=== PATIENT | female | born 1940 | race Caucasian/White ===

== ENCOUNTER 2017-02-02 19:12 | Emergency (ER) | payer MEDICARE, OTHER, SELFPAY ==
[2017-02-02 19:13] VITALS: BP 151/60; PULSE 66; RESP 16; TEMP 36.4; O2SAT 97; BMI 26.9
--- NOTE | 2017-02-02 19:46 | RAD_ITS ---
STUDY: X-RAY - PELVIS AND RIGHT HIP REASON FOR EXAM: Female, 76 years old. Hip pain TECHNIQUE: Radiological exam, hip, unilateral, with pelvis when performed; 2 or 3 views. COMPARISON: None. FINDINGS: There is a non-specific bowel gas pattern. Normal visualized soft tissue structures. Normal bilateral iliac wings, sacroiliac joints and visualized sacrum. Normal bilateral superior and inferior pubic rami. Normal pubic symphysis. Normal bilateral ischial tuberosities. Normal visualized femoral head. Normal acetabulum. Normal hip joint. RAD/Hip 2-3 Views with Pelvis IMPRESSION: Normal x-ray examination of the pelvis and hip. Electronically Signed: Marlon Henson DO at 21:08 EST , Service support ,
--- NOTE | 2017-02-02 19:46 | RAD_ITS ---
STUDY: X-RAY CHEST REASON FOR EXAM: Female, 76 years old. Chest pain TECHNIQUE: Frontal and lateral views of the chest. COMPARISON: 12/12/2016. FINDINGS: The lungs are expanded. Chronic interstitial changes right upper lung. Posterior opacity seen on the lateral view. There is no demonstrated pleural abnormality. Normal size heart. Normal mediastinum and kahlil. Normal visualized pulmonary arteries. Normal visualized aortic arch and descending thoracic aorta. Normal visualized thoracic spine. Normal visualized ribs, clavicles, and shoulders. There is no demonstrated abnormality of the visualized soft tissue structures of the upper abdomen. RAD/Chest PA and Lateral IMPRESSION: Small right effusion. Chronic interstitial changes. No acute infiltrates. Electronically Signed: Marlon Henson DO at 21:04 EST , Service support ,
--- NOTE | 2017-02-02 19:46 | EKG12_ITS ---
Test Reason : SOB Blood Pressure : / mmHG Vent. Rate : 062 BPM Atrial Rate : 062 BPM P-R Int : 188 ms QRS Dur : 098 ms QT Int : 438 ms P-R-T Axes : 081 029 043 degrees QTc Int : 444 ms Normal sinus rhythm Low voltage QRS Borderline ECG Confirmed by LEAH NY, SARAH ([id number]), staff editor DOMINGO WING ([id number]) on 02/11/2017 3:14:38 PM Referred By: ÁNGEL Confirmed By:SARAH LYNN MD
--- NOTE | 2017-02-02 19:46 | ED.VISSUMM ---
- ER Visit Summary Date of Service: 02/02/17 Chief Complaint: Wheezing intermittently and leg swelling and recent fall History of Present Illness: The patient is a 76 F who in December had a stroke. She was admitted to [facility] and then recently was in [facility]. She is now at home and being cared for by her granddaughter. She is a history of anemia and insulin-dependent diabetes. Also A. fib. Patient denies chest pain or fever. She denies hemoptysis. Physical Examination: Well-appearing older female. Vital signs are stable afebrile. Pulse ox 97% on room air no signs of hypoxia. HEENT exam unremarkable. Neck nontender. Lungs clear to auscultation bilaterally. Heart regular rate and rhythm. Abdomen is soft and nontender. Extremities she moves all 4. She has trace edema both lower extremities. She is a bruise on her right hip but has normal range of motion of the right hip. There is no external rotation or shortening. Back exam nontender. Neurologically she is awake and alert with no focal deficits. Test Results: Chest x-ray shows a small right pleural effusion. Otherwise no acute abnormality read by myself the radiologist. Pelvis right hip x-ray shows no acute abnormality no fracture. EKG sinus rhythm rate is 62 with no acute abnormalities. CBC shows a white count of 7. CHRISTIANO globin at 10.7 which is her baseline anemia. Electrolytes unremarkable normal gap and a creatinine 1.3. Troponin normal. Emergency Department Course and Treatment: Clinically the patient looks well. She does have trace edema lower extremities. Treatment Plan: Repeat exam the patient is doing well at 2155 with patient and her daughter are comfortable with her being discharged home. Disposition: Discharge Impression: Fall with right hip contusion Wheezing resolved Small right pleural effusion on x-ray Chronic anemia This note was generated with [employer] dictation software. It may contain incorrect words, spelling, and punctuation that were not noted in review of the chart prior to signing ED Disposition - Plan for ED Patient: Chief Complaint: General Illness Referrals: Elizabeth Coto MD [Primary Care Provider] -
[2017-02-02 20:19] LABS: Absolute Lymphocyte Count 1.33 X10^3/ul (0.83-4.51); Absolute Neutrophil Count 4.9 X10^3/uL (2.0-7.7); Basophil# 0.03 X10^3/uL; Basophil% 0.4 % (0-1); Eosinophil# 0.24 X10^3/uL; Eosinophils% 3.3 % (0-5); Hematocrit 33.3 % (37-47); Hemoglobin 10.7 g/dl (12.0-15.0); Lymphocyte # 1.33 X10^3/ul (4.0); Lymphocyte % 18.4 % (19-41); Mean Corp Hgb Conc 32.1 g/gl (32-36); Mean Corpuscular Hgb 31.2 pg (27.0-32.0); Mean Corpuscular Volume 97.1 fL (81-99); Mean Platelet Vol. 9.4 fl (6.2-12.0); Monocyte% 9.7 % (0-10); Neutrophil # 4.92 X10^3/uL (2.7-7.7); Neutrophil % 68.1 % (47-70); Platelet Count 245 K/mm3 (150-450); RBC Distribution Width SD 49.7 fl (35.1-43.9); Red Blood Count 3.43 M/mm3 (4.2-5.4); White Blood Count 7.2 K/mm3 (4.4-11.0)
[2017-02-02 20:20] LABS: POSITIVE COUNT NO; POSITIVE DIFFERENTIAL NO; POSITIVE MORPHOLOGY NO
[2017-02-02 20:37] VITALS: BP 160/57; PULSE 63; RESP 20; O2SAT 98
[2017-02-02 20:57] LABS: Anion Gap 6 (5-15); BUN 16 mg/dL (7-18); BUN/Creat Ratio 11.7 RATIO (10-20); Chloride 105 mmol/L (98-107); Creatinine, Serum 1.37 mg/dL (0.55-1.02); EST Glomerular Filtration Rate 40 mL/min (>60); Est Glom Filt Rate - Afr Amer 48 mL/min (>60); Estimated Creatinine Clearance 30.17 ml/min; Glucose 96 mg/dL (70-110); Potassium 4.8 mmol/L (3.5-5.1); Sodium Level 136 mmol/L (136-145)
--- NOTE | 2017-02-02 21:59 | ED.DEP ---
ED Disposition - Plan for ED Patient: Disposition: Home or Assisted Living Chief Complaint: General Illness Instructions: ED Contusion Hip Referrals: Elizabeth Coto MD [Primary Care Provider] - 1 Week if not improving Additional Instructions: Follow-up with primary care physician if not improving in 1 week. Small right pleural effusion (fluid collection) of no significance.
[2017-02-02 22:05] VITALS: BP 145/51; PULSE 62; RESP 16; O2SAT 97
== END 2017-02-02 22:18 | disposition home or self-care (01) ==
PROVIDERS: Emergency Provider Emergency Medicine; Family Provider Internal Medicine; PCP Internal Medicine
DX: S70.01XA Contusion of right hip, initial encounter (principal); R06.2 Wheezing; J90 Pleural effusion, not elsewhere classified; D53.9 Nutritional anemia, unspecified; R60.0 Localized edema; W19.XXXA Unspecified fall, initial encounter; Y93.9 Activity, unspecified; Y92.9 Unspecified place or not applicable; Z86.73 Personal history of transient ischemic attack (TIA), and cerebral infarction without residual deficits; K21.9 Gastro-esophageal reflux disease without esophagitis; E11.9 Type 2 diabetes mellitus without complications; I10 Essential (primary) hypertension; E78.00 Pure hypercholesterolemia, unspecified; I48.91 Unspecified atrial fibrillation; Z87.448 Personal history of other diseases of urinary system; Z79.01 Long term (current) use of anticoagulants; Z79.899 Other long term (current) drug therapy; Z79.4 Long term (current) use of insulin; Z96.41 Presence of insulin pump (external) (internal)
CPT/HCPCS: 71020; 73502; 80048; 84484; 85025; 93005; 99284; A4216

== ENCOUNTER 2017-03-18 10:48 | Inpatient (IN) | payer MEDICARE, OTHER, SELFPAY ==
[2017-03-18] VITALS (17 sets, daily range): BP systolic 91–177; BP diastolic 48–90; PULSE 60–76; RESP 13–19; TEMP 36.4–37.1; O2SAT 94–100; BMI 24.6; BMI 25.3
--- NOTE | 2017-03-18 11:05 | CT_ITS ---
STUDY: CT BRAIN WITHOUT CONTRAST REASON FOR EXAM: Female, 77 years old. Hypotension. RADIATION DOSAGE (If Supplied By Facility): CTDIvol = ( 44.99 ) mGy, DLP = ( 745.49 ) mGycm TECHNIQUE: Transaxial CT imaging of the brain was performed without administration of intravenous contrast material. Individualized dose optimization techniques were used for this CT. COMPARISON: Comparison is made with prior study dated December 13, 2016. FINDINGS: Normal soft tissue structures. Normal calvarium. There is mild cerebral atrophy with widening of the extra-axial spaces and ventricular dilatation. There are areas of decreased attenuation within the white matter tracts of the supratentorial brain, consistent with microvascular disease changes. Stable focal encephalomalacia in the left frontal temporal lobe as well as in the superior aspect of the left posterior parietal lobe. Normal basal ganglia and thalami. Normal brainstem. There is mild cerebellar atrophy. There is no intracranial hemorrhage. There are no findings of an acute ischemic infarction. Normal visualized paranasal sinuses. CT/Brain/Head without Contrast IMPRESSION: Chronic involutional changes of the brain. Electronically Signed: Janes Boyle MD at 13:21 EST Tel [phone], Service support ,
--- NOTE | 2017-03-18 11:05 | EKG12_ITS ---
Test Reason : HYPOTENSION Blood Pressure : / mmHG Vent. Rate : 067 BPM Atrial Rate : 067 BPM P-R Int : 196 ms QRS Dur : 092 ms QT Int : 432 ms P-R-T Axes : 070 -18 045 degrees QTc Int : 456 ms Normal sinus rhythm Low voltage QRS Borderline ECG Confirmed by LADI NY, LIBAN ([id number]), material expeditor DOMINGO WING ([id number]) on 03/20/2017 2:17:56 PM Referred By: TYREE Confirmed By:LIBAN BLEDSOE MD
--- NOTE | 2017-03-18 11:05 | RAD_ITS ---
STUDY: X-RAY CHEST REASON FOR EXAM: Female, 77 years old. Hypotension. TECHNIQUE: Single AP portable view of the chest. COMPARISON: Comparison is made with prior study dated February 02, 2017. FINDINGS: EKG electrodes are seen. Hyperinflation. Stable increased markings at the lung bases suggestive of scarring. There is no demonstrated pleural abnormality. Normal size heart. Normal mediastinum and kahlil. Normal visualized pulmonary arteries. Normal visualized aortic arch and descending thoracic aorta. Normal visualized thoracic spine. Normal visualized ribs, clavicles, and shoulders. There is no demonstrated abnormality of the visualized soft tissue structures of the upper abdomen. RAD/Chest 1 View (Portable) IMPRESSION: Hyperinflation. Electronically Signed: Janes Boyle MD at 11:26 EST Tel [phone], Service support ,
--- NOTE | 2017-03-18 11:12 | ED.DCSUM_ITS ---
- ER Visit Summary Date of Service: 03/18/17 Chief Complaint: Low blood pressure History of Present Illness: The patient is a 77 F low blood pressure intermittently over the last several weeks. She was in her PCPs office today and had a systolic pressure of 70. She was referred to the ED. She has been feeling dizzy and nauseated. Denies vomiting. She did have some diarrhea recently, but attributes that to taking too much MiraLAX. Denies bleeding. She thought her blood pressure might be low because she was on metoprolol and amiodarone. She stopped her metoprolol about 2 weeks ago, but continues to have low blood pressures. She is also taking her amiodarone every other day per the recommendations of her c application developer. Patient denies any focal weakness or numbness. Denies injuries. Denies bleeding. Denies chest pain or shortness of breath. Denies abdominal pain or back pain. Physical Examination: Blood pressure 132/68. Heart rate 74. Vital signs otherwise normal. Afebrile. Alert and oriented. HEENT exam unremarkable. Heart regular. Lungs clear. Abdomen soft. Extremities unremarkable except for a superficial ulcer to her right dorsal foot with some surrounding erythema , approximately 4 cm in diameter. No focal or lateralizing neurologic abnormalities grossly. Test Results: EKG, chest x-ray, CT head pending. Blood work and urinalysis pending. Cultures pending. Emergency Department Course and Treatment: Patient was treated with fluids while awaiting results. We will check orthostatics. Statics were positive and the patient was treated with fluids. Her CBC was unremarkable. CMP unremarkable. INR 1.4 and PTT normal. Urinalysis showed signs of infection. Cultures are pending. Troponin and lactate were normal. Chest x-ray showed hyperinflation, no acute findings. CT head showed chronic changes. Treated with Rocephin for the UTI. She was reassessed after a liter bolus. She was still orthostatic positive. She received additional fluids. She has been dealing with this issue now for weeks and it continues despite medication changes. She is not in shock. I spoke at length with her granddaughter who takes care of her. She is not functioning at home and cannot go home if she continues to be lightheaded with standing. I spoke with the hospitalist to evaluate. Treatment Plan: As above, continue fluids Disposition: Admission Impression: 1. UTI 2. Orthostatic hypotension This note was generated with [employer] dictation software. It may contain incorrect words, spelling, and punctuation that were not noted in review of the chart prior to signing ED Disposition - Plan for ED Patient: Chief Complaint: Nausea/Vomiting/Diarrhea Referrals: Elizabeth Coto MD [Primary Care Provider] -
[2017-03-18] MEDS: 0.9% Normal Saline 1,000 ML 999 ML IV ×2 (11:44→15:45)
[2017-03-18 12:18] LABS: Lactic Acid 1.1 mmol/L (0.4-2.0)
[2017-03-18 13:25] LABS: Mucous, Urine 0 SEEN /hpf (<or=2+)
[2017-03-18 13:31] LABS: Color, Urine Yellow (Yellow); Glucose, Dipstick Normal (Normal); Ketone-Dipstick Negative (Negative); Leukocyte Esterase-Dipstick 500 /ul (Negative); Nitrite-Dipstick Negative (Negative); Occult Blood-Urine 10 /ul (Negative); Protein-Dipstick Negative (Negative); Specific Gravity, Urine 1.015 (1.002-1.030); Urine Bilirubin Dipstick Negative (Negative); Urine Clarity Sl. Cloudy (Clear); Urine Urobilinogen Normal (Normal)
[2017-03-18 13:32] LABS: AST(SGOT) 17 U/L (15-37); Absolute Lymphocyte Count 1.32 X10^3/ul (0.83-4.51); Absolute Neutrophil Count 3.4 X10^3/uL (2.0-7.7); Alanine Aminotransfer ALT/SGPT 22 U/L (13-56); Albumin, Serum 3.1 g/dL (3.2-5.0); Alkaline Phosphatase 92 U/L (45-117); Anion Gap 9 (5-15); BUN 16 mg/dL (7-18); BUN/Creat Ratio 18.1 RATIO (10-20); Basophil# 0.04 X10^3/uL; Basophil% 0.7 % (0-1); Chloride 109 mmol/L (98-107); Creatinine, Serum 0.88 mg/dL (0.55-1.02); EST Glomerular Filtration Rate 66 mL/min (>60); Eosinophil# 0.25 X10^3/uL; Eosinophils% 4.6 % (0-5); Est Glom Filt Rate - Afr Amer 80 mL/min (>60); Estimated Creatinine Clearance 46.23 ml/min; Glucose 82 mg/dL (74-106); Hematocrit 35.8 % (37-47); Hemoglobin 11.9 g/dl (12.0-15.0); International Normalized Ratio 1.4; Lymphocyte # 1.32 X10^3/ul (4.0); Lymphocyte % 24.1 % (19-41); Mean Corp Hgb Conc 33.2 g/gl (32-36); Mean Corpuscular Hgb 30.7 pg (27.0-32.0); Mean Corpuscular Volume 92.3 fL (81-99); Mean Platelet Vol. 10.3 fl (6.2-12.0); Monocyte# 0.48 X10^3/uL; Monocyte% 8.8 % (0-10); Neutrophil # 3.38 X10^3/uL (2.7-7.7); Neutrophil % 61.6 % (47-70); Platelet Count 237 K/mm3 (150-450); Potassium 3.8 mmol/L (3.5-5.1); Protein, Total 6.1 g/dL (6.4-8.2); Prothrombin Time (Protime)PT. 16.8 SECONDS (11.7-14.9); RBC Distribution Width SD 46.2 fl (35.1-43.9); Red Blood Count 3.88 M/mm3 (4.2-5.4); Sodium Level 143 mmol/L (136-145); White Blood Count 5.5 K/mm3 (4.4-11.0)
[2017-03-18 13:33] LABS: POSITIVE COUNT NO; POSITIVE DIFFERENTIAL NO; POSITIVE MORPHOLOGY NO; Partial Thromboplast Time 28.7 Seconds (24.1-36.2)
[2017-03-18 13:40] LABS: Bacteria 1+ /hpf (None Seen); Red Blood Cells-Urine 0-5 SEEN /hpf (0-5); Squamous Epithelial Cells - UA 0-5 SEEN /hpf (5-10); White Blood Cells 25-50 SEEN /hpf (0-5); Yeast-Urine 2+ /hpf (None Seen)
[2017-03-18 15:56] LABS: Bedside Glucose 140 mg/dL (70-110)
--- NOTE | 2017-03-18 18:27 | ED.RN ---
PT GIVEN MEAL. GRANDDAUGHTER BOSTON CHECKED PT BLOOD GLUCOSE, 270. PT HAS INDWELLING INSULIN PUMP THAT WAS MANAGED BY GRANDDAUGHTER.
[2017-03-18] MEDS: Atorvastatin Calcium 40 MG Tablet PO (21:30)
[2017-03-18 21:46] LABS: Bedside Glucose 166 mg/dL (70-110)
--- NOTE | 2017-03-18 22:19 | PCM.HP.STD ---
Problem List (1) Low blood pressure Status: Acute Qualifiers: Hypotension type: orthostatic hypotension Qualified Code(s): I95.1 - Orthostatic hypotension History of Present Illness Date of Admission: 03/18/17 Chief Complaint: Blood pressure The patient is a 77 year old F seen in the emergency room at [facility] after being sent there for evaluation from her public service representative's office due to low blood pressure. Patient has had a history of orthostatic hypotension since mid February 2017, the exact cause is unknown, patient is currently off of all medications that would be used for blood pressure. On evaluation in the emergency room, patient was noted to have a blood pressure drop to 91/48 when standing. Blood pressure lying was 149/52. Labs were obtained on the patient, hemoglobin was noted to be 11.9, urinalysis showed +1 bacteria, 25-50 WBCs, 0-5 RBCs, and +2 yeast. Patient was given IV fluid administration but her blood pressure remained low when standing with a reading of 93/60 after 2 liters of IV fluid. Emergency room physician felt that the patient had a urinary tract infection and administered IV Rocephin. In talking with the patient's caregiver-her granddaughter-it was noted that the patient has been treated over the last several months for frequent urinary tract infections, patient has no complaints of any dysuria, urinary frequency, or hesitancy today in the emergency room. The patient's granddaughter also stated that the patient was placed on Flomax approximately 2 months ago. Patient will be placed in observation status, her Flomax will be stopped, patient will be placed on midodrine 5 mg twice daily, PT and OT will see the patient, and wound care will see the patient for small wound that she has on the dorsum of her right foot due to use of a foot brace. Patient had a stroke last fall, she ambulates with a walker but does not go very far. Past Medical History Past Medical History (Chronic Problems): Chronic Problems (Last Updated 02/19/17 @ 16:49 by Brenda Caldwell) Diabetes mellitus (Chronic) Patient arrives but has no insulin left in her insulin pump. Appointment kept brief. No data sent of blood sugar results. Will enc these sent. Appointment was for pt to be able to wear insulin pump in facility but medical education specialist had already approved. Glaucoma (Chronic) Allergies ezetimibe [From Zetia] Allergy (Verified 03/18/17 10:49) Other Home Medications: Ambulatory Orders Medication Instructions Recorded tamsulosin 0.4 mg capsule 0.4 mg PO BID cap 01/28/17 Pantoprazole Sodium [Protonix] 20 mg PO DAILY 02/02/17 insulin lispro 100 unit/mL See Label Instructions CONTINUOUS 02/04/17 subcutaneous solution SUBCUTANEOUS INFUSION QDAY #3 ml Amiodarone HCl [Cordarone] 200 mg PO QODAY 03/18/17 Apixaban [Eliquis] 5 mg PO BID 03/18/17 Atorvastatin Calcium [Lipitor] 40 mg PO QHS 03/18/17 Calcium Carb/Vitamin D [Os-Jam 1 tablet PO DAILY@0800 03/18/17 500MG + D] Carboxymethylcellulos/Glycerin 1 drop EACH EYE 4X/DAY PRN 03/18/17 [Refresh Optive Eye Drops] Difluprednate [Durezol] 1 drop LEFT EYE DAILY 03/18/17 Dorzolamide HCl/Timolol Maleat 1 drop RIGHT EYE BID 03/18/17 [Cosopt Eye Drops] Ergocalciferol [Vitamin D] 50,000 unit PO Fr@1000 03/18/17 Multivitamins,Therapeutic 1 tablet PO DAILY@0800 03/18/17 [Multivitamin] Refresh Tears 0.25 inch EACH EYE QHS 03/18/17 Surgical History: cataract, tonsillectomy, - - Tubal ligation bilaterally Psychiatric History: No pertinent psych hx BEHAVIOR INTERVENTIONIST History: No pertinent BEHAVIOR INTERVENTIONIST history Lives: With Family Smoking Status: Never smoker Tobacco Use: Non-smoker Alcohol: None Drugs: None - *Family History Sibling History Items: Stroke Maternal History Items: No pertinent history Paternal History Items: No pertinent history Review of Systems Constitutional: Denies: Anorexia, Chills, Fever, Night Sweats, Malaise, Weakness, Weight Change, Fatigue Eyes: Denies: Blurred vision, Cataracts, Conjunctivae Inflammation, Double vision, Drainage, Pain, Redness, Vision Change HEENT: Denies: Difficulty Hearing, Difficulty Swallowing, Dysphasia, Ear Pain, Eye Pain, Hearing Changes, Nasal bleeding, Nasal Congestion, Post Nasal Drip Cardiovascular: Denies: Chest Pain, Claudication, Chest Pressure, Chest Tightness, Edema, Heaviness, Orthopnea, Palpitations, Paroxysmal Noc. Dyspnea, Syncope Respiratory: Denies: Cough, Hemoptysis, Pleuritic Pain, Shortness of Breath, Shortness of breath at rest, Shortness of breath upon exertion, Sputum production, Wheezing Gastrointestinal: Denies: Abdominal Pain, Constipation, Diarrhea, Hematemesis, Hematochezia, Nausea, Melena, Vomiting Genitourinary: Denies: Dysuria, Frequency, Hematuria, Hesitancy, Incontinence, Nocturia, Urgency Musculoskeletal: Denies: Foot Pain, Hand Pain, Joint Pain, Joint stiffness, Joint swelling, Joint Tenderness, Leg Pain Skin: Reports: Wounds - Wound on the dorsum of the patient's right foot. Denies: Dryness, Pruritis, Rash Neurological: Reports: Balance problems. Denies: Blurred vision, Double vision, Change in Speech, Slurred speech, Difficulty swallowing, Focal weakness, Numbness, Tingling, Tremor, Seizures Psychiatric: Denies: Anxiety, Depression, Homicidal Ideations, Suicidal Ideations Endocrine: Denies: Change in Body Habitus, Heat/ Cold Intolerance, Polydipsia, Polyuria Hematologic/ Lymphatic: Denies: Adenopathy, Anemia, Easy Bruising, Easy Bleeding, Petechiae, Purpura VTE Information - Inpt Only VTE Present on Admission: No VTE Mechan Device Prophylaxis: None VTE Pharm Prophylaxis ordered?: No Reason prophylaxis not ordered:: Medical Contraindication - Patient on Eliquis Patient Problems: Active and Suspected Problems (Last Updated 02/19/17 @ 16:49 by Brenda Caldwell) Low blood pressure (Acute) - Physical Exam General: Alert, Oriented x3, Cooperative, No apparent distress, Well developed, Well nourished HEENT: Atraumatic, PERRLA, EOMI, Normocephalic Oral: Moist Mucosa Neck: Supple, No JVD, Negative Carotid Bruits, No Nuchal Rigidity, Trachea Midline, Thyroid Normal Size and Texture Lungs: Clear to auscultation, Normal air movement, No rhonchi, No wheeze, No rales Cardiovascular: Regular rate, Regular Rhythm, Normal S1, Normal S2, No murmurs, No Ectopic Activity, PMI Normal, No rub noted, No Gallop Abdomen: Bowel Sounds Present, Soft, Non Tender, Non-Distended, No hernias noted Extremities: No edema, Capillary Refill Less than 3 Seconds Skin: No rashes, Ulcer/ Wound - There is a small 1/2 cm ulceration on the dorsum of the patient's right foot, margins are distinct and there is no discharge noted from the area and the area is non-reddened Musculoskeletal: No Tenderness to Palpation of Joints or Extremities Neurological: Cranial nerves II-XII grossly intact, Neuro grossly intact, Sensory exam intact to light touch and pain, Coordination normal Psych/Mental Status: Normal Affect, Appropriate, Alert and oriented to time, place, person, mood and affect Vital Signs Temp Pulse Resp BP Pulse Ox 98.6 F 62 18 149/52 H 98 03/18/17 19:12 03/18/17 19:12 03/18/17 19:12 03/18/17 19:12 03/18/17 19:12 Oxygen Delivery Method Room Air Weight: 64.864 kg Body Mass Index (BMI) 25.3 POC Glucose 03/18/17 21:32 POC Glucose 166 H Assessment/Plan Active and Suspected Problems (Last Updated 02/19/17 @ 16:49 by Brenda Caldwell) Low blood pressure (Acute) #1 orthostatic hypotension-exact etiology unclear, it could be neurologically mediated due to her diabetes-patient will be placed in observation status, her Flomax will be stopped, she will be placed on a low-dose of midodrine, patient may need to follow-up with neurology if her symptoms do not resolve #2 paroxysmal atrial fibrillation-in sinus rhythm, patient is chronically on Eliquis #3 cerebrovascular disease-patient had a stroke last fall according to her granddaughter, PT and OT will see patient #4 pressure wound on dorsum of the right foot-from wearing right foot brace-stage II, I will have wound nurse see the patient #5 type 2 diabetes-patient uses an insulin pump, blood sugars will be monitored #6 neurogenic bladder-patient was on Flomax due to urine retention, patient was seen urology in the past #6 yeast infection of the bladder-patient will be placed on Diflucan, I do not feel she has a bacterial bladder infection #7 likely bacterial colonization of the bladder due to urinary retention-patient has been treated many times over the last few months for urinary tract infections I believe that it is likely the patient has colonization by bacteria. Code Visit OBSV E&M: 92129 Initial observation care L3
--- NOTE | 2017-03-18 22:30 | HP.PCM_ITS ---
Problem List (1) Low blood pressure Status: Acute Qualifiers: Hypotension type: orthostatic hypotension Qualified Code(s): I95.1 - Orthostatic hypotension History of Present Illness Date of Admission: 03/18/17 Chief Complaint: Blood pressure The patient is a 77 year old F seen in the emergency room at 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 Patient has had a history of orthostatic hypotension since mid February 2017, the exact cause is unknown, patient is currently off of all medications that would be used for blood pressure. On evaluation in the emergency room, patient was noted to have a blood pressure drop to 91/48 when standing. Blood pressure lying was 149/52. Labs were obtained on the patient, hemoglobin was noted to be 11.9, urinalysis showed +1 bacteria, 25-50 WBCs, 0-5 RBCs, and +2 yeast. Patient was given IV fluid administration but her blood pressure remained low when standing with a reading of 93/60 after 2 liters of IV fluid. Emergency room physician felt that the patient had a urinary tract infection and administered IV Rocephin. In talking with the patient's caregiver-her granddaughter-it was noted that the patient has been treated over the last several months for frequent urinary tract infections, patient has no complaints of any dysuria, urinary frequency, or hesitancy today in the emergency room. The patient's granddaughter also stated that the patient was placed on Flomax approximately 2 months ago. Patient will be placed in observation status, her Flomax will be stopped, patient will be placed on midodrine 5 mg twice daily, PT and OT will see the patient, and wound care will see the patient for small wound that she has on the dorsum of her right foot due to use of a foot brace. Patient had a stroke last fall, she ambulates with a walker but does not go very far. Past Medical History Past Medical History (Chronic Problems): Chronic Problems (Last Updated 02/19/17 @ 16:49 by Brenda Caldwell) Diabetes mellitus (Chronic) Patient arrives but has no insulin left in her insulin pump. Appointment kept brief. No data sent of blood sugar results. Will enc these sent. Appointment was for pt to be able to wear insulin pump in facility but medical appointment clerk had already approved. Glaucoma (Chronic) Allergies ezetimibe [From Zetia] Allergy (Verified 03/18/17 10:49) Other Home Medications: Ambulatory Orders Medication Instructions Recorded tamsulosin 0.4 mg capsule 0.4 mg PO BID cap 01/28/17 Pantoprazole Sodium [Protonix] 20 mg PO DAILY 02/02/17 insulin lispro 100 unit/mL See Label Instructions CONTINUOUS 02/04/17 subcutaneous solution SUBCUTANEOUS INFUSION QDAY #3 ml Amiodarone HCl [Cordarone] 200 mg PO QODAY 03/18/17 Apixaban [Eliquis] 5 mg PO BID 03/18/17 Atorvastatin Calcium [Lipitor] 40 mg PO QHS 03/18/17 Calcium Carb/Vitamin D [Os-Jam 1 tablet PO DAILY@0800 03/18/17 500MG + D] Carboxymethylcellulos/Glycerin 1 drop EACH EYE 4X/DAY PRN 03/18/17 [Refresh Optive Eye Drops] Difluprednate [Durezol] 1 drop LEFT EYE DAILY 03/18/17 Dorzolamide HCl/Timolol Maleat 1 drop RIGHT EYE BID 03/18/17 [Cosopt Eye Drops] Ergocalciferol [Vitamin D] 50,000 unit PO Fr@1000 03/18/17 Multivitamins,Therapeutic 1 tablet PO DAILY@0800 03/18/17 [Multivitamin] Refresh Tears 0.25 inch EACH EYE QHS 03/18/17 Surgical History: cataract, tonsillectomy, - - Tubal ligation bilaterally Psychiatric History: No pertinent psych hx 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 FIELD 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 history Lives: With Family Smoking Status: Never smoker Tobacco Use: Non-smoker Alcohol: None Drugs: None - *Family History Sibling History Items: Stroke Maternal History Items: No pertinent history Paternal History Items: No pertinent history Review of Systems Constitutional: Denies: Anorexia, Chills, Fever, Night Sweats, Malaise, Weakness , Weight Change, Fatigue Eyes: Denies: Blurred vision, Cataracts, Conjunctivae Inflammation, Double vision, Drainage, Pain, Redness, Vision Change HEENT: Denies: Difficulty Hearing, Difficulty Swallowing, Dysphasia, Ear Pain, Eye Pain, Hearing Changes, Nasal bleeding, Nasal Congestion, Post Nasal Drip Cardiovascular: Denies: Chest Pain, Claudication, Chest Pressure, Chest Tightness, Edema, Heaviness, Orthopnea, Palpitations, Paroxysmal Noc. Dyspnea, Syncope Respiratory: Denies: Cough, Hemoptysis, Pleuritic Pain, Shortness of Breath, Shortness of breath at rest, Shortness of breath upon exertion, Sputum production, Wheezing Gastrointestinal: Denies: Abdominal Pain, Constipation, Diarrhea, Hematemesis, Hematochezia, Nausea, Melena, Vomiting Genitourinary: Denies: Dysuria, Frequency, Hematuria, Hesitancy, Incontinence, Nocturia, Urgency Musculoskeletal: Denies: Foot Pain, Hand Pain, Joint Pain, Joint stiffness, Joint swelling, Joint Tenderness, Leg Pain Skin: Reports: Wounds - Wound on the dorsum of the patient's right foot. Denies : Dryness, Pruritis, Rash Neurological: Reports: Balance problems. Denies: Blurred vision, Double vision , Change in Speech, Slurred speech, Difficulty swallowing, Focal weakness, Numbness, Tingling, Tremor, Seizures Psychiatric: Denies: Anxiety, Depression, Homicidal Ideations, Suicidal Ideations Endocrine: Denies: Change in Body Habitus, Heat/ Cold Intolerance, Polydipsia, Polyuria Hematologic/ Lymphatic: Denies: Adenopathy, Anemia, Easy Bruising, Easy Bleeding , Petechiae, Purpura VTE Information - Inpt Only VTE Present on Admission: No VTE Mechan Device Prophylaxis: None VTE Pharm Prophylaxis ordered?: No Reason prophylaxis not ordered:: Medical Contraindication - Patient on Eliquis Patient Problems: Active and Suspected Problems (Last Updated 02/19/17 @ 16:49 by Brenda Caldwell ) Low blood pressure (Acute) - Physical Exam General: Alert, Oriented x3, Cooperative, No apparent distress, Well developed, Well nourished HEENT: Atraumatic, PERRLA, EOMI, Normocephalic Oral: Moist Mucosa Neck: Supple, No JVD, Negative Carotid Bruits, No Nuchal Rigidity, Trachea Midline, Thyroid Normal Size and Texture Lungs: Clear to auscultation, Normal air movement, No rhonchi, No wheeze, No rales Cardiovascular: Regular rate, Regular Rhythm, Normal S1, Normal S2, No murmurs, No Ectopic Activity, PMI Normal, No rub noted, No Gallop Abdomen: Bowel Sounds Present, Soft, Non Tender, Non-Distended, No hernias noted Extremities: No edema, Capillary Refill Less than 3 Seconds Skin: No rashes, Ulcer/ Wound - There is a small 1/2 cm ulceration on the dorsum of the patient's right foot, margins are distinct and there is no discharge noted from the area and the area is non-reddened Musculoskeletal: No Tenderness to Palpation of Joints or Extremities Neurological: Cranial nerves II-XII grossly intact, Neuro grossly intact, Sensory exam intact to light touch and pain, Coordination normal Psych/Mental Status: Normal Affect, Appropriate, Alert and oriented to time, place, person, mood and affect Vital Signs Temp Pulse Resp BP Pulse Ox 98.6 F 62 18 149/52 H 98 03/18/17 19:12 03/18/17 19:12 03/18/17 19:12 03/18/17 19:12 03/18/17 19:12 Oxygen Delivery Method Room Air Weight: 64.864 kg Body Mass Index (BMI) 25.3 POC Glucose 03/18/17 21:32 POC Glucose 166 H Assessment/Plan Active and Suspected Problems (Last Updated 02/19/17 @ 16:49 by Brenda Caldwell ) Low blood pressure (Acute) #1 orthostatic hypotension-exact etiology unclear, it could be neurologically mediated due to her diabetes-patient will be placed in observation status, her Flomax will be stopped, she will be placed on a low-dose of midodrine, patient may need to follow-up with neurology if her symptoms do not resolve #2 paroxysmal atrial fibrillation-in sinus rhythm, patient is chronically on Eliquis #3 cerebrovascular disease-patient had a stroke last fall according to her granddaughter, PT and OT will see patient #4 pressure wound on dorsum of the right foot-from wearing right foot brace- stage II, I will have wound nurse see the patient #5 type 2 diabetes-patient uses an insulin pump, blood sugars will be monitored #6 neurogenic bladder-patient was on Flomax due to urine retention, patient was seen urology in the past #6 yeast infection of the bladder-patient will be placed on Diflucan, I do not feel she has a bacterial bladder infection #7 likely bacterial colonization of the bladder due to urinary retention- patient has been treated many times over the last few months for urinary tract infections I believe that it is likely the patient has colonization by bacteria. Code Visit OBSV E&M: 07170 Initial observation care L3
[2017-03-18] MEDS: Midodrine HCl 5 MG Tablet PO (22:37)
[2017-03-18] MEDS: APIXABAN 5 MG TABLET PO (22:37)
[2017-03-19] VITALS (13 sets, daily range): BP systolic 113–161; BP diastolic 49–93; PULSE 58–69; RESP 12–18; TEMP 36.1–36.9; O2SAT 96–100
[2017-03-19 03:11] LABS: Bedside Glucose 211 mg/dL (70-110)
[2017-03-19 06:26] LABS: Bedside Glucose 181 mg/dL (70-110)
[2017-03-19] MEDS: Fluconazole 100 MG Tablet 200 MG PO (08:58)
[2017-03-19] MEDS: Midodrine HCl 5 MG Tablet PO ×2 (08:58→22:24)
[2017-03-19] MEDS: Pantoprazole Sodium 20 MG Tablet PO (08:58)
[2017-03-19] MEDS: APIXABAN 5 MG TABLET PO ×2 (08:58→22:23)
[2017-03-19] MEDS: Amiodarone 200 MG Tablet PO (09:03)
[2017-03-19] MEDS: 0.9% Normal Saline 1,000 ML 999 ML IV (11:16)
[2017-03-19 11:30] LABS: Bedside Glucose 319 mg/dL (70-110)
--- NOTE | 2017-03-19 13:32 | NURSING ---
wound photo: right dorsal foot
--- NOTE | 2017-03-19 14:15 | PCM.PROGNOTE ---
<Warner Martinez - Last Filed: 03/19/17 14:18> Patient Problems: Active and Suspected Problems (Last Updated 02/19/17 @ 16:49 by Brenda Caldwell) Low blood pressure (Acute) Subjective: Pt no longer dizzy and BP has improved. She still has orthostatic hypotension after med changes and 3 liters IV fluids, however she is no longer becoming dizzy when these are tested. She denies dysuria or frequency. She has some chronic urinary retention, but feels this AM she is emptying her bladder well despite the discontinuation of flomax. She has no fevers or chills. - Physical Exam General: Alert, Oriented x3, Cooperative HEENT: Atraumatic, PERRLA, EOMI, Normocephalic Neck: Supple, No JVD, Negative Carotid Bruits Lungs: Clear to auscultation, Normal air movement Cardiovascular: Regular rate, No murmurs Abdomen: Bowel Sounds Present, Soft, Non Tender Extremities: No edema, Capillary Refill Less than 3 Seconds Skin: No rashes, No breakdown Musculoskeletal: No Tenderness to Palpation of Joints or Extremities Neurological: Cranial nerves II-XII grossly intact Psych/Mental Status: Normal Affect, Appropriate, Alert and oriented to time, place, person, mood and affect Vital Signs Temp Pulse Resp BP Pulse Ox 98.4 F 60 12 156/52 H 96 03/19/17 09:00 03/19/17 14:02 03/19/17 09:00 03/19/17 14:02 03/19/17 09:00 Oxygen Flow Rate 2 Oxygen Delivery Method Room Air Weight: 64.864 kg Body Mass Index (BMI) 25.3 Orthostatic Vital Signs Start: 03/19/17 10:00 Freq: q24h Status: Active Protocol: Activity Type Activity Date Activity User E-Sign Co-Sign Detail Recorded Client Recorded Date Recorded By Document 03/19/17 14:02 MLB [id number] 03/19/17 14:07 MLB 03/19/17 14:02 Orthostatic Vitals Standing -Blood Pressure (90/60-120/80 mm Hg) 115/49 L -Extremity Use Right Arm -Pulse Rate (60-100 beats/min) 60 Sitting -Blood Pressure (90/60-120/80 mm Hg) 134/56 H -Extremity Use Right Arm -Pulse Rate (60-100 beats/min) 60 Lying -Blood Pressure (90/60-120/80 mm Hg) 156/52 H -Extremity Use Right Arm -Pulse Rate (60-100 beats/min) 60 Intake and Output for Last 24 Hours 03/17/17 03/18/17 03/19/17 23:59 23:59 23:59 Intake Total 1700 / 1700 Output Total 800 / 800 Balance 900 / 900 Laboratory Tests Past 24 Hrs 03/19/17 06:15 Cortisol Pending POC Glucose 03/19/17 03/19/17 03/19/17 11:20 05:42 02:54 POC Glucose 319 H 181 H 211 H 03/18/17 21:32 POC Glucose 166 H Assessment/Plan Active and Suspected Problems (Last Updated 02/19/17 @ 16:49 by Brenda Caldwell) Low blood pressure (Acute) 1. Orthostatic hypotension - improved with discontinuation of Flomax, and addition of midodrine. Patient no longer symptomatic. She has received 3 L of IV fluids, but her orthostatic vitals remained positive. Cortisol level is pending, will also check TSH. Troponin neg. 2. Paroxysmal atrial fibrillation-in sinus rhythm, on Eliquis 3. History of stroke last fall-continue PT OT. On statin. 4. Pressure wound dorsum of right foot-wound care is consulted 5. Type 2 diabetes-uses her own insulin pump-continue to monitor 6. History of neurogenic bladder Flomax discontinued, feels she is emptying bladder well 7. Concern for UTI -she is asymptomatic, she most likely has asymptomatic bacteriuria. Will discontinue Diflucan as she has no symptoms of an acute UTI. DVT prophylaxis: On Eliquis DC planning: Continue to monitor blood pressure overnight and wait for improvement in orthostatic vitals. This patient was seen by Warner Martinez PA-C under the supervision of Doctor Springer. <Kerry Springer - Last Filed: 03/19/17 16:10> - Physical Exam Vital Signs Temp Pulse Resp BP Pulse Ox 98.2 F 60 16 134/56 H 98 03/19/17 14:22 03/19/17 15:00 03/19/17 14:22 03/19/17 14:22 03/19/17 14:22 Oxygen Flow Rate 2 Oxygen Delivery Method Room Air Weight: 64.864 kg Body Mass Index (BMI) 25.3 Orthostatic Vital Signs Start: 03/19/17 10:00 Freq: q24h Status: Active Protocol: Activity Type Activity Date Activity User E-Sign Co-Sign Detail Recorded Client Recorded Date Recorded By Document 03/19/17 14:02 MLB [id number] 03/19/17 14:07 MLB 03/19/17 14:02 Orthostatic Vitals Standing -Blood Pressure (90/60-120/80) 115/49 L -Extremity Use Right Arm -Pulse Rate (60-100) 60 Sitting -Blood Pressure (90/60-120/80) 134/56 H -Extremity Use Right Arm -Pulse Rate (60-100) 60 Lying -Blood Pressure (90/60-120/80) 156/52 H -Extremity Use Right Arm -Pulse Rate (60-100) 60 Intake and Output for Last 24 Hours 03/17/17 03/18/17 03/19/17 23:59 23:59 23:59 Intake Total 1700 / 1700 Output Total 800 / 800 Balance 900 / 900 Laboratory Tests Past 24 Hrs 03/19/17 03/19/17 06:15 06:15 TSH 4.87 H Cortisol Pending POC Glucose 03/19/17 03/19/17 03/19/17 11:20 05:42 02:54 POC Glucose 319 H 181 H 211 H 03/18/17 21:32 POC Glucose 166 H Assessment/Plan This patient was seen in conjunction with EZEKIEL Burch. I have independently interviewed and examined the patient and reviewed pertinent historical, laboratory, and other data. Please refer to his note for details of this patient's presentation, findings, and recommendations. I have reviewed his note and concur with documentation as above. Patient feels much better. Noted orthostatic vitals are still positive. Started on midodrine, will continue on IVF, monitor for urine retention whilst off Flomax. Started also on BRICE hoses. Will recheck orthostatics in am Code Visit Inpatient E&M: 99503 Subs Hosp L2
--- NOTE | 2017-03-19 14:18 | PN_ITS ---
<Warner Martinez - Last Filed: 03/19/17 14:18> Patient Problems: Active and Suspected Problems (Last Updated 02/19/17 @ 16:49 by Brenda Caldwell ) Low blood pressure (Acute) Subjective: Pt no longer dizzy and BP has improved. She still has orthostatic hypotension after med changes and 3 liters IV fluids, however she is no longer becoming dizzy when these are tested. She denies dysuria or frequency. She has some chronic urinary retention, but feels this AM she is emptying her bladder well despite the discontinuation of flomax. She has no fevers or chills. - Physical Exam General: Alert, Oriented x3, Cooperative HEENT: Atraumatic, PERRLA, EOMI, Normocephalic Neck: Supple, No JVD, Negative Carotid Bruits Lungs: Clear to auscultation, Normal air movement Cardiovascular: Regular rate, No murmurs Abdomen: Bowel Sounds Present, Soft, Non Tender Extremities: No edema, Capillary Refill Less than 3 Seconds Skin: No rashes, No breakdown Musculoskeletal: No Tenderness to Palpation of Joints or Extremities Neurological: Cranial nerves II-XII grossly intact Psych/Mental Status: Normal Affect, Appropriate, Alert and oriented to time, place, person, mood and affect Vital Signs Temp Pulse Resp BP Pulse Ox 98.4 F 60 12 156/52 H 96 03/19/17 09:00 03/19/17 14:02 03/19/17 09:00 03/19/17 14:02 03/19/17 09:00 Oxygen Flow Rate 2 Oxygen Delivery Method Room Air Weight: 64.864 kg Body Mass Index (BMI) 25.3 Orthostatic Vital Signs Start: 03/19/17 10:00 Freq: q24h Status: Active Protocol: Activity Type Activity Date Activity User E-Sign Co-Sign Detail Recorded Client Recorded Date Recorded By Document 03/19/17 14:02 MLB [id number] 03/19/17 14:07 MLB 03/19/17 14:02 Orthostatic Vitals Standing -Blood Pressure (90/60-120/80 mm Hg) 115/49 L -Extremity Use Right Arm -Pulse Rate (60-100 beats/min) 60 Sitting -Blood Pressure (90/60-120/80 mm Hg) 134/56 H -Extremity Use Right Arm -Pulse Rate (60-100 beats/min) 60 Lying -Blood Pressure (90/60-120/80 mm Hg) 156/52 H -Extremity Use Right Arm -Pulse Rate (60-100 beats/min) 60 Intake and Output for Last 24 Hours 03/17/17 03/18/17 03/19/17 23:59 23:59 23:59 Intake Total 1700 / 1700 Output Total 800 / 800 Balance 900 / 900 Laboratory Tests Past 24 Hrs 03/19/17 06:15 Cortisol Pending POC Glucose 03/19/17 03/19/17 03/19/17 11:20 05:42 02:54 POC Glucose 319 H 181 H 211 H 03/18/17 21:32 POC Glucose 166 H Assessment/Plan Active and Suspected Problems (Last Updated 02/19/17 @ 16:49 by Brenda Caldwell ) Low blood pressure (Acute) 1. Orthostatic hypotension - improved with discontinuation of Flomax, and addition of midodrine. Patient no longer symptomatic. She has received 3 L of IV fluids, but her orthostatic vitals remained positive. Cortisol level is pending, will also check TSH. Troponin neg. 2. Paroxysmal atrial fibrillation-in sinus rhythm, on Eliquis 3. History of stroke last fall-continue PT OT. On statin. 4. Pressure wound dorsum of right foot-wound care is consulted 5. Type 2 diabetes-uses her own insulin pump-continue to monitor 6. History of neurogenic bladder Flomax discontinued, feels she is emptying bladder well 7. Concern for UTI -she is asymptomatic, she most likely has asymptomatic bacteriuria. Will discontinue Diflucan as she has no symptoms of an acute UTI. DVT prophylaxis: On Eliquis DC planning: Continue to monitor blood pressure overnight and wait for improvement in orthostatic vitals. This patient was seen by Warner Martinez PA-C under the supervision of Doctor Springer. <Kerry Springer - Last Filed: 03/19/17 16:10> - Physical Exam Vital Signs Temp Pulse Resp BP Pulse Ox 98.2 F 60 16 134/56 H 98 03/19/17 14:22 03/19/17 15:00 03/19/17 14:22 03/19/17 14:22 03/19/17 14:22 Oxygen Flow Rate 2 Oxygen Delivery Method Room Air Weight: 64.864 kg Body Mass Index (BMI) 25.3 Orthostatic Vital Signs Start: 03/19/17 10:00 Freq: q24h Status: Active Protocol: Activity Type Activity Date Activity User E-Sign Co-Sign Detail Recorded Client Recorded Date Recorded By Document 03/19/17 14:02 MLB [id number] 03/19/17 14:07 MLB 03/19/17 14:02 Orthostatic Vitals Standing -Blood Pressure (90/60-120/80) 115/49 L -Extremity Use Right Arm -Pulse Rate (60-100) 60 Sitting -Blood Pressure (90/60-120/80) 134/56 H -Extremity Use Right Arm -Pulse Rate (60-100) 60 Lying -Blood Pressure (90/60-120/80) 156/52 H -Extremity Use Right Arm -Pulse Rate (60-100) 60 Intake and Output for Last 24 Hours 03/17/17 03/18/17 03/19/17 23:59 23:59 23:59 Intake Total 1700 / 1700 Output Total 800 / 800 Balance 900 / 900 Laboratory Tests Past 24 Hrs 03/19/17 03/19/17 06:15 06:15 TSH 4.87 H Cortisol Pending POC Glucose 03/19/17 03/19/17 03/19/17 11:20 05:42 02:54 POC Glucose 319 H 181 H 211 H 03/18/17 21:32 POC Glucose 166 H Assessment/Plan This patient was seen in conjunction with EZEKIEL Burch. I have independently interviewed and examined the patient and reviewed pertinent historical, laboratory, and other data. Please refer to his note for details of this patient's presentation, findings, and recommendations. I have reviewed his note and concur with documentation as above. Patient feels much better. Noted orthostatic vitals are still positive. Started on midodrine, will continue on IVF, monitor for urine retention whilst off Flomax. Started also on BRICE hoses. Will recheck orthostatics in am Code Visit Inpatient E&M: 22784 Subs Hosp L2
[2017-03-19 14:49] LABS: Thyroid Stim Hormone (TSH) 4.87 uIU/mL (0.358-3.74)
--- NOTE | 2017-03-19 15:12 | CHAPLAIN ---
Type of Pastoral Visit _x__ Initial Visit ___ Follow-up Visit ___ On-call Visit ___ General Patient Visit ___ Spiritual Assessment ___ Family Conference ___ Bereavement ___ Rapid Response ___ Code Blue ___ Other (describe below) Pastoral Care Referral From _x__ Patient ___ Family ___ Nurse ___ Physician ___ Splicing Machine Operator Automatic ___ Filer Repairer ___ Other (describe below) Sacrament/Intervention _x__ Active listening ___ Anointing ___ Latter-Day ___ Bereavement ___ Communion _x__ [place] exploration ___ _x__ Life review _x__ Prayer ___ Reconciliation ___ Sacrament of Sick _x__ Supportive presence ___ Wedding ___ Other (describe below) Pastoral Comments patient has spouse at home with Alzheimer's; pt relies on granddaughter for care and support; pt speaks of her [place] and new understanding that she gained through support of 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
[2017-03-19 16:36] LABS: Bedside Glucose 234 mg/dL (70-110)
[2017-03-19] MEDS: Atorvastatin Calcium 40 MG Tablet PO (22:23)
[2017-03-19 22:36] LABS: Bedside Glucose 233 mg/dL (70-110)
[2017-03-20] VITALS (11 sets, daily range): BP systolic 92–157; BP diastolic 51–86; PULSE 53–76; RESP 14–20; TEMP 36.6–36.7; O2SAT 96–99
[2017-03-20 07:01] LABS: Bedside Glucose 147 mg/dL (70-110)
[2017-03-20] MEDS: Pantoprazole Sodium 20 MG Tablet PO (09:07)
[2017-03-20] MEDS: Midodrine HCl 5 MG Tablet PO ×2 (09:07→22:29)
[2017-03-20] MEDS: APIXABAN 5 MG TABLET PO ×2 (09:07→22:29)
[2017-03-20] MEDS: Collagenase 30gm Tube 1 APPLIC TOPICAL (09:08)
[2017-03-20] MEDS: 0.9% Normal Saline 1,000 ML 100 ML IV ×2 (09:59→20:10)
[2017-03-20] MEDS: 0.9% NaCl Peripheral Flush Adult/Peds IV (10:00)
[2017-03-20 10:27] LABS: Free T3 1.1 pg/mL (2.18-3.98); T4 Free Direct 1.36 ng/dL (0.76-1.46)
--- NOTE | 2017-03-20 10:32 | PCM.CONS.GEN ---
Reason for Consult Date of Consultation: 03/20/17 Reason for Consultation: low blood pressure History of Present Illness: The patient is a 77 year old F with recent cva, was in rehab, eventually went home just prior to , then suddenly mid-rary experienced low bp for unclear reasons. reports falls, not sure if loc. sx never when supine. per h&p:The patient is a 77 year old F seen in the emergency room at [facility] after being sent there for evaluation from her broadcast supervisor's office due to low blood pressure. Patient has had a history of orthostatic hypotension since mid February 2017, the exact cause is unknown, patient is currently off of all medications that would be used for blood pressure. On evaluation in the emergency room, patient was noted to have a blood pressure drop to 91/48 when standing. Blood pressure lying was 149/52. Labs were obtained on the patient, hemoglobin was noted to be 11.9, urinalysis showed +1 bacteria, 25-50 WBCs, 0-5 RBCs, and +2 yeast. Patient was given IV fluid administration but her blood pressure remained low when standing with a reading of 93/60 after 2 liters of IV fluid. Emergency room physician felt that the patient had a urinary tract infection and administered IV Rocephin. In talking with the patient's caregiver-her granddaughter-it was noted that the patient has been treated over the last several months for frequent urinary tract infections, patient has no complaints of any dysuria, urinary frequency, or hesitancy today in the emergency room. The patient's granddaughter also stated that the patient was placed on Flomax approximately 2 months ago. Patient will be placed in observation status, her Flomax will be stopped, patient will be placed on midodrine 5 mg twice daily, PT and OT will see the patient, and wound care will see the patient for small wound that she has on the dorsum of her right foot due to use of a foot brace. Patient had a stroke last fall, she ambulates with a walker but does not go very far. Past Medical History Past Medical History (Chronic Problems): Chronic Problems (Last Updated 02/19/17 @ 16:49 by Brenda Caldwell) Diabetes mellitus (Chronic) Patient arrives but has no insulin left in her insulin pump. Appointment kept brief. No data sent of blood sugar results. Will enc these sent. Appointment was for pt to be able to wear insulin pump in facility but biomedical engineering director had already approved. Glaucoma (Chronic) Allergies ezetimibe [From Zetia] Allergy (Verified 03/18/17 10:49) Other Home Medications: Ambulatory Orders Medication Instructions Recorded tamsulosin 0.4 mg capsule 0.4 mg PO BID cap 01/28/17 Pantoprazole Sodium [Protonix] 20 mg PO DAILY 02/02/17 insulin lispro (U-100) 100 unit/mL See Label Instructions CONTINUOUS 02/04/17 subcutaneous solution SUBCUTANEOUS INFUSION QDAY #3 ml Amiodarone HCl [Cordarone] 200 mg PO QODAY 03/18/17 Apixaban [Eliquis] 5 mg PO BID 03/18/17 Atorvastatin Calcium [Lipitor] 40 mg PO QHS 03/18/17 Calcium Carb/Vitamin D [Os-Jam 1 tablet PO DAILY@0800 03/18/17 500MG + D] Carboxymethylcellulos/Glycerin 1 drop EACH EYE 4X/DAY PRN 03/18/17 [Refresh Optive Eye Drops] Difluprednate [Durezol] 1 drop LEFT EYE DAILY 03/18/17 Dorzolamide HCl/Timolol Maleat 1 drop RIGHT EYE BID 03/18/17 [Cosopt Eye Drops] Ergocalciferol [Vitamin D] 50,000 unit PO Fr@1000 03/18/17 Multivitamins,Therapeutic 1 tablet PO DAILY@0800 03/18/17 [Multivitamin] Refresh Tears 0.25 inch EACH EYE QHS 03/18/17 Surgical History: cataract, tonsillectomy, - - Tubal ligation bilaterally Psychiatric History: No pertinent psych hx 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: No 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 ADHESIVE PRIMER history Lives: With Family Smoking Status: Never smoker Tobacco Use: Non-smoker Alcohol: None Drugs: None - *Family History Sibling History Items: Stroke Maternal History Items: No pertinent history Paternal History Items: No pertinent history Review of Systems Constitutional: Denies: Chills, Fever, Weight Change HEENT: Denies: Head Aches, Sinus Congestion, Sinus Drainage Cardiovascular: Denies: Chest Pain, Palpitations Respiratory: Denies: Cough, Shortness of breath at rest, Sputum production Gastrointestinal: Denies: Abdominal Pain, Nausea, Vomiting Genitourinary: Denies: Dysuria Musculoskeletal: Denies: Joint Pain, Joint Tenderness Skin: Denies: Rash, Wounds Neurological: Denies: Numbness, Tingling, Focal weakness Psychiatric: Denies: Anxiety, Depression, Homicidal Ideations, Suicidal Ideations Hematologic/ Lymphatic: Denies: Easy Bruising, Easy Bleeding Patient Problems: Active and Suspected Problems (Last Updated 02/19/17 @ 16:49 by Brenda Caldwell) Low blood pressure (Acute) - Physical Exam General: Alert, Oriented x3, Cooperative HEENT: Atraumatic, PERRLA, EOMI, Normocephalic Neck: Supple, No JVD, Negative Carotid Bruits Lungs: Clear to auscultation, Normal air movement Cardiovascular: Regular rate, No murmurs Abdomen: Bowel Sounds Present, Soft, Non Tender Extremities: No edema, Capillary Refill Less than 3 Seconds Skin: No rashes, No breakdown Musculoskeletal: No Tenderness to Palpation of Joints or Extremities Neurological: Cranial nerves II-XII grossly intact, - - mild right hemiparesis Psych/Mental Status: Normal Affect, Appropriate Vital Signs Temp Pulse Resp BP Pulse Ox 36.7 C 62 16 129/58 H 97 03/20/17 09:06 03/20/17 09:06 03/20/17 09:06 03/20/17 09:06 03/20/17 09:06 Oxygen Flow Rate 2 Oxygen Delivery Method Room Air Weight: 64.864 kg Body Mass Index (BMI) 25.3 Orthostatic Vital Signs Start: 03/19/17 10:00 Freq: q24h Status: Active Protocol: Activity Type Activity Date Activity User E-Sign Co-Sign Detail Recorded Client Recorded Date Recorded By Document 03/20/17 04:07 EY [id number] 03/20/17 04:10 EY 03/20/17 04:07 Orthostatic Vitals Standing -Blood Pressure (90/60-120/80) 128/63 H -Extremity Use Right Arm -Pulse Rate (60-100) 76 Sitting -Blood Pressure (90/60-120/80) 92/62 -Extremity Use Right Arm -Pulse Rate (60-100) 58 L Lying -Blood Pressure (90/60-120/80) 157/58 H -Extremity Use Right Arm -Pulse Rate (60-100) 57 L Intake and Output for Last 24 Hours 03/18/17 03/19/17 03/20/17 23:59 23:59 23:59 Intake Total 2180 / 2180 Output Total 1650 / 1650 350 / 350 Balance 530 / 530 -350 / -350 Laboratory Tests Past 24 Hrs 03/19/17 03/19/17 06:15 06:15 TSH 4.87 H Free T4 1.36 Free T3 pg/dL 1.1 L POC Glucose 03/20/17 03/19/17 03/19/17 06:55 22:21 16:24 POC Glucose 147 H 233 H 234 H 03/19/17 11:20 POC Glucose 319 H Current Home Med List Medication Instructions Recorded Confirmed Type tamsulosin 0.4 mg capsule 0.4 mg PO BID cap 01/28/17 03/18/17 History Pantoprazole Sodium [Protonix] 20 mg PO DAILY 02/02/17 03/18/17 History insulin lispro (U-100) 100 unit/mL See Label Instructions CONTINUOUS 02/04/17 03/18/17 Rx subcutaneous solution SUBCUTANEOUS INFUSION QDAY #3 ml Amiodarone HCl [Cordarone] 200 mg PO QODAY 03/18/17 03/18/17 History Apixaban [Eliquis] 5 mg PO BID 03/18/17 03/18/17 History Atorvastatin Calcium [Lipitor] 40 mg PO QHS 03/18/17 03/18/17 History Calcium Carb/Vitamin D [Os-Jam 1 tablet PO DAILY@0800 03/18/17 03/18/17 History 500MG + D] Carboxymethylcellulos/Glycerin 1 drop EACH EYE 4X/DAY PRN 03/18/17 03/18/17 History [Refresh Optive Eye Drops] Difluprednate [Durezol] 1 drop LEFT EYE DAILY 03/18/17 03/18/17 History Dorzolamide HCl/Timolol Maleat 1 drop RIGHT EYE BID 03/18/17 03/18/17 History [Cosopt Eye Drops] Ergocalciferol [Vitamin D] 50,000 unit PO Fr@1000 03/18/17 03/18/17 History Multivitamins,Therapeutic 1 tablet PO DAILY@0800 03/18/17 03/18/17 History [Multivitamin] Refresh Tears 0.25 inch EACH EYE QHS 03/18/17 03/18/17 History Current Medications Generic Name Dose Route Start Last Admin Trade Name Freq PRN Reason Stop Dose Admin Amiodarone HCl 200 mg 03/19/17 08:00 03/19/17 09:03 Cordarone PO 200 mg Q2D [place] Administration Apixaban 5 mg 03/18/17 22:00 03/20/17 09:07 Eliquis PO 5 mg BID [place] Administration Atorvastatin Calcium 40 mg 03/18/17 22:00 03/19/17 22:23 Lipitor PO 40 mg QHS [place] Administration Collagenase 1 applic 03/20/17 10:00 03/20/17 09:08 Santyl TOPICAL 1 applicatio DAILY [place] Administration Protocol Dorzolamide/Timolol 1 drop 03/18/17 22:00 03/20/17 09:07 Cosopt Opth Drops RIGHT EYE 1 drop BID [place] Administration Sodium Chloride 1,000 mls @ 100 mls/hr 03/20/17 09:30 03/20/17 09:59 IV 100 mls/hr .Q10H [place] Administration Insulin Aspart 0 units 03/18/17 22:00 03/20/17 07:05 Novolog Flexpen (Bkc) SC Not Given ACHS [place] Protocol Midodrine 5 mg 03/18/17 22:00 03/20/17 09:07 Proamatine PO 5 mg BID [place] Administration Pantoprazole Sodium 20 mg 03/19/17 10:00 03/20/17 09:07 Protonix PO 20 mg DAILY [place] Administration Sodium Chloride 5 - 30 ml 03/19/17 05:59 03/20/17 10:00 IV 10 ml UD PRN Administration SALINE FLUSH Assessment/Plan Active and Suspected Problems (Last Updated 02/19/17 @ 16:49 by Brenda Caldwell) Low blood pressure (Acute) impression: sudden orthohypotension, no neurologic explanation, unusual for neurologic causes to suddenly cause this. afib contributory, would d/c amiodarone if on eliquis midrodrine ok, however need to monitor for supine htn may need to add northera as op if needed pt/ot
--- NOTE | 2017-03-20 10:40 | CON.PCM_ITS ---
Reason for Consult Date of Consultation: 03/20/17 Reason for Consultation: low blood pressure History of Present Illness: The patient is a 77 year old F with recent cva, was in rehab, eventually went home just prior to , then suddenly mid-rary experienced low bp for unclear reasons. reports falls, not sure if loc. sx never when supine. per h&p:The patient is a 77 year old F seen in the emergency room at [facility] after being sent there for evaluation from her wet wheeler' s office due to low blood pressure. Patient has had a history of orthostatic hypotension since mid February 2017, the exact cause is unknown, patient is currently off of all medications that would be used for blood pressure. On evaluation in the emergency room, patient was noted to have a blood pressure drop to 91/48 when standing. Blood pressure lying was 149/52. Labs were obtained on the patient, hemoglobin was noted to be 11.9, urinalysis showed +1 bacteria, 25-50 WBCs, 0-5 RBCs, and +2 yeast. Patient was given IV fluid administration but her blood pressure remained low when standing with a reading of 93/60 after 2 liters of IV fluid. Emergency room physician felt that the patient had a urinary tract infection and administered IV Rocephin. In talking with the patient's caregiver-her granddaughter-it was noted that the patient has been treated over the last several months for frequent urinary tract infections, patient has no complaints of any dysuria, urinary frequency, or hesitancy today in the emergency room. The patient's granddaughter also stated that the patient was placed on Flomax approximately 2 months ago. Patient will be placed in observation status, her Flomax will be stopped, patient will be placed on midodrine 5 mg twice daily, PT and OT will see the patient, and wound care will see the patient for small wound that she has on the dorsum of her right foot due to use of a foot brace. Patient had a stroke last fall, she ambulates with a walker but does not go very far. Past Medical History Past Medical History (Chronic Problems): Chronic Problems (Last Updated 02/19/17 @ 16:49 by Brenda Caldwell) Diabetes mellitus (Chronic) Patient arrives but has no insulin left in her insulin pump. Appointment kept brief. No data sent of blood sugar results. Will enc these sent. Appointment was for pt to be able to wear insulin pump in facility but outside medical sales representative had already approved. Glaucoma (Chronic) Allergies ezetimibe [From Zetia] Allergy (Verified 03/18/17 10:49) Other Home Medications: Ambulatory Orders Medication Instructions Recorded tamsulosin 0.4 mg capsule 0.4 mg PO BID cap 01/28/17 Pantoprazole Sodium [Protonix] 20 mg PO DAILY 02/02/17 insulin lispro (U-100) 100 unit/mL See Label Instructions CONTINUOUS 02/04/17 subcutaneous solution SUBCUTANEOUS INFUSION QDAY #3 ml Amiodarone HCl [Cordarone] 200 mg PO QODAY 03/18/17 Apixaban [Eliquis] 5 mg PO BID 03/18/17 Atorvastatin Calcium [Lipitor] 40 mg PO QHS 03/18/17 Calcium Carb/Vitamin D [Os-Jam 1 tablet PO DAILY@0800 03/18/17 500MG + D] Carboxymethylcellulos/Glycerin 1 drop EACH EYE 4X/DAY PRN 03/18/17 [Refresh Optive Eye Drops] Difluprednate [Durezol] 1 drop LEFT EYE DAILY 03/18/17 Dorzolamide HCl/Timolol Maleat 1 drop RIGHT EYE BID 03/18/17 [Cosopt Eye Drops] Ergocalciferol [Vitamin D] 50,000 unit PO Fr@1000 03/18/17 Multivitamins,Therapeutic 1 tablet PO DAILY@0800 03/18/17 [Multivitamin] Refresh Tears 0.25 inch EACH EYE QHS 03/18/17 Surgical History: cataract, tonsillectomy, - - Tubal ligation bilaterally Psychiatric History: No pertinent psych hx 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 Lives: With Family Smoking Status: Never smoker Tobacco Use: Non-smoker Alcohol: None Drugs: None - *Family History Sibling History Items: Stroke Maternal History Items: No pertinent history Paternal History Items: No pertinent history Review of Systems Constitutional: Denies: Chills, Fever, Weight Change HEENT: Denies: Head Aches, Sinus Congestion, Sinus Drainage Cardiovascular: Denies: Chest Pain, Palpitations Respiratory: Denies: Cough, Shortness of breath at rest, Sputum production Gastrointestinal: Denies: Abdominal Pain, Nausea, Vomiting Genitourinary: Denies: Dysuria Musculoskeletal: Denies: Joint Pain, Joint Tenderness Skin: Denies: Rash, Wounds Neurological: Denies: Numbness, Tingling, Focal weakness Psychiatric: Denies: Anxiety, Depression, Homicidal Ideations, Suicidal Ideations Hematologic/ Lymphatic: Denies: Easy Bruising, Easy Bleeding Patient Problems: Active and Suspected Problems (Last Updated 02/19/17 @ 16:49 by Brenda Caldwell ) Low blood pressure (Acute) - Physical Exam General: Alert, Oriented x3, Cooperative HEENT: Atraumatic, PERRLA, EOMI, Normocephalic Neck: Supple, No JVD, Negative Carotid Bruits Lungs: Clear to auscultation, Normal air movement Cardiovascular: Regular rate, No murmurs Abdomen: Bowel Sounds Present, Soft, Non Tender Extremities: No edema, Capillary Refill Less than 3 Seconds Skin: No rashes, No breakdown Musculoskeletal: No Tenderness to Palpation of Joints or Extremities Neurological: Cranial nerves II-XII grossly intact, - - mild right hemiparesis Psych/Mental Status: Normal Affect, Appropriate Vital Signs Temp Pulse Resp BP Pulse Ox 36.7 C 62 16 129/58 H 97 03/20/17 09:06 03/20/17 09:06 03/20/17 09:06 03/20/17 09:06 03/20/17 09:06 Oxygen Flow Rate 2 Oxygen Delivery Method Room Air Weight: 64.864 kg Body Mass Index (BMI) 25.3 Orthostatic Vital Signs Start: 03/19/17 10:00 Freq: q24h Status: Active Protocol: Activity Type Activity Date Activity User E-Sign Co-Sign Detail Recorded Client Recorded Date Recorded By Document 03/20/17 04:07 EY [id number] 03/20/17 04:10 EY 03/20/17 04:07 Orthostatic Vitals Standing -Blood Pressure (90/60-120/80) 128/63 H -Extremity Use Right Arm -Pulse Rate (60-100) 76 Sitting -Blood Pressure (90/60-120/80) 92/62 -Extremity Use Right Arm -Pulse Rate (60-100) 58 L Lying -Blood Pressure (90/60-120/80) 157/58 H -Extremity Use Right Arm -Pulse Rate (60-100) 57 L Intake and Output for Last 24 Hours 03/18/17 03/19/17 03/20/17 23:59 23:59 23:59 Intake Total 2180 / 2180 Output Total 1650 / 1650 350 / 350 Balance 530 / 530 -350 / -350 Laboratory Tests Past 24 Hrs 03/19/17 03/19/17 06:15 06:15 TSH 4.87 H Free T4 1.36 Free T3 pg/dL 1.1 L POC Glucose 03/20/17 03/19/17 03/19/17 06:55 22:21 16:24 POC Glucose 147 H 233 H 234 H 03/19/17 11:20 POC Glucose 319 H Current Home Med List Medication Instructions Recorded Confirmed Type tamsulosin 0.4 mg capsule 0.4 mg PO BID cap 01/28/17 03/18/17 History Pantoprazole Sodium [Protonix] 20 mg PO DAILY 02/02/17 03/18/17 History insulin lispro (U-100) 100 unit/mL See Label Instructions CONTINUOUS 02/04/17 Rx subcutaneous solution SUBCUTANEOUS INFUSION QDAY #3 ml Amiodarone HCl [Cordarone] 200 mg PO QODAY 03/18/17 03/18/17 History Apixaban [Eliquis] 5 mg PO BID 03/18/17 03/18/17 History Atorvastatin Calcium [Lipitor] 40 mg PO QHS 03/18/17 03/18/17 History Calcium Carb/Vitamin D [Os-Jam 1 tablet PO DAILY@0800 03/18/17 03/18/17 History 500MG + D] Carboxymethylcellulos/Glycerin 1 drop EACH EYE 4X/DAY PRN 03/18/17 03/18/17 History [Refresh Optive Eye Drops] Difluprednate [Durezol] 1 drop LEFT EYE DAILY 03/18/17 03/18/17 History Dorzolamide HCl/Timolol Maleat 1 drop RIGHT EYE BID 03/18/17 03/18/17 History [Cosopt Eye Drops] Ergocalciferol [Vitamin D] 50,000 unit PO Fr@1000 03/18/17 03/18/17 History Multivitamins,Therapeutic 1 tablet PO DAILY@0800 03/18/17 03/18/17 History [Multivitamin] Refresh Tears 0.25 inch EACH EYE QHS 03/18/17 03/18/17 History Current Medications Generic Name Dose Route Start Last Admin Trade Name Freq PRN Reason Stop Dose Admin Amiodarone HCl 200 mg 03/19/17 08:00 03/19/17 09:03 Cordarone PO 200 mg Q2D [place] Administration Apixaban 5 mg 03/18/17 22:00 03/20/17 09:07 Eliquis PO 5 mg BID [place] Administration Atorvastatin Calcium 40 mg 03/18/17 22:00 03/19/17 22:23 Lipitor PO 40 mg QHS [place] Administration Collagenase 1 applic 03/20/17 10:00 03/20/17 09:08 Santyl TOPICAL 1 applicatio DAILY [place] Administration Protocol Dorzolamide/Timolol 1 drop 03/18/17 22:00 03/20/17 09:07 Cosopt Opth Drops RIGHT EYE 1 drop BID [place] Administration Sodium Chloride 1,000 mls @ 100 mls/hr 03/20/17 09:30 03/20/17 09:59 IV 100 mls/hr .Q10H [place] Administration Insulin Aspart 0 units 03/18/17 22:00 03/20/17 07:05 Novolog Flexpen (Bkc) SC Not Given ACHS [place] Protocol Midodrine 5 mg 03/18/17 22:00 03/20/17 09:07 Proamatine PO 5 mg BID [place] Administration Pantoprazole Sodium 20 mg 03/19/17 10:00 03/20/17 09:07 Protonix PO 20 mg DAILY [place] Administration Sodium Chloride 5 - 30 ml 03/19/17 05:59 03/20/17 10:00 IV 10 ml UD PRN Administration SALINE FLUSH Assessment/Plan Active and Suspected Problems (Last Updated 02/19/17 @ 16:49 by Brenda Caldwell ) Low blood pressure (Acute) impression: sudden orthohypotension, no neurologic explanation, unusual for neurologic causes to suddenly cause this. afib contributory, would d/c amiodarone if on eliquis midrodrine ok, however need to monitor for supine htn may need to add northera as op if needed pt/ot
[2017-03-20 12:06] LABS: Bedside Glucose 276 mg/dL (70-110)
--- NOTE | 2017-03-20 13:15 | PN_ITS ---
<Warner Martinez - Last Filed: 03/20/17 13:05> Patient Problems: Active and Suspected Problems (Last Updated 02/19/17 @ 16:49 by Brenda Caldwell ) Low blood pressure (Acute) Subjective: Pt significantly more orthostatic today. When she was up eating breakfast she became very dizzy and nauseous, her orthostatic vitals revealed a significant drop going from laying to sitting. Her BP is higher when laying. Her daughter also requested a speech eval as she has noted difficulty swallowing at home, and poor PO intake related to this difficulty. Some urinary incontinence today. - Physical Exam General: Alert, Oriented x3, Cooperative HEENT: Atraumatic, PERRLA, EOMI, Normocephalic Neck: Supple, No JVD, Negative Carotid Bruits Lungs: Clear to auscultation, Normal air movement Cardiovascular: Regular rate, No murmurs Abdomen: Bowel Sounds Present, Soft, Non Tender Extremities: No edema, Capillary Refill Less than 3 Seconds Skin: No rashes, No breakdown Musculoskeletal: No Tenderness to Palpation of Joints or Extremities Neurological: Cranial nerves II-XII grossly intact Psych/Mental Status: Normal Affect, Appropriate, Alert and oriented to time, place, person, mood and affect Vital Signs Temp Pulse Resp BP Pulse Ox 98.0 F 59 L 16 129/58 H 97 03/20/17 09:06 03/20/17 11:00 03/20/17 09:06 03/20/17 09:06 03/20/17 09:06 Intake and Output for Last 24 Hours 03/18/17 03/19/17 03/20/17 23:59 23:59 23:59 Intake Total 179 / 179 Output Total 200 / 550 Balance -21 / -371 POC Glucose 03/20/17 11:59 POC Glucose 276 H Assessment/Plan Active and Suspected Problems (Last Updated 02/19/17 @ 16:49 by Brenda Caldwell ) Low blood pressure (Acute) 1. Orthostatic hypotension - initially improved with discontinuation of Flomax, and addition of midodrine however still significantly orthostatic. -Neuro consulted. Does not feel this is a neuro issue, possibly would benefit from northera as outpatient. -no increase on midodrine as supine BP is elevated -continue IV fluids x 1 more day -zofran for nausea 2. Paroxysmal atrial fibrillation-in sinus rhythm, on Eliquis and amiodarone. 3. History of stroke last fall-continue PT OT. On statin. 4. Pressure wound dorsum of right foot-wound care is consulted 5. Type 2 diabetes-uses her own insulin pump-continue to monitor 6. History of neurogenic bladder Flomax discontinued - some urinary incontinence today. 7. UTI ruled out -she is asymptomatic, she most likely has asymptomatic bacteriuria. discontinued Diflucan as she has no symptoms of an acute UTI. 8. Dysphagia - speech consulted DVT prophylaxis: On Eliquis DC planning: Continue to monitor blood pressure overnight and wait for improvement in orthostatic vitals. This patient was seen by Warner Martinez PA-C under the supervision of Doctor Gian. <Kerry Springer - Last Filed: 03/20/17 16:55> - Physical Exam Vital Signs Temp Pulse Resp BP Pulse Ox 98.1 F 63 14 119/51 L 99 03/20/17 15:05 03/20/17 15:05 03/20/17 15:05 03/20/17 15:05 03/20/17 15:05 Oxygen Delivery Method Room Air Intake and Output for Last 24 Hours 03/18/17 03/19/17 03/20/17 23:59 23:59 23:59 Intake Total 179 / 179 Output Total 200 / 550 Balance -21 / -371 POC Glucose 03/20/17 03/20/17 16:18 11:59 POC Glucose 263 H 276 H Assessment/Plan This patient was seen in conjunction with EZEKIEL Burch. I have independently interviewed and examined the patient and reviewed pertinent historical, laboratory, and other data. Please refer to his note for details of this patient's presentation, findings, and recommendations. I have reviewed his note and concur with documentation. Still orthostatic despite being on IV fluids, BRICE hoses. On Midodrine but has supine hypertension, neurology recommends Northera in outpatient. Continue with IV fluids and re-assess in am. Code Visit Inpatient E&M: 25111 Subs Hosp L2
--- NOTE | 2017-03-20 14:11 | CASEMGMT ---
Face to Face with patient for initial transition planning/care coordination assessment. SAQIB FUENTES introduced self and role at [facility], pt voices understanding and consents to assessment at this time. Pt lying in bed in no distress at this time. Pt A/O x4 at this time and answers all questions appropriately at this time. Care providers, pharmacy, and demographics verified. See attached link. Pt voices no further concerns/needs at this time. Advised pt to ask for CM if any further questions/concerns/needs arise, voices understanding. This SAQIB FUENTES also spoke with pt's granddaughter via phone per pt request to verify information and to clarify discharge plan. Per granddaughter, her and her care for pt and her , who is in hospice care also, currently. She states 'we basically have a jail set up at our house.' Granddaughter states no concerns with pt coming home with them at time of discharge and with resumption of HHC through [facility]. PLAN: Home w/ resumption of HHC. [place] SAQIB FUENTES
--- NOTE | 2017-03-20 16:09 | PCM.CONS.C ---
Problem List (1) Low blood pressure Status: Acute Qualifiers: Hypotension type: orthostatic hypotension Qualified Code(s): I95.1 - Orthostatic hypotension (2) Atrial fibrillation Status: Acute Qualifiers: Atrial fibrillation type: paroxysmal Qualified Code(s): I48.0 - Paroxysmal atrial fibrillation (3) Mitral valve insufficiency Status: Chronic Qualifiers: Cardiac valve disease etiology: nonrheumatic Qualified Code(s): I34.0 - Nonrheumatic mitral (valve) insufficiency Reason for Consult Date of Consultation: 03/20/17 History of Present Illness: The patient is a 77 year old white female who is referred for evaluation of orthostatic hypotension superimposed upon a history of paroxysmal atrial fibrillation and mitral valve regurgitation-mild. She has previously been evaluated in cardiovascular consultation on 12/13/2016 for concerns of atrial fibrillation, acute ischemic CVA, superimposed upon diabetes mellitus. At that time she underwent noninvasive cardiovascular evaluation which included a transthoracic echocardiogram. Her left ventricle was normal with an LVEF of 65%. She had mild left atrial enlargement and mild mitral valve regurgitation. She was treated medically for her cardiovascular related issues. She presented recently for outpatient peripheral vascular surgery evaluation of the lower extremity wound-healing issue. At that time she was noted to appear pale, was hypotensive, and there were concerns of an underlying infectious disease related process such as urinary tract infection. She was subsequently evaluated the [facility] emergency department and admitted to the hospital for further inpatient evaluation and care. There were concerns of her blood pressure being low possibly secondary to the use of Flomax therapy. Thus it was discontinued. She was also treated with IV fluids. Apparently she had initial improvement in her clinical course. However today she has been noted to have subsequent blood pressure fluctuations with evidence of hypertension at rest in the supine and/or sitting position but then hypotension in the sitting or standing position compatible with orthostatic changes. Has denied chest discomfort or difficulty breathing. She has denied any obvious palpitations. She states that she does feel woozy if she is up abruptly and/or standing. She has not lost consciousness. She had an ECG. She was in sinus rhythm. She had no acute ECG changes. She has been evaluated by Dr. Burton of neurology. Based on his preliminary evaluation there were no definitive neurologic issues to explain her findings. He did give recommendation for consideration of discontinuing her amiodarone therapy to minimize any medication related effects, etc. Interim she continues to receive IV fluids. [] Past Medical History Allergies/Adverse Reactions: Allergies ezetimibe [From Zetia] Allergy (Verified 03/18/17 10:49) Other Home Medications: Ambulatory Orders Medication Instructions Recorded tamsulosin 0.4 mg capsule 0.4 mg PO BID cap 01/28/17 Pantoprazole Sodium [Protonix] 20 mg PO DAILY 02/02/17 insulin lispro (U-100) 100 unit/mL See Label Instructions CONTINUOUS 02/04/17 subcutaneous solution SUBCUTANEOUS INFUSION QDAY #3 ml Amiodarone HCl [Cordarone] 200 mg PO QODAY 03/18/17 Apixaban [Eliquis] 5 mg PO BID 03/18/17 Atorvastatin Calcium [Lipitor] 40 mg PO QHS 03/18/17 Calcium Carb/Vitamin D [Os-Jam 1 tablet PO DAILY@0800 03/18/17 500MG + D] Carboxymethylcellulos/Glycerin 1 drop EACH EYE 4X/DAY PRN 03/18/17 [Refresh Optive Eye Drops] Difluprednate [Durezol] 1 drop LEFT EYE DAILY 03/18/17 Dorzolamide HCl/Timolol Maleat 1 drop RIGHT EYE BID 03/18/17 [Cosopt Eye Drops] Ergocalciferol [Vitamin D] 50,000 unit PO Fr@1000 03/18/17 Multivitamins,Therapeutic 1 tablet PO DAILY@0800 03/18/17 [Multivitamin] Refresh Tears 0.25 inch EACH EYE QHS 03/18/17 Past Medical History (Chronic Problems): Chronic Problems (Last Updated 02/19/17 @ 16:49 by Brenda Caldwell) Mitral valve insufficiency (Chronic) Diabetes mellitus (Chronic) Patient arrives but has no insulin left in her insulin pump. Appointment kept brief. No data sent of blood sugar results. Will enc these sent. Appointment was for pt to be able to wear insulin pump in facility but medical radiation therapist had already approved. 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 FILLER OPERATOR history - *Family History Sibling Family History: Family History (Last Reviewed 03/11/17 @ 09:59 by Kelli Joshua) Father Hypertension Arthritis Brother Diabetes Sister Cancer History Items: Stroke Maternal Family History: Family History (Last Reviewed 03/11/17 @ 09:59 by Kelli Joshua) Father Hypertension Arthritis Brother Diabetes Sister Cancer History Items: No pertinent history Paternal Family History: Family History (Last Reviewed 03/11/17 @ 09:59 by Kelli Joshua) Father Hypertension Arthritis Brother Diabetes Sister Cancer History Items: No pertinent history Lives: With Family Smoking Status: Never smoker Tobacco Use: Non-smoker Alcohol: None Drugs: None Review of Systems - Review of Systems General: Denies: Fever, Night Sweats, Fatigue Cardiovascular: Reports: Lightheadedness. Denies: Chest Discomfort, Shortness of Breath, Orthopnea, PND, Peripheral Edema, Palpitations, Near Syncope, Syncope Respiratory: Denies: Cough, Sputum Production, Hemoptysis Gastrointestinal: Denies: Hematemesis, Hematochezia, Melena Genitourinary: Denies: Dysuria, Hematuria Skin: Denies: Rash Subjectve: A 77-year-old white female who appears to be resting reasonably comfortably in bed. Objective: Vital Signs Temp Pulse Resp BP Pulse Ox 98.1 F 63 14 119/51 L 99 03/20/17 15:05 03/20/17 15:05 03/20/17 15:05 03/20/17 15:05 03/20/17 15:05 Oxygen Delivery Method Room Air Intake and Output for Last 24 Hours 03/18/17 03/19/17 03/20/17 23:59 23:59 23:59 Intake Total 179 / 179 Output Total 200 / 550 Balance -21 / -371 General: Awake, Alert, Oriented x 3, Cooperative, No Acute Distress Neck: No JVD Lungs: Clear to auscultation Cardiovascular: Regular Rhythm, Normal S1, Normal S2 Murmur Murmur: Grade 1/6, Soft, Holosystolic, LLSB, [place] Vascular: No Carotid Bruits Abdomen: Bowel Sounds Present, Soft, Non Tender Extremities: No edema Rhythm: Sinus rhythm EKG: As noted above ECHO: As noted above CXR: Radiology: No acute cardiopulmonary disease process appreciated Assessment/Plan 1. Orthostatic hypotension The patient does have blood pressure recordings compatible with orthostatic hypotension. The etiology is unclear. There would be consideration as to whether or not she can still be intravascularly depleted and requiring additional IV fluids. There does not appear to be a clear-cut cardiac dysrhythmia to correlate with it. She has had no other acute cardiovascular issues to explain her events. It is unclear as to whether or not the amiodarone would be contributing, especially in such a low-dose, to these findings. However it can be discontinued at this time and her response can be monitored. She is continuing anticoagulant therapy based upon her history. However if she is deemed unsafe to be on anticoagulant therapy secondary to the potential of falling episodes and injuries that it may have to be discontinued. If she does not improve despite IV fluids and there is no other obvious etiology to explain her events then consideration can be given, based upon her supine hypertension and her upright hypotension as to whether or not she could have some form of underlying autonomic nervous system disorder especially in light of her diabetes mellitus history. In the interim she is also receiving medical therapy with ProAmatine and attempt to stabilize her blood pressure. However this has to be monitored with respect to exacerbating any hypertension. 2. Paroxysmal atrial fibrillation At the moment she remains in sinus rhythm. Again she will continue to be monitored. Her amiodarone dose can be discontinued. Ideally she would continue anticoagulant therapy unless she is deemed unsafe to be on anticoagulants based on concerns of falling and injuries. 3. Mitral valve regurgitation She does have an element of mitral valve regurgitation as previously noted. In the past this is been mild based on her noninvasive studies. This will be followed by history, exam, and echocardiogram over time as deemed appropriate. The above was discussed with the patient and her family members present. This note was generated with [employer] Dictation software. Every effort was made to ensure accuracy, however, computerized garbage collector supervisor mistakes may persist.
--- NOTE | 2017-03-20 16:20 | CON.PCM_ITS ---
Problem List (1) Low blood pressure Status: Acute Qualifiers: Hypotension type: orthostatic hypotension Qualified Code(s): I95.1 - Orthostatic hypotension (2) Atrial fibrillation Status: Acute Qualifiers: Atrial fibrillation type: paroxysmal Qualified Code(s): I48.0 - Paroxysmal atrial fibrillation (3) Mitral valve insufficiency Status: Chronic Qualifiers: Cardiac valve disease etiology: nonrheumatic Qualified Code(s): I34.0 - Nonrheumatic mitral (valve) insufficiency Reason for Consult Date of Consultation: 03/20/17 History of Present Illness: The patient is a 77 year old white female who is referred for evaluation of orthostatic hypotension superimposed upon a history of paroxysmal atrial fibrillation and mitral valve regurgitation-mild. She has previously been evaluated in cardiovascular consultation on 12/13/2016 for concerns of atrial fibrillation, acute ischemic CVA, superimposed upon diabetes mellitus. At that time she underwent noninvasive cardiovascular evaluation which included a transthoracic echocardiogram. Her left ventricle was normal with an LVEF of 65% . She had mild left atrial enlargement and mild mitral valve regurgitation. She was treated medically for her cardiovascular related issues. She presented recently for outpatient peripheral vascular surgery evaluation of the lower extremity wound-healing issue. At that time she was noted to appear pale, was hypotensive, and there were concerns of an underlying infectious disease related process such as urinary tract infection. She was subsequently evaluated the [facility] emergency department and admitted to the hospital for further inpatient evaluation and care. There were concerns of her blood pressure being low possibly secondary to the use of Flomax therapy. Thus it was discontinued. She was also treated with IV fluids. Apparently she had initial improvement in her clinical course. However today she has been noted to have subsequent blood pressure fluctuations with evidence of hypertension at rest in the supine and/or sitting position but then hypotension in the sitting or standing position compatible with orthostatic changes. Has denied chest discomfort or difficulty breathing. She has denied any obvious palpitations. She states that she does feel woozy if she is up abruptly and/or standing. She has not lost consciousness. She had an ECG. She was in sinus rhythm. She had no acute ECG changes. She has been evaluated by Dr. Burton of neurology. Based on his preliminary evaluation there were no definitive neurologic issues to explain her findings. He did give recommendation for consideration of discontinuing her amiodarone therapy to minimize any medication related effects, etc. Interim she continues to receive IV fluids. [] Past Medical History Allergies/Adverse Reactions: Allergies ezetimibe [From Zetia] Allergy (Verified 03/18/17 10:49) Other Home Medications: Ambulatory Orders Medication Instructions Recorded tamsulosin 0.4 mg capsule 0.4 mg PO BID cap 01/28/17 Pantoprazole Sodium [Protonix] 20 mg PO DAILY 02/02/17 insulin lispro (U-100) 100 unit/mL See Label Instructions CONTINUOUS 02/04/17 subcutaneous solution SUBCUTANEOUS INFUSION QDAY #3 ml Amiodarone HCl [Cordarone] 200 mg PO QODAY 03/18/17 Apixaban [Eliquis] 5 mg PO BID 03/18/17 Atorvastatin Calcium [Lipitor] 40 mg PO QHS 03/18/17 Calcium Carb/Vitamin D [Os-Jam 1 tablet PO DAILY@0800 03/18/17 500MG + D] Carboxymethylcellulos/Glycerin 1 drop EACH EYE 4X/DAY PRN 03/18/17 [Refresh Optive Eye Drops] Difluprednate [Durezol] 1 drop LEFT EYE DAILY 03/18/17 Dorzolamide HCl/Timolol Maleat 1 drop RIGHT EYE BID 03/18/17 [Cosopt Eye Drops] Ergocalciferol [Vitamin D] 50,000 unit PO Fr@1000 03/18/17 Multivitamins,Therapeutic 1 tablet PO DAILY@0800 03/18/17 [Multivitamin] Refresh Tears 0.25 inch EACH EYE QHS 03/18/17 Past Medical History (Chronic Problems): Chronic Problems (Last Updated 02/19/17 @ 16:49 by Brenda Caldwell) Mitral valve insufficiency (Chronic) Diabetes mellitus (Chronic) Patient arrives but has no insulin left in her insulin pump. Appointment kept brief. No data sent of blood sugar results. Will enc these sent. Appointment was for pt to be able to wear insulin pump in facility but director of medical staff services had already approved. 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 History: No pertinent FLIGHT OPERATION COORDINATOR history - *Family History Sibling Family History: Family History (Last Reviewed 03/11/17 @ 09:59 by Kelli Joshua) Father Hypertension Arthritis Brother Diabetes Sister Cancer History Items: Stroke Maternal Family History: Family History (Last Reviewed 03/11/17 @ 09:59 by Kelli Joshua) Father Hypertension Arthritis Brother Diabetes Sister Cancer History Items: No pertinent history Paternal Family History: Family History (Last Reviewed 03/11/17 @ 09:59 by Kelli Joshua) Father Hypertension Arthritis Brother Diabetes Sister Cancer History Items: No pertinent history Lives: With Family Smoking Status: Never smoker Tobacco Use: Non-smoker Alcohol: None Drugs: None Review of Systems - Review of Systems General: Denies: Fever, Night Sweats, Fatigue Cardiovascular: Reports: Lightheadedness. Denies: Chest Discomfort, Shortness of Breath, Orthopnea, PND, Peripheral Edema, Palpitations, Near Syncope, Syncope Respiratory: Denies: Cough, Sputum Production, Hemoptysis Gastrointestinal: Denies: Hematemesis, Hematochezia, Melena Genitourinary: Denies: Dysuria, Hematuria Skin: Denies: Rash Subjectve: A 77-year-old white female who appears to be resting reasonably comfortably in bed. Objective: Vital Signs Temp Pulse Resp BP Pulse Ox 98.1 F 63 14 119/51 L 99 03/20/17 15:05 03/20/17 15:05 03/20/17 15:05 03/20/17 15:05 03/20/17 15:05 Oxygen Delivery Method Room Air Intake and Output for Last 24 Hours 03/18/17 03/19/17 03/20/17 23:59 23:59 23:59 Intake Total 179 / 179 Output Total 200 / 550 Balance -21 / -371 General: Awake, Alert, Oriented x 3, Cooperative, No Acute Distress Neck: No JVD Lungs: Clear to auscultation Cardiovascular: Regular Rhythm, Normal S1, Normal S2 Murmur Murmur: Grade 1/6, Soft, Holosystolic, LLSB, [place] Vascular: No Carotid Bruits Abdomen: Bowel Sounds Present, Soft, Non Tender Extremities: No edema Rhythm: Sinus rhythm EKG: As noted above ECHO: As noted above CXR: Radiology: No acute cardiopulmonary disease process appreciated Assessment/Plan 1. Orthostatic hypotension The patient does have blood pressure recordings compatible with orthostatic hypotension. The etiology is unclear. There would be consideration as to whether or not she can still be intravascularly depleted and requiring additional IV fluids. There does not appear to be a clear-cut cardiac dysrhythmia to correlate with it. She has had no other acute cardiovascular issues to explain her events. It is unclear as to whether or not the amiodarone would be contributing, especially in such a low-dose, to these findings. However it can be discontinued at this time and her response can be monitored. She is continuing anticoagulant therapy based upon her history. However if she is deemed unsafe to be on anticoagulant therapy secondary to the potential of falling episodes and injuries that it may have to be discontinued. If she does not improve despite IV fluids and there is no other obvious etiology to explain her events then consideration can be given, based upon her supine hypertension and her upright hypotension as to whether or not she could have some form of underlying autonomic nervous system disorder especially in light of her diabetes mellitus history. In the interim she is also receiving medical therapy with ProAmatine and attempt to stabilize her blood pressure. However this has to be monitored with respect to exacerbating any hypertension. 2. Paroxysmal atrial fibrillation At the moment she remains in sinus rhythm. Again she will continue to be monitored. Her amiodarone dose can be discontinued. Ideally she would continue anticoagulant therapy unless she is deemed unsafe to be on anticoagulants based on concerns of falling and injuries. 3. Mitral valve regurgitation She does have an element of mitral valve regurgitation as previously noted. In the past this is been mild based on her noninvasive studies. This will be followed by history, exam, and echocardiogram over time as deemed appropriate. The above was discussed with the patient and her family members present. This note was generated with [employer] Dict[employer] software. Every effort was made to ensure accuracy, however, computerized aircraft stress analyst mistakes may persist.
[2017-03-20 16:21] LABS: Bedside Glucose 263 mg/dL (70-110)
--- NOTE | 2017-03-20 19:43 | NURSING ---
Spoke with pt granddaughter - listed under contacts. Updated on patients condition. Granddaughter expressed patients is now hospice and not doing well. Pts granddaughter whom is the primary care coordinator would prefer if her grandmother went to rehab for a short while until her grandfather is doing better.
[2017-03-20] MEDS: Atorvastatin Calcium 40 MG Tablet PO (22:29)
[2017-03-20 22:51] LABS: Bedside Glucose 357 mg/dL (70-110)
[2017-03-21] VITALS (9 sets, daily range): BP systolic 136–156; BP diastolic 61–69; PULSE 59–78; RESP 16–18; TEMP 36.6–36.9; O2SAT 94–98
[2017-03-21] MEDS: 0.9% Normal Saline 1,000 ML 100 ML IV (05:31)
--- NOTE | 2017-03-21 05:34 | NURSING ---
Spoke with granddaughter - checked level of insulin remaining in pump 28.5, Granddaughter aware. Updated on patient.
[2017-03-21] MEDS: Midodrine HCl 5 MG Tablet PO (09:41)
[2017-03-21] MEDS: APIXABAN 5 MG TABLET PO (09:41)
[2017-03-21] MEDS: Collagenase 30gm Tube 1 APPLIC TOPICAL (09:41)
[2017-03-21] MEDS: Pantoprazole Sodium 20 MG Tablet PO (09:41)
--- NOTE | 2017-03-21 10:52 | NURSING ---
left hand IV infiltrated-ok to leave out per Dr/ Paintsil, possible DC today.
--- NOTE | 2017-03-21 11:42 | DCINST_ITS ---
- Discharge Diagnoses Current Active Problems: Current Active and Chronic Problems (Last Updated 02/19/17 @ 16:49 by Brenda Caldwell) Low blood pressure (Acute) Mitral valve insufficiency (Chronic) You will use the following diet at home:: No restrictions Your food should be the consistency of: Regular Your liquids should be the consistency of: Regular/Thin Discharge Activity: Return to Normal Activity Allergies/Adverse Reactions: Allergies ezetimibe [From Zetia] Allergy (Verified 03/18/17 10:49) Other Medications to take at Discharge Pantoprazole Sodium [Protonix] 20 mg PO DAILY 02/02/17 insulin lispro (U-100) 100 unit/mL subcutaneous solution See Label Instructions CONTINUOUS SUBCUTANEOUS INFUSION QDAY #3 ml 02/04/17 Apixaban [Eliquis] 5 mg PO BID 03/18/17 Atorvastatin Calcium [Lipitor] 40 mg PO QHS 03/18/17 Calcium Carb/Vitamin D [Os-Jam 500MG + D] 1 tablet PO DAILY@0800 03/18/17 Carboxymethylcellulos/Glycerin [Refresh Optive Eye Drops] 1 drop EACH EYE 4X/ DAY PRN 03/18/17 Difluprednate [Durezol] 1 drop LEFT EYE DAILY 03/18/17 Dorzolamide HCl/Timolol Maleat [Cosopt Eye Drops] 1 drop RIGHT EYE BID 03/18/17 Ergocalciferol [Vitamin D] 50,000 unit PO Fr@1000 03/18/17 Multivitamins,Therapeutic [Multivitamin] 1 tablet PO DAILY@0800 03/18/17 Refresh Tears 0.25 inch EACH EYE QHS 03/18/17 Midodrine HCl [Proamatine] 5 mg PO BID #60 tab 03/21/17 The following prescriptions were given: Midodrine HCl [Proamatine] 5 mg PO BID #60 tab Primary Care Physician: Elizabeth Coto MD [Primary Care Provider] - Please follow up with your Primary Care Physician in: 2 weeks Please Follow Up With: Akira Navarro MD When: 2 weeks Proposed Discharge Date: 03/21/17
--- NOTE | 2017-03-21 11:42 | PCM.DC.SUM ---
Discharge Date and Diagnosis - Problem List Patient Problems: Active and Suspected Problems (Last Updated 02/19/17 @ 16:49 by Brenda Caldwell) Low blood pressure (Acute) Date of Admission: 03/18/17 Date of Discharge: 03/21/17 - Primary Discharge Diagnosis Active and Suspected Problems (Last Updated 02/19/17 @ 16:49 by Brenda Caldwell) Orthostatic hypotension Paroxysmal AF Pressure wound right dorsum of foot T2DM Hx Neurogenic bladder Dysphagia - Secondary Discharge Diagnosis Chronic Problems (Last Updated 02/19/17 @ 16:49 by Brenda Caldwell) Mitral valve insufficiency (Chronic) Diabetes mellitus (Chronic) Patient arrives but has no insulin left in her insulin pump. Appointment kept brief. No data sent of blood sugar results. Will enc these sent. Appointment was for pt to be able to wear insulin pump in facility but medical bill processor had already approved. Glaucoma (Chronic) Hospital Course and Treatment Imaging Results: CT/Brain/Head without Contrast IMPRESSION: Chronic involutional changes of the brain. RAD/Chest 1 View (Portable) IMPRESSION: Hyperinflation. Burton - neuro Moodispataz - cardio Operations: None Procedures: None Summary of Care Provided: Physical exam on day of discharge: General: Resting comfortably NAD Psych: A/Ox3 normal affect HEENT: [place]ARR[place] AT NC Neck: Supple NT CV: RRR no m/t/r/g/h Resp: CTA Abd: [id number] Soft NT no guarding or rigidity Ext: DP2+= no edema Skin: W/D normal turgor Lymph/Heme: No active bleeding or adenopathy Neuro: CN2-12 intact Hospital course: The patient is a 77 year old F who presented from the cardiology office for low blood pressure. She was becoming dizzy with sitting up and standing. She was admitted to the hospital and had + orthostatic vitals. Flomax was stopped. She was given IV fluids and started on midodrine. She had a UA with yeast but was felt to have asymptomatic colonization so diflucan was discontinued. She continued to have significant orthostasis and dizziness so neuro was consulted. Midodrine was not further increased 2/2 resting hypertension. Neuro familiar with the patient having treated her after a prior stroke. They did not feel that this was a neurologic issue and suggested possible outpatient treatment with northera. Cardiology was consulted as neuro felt amiodarone taken for AF may have been contributing. Cardiology discontinued the amiodarone. The following day her orthostatic blood pressure had improved and her heart rate remained stable so she was discharged home. She was also seen by speech therapy while here as her daughter was concerned that she had swallowing difficulties at home. She was placed on a nectar thickened liquid and soft mechanical diet for dysphagia. She was discharged home in stable condition. She will need to follow up with cardiology as her amiodarone was stopped. This patient was seen by Warner Martinez PA-C under the supervision of Doctor Springer. [] Discharge Diet: Low fat/ Low Cholesterol, 2000 mg Sodium Diet, - - [place] thickened liquids and soft mechanical diet. Discharge Activity: Return to Normal Activity Home Medications: Medications to take at Discharge Pantoprazole Sodium [Protonix] 20 mg PO DAILY 02/02/17 insulin lispro (U-100) 100 unit/mL subcutaneous solution See Label Instructions CONTINUOUS SUBCUTANEOUS INFUSION QDAY #3 ml 02/04/17 Apixaban [Eliquis] 5 mg PO BID 03/18/17 Atorvastatin Calcium [Lipitor] 40 mg PO QHS 03/18/17 Calcium Carb/Vitamin D [Os-Jam 500MG + D] 1 tablet PO DAILY@0800 03/18/17 Carboxymethylcellulos/Glycerin [Refresh Optive Eye Drops] 1 drop EACH EYE 4X/DAY PRN 03/18/17 Difluprednate [Durezol] 1 drop LEFT EYE DAILY 03/18/17 Dorzolamide HCl/Timolol Maleat [Cosopt Eye Drops] 1 drop RIGHT EYE BID 03/18/17 Ergocalciferol [Vitamin D] 50,000 unit PO Fr@1000 03/18/17 Multivitamins,Therapeutic [Multivitamin] 1 tablet PO DAILY@0800 03/18/17 Refresh Tears 0.25 inch EACH EYE QHS 03/18/17 Midodrine HCl [Proamatine] 5 mg PO BID #60 tab 03/21/17 Following Prescrptions Were Given to Patient: Midodrine HCl [Proamatine] 5 mg PO BID #60 tab Primary Care Physician: Elizabeth Coto MD [Primary Care Provider] - Please follow up with your Primary Care Physician in: 2 weeks Please Follow Up With: Akira Navarro MD When: 2 weeks Disposition: Home Minutes spent on discharge:: 35 Patient Condition:: Stable Meaningful Use Info Meaningful Use Diagnoses (Choose all that apply): None applicable
--- NOTE | 2017-03-21 11:45 | DS.PCM_ITS ---
Discharge Date and Diagnosis - Problem List Patient Problems: Active and Suspected Problems (Last Updated 02/19/17 @ 16:49 by Brenda Caldwell ) Low blood pressure (Acute) Date of Admission: 03/18/17 Date of Discharge: 03/21/17 - Primary Discharge Diagnosis Active and Suspected Problems (Last Updated 02/19/17 @ 16:49 by Brenda Caldwell ) Orthostatic hypotension Paroxysmal AF Pressure wound right dorsum of foot T2DM Hx Neurogenic bladder Dysphagia - Secondary Discharge Diagnosis Chronic Problems (Last Updated 02/19/17 @ 16:49 by Brenda Caldwell) Mitral valve insufficiency (Chronic) Diabetes mellitus (Chronic) Patient arrives but has no insulin left in her insulin pump. Appointment kept brief. No data sent of blood sugar results. Will enc these sent. Appointment was for pt to be able to wear insulin pump in facility but medical laboratory specialist had already approved. Glaucoma (Chronic) Hospital Course and Treatment Imaging Results: CT/Brain/Head without Contrast IMPRESSION: Chronic involutional changes of the brain. RAD/Chest 1 View (Portable) IMPRESSION: Hyperinflation. Burton - neuro Moodispataz - cardio Operations: None Procedures: None Summary of Care Provided: Physical exam on day of discharge: General: Resting comfortably NAD Psych: A/Ox3 normal affect HEENT: [place] AT NC Neck: Supple NT CV: RRR no m/t/r/g/h Resp: CTA Abd: [id number] Soft NT no guarding or rigidity Ext: DP2+= no edema Skin: W/D normal turgor Lymph/Heme: No active bleeding or adenopathy Neuro: CN2-12 intact Hospital course: The patient is a 77 year old F who presented from the cardiology office for low blood pressure. She was becoming dizzy with sitting up and standing. She was admitted to the hospital and had + orthostatic vitals. Flomax was stopped. She was given IV fluids and started on midodrine. She had a UA with yeast but was felt to have asymptomatic colonization so diflucan was discontinued. She continued to have significant orthostasis and dizziness so neuro was consulted. Midodrine was not further increased 2/2 resting hypertension. Neuro familiar with the patient having treated her after a prior stroke. They did not feel that this was a neurologic issue and suggested possible outpatient treatment with northera. Cardiology was consulted as neuro felt amiodarone taken for AF may have been contributing. Cardiology discontinued the amiodarone. The following day her orthostatic blood pressure had improved and her heart rate remained stable so she was discharged home. She was also seen by speech therapy while here as her daughter was concerned that she had swallowing difficulties at home. She was placed on a nectar thickened liquid and soft mechanical diet for dysphagia. She was discharged home in stable condition. She will need to follow up with cardiology as her amiodarone was stopped. This patient was seen by Warner Martinez PA-C under the supervision of Doctor Springer. [] Discharge Diet: Low fat/ Low Cholesterol, 2000 mg Sodium Diet, - - [place] thickened liquids and soft mechanical diet. Discharge Activity: Return to Normal Activity Home Medications: Medications to take at Discharge Pantoprazole Sodium [Protonix] 20 mg PO DAILY 02/02/17 insulin lispro (U-100) 100 unit/mL subcutaneous solution See Label Instructions CONTINUOUS SUBCUTANEOUS INFUSION QDAY #3 ml 02/04/17 Apixaban [Eliquis] 5 mg PO BID 03/18/17 Atorvastatin Calcium [Lipitor] 40 mg PO QHS 03/18/17 Calcium Carb/Vitamin D [Os-Jam 500MG + D] 1 tablet PO DAILY@0800 03/18/17 Carboxymethylcellulos/Glycerin [Refresh Optive Eye Drops] 1 drop EACH EYE 4X/ DAY PRN 03/18/17 Difluprednate [Durezol] 1 drop LEFT EYE DAILY 03/18/17 Dorzolamide HCl/Timolol Maleat [Cosopt Eye Drops] 1 drop RIGHT EYE BID 03/18/17 Ergocalciferol [Vitamin D] 50,000 unit PO Fr@1000 03/18/17 Multivitamins,Therapeutic [Multivitamin] 1 tablet PO DAILY@0800 03/18/17 Refresh Tears 0.25 inch EACH EYE QHS 03/18/17 Midodrine HCl [Proamatine] 5 mg PO BID #60 tab 03/21/17 Following Prescrptions Were Given to Patient: Midodrine HCl [Proamatine] 5 mg PO BID #60 tab Primary Care Physician: Elizabeth Coto MD [Primary Care Provider] - Please follow up with your Primary Care Physician in: 2 weeks Please Follow Up With: Akira Navarro MD When: 2 weeks Disposition: Home Minutes spent on discharge:: 35 Patient Condition:: Stable Meaningful Use Info Meaningful Use Diagnoses (Choose all that apply): None applicable
[2017-03-21 12:21] LABS: Bedside Glucose 330 mg/dL (70-110)
--- NOTE | 2017-03-21 12:26 | PCM.PN.CARD ---
Subjectve: The patient remains awake and alert. She states she feels better today. Objective: Vital Signs Temp Pulse Resp BP Pulse Ox 98.4 F 67 16 152/61 H 94 03/21/17 10:49 03/21/17 11:21 03/21/17 10:49 03/21/17 10:49 03/21/17 10:49 Oxygen Delivery Method Room Air Orthostatic Vital Signs Start: 03/19/17 10:00 Freq: q24h Status: Active Protocol: Activity Type Activity Date Activity User E-Sign Co-Sign Detail Recorded Client Recorded Date Recorded By Document 03/21/17 09:47 DA [id number] 03/21/17 10:04 DA 03/21/17 09:47 Orthostatic Vitals Standing -Blood Pressure (90/60-120/80) 136/61 H -Extremity Use Right Arm -Pulse Rate (60-100) 75 Sitting -Blood Pressure (90/60-120/80) 156/64 H -Extremity Use Right Arm -Pulse Rate (60-100) 67 Lying -Blood Pressure (90/60-120/80) 152/61 H -Extremity Use Right Arm -Pulse Rate (60-100) 64 Intake and Output for Last 24 Hours 03/19/17 03/20/17 03/21/17 23:59 23:59 23:59 Intake Total 1036 / 1036 1755 / 1755 Output Total 625 / 975 1150 / 1150 Balance 411 / 61 605 / 605 General: Awake, Alert, Oriented x 3, Cooperative, No Acute Distress Neck: No JVD Lungs: Clear to auscultation Cardiovascular: Regular Rhythm, Normal S1, Normal S2 Abdomen: Bowel Sounds Present, Soft, Non Tender Rhythm: sinus rhythm Assessment/Plan 1. Orthostatic hypotension The patient does have blood pressure recordings compatible with orthostatic hypotension. They appear improved today s/p additional IV fluids. There does not appear to be a clear-cut cardiac dysrhythmia to correlate with it. She has had no other acute cardiovascular issues to explain her events. It is unclear as to whether or not the amiodarone would be contributing, especially in such a low-dose, to these findings. However it can be discontinued at this time and her response can be monitored. She is continuing anticoagulant therapy based upon her history. However if she is deemed unsafe to be on anticoagulant therapy secondary to the potential of falling episodes and injuries that it may have to be discontinued. In the interim she is also receiving medical therapy with ProAmatine and attempt to stabilize her blood pressure. However this has to be monitored with respect to exacerbating any hypertension. 2. Paroxysmal atrial fibrillation At the moment she remains in sinus rhythm. Again she will continue to be monitored. Her amiodarone dose can be discontinued. Ideally she would continue anticoagulant therapy unless she is deemed unsafe to be on anticoagulants based on concerns of falling and injuries. 3. Mitral valve regurgitation She does have an element of mitral valve regurgitation as previously noted. In the past this is been mild based on her noninvasive studies. This will be followed by history, exam, and echocardiogram over time as deemed appropriate. The above was discussed with the patient. This note was generated with [employer] Dictation software. Every effort was made to ensure accuracy, however, computerized day camp unit leader mistakes may persist.
--- NOTE | 2017-03-21 12:29 | PN.CARD_ITS ---
Subjectve: The patient remains awake and alert. She states she feels better today. Objective: Vital Signs Temp Pulse Resp BP Pulse Ox 98.4 F 67 16 152/61 H 94 03/21/17 10:49 03/21/17 11:21 03/21/17 10:49 03/21/17 10:49 03/21/17 10:49 Oxygen Delivery Method Room Air Orthostatic Vital Signs Start: 03/19/17 10:00 Freq: q24h Status: Active Protocol: Activity Type Activity Date Activity User E-Sign Co-Sign Detail Recorded Client Recorded Date Recorded By Document 03/21/17 09:47 DA [id number] 03/21/17 10:04 DA 03/21/17 09:47 Orthostatic Vitals Standing -Blood Pressure (90/60-120/80) 136/61 H -Extremity Use Right Arm -Pulse Rate (60-100) 75 Sitting -Blood Pressure (90/60-120/80) 156/64 H -Extremity Use Right Arm -Pulse Rate (60-100) 67 Lying -Blood Pressure (90/60-120/80) 152/61 H -Extremity Use Right Arm -Pulse Rate (60-100) 64 Intake and Output for Last 24 Hours 03/19/17 03/20/17 03/21/17 23:59 23:59 23:59 Intake Total 1036 / 1036 1755 / 1755 Output Total 625 / 975 1150 / 1150 Balance 411 / 61 605 / 605 General: Awake, Alert, Oriented x 3, Cooperative, No Acute Distress Neck: No JVD Lungs: Clear to auscultation Cardiovascular: Regular Rhythm, Normal S1, Normal S2 Abdomen: Bowel Sounds Present, Soft, Non Tender Rhythm: sinus rhythm Assessment/Plan 1. Orthostatic hypotension The patient does have blood pressure recordings compatible with orthostatic hypotension. They appear improved today s/p additional IV fluids. There does not appear to be a clear-cut cardiac dysrhythmia to correlate with it. She has had no other acute cardiovascular issues to explain her events. It is unclear as to whether or not the amiodarone would be contributing, especially in such a low-dose, to these findings. However it can be discontinued at this time and her response can be monitored. She is continuing anticoagulant therapy based upon her history. However if she is deemed unsafe to be on anticoagulant therapy secondary to the potential of falling episodes and injuries that it may have to be discontinued. In the interim she is also receiving medical therapy with ProAmatine and attempt to stabilize her blood pressure. However this has to be monitored with respect to exacerbating any hypertension. 2. Paroxysmal atrial fibrillation At the moment she remains in sinus rhythm. Again she will continue to be monitored. Her amiodarone dose can be discontinued. Ideally she would continue anticoagulant therapy unless she is deemed unsafe to be on anticoagulants based on concerns of falling and injuries. 3. Mitral valve regurgitation She does have an element of mitral valve regurgitation as previously noted. In the past this is been mild based on her noninvasive studies. This will be followed by history, exam, and echocardiogram over time as deemed appropriate. The above was discussed with the patient. This note was generated with [employer] Dictation software. Every effort was made to ensure accuracy, however, computerized help desk technician mistakes may persist.
--- NOTE | 2017-03-21 13:28 | CASEMGMT ---
Social Work Note Placed call to pt's granddaughter as she had been inquiring about having the pt placed because he grandfather was declining and she was concerned about her ability to care for both. Introduced self and role at [facility]. Janelle states that she was hoping to have the pt placed on TCU or RU. Explain that TCU does not have beds and she does not have a qualifying diagnosis for RU. Also inform that she has not had a qualifying 3 day stay and it would be a private expense for placement at SNF or [facility]. Janelle states that they do not have the finances and she will pick the pt up this afternoon. Notified RN GINA Parikh - who will notify nursing staff. Plan: Home with [facility]. GUILLERMO Cary
[2017-03-22 00:36] LABS: Bedside Glucose 188 mg/dL (70-110)
== END 2017-03-21 16:46 | disposition home health service (06) | DRG 312 ==
LOC: ED 13:44 → PCU 18:40
PROVIDERS: Physician Assistant; Admitting Provider Internal Medicine; Emergency Provider Emergency Medicine; Family Provider Internal Medicine; PCP Internal Medicine; Visit Provider Internal Medicine
DX: I95.1 Orthostatic hypotension (principal); L89.890 Pressure ulcer of other site, unstageable; I48.0 Paroxysmal atrial fibrillation; E11.9 Type 2 diabetes mellitus without complications; N31.9 Neuromuscular dysfunction of bladder, unspecified; Z86.73 Personal history of transient ischemic attack (TIA), and cerebral infarction without residual deficits; Z79.4 Long term (current) use of insulin; Z96.41 Presence of insulin pump (external) (internal); N39.498 Other specified urinary incontinence; I34.0 Nonrheumatic mitral (valve) insufficiency; R13.10 Dysphagia, unspecified; H40.9 Unspecified glaucoma
CPT/HCPCS: 36415; 70450; 71045; 80053; 81001; 82533; 82962; 83605; 84439; 84443; 84481; 84484; 85025; 85610; 85730; 87040; 87086; 87088; 92526; 93005; 97110; 97162; 97166; 97535; 97802; 99284; J7030; A4216; J0696

== ENCOUNTER → 2017-04-06 13:25 | Outpatient (CLI) | payer MEDICARE, OTHER, SELFPAY ==
--- NOTE | 2017-04-06 13:28 | RAD_ITS ---
STUDY: SWALLOWING STUDY REASON FOR EXAM: Female, 77 years old. Dysphasia. TECHNIQUE: The examination was performed with Speech Pathology in attendance. Under fluoroscopic observation, the patient ingested thin barium, thick barium, barium pudding, and barium coated cracker. FLUOROSCOPY TIME: 2:00 minutes/seconds. 3093 fluoroscopic images were obtained. RADIOLOGIST INVOLVEMENT: Radiologist was present and providing direct supervision. COMPARISON: Comparison is made with prior study dated February 25, 2017. FINDINGS: The following was observed during swallowing of the various mixtures of barium: Once again, there is poor oral function with difficulty in starting the swallowing mechanism. Thin Barium: There was no evidence of aspiration or laryngeal penetration. Thick Barium: There was no evidence of aspiration or laryngeal penetration. Barium Pudding: There was no evidence of aspiration or laryngeal penetration. Barium Coated Cracker: There was no evidence of aspiration or laryngeal penetration. RAD/Swallowing Function w/Video IMPRESSION: Delay in the initiation of the swallowing mechanism. The swallow study findings were discussed with the patient by the speech pathologist at the conclusion of the examination. Please see speech pathology report for more information and recommendations. Electronically Signed: Janes Boyle MD at 14:25 EST Tel [phone], Service support ,
--- NOTE | 2017-04-06 13:30 | SP.MBSS_ITS ---
PRIMARY / SECONDARY DIAGNOSIS: dysphagia (R13.11) REFERRING PHYSICIAN: Dr. Elizabeth Coto MD CURRENT DIET: mechanical soft textures, thin liquids DENTITION: dentures MENTAL STATUS: mild dementia RESPIRATORY STATUS: O2 via room air PREVIOUS MODIFIED BARIUM SWALLOW STUDY: 02/25/2017 MBS revealed moderate oral dysphagia (R13.11) with overt aspiration of thin liquids, severe oral holding. REASON FOR REFERRAL: Patient is a 77 year old female referred for a modified barium swallow (MBS) study to objectively assess the Patients oropharyngeal swallow function under fluoroscopy secondary to recent middle cerebral artery cerebrovascular accident and family reported dementia and poor MBS performance. Patient well known to this clinician from prior admission and recent MBS, appears improved in regards to disposition in comparison to MBS despite admission due to acute changes, significantly improved during previous acute care admission, though Patients granddaughter present, reports continued fluctuations with somewhat of a down period, recently experienced the loss of her , further multiple adjustments in medications improving overall condition. 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 STUDY FINDINGS: Patient participated in a Modified Barium Swallow (MBS) study on 04/06/2017. Dr. Boyle was the radiologist present for this evaluation. This study was recorded in the lateral view and images were sent to PACs for storage. The following consistencies were presented to this patient for analysis of oropharyngeal swallow function: thin liquids, pudding, and a regular textured, Serene [place] cookie. Results of the MBS are as follows: PENETRATION / ASPIRATION SCALE (JEAN BAPTISTE): 1 = does not enter airway 2 = enters airway/above vocal folds/ejected 3 = enters airway/above vocal folds/not ejected 4 = enters airway/contacts vocal folds/ejected 5 = enters airway/contacts vocal folds/not ejected 6 = enters airway/below vocal folds/ejected 7 = enters airway/below vocal folds/not ejected despite effort 8 = enters airway/below vocal folds/no effort PENETRATION / ASPIRATION SCALE (SCORE): Thin liquids via cup (single sip): 2 Thin liquids via cup (single sip): 1 Thin liquids via cup (single sip): 1 Thin liquids via cup (3 second prep): 1 Thin liquids via cup (3 second prep): 1 Thin liquids via cup (3 second prep): 1 Thin liquids via cup (head lift): 1 Pudding via spoon: 1 * Regular textured cookie: 1 Thin liquids via cup (3 second prep): 4 Thin liquids via cup (3 second prep): 2 * denotes requirement for minimal thin liquid addition to facilitate swallow onset IMPRESSION: DIAGNOSIS: moderate oral dysphagia (R13.11) ORAL PHASE CHARACTERIZED BY: LABIAL SEAL: no labial escape (improved) TONGUE CONTROL DURING BOLUS MANIPULATION: posterior escape of less than half of bolus; escape to lateral buccal cavity/floor of mouth BOLUS PREPARATION / MASTICATION: slow prolonged chewing/mashing with complete recollection (improved) BOLUS TRANSPORT / LINGUAL MOTION: intermittent repetitive/disorganized tongue motion with continued delayed initiation of tongue motion fluctuating in severity (ranging from 2-3 seconds to well over 30 seconds) ORAL RESIDUE: trace residue lining oral structures (improved) PHARYNGEAL PHASE CHARACTERIZED BY: INITIATION OF PHARYNGEAL SWALLOW: bolus head in valleculae at first hyoid excursion SOFT PALATE ELEVATION: no bolus between soft palate and pharyngeal wall LARYNGEAL ELEVATION: complete superior movement of thyroid cartilage with complete approximation of arytenoids cartilage to epiglottic petiole ANTERIOR HYOID EXCURSION: complete anterior movement (improved) EPIGLOTTIC MOVEMENT: complete epiglottic inversion LARYNGEAL VESTIBULE CLOSURE AT HEIGHT OF SWALLOW: complete laryngeal vestibule closure with no air/contrast in laryngeal vestibule PHARYNGEAL STRIPPING WAVE: pharyngeal stripping wave present / complete PHARYNGOESOPHAGEAL SEGMENT OPENING: complete distension and complete duration with no obstruction of flow TONGUE BASE RETRACTION: narrow column of contrast between tongue base and posterior pharyngeal wall PHARYNGEAL RESIDUE: trace residue within or on pharyngeal structures ESOPHAGEAL PHASE CHARACTERIZED BY: ESOPHAGEAL BOLUS CLEARANCE IN THE UPRIGHT POSITION: complete clearance; esophageal coating EFFECTS OF TREATMENT STRATEGIES ATTEMPTED: 3 second prep = moderately effective Head lift = ineffective Liquid chaser = effective Reduced bolus size = effective DIET TEXTURE RECOMMENDATIONS: Will recommend a regular-soft textured, thin liquid diet. COMPENSATORY STRATEGIES RECOMMENDED: Supervision with assistance as needed, consider cutting tougher textures into bite sized pieces, avoid mixed consistencies, 3 second prep, alternate textures / temperatures / flavor etc. to promote improved swallow onset timing, reduced bolus volume, avoid straws, seated upright at 90 degrees during PO intake, remain upright for 30-60 minutes post meal (GERD precaution), medications crushed in applesauce INTERPRETATION OF RESULTS: Patient presents with continued moderate oral dysphagia (R13.11) likely secondary to a combination of a recent middle cerebral artery cerebrovascular accident and family reported dementia again fluctuating in comparison to rather recent assessment at bedside during acute care admission with fluctuations verified by family. Oral phase marked by continued swallow apraxia with associated swallow onset delay ranging from 2-3 seconds to over 30 seconds in combination with lingual festinations / lingual rolling pattern typically identified in individuals with advanced progressive neurological deficits (i.e. , dementia, Parkinsons) resulting in premature bolus loss contributing to pre- prandial aspiration of thin liquids. Mild improvement noted with 3 second prep, no improvement with implementation of the head lift maneuver. RECOMMENDATIONS: Recommend more cautious approach to intake if continued fluctuations are noted , with this clinician discussing prophylactic thickening of liquid textures if the Patient continues to demonstrate drastic changes in presentation / alertness / etc. encouraged continuous oral care similar in nature to that provide via the [place] Free Water Protocol. Patient requires continued intensive skilled speech-language intervention targeting continued diet texture management; training and implementation of recommended compensatory strategies; implementation of thermal tactile approach to promote improved oral phase swallow onset; training, implementation, and Patient education regarding implementation of the FFWP; and Patient and caregiver training targeting meal preparation / thickened liquid preparation. ADDITIONAL COMMENTS/RECOMMENDATIONS: Results and recommendations were discussed with the Patient immediately following MBS completion, with the Patient verbalizing understanding and agreement with all recommendations and education provided. 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 IMAGE COUNT: [id number] G-CODES: SWALLOWING [id number] Current Status: CJ SWALLOWING G8997 Goal Status: CI SWALLOWING G8998 Discharge Status:
== END ==
PROVIDERS: Family Provider Internal Medicine; PCP Internal Medicine; Visit Provider Internal Medicine
DX: I69.391 Dysphagia following cerebral infarction (principal)
CPT/HCPCS: 74230; 92611; G8996; G8997; G8998

== ENCOUNTER → 2017-04-15 12:49 | Outpatient (CLI) | payer MEDICARE, OTHER, SELFPAY ==
--- NOTE | 2017-04-15 12:52 | ADUL_ITS ---
Reason For Study: ATHEROSCLEROSIS Right Velocities Common Femoral Artery, dist = 69 cm./sec. Supf Femoral Artery, prox = 72 cm./sec. Supf Femoral Artery, mid = 50 cm./sec. Supf Femoral Artery, dist. = 45 cm./sec. Profunda Femoral Artery = 45 cm./sec. Popliteal Artery, prox. = 31 cm./sec. Popliteal Artery, dist = 37 cm./sec. Post. Tibial Artery, prox = 31 cm./sec. Post. Tibial Artery, mid = 26 cm./sec. Post. Tibial Artery, dist = 14 cm./sec. Peroneal Artery, prox = 12 cm./sec. Peroneal Artery, mid = 12 cm./sec. Peroneal Artery,dist = 48 cm./sec. Ant. Tibial Artery, prox = 35 cm./sec. Ant. Tibial Artery, mid = 31 cm./sec. Ant. Tibial Artery, dist = 54 cm./sec. Procedure Exam performed in department. Interpretation Summary 1. Right leg with no stenosis and near triphasic flow in anterior tibial. Some decreased flow in other tibials. Ordering Physician: Juan F Coery Referring Physician: RAMU ROBLES Performed By: Abby Diallo, ASHUTOSH, RVT
== END ==
PROVIDERS: Family Provider Internal Medicine; PCP Internal Medicine; Visit Provider Surgery Vascular Surgery
DX: I70.238 Atherosclerosis of native arteries of right leg with ulceration of other part of lower leg (principal)
CPT/HCPCS: 93926

== ENCOUNTER 2017-07-27 17:37 | Emergency (ER) | payer MEDICARE, OTHER, SELFPAY ==
[2017-07-27] VITALS (8 sets, daily range): BP systolic 126–145; BP diastolic 52–99; PULSE 73–92; RESP 14–18; TEMP 36.6; O2SAT 95–99; BMI 24.9
--- NOTE | 2017-07-27 19:00 | EKG12_ITS ---
Test Reason : Blood Pressure : / mmHG Vent. Rate : 085 BPM Atrial Rate : 085 BPM P-R Int : 146 ms QRS Dur : 082 ms QT Int : 392 ms P-R-T Axes : 030 004 034 degrees QTc Int : 466 ms Sinus rhythm with Premature supraventricular complexes Low voltage QRS Septal infarct , age undetermined Abnormal ECG Confirmed by LEAH NY, SARAH ([id number]), visual effects editor DOMINGO WING ([id number]) on 07/29/2017 3:36:29 PM Referred By: MAMAE Confirmed By:SARAH LYNN MD
--- NOTE | 2017-07-27 19:04 | ED.DCSUM_ITS ---
- ER Visit Summary Date of Service: 07/27/17 Chief Complaint: [Low blood pressure and fatigue] History of Present Illness: The patient is a 77 F [presents the emergency department with low blood pressure and fatigue. For the past couple of days her blood pressure has been running in the 120s 110s and 100s. The lowest blood pressure was 100 systolic. Her granddaughter is taking them 3 times a day. She has felt very fatigued and wants to sleep a lot. She has a wound on her foot that is healing. No chest pain or shortness of breath. She has been mildly constipated. No melena or hematochezia. No hematuria. No headaches. No other associated symptoms. She was admitted to the hospital in February for orthostatic hypotension and it was found to be due to Flomax and medication interactions. She does have a history of atrial fibrillation and is on Eliquis. She had no fevers.] Physical Examination: [] WN WD NAD PERRL EOMI MMM NECK supple and nontender, no masses RRR no murmur rub or gallop, no peripheral edema, symmetric radial pulses CTAB no respiratory distress ABDOMEN is soft and nontender, normal bowel sounds, no distension, no rebound or guarding SKIN dime size wound on the dorsum of the right foot with mild surrounding hyperemia no cellulitis no drainage Alert and Oriented x3, CN II-XII in tact, no motor or sensory deficits, gait normal No lymphadenopathy Test Results: [] Emergency Department Course and Treatment: [EKG is atrial fibrillation at a rate of 85 no acute ischemic changes. Screening labs are otherwise unremarkable she has baseline anemia with a hemoglobin of 11.5. Blood pressures were monitored over 4 hours and she had no evidence of hypotension. Urinalysis did appear to be infected. Her granddaughter states that she has colonized urine and it always appears infected and that she should not get antibiotics except based on culture. Patient has had no symptoms. At this time she will be discharged home to keep her follow-up appointment with her primary care doctor tomorrow. Her blood sugar was 277 hemoglobin 8 1 cc was 9.2. Her granddaughter states this is baseline for her Treatment Plan: [] Disposition: [Discharge] Impression: [1. Orthostatic hypotension 2. Hyperglycemia] This note was generated with [employer] software. It may contain incorrect words, spelling, and punctuation that were not noted in review of the chart prior to signing ED Disposition - Plan for ED Patient: Chief Complaint: Hypotension Referrals: Elizabeth Coto MD [Primary Care Provider] -
[2017-07-27 19:26] LABS: Absolute Lymphocyte Count 1.48 X10^3/ul (0.83-4.51); Absolute Neutrophil Count 3.3 X10^3/uL (2.0-7.7); Basophil# 0.03 X10^3/uL; Basophil% 0.6 % (0-1); Eosinophil# 0.16 X10^3/uL; Eosinophils% 2.9 % (0-5); Hematocrit 35.5 % (37-47); Hemoglobin 11.5 g/dl (12.0-15.0); Lymphocyte # 1.48 X10^3/ul (4.0); Lymphocyte % 27.2 % (19-41); Mean Corp Hgb Conc 32.4 g/gl (32-36); Mean Corpuscular Hgb 30.5 pg (27.0-32.0); Mean Corpuscular Volume 94.2 fL (81-99); Mean Platelet Vol. 10.2 fl (6.2-12.0); Monocyte# 0.52 X10^3/uL; Monocyte% 9.5 % (0-10); Neutrophil # 3.25 X10^3/uL (2.7-7.7); Neutrophil % 59.6 % (47-70); Platelet Count 279 K/mm3 (150-450); RBC Distribution Width SD 44.3 fl (35.1-43.9); Red Blood Count 3.77 M/mm3 (4.2-5.4); White Blood Count 5.5 K/mm3 (4.4-11.0)
[2017-07-27 19:27] LABS: POSITIVE COUNT NO; POSITIVE DIFFERENTIAL NO; POSITIVE MORPHOLOGY NO
[2017-07-27 20:00] LABS: ALB/GLOB Ratio 0.9 RATIO (0.9-2.4); AST(SGOT) 23 U/L (15-37); Alanine Aminotransfer ALT/SGPT 18 U/L (13-56); Albumin, Serum 3.1 g/dL (3.2-5.0); Alkaline Phosphatase 99 U/L (45-117); Anion Gap 6 (5-15); BUN 17 mg/dL (7-18); BUN/Creat Ratio 15.5 RATIO (10-20); Calcium,Total 8.4 mg/dL (8.5-10.1); Chloride 106 mmol/L (98-107); EST Glomerular Filtration Rate 51 mL/min (>60); Est Glom Filt Rate - Afr Amer 62 mL/min (>60); Estimated Creatinine Clearance 36.98 ml/min; Globulin 3.5 g/dL (2.2-4.2); Glucose 277 mg/dL (74-106); Hemoglobin A1c 9.2 % (4.2-6.3); Potassium 4.2 mmol/L (3.5-5.1); Protein, Total 6.6 g/dL (6.4-8.2); Sodium Level 138 mmol/L (136-145)
[2017-07-27 21:07] LABS: Mucous, Urine 0 SEEN /hpf (<or=2+); Red Blood Cells-Urine 0 SEEN /hpf (0-5)
[2017-07-27 21:09] LABS: Color, Urine Yellow (Yellow); Glucose, Dipstick 250 mg/dl (Normal); Ketone-Dipstick Negative (Negative); Leukocyte Esterase-Dipstick 500 /ul (Negative); Nitrite-Dipstick Positive (Negative); Occult Blood-Urine 10 /ul (Negative); Protein-Dipstick 15 mg/dl (Negative); Specific Gravity, Urine 1.015 (1.002-1.030); Urine Bilirubin Dipstick Negative (Negative); Urine Clarity Clear (Clear); Urine Urobilinogen Normal (Normal)
[2017-07-27 21:45] LABS: Bacteria 3+ /hpf (None Seen); Squamous Epithelial Cells - UA 0-5 SEEN /hpf (5-10); White Blood Cells 10-25 SEEN /hpf (0-5)
--- NOTE | 2017-07-27 22:08 | ED.DEP ---
ED Disposition - Plan for ED Patient: Chief Complaint: Hypotension Instructions: ED Hypotension All Causes, Hyperglycemia (High Blood Sugar) Referrals: Elizabeth Coto MD [Primary Care Provider] - 1 Day
--- NOTE | 2017-07-27 22:15 | NURSING ---
SENT DOWN URINE CULTURE.
== END 2017-07-27 22:29 | disposition home or self-care (01) ==
PROVIDERS: Emergency Provider Emergency Medicine; Family Provider Internal Medicine; PCP Internal Medicine
DX: I95.1 Orthostatic hypotension (principal); E11.65 Type 2 diabetes mellitus with hyperglycemia; K59.00 Constipation, unspecified; S91.301A Unspecified open wound, right foot, initial encounter; I48.91 Unspecified atrial fibrillation; E78.00 Pure hypercholesterolemia, unspecified; H40.9 Unspecified glaucoma; I34.0 Nonrheumatic mitral (valve) insufficiency; Z86.73 Personal history of transient ischemic attack (TIA), and cerebral infarction without residual deficits; Z79.01 Long term (current) use of anticoagulants; Z79.4 Long term (current) use of insulin; Z79.899 Other long term (current) drug therapy
CPT/HCPCS: 80053; 81001; 83036; 84484; 85025; 87086; 87088; 87186; 93005; 96360; 96361; 99285; J7040

== ENCOUNTER → 2017-08-28 13:31 | Outpatient (CLI) | payer MEDICARE, OTHER, SELFPAY ==
--- NOTE | 2017-08-28 13:00 | SP.MBSS_ITS ---
PRIMARY / SECONDARY DIAGNOSIS: dysphagia (R13.11) REFERRING PHYSICIAN: LALO CastanoC CURRENT DIET: regular-soft textures, thin liquids DENTITION: dentures MENTAL STATUS: impaired; dementia RESPIRATORY STATUS: O2 via room air PREVIOUS MODIFIED BARIUM SWALLOW STUDY: 02/25/2017 MBS revealed moderate oral dysphagia (R13.11) with overt aspiration of thin liquids, severe oral holding. 04/06/2017 MBS revealed moderate oral dysphagia (R13.11) with intermittent deep transient penetration with thin liquids, severe oral holding. 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 Patient well known to this clinician from prior admission and recent multiple MBS. Patient accompanied by her primary caregiver / granddaughter (Janelle), both reporting continued nocturnal and diurnal sialorrhea (excessive production / pooling of saliva) with increased right sided drooling and bolus loss and intermittent choking episodes (nocturnal episodes somewhat improve with elevated hospital bed); persistent runny nose post intake with spontaneous eye tearing particularly when lying down; coughing with cold / hot liquids in addition to coughing with large bolus thin liquid intake; and continued decline in vocal quality with dysphonia marked by hypophonia and slight vocal quiver; all concerning factors for silent aspiration further concerning due to the presence and extent of dystussia (impaired cough intensity). Furthermore, Patient continues to demonstrate significant oral holding with suboptimal intake habits to include throwing her head back to initiate swallow with thin liquid medication, though it is understandable, as this likely is forcing the Patient to initiate the swallow with thin liquid entry into the pharyngeal arena eliciting the involuntary pharyngeal swallow. Patients granddaughter reporting prior fluctuations in medical status and subsequent dysphagia severity attributed to persistent hypotension with glaucoma medications; current decline unexplained. Patients mobility complicated by lower extremity ulceration of the foot that has not healed since stroke, with the Patient unable to ambulate independently, noted to be unsteady, typically requiring use of a wheelchair. ADDITIONAL OBJECTIVE ASSESSMENT RESULTS: 03/18/2017 CXR revealed stable increased markings at the lung bases suggestive of scarring; hyperinflation. 03/18/2017 CT revealed chronic involutional changes of the brain; stable focal encephalomalacia in the left frontal temporal lobe as well as in the superior aspect of the left posterior parietal lobe. 12/13/2016 CT revealed developing acute infarct left frontal temporal region. 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 STUDY FINDINGS: Patient participated in a Modified Barium Swallow (MBS) study on 08/28/2017. Dr. Boyle was the radiologist present for this evaluation. This study was recorded in the lateral view and images were sent to PACs for storage. The following consistencies were presented to this patient for analysis of oropharyngeal swallow function: thin liquids, nectar thickened liquids, pudding , and a regular textured, Serene Do[place] cookie. Results of the MBS are as follows: PENETRATION / ASPIRATION SCALE (JEAN BAPTISTE): 1 = does not enter airway 2 = enters airway/above vocal folds/ejected 3 = enters airway/above vocal folds/not ejected 4 = enters airway/contacts vocal folds/ejected 5 = enters airway/contacts vocal folds/not ejected 6 = enters airway/below vocal folds/ejected 7 = enters airway/below vocal folds/not ejected despite effort 8 = enters airway/below vocal folds/no effort VIDEOFLOROSCOPIC SCALE SCORE (JEAN BAPTISTE): Grade I = aspiration of material that has penetrated into the laryngeal vestibule, intact cough reflex Grade II = aspiration < 10 % of the bolus, intact cough reflex Grade III = aspiration of < 10 % of the bolus, reduced cough reflex or aspiration of > 10 % of the bolus, intact cough reflex Grade IV = aspiration of > 10 % of the bolus, reduced cough reflex PENETRATION / ASPIRATION SCALE (SCORE) WITH VIDEOFLOROSCOPIC SCALE SCORE: Thin liquids via cup (single sip): 1 Thin liquids via cup (single sip): 3 Thin liquids via cup (single sip): 5 Thin liquids via cup (sequential swallows): 5 Pudding via spoon: 1 Regular textured cookie: 1 Thin liquids via straw (single sip): 5 Thin liquids via straw (single sip): 5 [place] thickened liquids via cup (single sip): 1 [place] thickened liquids via cup (single sip): 1 [place] thickened liquids via cup (single sip): 1 IMPRESSION: DIAGNOSIS: moderate oropharyngeal dysphagia (R13.12) ORAL PHASE CHARACTERIZED BY: LABIAL SEAL: no labial escape TONGUE CONTROL DURING BOLUS MANIPULATION: posterior escape of less than half of bolus BOLUS PREPARATION / MASTICATION: slow prolonged chewing/mashing with complete recollection BOLUS TRANSPORT / LINGUAL MOTION: repetitive/disorganized tongue motion ( undulations) with continued delayed initiation of tongue motion fluctuating in severity ORAL RESIDUE: residue collection on oral structures PHARYNGEAL PHASE CHARACTERIZED BY: INITIATION OF PHARYNGEAL SWALLOW: bolus head at posterior laryngeal surface of epiglottis at first hyoid excursion SOFT PALATE ELEVATION: no bolus between soft palate and pharyngeal wall LARYNGEAL ELEVATION: complete superior movement of thyroid cartilage with complete approximation of arytenoids cartilage to epiglottic petiole ANTERIOR HYOID EXCURSION: partial anterior movement EPIGLOTTIC MOVEMENT: complete epiglottic inversion LARYNGEAL VESTIBULE CLOSURE AT HEIGHT OF SWALLOW: incomplete laryngeal vestibule closure with narrow column of air/contrast in laryngeal vestibule PHARYNGEAL STRIPPING WAVE: pharyngeal stripping wave present / diminished PHARYNGOESOPHAGEAL SEGMENT OPENING: complete distension and complete duration with no obstruction of flow TONGUE BASE RETRACTION: narrow column of contrast between tongue base and posterior pharyngeal wall PHARYNGEAL RESIDUE: collection of residue within or on pharyngeal structures ESOPHAGEAL PHASE CHARACTERIZED BY: ESOPHAGEAL BOLUS CLEARANCE IN THE UPRIGHT POSITION: could not view DIET TEXTURE RECOMMENDATIONS: Will recommend a regular-soft textured, nectar thickened liquid diet. COMPENSATORY STRATEGIES RECOMMENDED: Supervision with assistance as needed, consider cutting tougher textures into bite sized pieces, avoid mixed consistencies, alternate textures / temperatures / flavor etc. to promote improved swallow onset timing, reduced bolus volume, avoid straws, seated upright at 90 degrees during PO intake, remain upright for 30-60 minutes post meal (GERD precaution), medications crushed in applesauce. 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 Oral phase primarily marked by suboptimal lingual control with noted prominent lingual undulations; fluctuations in oral phase swallow onset timing (2-15 seconds in length; swallow apraxia / feeding apraxia) , with poor oral coordination resulting in premature bolus loss. Pharyngeal phase primarily marked by reduced closure of the airway during deglutition attributed to reduced anterior hyoid excursion resulting in poor laryngeal vestibule closure / pressure and insufficient / inconsistent laryngeal vestibule pressure generated to expel penetrated material; further complicated by delayed pharyngeal swallow onset timing resulting in suboptimal bolus location upon swallow onset and suboptimal pharyngeal motility / pharyngeal dysmotility. Maintenance of airway integrity ameliorated with bolus viscosity adjustments. Insufficient / inconsistent cough response to expel penetrated material during cued cough (dystussia). No aspiration appreciated throughout trials, unable to definitively rule out silent aspiration, with all clinical signs suggesting high risk factors for silent aspiration despite absence under fluoroscopy. RECOMMENDATIONS: Would recommend proceeding with caution due to the Patients high risk of silent aspiration. Would consider this Patient to be at higher risk for both malnutrition and dehydration due to the extent of oral holding and early satiety associated with thickened liquids; recommend continual monitoring. Would consider implementation of the [place] Free Water Protocol (FFWP) following Patient and family education. Patient requires continued intensive skilled speech-language intervention targeting continued diet texture management ; training and implementation of recommended compensatory strategies; implementation of thermal tactile approach to promote improved oral phase swallow onset; training, implementation, and Patient education regarding implementation of the FFWP; and Patient and caregiver training targeting meal preparation / thickened liquid preparation. ADDITIONAL COMMENTS/RECOMMENDATIONS: Results and recommendations were discussed with the Patient immediately following MBS completion, with the Patient verbalizing understanding and agreement with all recommendations and education provided. IMAGE COUNT: [id number] G-CODES: SWALLOWING G8996 Current Status: CJ SWALLOWING G8997 Goal Status: CI SWALLOWING G8998 Discharge Status: DESHAWN Deutsch M.A., CCC-ELECTRONICS COMPUTER MECHANIC [facility] Speech-Language Pathology Department [email or web address]
--- NOTE | 2017-08-28 13:34 | RAD_ITS ---
STUDY: SWALLOWING STUDY REASON FOR EXAM: Female, 77 years old. Dysphagia. TECHNIQUE: The examination was performed with Speech Pathology in attendance. Under fluoroscopic observation, the patient ingested thin barium, thick barium, barium pudding, and barium coated cracker. FLUOROSCOPY TIME: 3:35 minutes/seconds. 2867 spot images were obtained. RADIOLOGIST INVOLVEMENT: Radiologist was present and providing direct supervision. COMPARISON: None. FINDINGS: The following was observed during swallowing of the various mixtures of barium: Thin Barium: Penetration with delayed silent aspiration with ingestion of thin liquids. Thick Barium: There was no evidence of aspiration or laryngeal penetration. Barium Pudding: There was no evidence of aspiration or laryngeal penetration. Barium Coated Cracker: There was no evidence of aspiration or laryngeal penetration. RAD/Swallowing Function w/Video IMPRESSION: Penetration with delayed silent aspiration with ingestion of thin liquids. The swallow study findings were discussed with the patient by the speech pathologist at the conclusion of the examination. Please see speech pathology report for more information and recommendations. Electronically Signed: Janes Boyle MD at 14:35 EDT Tel [phone], Service support ,
== END ==
PROVIDERS: Family Provider Internal Medicine; PCP Internal Medicine; Visit Provider Nurse Practitioner Acute Care
DX: R13.10 Dysphagia, unspecified (principal)
CPT/HCPCS: 74230; 92611; G8996; G8997; G8998

== ENCOUNTER → 2017-10-05 10:56 | Outpatient (CLI) | payer MEDICARE, OTHER, SELFPAY ==
--- NOTE | 2017-10-07 08:19 | LEAS ---
Arterial Study - Arterial Study Arterial Study: next Date of scan 10/05/[address] Corey History: Right lower extremity ulceration with known hyperlipidemia and diabetes. Next Interpretation: Right lower extremity shows decreased waveform noted at the ankle but waveform maintained out through the digits. Duplex shows biphasic flow of both vessels at the ankle with an NITIN 0.82 with a PT 0.79 at the DP. Digit brachial index is 0.25. Left lower extremity again shows more of a flat waveform at the ankle decreased waveform out to the digits but is maintained. More of a monophasic waveform noted at the ankle but almost slightly biphasic in the posterior tibial. NITIN 0.75 the PT and 1.06 of the DP. Impression: 1. Right lower extremity with mild to moderate arterial occlusive disease. With an NITIN 0.82. With the decreased waveform suspect this may be falsely elevated. Further evaluation is warranted. #2. Left lower extremity with mild arterial occlusive disease with an NITIN 1.06, but suspect this is falsely elevated with monophasic waveform noted at this vessel. Further evaluation as clinically warranted. 3. Bilateral small vessel disease with the digit brachial index 0.25 in the right 0.26 on the left
== END ==
PROVIDERS: Family Provider Internal Medicine; PCP Internal Medicine; Visit Provider Surgery Vascular Surgery
DX: I70.238 Atherosclerosis of native arteries of right leg with ulceration of other part of lower leg (principal); Z86.73 Personal history of transient ischemic attack (TIA), and cerebral infarction without residual deficits; M81.0 Age-related osteoporosis without current pathological fracture; G43.909 Migraine, unspecified, not intractable, without status migrainosus; E78.00 Pure hypercholesterolemia, unspecified; E11.9 Type 2 diabetes mellitus without complications; M19.90 Unspecified osteoarthritis, unspecified site; D64.9 Anemia, unspecified
CPT/HCPCS: 93922; 93926

== ENCOUNTER → 2017-10-28 07:51 | Outpatient (CLI) | payer MEDICARE, OTHER, SELFPAY ==
--- NOTE | 2017-10-28 10:13 | NEURO_ITS ---
NCS and/or EMG Patient Report Ordering Doctor: Luly Canseco DATE OF SERVICE: 10/28/17 This is a right lower extremity nerve conduction study performed on this 77-year -old female with weakness in the right leg. There is a history of diabetes currently with an insulin pump. Her most recent hemoglobin A1c is 8.9, her family members tell me her hemoglobin A1c has never been better than 9 previously. Right lower extremity sensory and motor nerve conduction studies performed. The tibial H reflex responses bilaterally are severely suppressed. The common peroneal and tibial motor distal latencies are prolonged with severe reduction of amplitude and mild slowing of conduction velocities. The sural sensory distal latency is prolonged. 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
== END ==
PROVIDERS: Family Provider Internal Medicine; PCP Internal Medicine; Visit Provider Nurse Practitioner Acute Care
DX: R20.2 Paresthesia of skin (principal)
CPT/HCPCS: 95909

== ENCOUNTER → 2017-11-23 13:55 | Outpatient (CLI) | payer MEDICARE, OTHER, SELFPAY ==
--- NOTE | 2017-11-23 13:59 | VDLE_ITS ---
Reason For Study: pain and swelling RIGHT LEFT CFV is compressible, spontaneous, phasic, CFV is compressible, spontaneous, phasic, competent and demonstrates normal competent, and demonstrates normal augmentation. augmentation. FV is compressible, spontaneous, phasic, competent and demonstrates normal augmentation. POP V is compressible, spontaneous, phasic, competent and demonstrates normal augmentation. T/P Trunk is compressible. PTV is compressible. RT PerV is compressible. S-F junction is competent. GSV is competent throughout. SSV is competent. Procedure Exam performed in department. The exam was diagnostic. A preliminary report was called and/or faxed to Dr. Corey's office. Interpretation Summary 1. Right leg with no DVTor SVT. No deep or superficial reflux noted. Ordering Physician: Juan F Corey Performed By: Corneilo Martinez RVT
== END ==
PROVIDERS: Family Provider Internal Medicine; PCP Internal Medicine; Referring Provider Surgery Vascular Surgery; Visit Provider Surgery Vascular Surgery
DX: M79.89 Other specified soft tissue disorders (principal); M79.604 Pain in right leg
CPT/HCPCS: 93971

== ENCOUNTER 2017-12-02 14:24 | Emergency (ER) | payer MEDICARE, OTHER, SELFPAY ==
[2017-12-02 14:25] VITALS: BP 135/56; PULSE 90; RESP 18; TEMP 37.1; O2SAT 99; BMI 25.4
--- NOTE | 2017-12-02 15:36 | ED.DCSUM_ITS ---
- ER Visit Summary Date of Service: 12/02/17 Chief Complaint: Diarrhea History of Present Illness: The patient is a 77 F presenting for evaluation secondary to GI complaints. Patient has a history of approximately year ago having a stroke. Since then the patient's granddaughter states that she has been having issues with blood pressure control as well as going back and forth between severe constipation and severe diarrhea. Patient has been worked up by multiple specialists for these GI issues, she has been on and off of medications to help her with constipation and loose stools, and actually had stool studies that were performed on 928 there were found to be negative. Patient was recently seen by a GI specialist in [place] who told her that he thinks that she has Crohn's disease, but needs to get further tests to prove this. Patient apparently had a angioplasty of the right leg last month, and the GI specialist is unable to perform the upper endoscopy needed for another 5 months as she had a recent major procedure and he cannot do it in her surgery center. Patient's granddaughter states that she would like to get a referral to potentially get this procedure done sooner. Patient has not had any fevers but has had a significant amount of weight loss associated with this. No nausea or vomiting. She does have some occasional abdominal cramping. Physical Examination: Vital signs within normal limits. Well-nourished elderly female no acute distress. No conjunctival pallor or scleral icterus, moist mucous membrane's. Neck was supple. Heart was regular rate and rhythm with distant heart sounds no murmurs. Lungs sounds clear to auscultation bilaterally. Abdomen was soft nontender nondistended normal bowel sounds no palpable abdominal masses or pulsatile mass. +1 radial pulses that are bilaterally symmetric. Skin normal color no rash. No lateralizing neurological deficits. Test Results: CBC demonstrates mild anemia. Chemistry liver magnesium and phosphorus are within normal limits Emergency Department Course and Treatment: Patient presented for evaluation secondary to acute on chronic diarrhea. She has benign physical exam normal vital signs and a normal laboratory workup. I do not believe that further workup either inpatient or by GI or general surgery are needed emergently. Patient will be referred to Dr. Janelle Vines for potential endoscopy as an outpatient as she is already established with the [facility]. Disposition: Discharge Impression: 1. Diarrhea This note was generated with [employer] dictation software. It may contain incorrect words, spelling, and punctuation that were not noted in review of the chart prior to signing ED Disposition - Plan for ED Patient: Disposition: Home or Assisted Living Chief Complaint: Diarrhea Diagnosis: Diarrhea Instructions: ED Inflam Bowel Disease Crohn, ED Colitis Ulcerative Referrals: Janelle Vines MD [STAFF PHYSICIAN] - Additional Instructions: You do not have a confirmed diagnosis of crohns or UC. Here is the info on the both of them.
[2017-12-02 15:59] LABS: Absolute Lymphocyte Count 1.79 X10^3/ul (0.83-4.51); Absolute Neutrophil Count 3.8 X10^3/uL (2.0-7.7); Basophil# 0.03 X10^3/uL; Basophil% 0.5 % (0-1); Eosinophil# 0.07 X10^3/uL; Eosinophils% 1.1 % (0-5); Hematocrit 34.6 % (37-47); Hemoglobin 11.1 g/dl (12.0-15.0); Lymphocyte # 1.79 X10^3/ul (4.0); Lymphocyte % 28.6 % (19-41); Mean Corp Hgb Conc 32.1 g/gl (32-36); Mean Corpuscular Hgb 29.6 pg (27.0-32.0); Mean Corpuscular Volume 92.3 fL (81-99); Mean Platelet Vol. 10.4 fl (6.2-12.0); Monocyte# 0.55 X10^3/uL; Monocyte% 8.8 % (0-10); Neutrophil % 60.7 % (47-70); Platelet Count 255 K/mm3 (150-450); RBC Distribution Width CV 13.8 % (11.6-14.6); RBC Distribution Width SD 45.2 fl (35.1-43.9); Red Blood Count 3.75 M/mm3 (4.2-5.4); White Blood Count 6.3 K/mm3 (4.4-11.0)
[2017-12-02 16:01] LABS: POSITIVE COUNT NO; POSITIVE DIFFERENTIAL NO; POSITIVE MORPHOLOGY NO
[2017-12-02 16:09] LABS: AST(SGOT) 28 U/L (15-37); Alanine Aminotransfer ALT/SGPT 40 U/L (13-56); Albumin, Serum 2.5 g/dL (3.2-5.0); Alkaline Phosphatase 132 U/L (45-117); Anion Gap 7 (5-15); BUN 16 mg/dL (7-18); BUN/Creat Ratio 20.1 RATIO (10-20); Calcium,Total 7.9 mg/dL (8.5-10.1); Chloride 106 mmol/L (98-107); EST Glomerular Filtration Rate 74 mL/min (>60); Est Glom Filt Rate - Afr Amer 90 mL/min (>60); Estimated Creatinine Clearance 48.72 ml/min; Globulin 2.6 g/dL (2.2-4.2); Glucose 258 mg/dL (74-106); Magnesium 1.9 mg/dL (1.6-2.6); Potassium 3.9 mmol/L (3.5-5.1); Protein, Total 5.1 g/dL (6.4-8.2); Sodium Level 142 mmol/L (136-145)
[2017-12-02 16:10] LABS: Phosphorus 3.3 mg/dL (2.5-4.9)
[2017-12-02 16:41] VITALS: BP 141/79; PULSE 68; RESP 16; O2SAT 97
== END 2017-12-02 16:42 | disposition home or self-care (01) ==
PROVIDERS: Emergency Provider Emergency Medicine; Family Provider Internal Medicine; PCP Internal Medicine
DX: R19.7 Diarrhea, unspecified (principal); R63.4 Abnormal weight loss; R10.9 Unspecified abdominal pain; K59.00 Constipation, unspecified; D64.9 Anemia, unspecified; E11.9 Type 2 diabetes mellitus without complications; E78.00 Pure hypercholesterolemia, unspecified; I48.91 Unspecified atrial fibrillation; Z86.73 Personal history of transient ischemic attack (TIA), and cerebral infarction without residual deficits; Z79.01 Long term (current) use of anticoagulants; Z79.4 Long term (current) use of insulin; Z79.899 Other long term (current) drug therapy
CPT/HCPCS: 80053; 83735; 84100; 85025; 99283; A4216

== ENCOUNTER → 2018-01-22 10:00 | Outpatient (CLI) | payer MEDICARE, OTHER, SELFPAY ==
[2018-01-22 10:00] VITALS: BMI 25.3
[2018-01-22 11:36] LABS: Microalbumin,Random Urine 14.8 mg/L (NO RANGE EST.)
[2018-01-22 11:49] LABS: ALB/GLOB Ratio 1.1 RATIO (0.9-2.4); AST(SGOT) 23 U/L (15-37); Alanine Aminotransfer ALT/SGPT 26 U/L (13-56); Albumin, Serum 3.2 g/dL (3.2-5.0); Alkaline Phosphatase 95 U/L (45-117); Anion Gap 8 (5-15); BUN 25 mg/dL (7-18); BUN/Creat Ratio 24.5 RATIO (10-20); Calcium,Total 8.5 mg/dL (8.5-10.1); Chloride 107 mmol/L (98-107); Creatinine, Serum 1.02 mg/dL (0.55-1.02); EST Glomerular Filtration Rate 56 mL/min (>60); Est Glom Filt Rate - Afr Amer 67 mL/min (>60); Glucose 180 mg/dL (74-106); Hemoglobin A1c 10.6 % (4.2-6.3); Potassium 4.3 mmol/L (3.5-5.1); Protein, Total 6.2 g/dL (6.4-8.2); Sodium Level 141 mmol/L (136-145)
--- OUTSIDE RECORDS SUMMARY | 2018-03-10 00:30 | XMS RPT_ITS ---
:1940 Author Organization OHIP Support Name Relationship Address Phone TOM, JANELLE Unavailable [address] + [place] [address] R Unavailable Unavailable Unavailable TOM, JANELLE Unavailable [address] + [place] [address] R Unavailable Unavailable Unavailable TOM, JANELLE Unavailable [address] + [place] [address] R Unavailable Unavailable Unavailable TOM, JANELLE Unavailable [address] + [place] [address] R Unavailable Unavailable Unavailable TOM, JANELLE Unavailable [address] + [place] [address] R Unavailable Unavailable Unavailable TOM, JANELLE Unavailable [address] + [place] [address] R Unavailable Unavailable Unavailable TOM, JANELLE Unavailable Unavailable + CHACHA GUO Unavailable Unavailable + TOM, JANELLE Unavailable [address] + [place] [address] R Unavailable Unavailable Unavailable TOM, JANELLE Unavailable [address] + [place] [address] R Unavailable Unavailable Unavailable TOM, JANELLE Unavailable [address] + [place] [address] R Unavailable Unavailable Unavailable TOM, JANELLE Unavailable [address] + [place] [address] R Unavailable Unavailable Unavailable TOM, JANELLE Unavailable [address] + [place] [address] R Unavailable Unavailable Unavailable TOM, JANELLE Unavailable [address] + [place] [address] R Unavailable Unavailable Unavailable TOM, JANELLE Unavailable [address] + [place] [address] R Unavailable Unavailable Unavailable TOM, JANELLE Unavailable [address] + [place] [address] R Unavailable Unavailable Unavailable TOM, JANELLE Unavailable [address] + [place] [address] R Unavailable Unavailable Unavailable TMO, JANELLE Unavailable [address] + [place] [address] R Unavailable Unavailable Unavailable TOM, JANELLE Unavailable [address] + [place] [address] R Unavailable Unavailable Unavailable TOM, JANELLE Unavailable [address] + [place] [address] R Unavailable Unavailable Unavailable TOM, JANELLE Unavailable / + [place] [address] R Unavailable Unavailable Unavailable TOM, JANELLE Unavailable Unavailable + R Unavailable Unavailable Unavailable TOM, JANELLE Unavailable [address] + [place] [address] R Unavailable Unavailable Unavailable TOM, JANELLE Unavailable Unavailable + R Unavailable Unavailable Unavailable TOM, JANELLE Unavailable [address] + [place] [address] R Unavailable Unavailable Unavailable TOM, JANELLE Unavailable NA + [place], [place] R Unavailable Unavailable Unavailable TOM, JANELLE Unavailable [address] + [place] [address] R Unavailable Unavailable Unavailable TOM, JANELLE Unavailable NA + [place], [place] R Unavailable Unavailable Unavailable TOM, JANELLE Unavailable NA + [place], [place] R Unavailable Unavailable Unavailable TOM, JANELLE Unavailable NA + [place], [place] R Unavailable Unavailable Unavailable R Unavailable Unavailable Unavailable Tom, Janelle Unavailable [address] + [place] [address] R Unavailable Unavailable Unavailable CHACHA GUO Unavailable [address] + [place] [address] Tom Janelle Unavailable [address] + [place] [address] R Unavailable Unavailable Unavailable CHACHA GUO Unavailable [address] + [place] [address] Tom Janelle Unavailable [address] + [place] [address] R Unavailable Unavailable Unavailable CHACHA GUO Unavailable [address] + [place] [address] Care Team Providers Name Role Phone Roya Crocker STONEMASON HELPER-C Attending Unavailable Roya Crocker STONEMASON HELPER-C Referring Unavailable Talampas, Ramu Primary Care Unavailable Ace Chavez Attending Unavailable Talampas, Ramu Primary Care Unavailable Wil Alves Attending Unavailable Kelli Joshua Attending Unavailable Roya Crocker STONEMASON HELPER-C Attending Unavailable Talampas, Ramu Referring Unavailable Wil Alves Attending Unavailable Talampas, Ramu Referring Unavailable Talampas, Ramu Primary Care Unavailable Nurse, Tayla Attending Unavailable Talampas, Ramu Referring Unavailable Apurva Robb Attending Unavailable Talampas, Ramu Primary Care Unavailable Tereletsky Percy Admitting Unavailable Paintsil, Cedarcreek Attending Unavailable Aditya Burton Consulting Unavailable Moodispaw, Akira Consulting Unavailable Tereletsky, Percy Admitting Unavailable TereletskyPercy Attending Unavailable Talampas, Ramu Primary Care Unavailable Tereletsky, Percy Consulting Unavailable Tereletsky Percy Admitting Unavailable Talampas, Ramu Primary Care Unavailable Paintsil, Cedarcreek Consulting Unavailable Paintsil, Cedarcreek Attending Unavailable Tereletsky Percy Admitting Unavailable Moodispaw, Akira Attending Unavailable Talampas, Raum Primary Care Unavailable Aditya Burton Consulting Unavailable Moodispaw, Akira Consulting Unavailable Paintsil, Cedarcreek Consulting Unavailable Tereletsky, Percy Admitting Unavailable Talampas, Ramu Primary Care Unavailable Aditya Burton Consulting Unavailable Paintsil, Cedarcreek Attending Unavailable Moodispaw, Akira Consulting Unavailable Paintsil, Cedarcreek Consulting Unavailable TereletskyPercy Admitting Unavailable Moodispaw, Akira Attending Unavailable Talampas, Ramu Primary Care Unavailable Aditya Burton Consulting Unavailable Moodispaw, Akira Consulting Unavailable Paintsil, Cedarcreek Consulting Unavailable Tereletsky, Percy Admitting Unavailable Warner Martinez Attending Unavailable Talampas, Ramu Primary Care Unavailable Aditya Burton Consulting Unavailable Moodispaw, Akira Consulting Unavailable Paintsil, Cedarcreek Consulting Unavailable Finn, Starla A Attending Unavailable Finn, Starla A Referring Unavailable Talampas, Ramu Primary Care Unavailable Talampas, Ramu Attending Unavailable Talampas, Ramu Referring Unavailable Talampas, Ramu Primary Care Unavailable Roya Crocker STONEMASON HELPER-C Attending Unavailable Talampas, Ramu Referring Unavailable Talampas, Ramu Primary Care Unavailable Krystle Evasn Attending Unavailable Talampas, Ramu Primary Care Unavailable AjithJoseph clemons STONEMASON HELPER-C Attending Unavailable Talampas, Ramu Primary Care Unavailable Ajith, Joseph STONEMASON HELPER-C Referring Unavailable ShoRoya banegas STONEMASON HELPER-C Attending Unavailable Talampas, Ramu Referring Unavailable Talampas, Ramu Primary Care Unavailable Paris Barone Attending Unavailable Roya Crocker STONEMASON HELPER-C Attending Unavailable Talampas, Ramu Referring Unavailable Talampas, Ramu Primary Care Unavailable AjithJoseph clemons STONEMASON HELPER-C Attending Unavailable Ajith, Joseph STONEMASON HELPER-C Referring Unavailable Talampas, Ramu Primary Care Unavailable Finn, Starla A Attending Unavailable Finn, Stalra A Referring Unavailable Talampas, Ramu Primary Care Unavailable Finn, Starla A Attending Unavailable Finn, Starla A Referring Unavailable Talampas, Ramu Primary Care Unavailable Ajith, Joseph STONEMASON HELPER-C Attending Unavailable Ajith, Joseph STONEMASON HELPER-C Referring Unavailable Talampas, Ramu Primary Care Unavailable Roya Crocker STONEMASON HELPER-C Attending Unavailable Talampas, Ramu Referring Unavailable Talampas, Ramu Primary Care Unavailable Finn, Starla A Attending Unavailable Finn, Starla A Referring Unavailable Talampas, Ramu Primary Care Unavailable Talampas, Ramu Primary Care Unavailable Tru Haines Attending Unavailable Moodispaw, Akira Attending Unavailable Talampas, Ramu Referring Unavailable TALAMPAS, RAMU D Attending Unavailable GLADYS FERRIS ([facility]) Attending Unavailable GLADYS FERRIS ([facility]) Referring Unavailable TALAMPAS, RAMU D Attending Unavailable TALAMPAS, RAMU D Referring Unavailable VERONICA SAENZ ([facility]) Attending Unavailable AJITH, JOSEPH S Referring Unavailable VERONICA SAENZ ([facility]) Referring Unavailable RAMU ROBLES Referring Unavailable JOSE KISER Attending Unavailable RAMU ROBLES Referring Unavailable JANELLE VINES Attending Unavailable RAMU ROBLES Attending Unavailable RAMU ROBLES Referring Unavailable STARLA FINN MD Attending Unavailable MARGARET BOWIE, DR. GUALLPA Primary Care Unavailable PETERSON MELENDEZ) Attending Unavailable Janelle Vines Referring Unavailable RAMU ROBLES Primary Care Unavailable PROBLEMS PROBLEMS DATE TYPE CONDITION / CODE ATTENDING STATUS SOURCE 03/01/2018 Unknown R13.11 - Dysphagia, AjithJoseph clemons Active [place] oral phase / [facility] Community R13.11(ICD-10) Hospital Repository 11/02/2017 Active Diarrhea, NA Active [facility] unspecified / [facility] R19.7(ICD-10) Repository 10/28/2017 Unknown R20.2 - Paresthesia AjithJoseph clemons Active [place] of skin / [facility] Community R20.2(ICD-10) Hospital Repository 08/16/2017 Active Chronic kidney NA Active [facility] disease, stage 3 [facility] (moderate) / Repository N18.3(ICD-10) 12/26/2014 Active Type 1 diabetes NA Active [facility] mellitus with [facility] hyperglycemia / Repository E10.65(ICD-10) 10/23/2017 Active Urinary tract NA Active [facility] infection, site not [facility] specified / Repository N39.0(ICD-10) 10/23/2017 Active Disorientation, NA Active [facility] unspecified / [facility] R41.0(ICD-10) Repository 10/23/2017 Active Other fatigue / NA Active [facility] R53.83(ICD-10) [facility] Repository 10/23/2017 Active Other fdc NA Active [facility] (current) drug [facility] therapy / Repository Z79.899(ICD-10) 08/04/2017 Active Unknown / RAMU ROBLES Active [facility] UNK(Unknown) D [facility] Repository 07/03/2017 Active Unspecified injury NA Active [facility] of right lower leg, [facility] initial encounter / Repository S89.91XA(ICD-10) 04/06/2017 Unknown I69.391 - Dysphagia Ramu Robles Active [place] following cerebral Community infarction / Hospital I69.391(ICD-10) Repository PROCEDURES PROCEDURES No Procedure Records FoundRESULTS RESULTS RE-EVALUTION OT Observed: 02/24/2018 Status: F Source: [place] 9:58 AM [facility] REPOSIT[facility] Occupational [facility] [address] [place] [address] / REEVALUATION / MEDICARE RECERTIFICATION OCCUPATIONAL THERAPY MR#: [id number] Acct: [id number] Name: SERENA GUO Rep #: [id number] : 1940 78 From: Perlita Davidson Referring Dr.: ROLDAN Canseco Status: REG RCR Insurance: MEDICARE PART A B Eval Date: TAQUERIA Nelson, It has been my pleasure to treat SERENA GUO over the last 7 visits for Ischemic L MCA CVA. Please see the progress note below for an update on the occupational therapy plan of care! Subjective: Arrived 14 mins late with Granddaughter. Granddaughter and noted shoulder is still bad. Noted hurts from shoulder down to wrist. She has taken a month break from therapy. Objective/Function: Completed reassessment on this date 02/23/18. Measurements as follows: ROM is as follows: Shoulder: - Flexion: R 0-111, L WFL. - Extension R 0-32, L WFL. - IR: R 0-65, L WFL. - ER R 0-32, L WFL. Strength measurements are as follows: Shoulder. - Flexion: R 4/5, L 4-/5. - IR: 4-/5, L 4-/5. - ER: 4-/5, L 4-/5. Elbow: - Flexion: 4-/5, L 4-/5. - extension: 4-/5, L 4-/5. Neers Impingement: Positive R UE. Biceps load: Positive R UE. Assistant Front Office Manager in flexed position: 42, L 59 lbs. Assistant Front Office Manager in extended position: R 42, L 55 lbs. Lateral pinch R 11, L 10 lbs. Tripod R 8, L 10lbs. pinch R 8, L 7 lbs. Completed sensory testing: Results is as follows: R hand: 2nd 5.46 , 3rd 4.56 ,4th 4.93 ,5th 4.31 ,thumb 4.93. L hand: 2nd 3.61 , 3rd 3.84 ,4th 4.08 ,5th 3.61 ,thumb 3.61. Increased sensory deficits on R hand when compared to L hand. Plan Frequency: 1-2x /Week Duration: 4 Weeks Visits in this POC: 12-16 Plan: Continue POC for 1-2x weekly for next 4 weeks. She took month long break and symptoms that were decreasing and have returned. HEP was not carried over and they are to start completing HEP to help manage symptoms. Increased difficulty determining if symptoms are coming from cervical spine or just shoulder as Nida reports all movements are painful. Since previous symptoms were decreasing with treatment we will continue POC for 1-2x 4 weeks to work on decreasing symptoms. If no relief is made, then it will be recommended she returns to referring physician. Goals - Goals Goal:: Nida to increased B package dyer by 10 lbs as well as increased B UE strength to 4+/5 to promote increased strength and endurance needed to promote increased (I) with ADl/IADls by d/c. Goal:: Nida to increased ability to complete R UE ROM with no more than 1/10 pain or very minimal nonverbal pain behaviors 4/5 trials 80% of the time to promote increased (I) with ADl/IAdls by d/c. Goal:: Nida to increase FMC and finger dexterity through decrease time to complete 9 hole pegboard test to promote increased skills needed to complete manipulation of self care items by d/c. Goal:: Nida to be mod I to complete B UE and LE dressing skills 4/5 trials 80% of the time with 2-3x cues to complete tasks to promote increased (I) and ability to return to PLOF by d/c. Goal:: Nida to be mod I to complete simple 1-2 step tasks with verbal and visual cues to promote increased participation in therapy 4/5 trials 80% of the time by d/c. Goal:: Nida and caregiver to complete daily HEP to promote increased strength, ROM, and stability of R shoulder to decrease pain and impingment like symptoms 4/5 trials 80% of the time by d/c. Goal:: Nida to be able to complete low vision related compensations at home and in therapy to promote increased ability to complete ADl/IADls to improve QOL and decrease further decline in function by d/c. Anticipated Interventions Anticipated Interventions: A/AAROM/PROM, Strengthening, Modalities, Joint Protection/Energy Conservation, Ergonomic Education, Dynamic Sitting Balance, Fine Motor Coord/Payam, Neuro Reeducation, Visual/Perceptual Skills, ADL Training, Education re assistive Equipment, Caregiver Training, Home Program Other Interventions: Low vision techniques and compensations needed. Please do not hesitate to contact me at [phone] by phone or if you have questions or concerns regarding this new plan of care! Sincerely, Perlita Davidson <Electronically signed by Perlita Davidson > 02/24/18 0958 CC: ROLDAN Canseco; Ramu Robles MD [facility] Signed For Medicare only, by signing this I certify the plan of care. Physicians Signature Date ENDOCRINOLOGY VISIT Observed: 01/27/2018 Status: F Source: [place] REPORT 11:51 AM [facility] [address] [place] [address] [address] [place] [address] OFFICE VISIT Date of Service: 01/26/18 MR#: [id number] Acct: [id number] Name: SERENA GUO Rep #: [id number] : 1940 Provider: Roya Crocker NP Age/Sex: 77/F Location[place] [facility] Status: Signed HPI History of present illness Serena Guo is a 77 year old female who presents for follow up of diabetes type 1. . Granddaughter is here with patient. Presents in wheelchair and on insulin pump therapy.Ulcer on right foot completely healed following vascular surgery right leg. Diarrhea is now resolved. BG readings remain elevated. She has made appointment for patient to see a driller helper. BP in range and well controlled currently. Time of Day Basal Rate 12m 0.30 3am 0.30 8am 0.90 12n 0.775 4pm 0.500 8pm 0.30 At time of visit: -Pt denies symptoms of hypertensive emergency (CP,SOB,FRANCISCO, or blurred vision) and hypotension(dizziness or lightheadedness) -Pt denies symptoms of hypoglycemia ( sweaty, confusion, anxiety, tremor, hunger, palpitations) and hyperglycemia ( polydipsia, polyuria) -Pt denies potential medication adverse effect. Hypoglycemia Aware of hypoglycemia: When awake Able to self treat low BG: Yes Frequent low Blood sugar: No Has supply of glucagon: Yes SMBG 4 or more times daily Improved control Diet 3 meals Meals are carb counted. Since our last visit she denies excessive thirst, increased frequency of urination, chest pain or dyspnea. Follows a diabetic diet, Is compliant with medication and is tolerating without side effects. Is having difficult swallowing and does choke on liquids. Is using thickening agents. Also having low BP again. Exam Const General: comfortable Nutritional Appearance: well nourished [facility] Head: normal to inspection, normocephalic Ears: other (sl hard of hearing) Mouth: oral mucosae normal, moist mucous membranes Teeth and gingiva: fair dentition Eyes General: appearance normal, both eyes and all related structures Eyelids: eyelids normal Conjunctivae: conjunctivae normal Sclera: sclerae normal Resp Effort AND Inspection: normal respiratory effort, able to speak in complete sentences, symmetric chest movement Auscultation: Bilateral: Clear to Auscultation Cardio Rate: regular rate Rhythm: regular rhythm Heart Sounds: S1 normal, S2 normal GI Inspection: normal to inspection Auscultation: normal bowel sounds Palpation: soft, no guarding Skin General: no rashes or lesions noted Wounds: no wounds Diabetic Foot Pulses: L dorsalis pedis pulse: weak , R dorsalis pedis pulse: Monofilament test: Left foot: abnormal, Right foot: abnormal Neuro General: moves all extremities Speech: speech normal Extrem General: normal to inspection Psych Appearance: well kempt Mood: congruent mood Affect: sad ( recently ) Speech and Movement: speech and movement normal Attitude: cooperative Thought Process: flight of ideas Thought Content: normal Judgment: fair Type: type 1, insulin-requiring Glucose control symptoms: Reports high fasting glucose and high post-meal glucose Weight and fatigue symptoms: Denies snoring Cardiopulmonary symptoms: Denies chest pain at rest, dyspnea on exertion, lightheadedness or myalgias GI symptoms: Reports diarrhea; denies constipation, nausea/dyspepsia or vomiting Skin and extremity symptoms: Reports tingling/numbness/burning Other symptoms: Denies blurry vision or change in vision Pertinent visit history: Denies recent visit to ER, recent hospital admission or recent 911 calls Self monitoring: Yes Glucometer type: dez sensor Percentage of fasting blood glucose within goal: <25% of the time Dietary compliance: Diabetes: good Diabetes education in past year: Yes Glucose testing: demonstrates correct use of meter, understands testing schedule Sick day education - understands ketone testing: Yes Physical activity: sedentary lifestyle Intake Vital Signs01/26/18 Body Mass Index (BMI) 25.3 01/26/18 Height 5 ft 3 in 01/26/18 Blood Pressure 104/68 01/26/18 Blood Pressure Location Lt popliteal 01/26/18 Blood Pressure Position Sitting Intake Visit Reasons: Diabetes follow-up Finished Goods Planner Required: No Accompanied by: Family / Other Allergies ezetimibe [From Zetia] Allergy (Verified 01/26/18 13:04) Other Medications insulin lispro (U- 100) 100 unit/mL subcutaneous solution See Rx Instructions CONTINUOUS SUBCUTANEOUS INFUSION QDAY #3 ml 02/04/17 [Rx Confirmed 01/26/18] Apixaban [Eliquis] 5 mg PO BID 03/18/17 [History Confirmed 01/26/18] Atorvastatin Calcium [Lipitor] 40 mg PO QHS 03/18/17 [History Confirmed 01/26/18] Calcium Carb/Vitamin D [Os-Jam 500MG + D] 1 tab PO DAILY@0800 03/18/17 [History Confirmed 01/26/18] Refresh Tears 0.25 inch EACH EYE QHS 03/18/17 [History Confirmed 01/26/18] Gabapentin [Neurontin] 100 mg PO TIDCM 07/27/17 [History Confirmed 01/26/18] L.acidoph,Paracasei, B.lactis [Probiotic] 1 ea PO DAILY 07/27/17 [History Confirmed 01/26/18] Omeprazole 20 mg PO DAILY 07/27/17 [History Confirmed 01/26/18] carboxymethylcellulose sodium 0.5 % eye drops 1 drp OPHTHALMIC 4-8XD PRN 10/27/17 [History Confirmed 01/26/18] midodrine 5 mg tablet 5 mg PO TID PRN tab 10/27/17 [History Confirmed 01/26/18] netarsudil 0.02 % eye drops 1 drp OPHTHALMIC QPM 10/27/17 [History Confirmed 01/26/18] promethazine 12.5 mg tablet 12.5 mg PO Q6H PRN 10/27/17 [History Confirmed 01/26/18] cholecalciferol (vitamin D3) 5,000 unit tablet 5,000 unit PO DAILY 12/16/17 [History Confirmed 01/26/18] clopidogrel 75 mg tablet 75 mg PO DAILY 12/16/17 [History Confirmed 01/26/18] fexofenadine 180 mg tablet 180 mg PO Q24H PRN 12/16/17 [History Confirmed 01/26/18] blood sugar diagnostic strips See Dose Instructions .ROUTE .MEDSUPPLY #300 ea 12/17/17 [Rx Confirmed 01/26/18] FreeStyle Precision Zechariah Strips See Dose Instructions .ROUTE .MEDSUPPLY #50 ea NS 12/21/17 [Rx Confirmed 01/26/18] Nurse's Note: blood sugars : low : 40 high : 410 PFSH Medical History Insulin pump in place (Chronic) Type 1 diabetes mellitus (Chronic) Nonrheumatic mitral (valve) insufficiency (Acute) Paroxysmal atrial fibrillation (Acute) Arterial ischemic stroke, MCA, left, acute (Acute) Right sided weakness (Acute) Diabetes mellitus (Chronic) Glaucoma (Chronic) Anemia (Acute) Anxiety (Acute) Arthritis (Acute) CVA (cerebral vascular accident) (Acute) Carpal tunnel syndrome (Acute) Cataract (Acute) Cataracts, bilateral (Acute) Diabetes type 1, controlled (Acute) GERD (gastroesophageal reflux disease) (Acute) Glaucoma (Acute) High cholesterol (Acute) Hypocalcemia (Acute) Muscle weakness (Acute) Neuropathy (Acute) Osteoporosis (Acute) Right sided cerebral hemisphere cerebrovascular accident (Acute) Stomach ulcer (Acute) Vision problems (Acute) Atrial fibrillation (Inactive) Headache (Inactive) Seasonal allergies (Inactive) Vitamin deficiency (Inactive) Surgical History Status post glaucoma surgery (Acute) History of angioplasty of peripheral vessel (Resolved 11/05/17) Hx of cataract surgery (Resolved) Family History Father Hypertension Arthritis Brother Diabetes Sister Cancer Social History Smoking Status: Never smoker second hand exposure: No alcohol intake: never substance use type: does not use caffeine: Yes Type: coffee Number of servings: 2 what type of physical activity do you participate in: other details: PT frequency: 1-2 times per week duration: 15-30 minutes/day seatbelt use: always do you feel safe at home: Yes ROS Const Constitutional: Positive for change in appetite; no anorexia, body ache, chills, fatigue, fever(s), frequent falls, decreased energy, malaise, night sweats, weakness, weight change, sleep problems, abnormal sleep pattern, other, headache(s), snoring or excessive sweating Eyes Eyes: No blurry vision, change in vision, double vision, discharge, dry eyes, bulging eyes, floaters, visual disturbances, eye pain, light sensitivity, spots in vision, tunnel vision or other ENT ENT: Positive for nasal congestion and nasal discharge; no abnormal hearing, ear pain, ear discharge, ear pressure, hearing loss, tinnitus, dizziness/vertigo, balance problems, nosebleed/epistaxis, nasal obstruction, nose pain, sinus pressure, sinus pain, post nasal drip, headache(s), facial pain, dental pain, dry mouth, bad breath, hoarseness, lip swelling, mouth lesions, mouth pain, sore throat, tongue swelling, throat swelling, other, difficulty swallowing or neck pain Resp Respiratory: No cough, change in phlegm color, chest congestion, excessive phlegm production, hemoptysis, pain on inspiration, shortness of breath, pain with cough, snoring, stridor, wheezing or other Cardio Cardiology: No chest pain at rest, chest pain with exertion, leg pain with exertion, excessive sweating, shortness of breath, dyspnea on exertion, generalized swelling, irregular heart rhythm, lightheadedness, orthopnea, radiating jaw, neck or arm pain, fast heart rate, slow heart rate, palpitations or other Gastro GI: Positive for diarrhea; no abdominal pain, belching, bloating, change in bowel habits, change in stool character, coffee ground emesis, constipation, cramping, heartburn, difficulty swallowing, feeling full early, excessive flatus, incontinent of stools, Vomiting blood/hematemesis, blood in stool, loose stools, Black,tarry stools, nausea/dyspepsia, pain with swallowing, vomiting or other Genitourinary-Female: No difficulty urinating, burning urination, painful urination, urinary incontinence, urinary frequency, urinary urgency, urinary hesitancy, urinary retention, blood in urine, Frequent nighttime urination/ nocturia, post void dribbling, suprapubic fullness, side pain, sexual problems, genital lesions, genital itching, hot flashes, abnormal periods, abnormal vaginal bleeding, absent period, painful periods, light periods, heavy periods, difficulty getting , painful intercourse, pelvic pain, vaginal dryness, vaginal odor, Vaginal Itching or other Musc Musculoskeletal: No abnormal walking, joint pain, back pain, deformity, joint swelling, limited range of motion, loss of height, muscle cramps, muscle weakness, decreased muscle mass, body aches, neck pain, numbness, radiating pain into limb, stiffness, tingling or other Skin Skin: No acne, hair loss, change in hair, nail changes, boil, change in skin color, dry skin, redness, excessive hair growth, yellowing of the skin, lesions, itching, rash, skin pain, skin ulcer, sores, skin swelling, wounds or other Breast Breast: No other Neuro Neurology: No frequent falls, weakness, visual disturbances, abnormal hearing, headache(s), abnormal walking, numbness or tingling Psych Psychiatric: No abnormal sleep pattern, Positive for change in appetite Endo Endocrine: No fatigue, other or excessive sweating Aller/Imm Allergy/Immunologic: No lip swelling, tongue swelling, throat swelling, wheezing or itchy eyes Assessment AND Plan 1. 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 Grand daughter states she has made sl changes in basal rates. Review of data notes most basals have been decreased by 0.05. Review of dez sensor notes patient BG begins to climb in am before awakening. Will change basal rates to 0.35 at 5:30 am. Instructed to monitor for one week and then make adjustment if 6am-10am remains elevated. Then consideration needs to be given to the 8am basal if BG elevated at 12n. Meal coverage adequte but has been giving under delivery of corrections to avoid low BG. A1c 10.6. Cr normal. GFR 56. Microalbumin normal. Has begun to ambulate again short distances. BP controlled No further diarrhea. Orders Orders: Plan Detail Additional Comments 1. Please schedule follow up in 3 months. 2. Lab work one week before appointment. 3. Discussed importance of regular exercise and recommend starting or continuing a regular exercise program for good health. 4. The patient was encouraged to lose weight for good health 5. The importance of monitoring blood sugar regularly was reviewed. 6. The importance of monitoring the HBA1c level regularly was reviewed. 7. The importance of prper foot care and regularly checking feet to prevent sores and loss of limbs was reviewed. 8. The importance of keeping BP at or below 130/80 to prevent stroke, heart attacks, kidney failure, blindness was reviewed. Spent approximately 30 minutes with patient with over 50% of time spent in discussion and counseling regarding medication adjustment, symptoms and treatment of hypoglycemia, diet adherence, and checking BG before driving. 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 Diabetes mellitus type: type 1 Diabetes mellitus complication status: with neurologic complications Diabetes mellitus complication detail: with other neurological complication 01/27/18 1151 <Electronically signed by Roya MENG> Date Roya MENG Cosigner Signature: Date (if applicable) CC: CNPTOUTREACH Observed: 01/26/2018 Status: COMPLETED Source: HAM 12:00 AM [facility] REPOSITORY Patient Outreach (INTMWH) SERENA GUO ([id number]) 1940 F Date Time Provider Department 01/26/18 RAMU ROBLES [facility] During your visit today, we recorded the following information about you: Allergies As of Date: 01/26/2018 Noted Allergy Reaction VERSED (MIDAZOLAM HCL) 12/11/2006 Comments: urinary retention ZETIA (EZETIMIBE) 04/01/2006 Comments: dysuria Date Reviewed: 12/12/2017 Reviewed by: Janelle Vines - Fully Assessed Visit Diagnosis:Medication management [Z79.899] Order(s):LIPID PANEL BASIC [SQLIPB] Order #: [id number] FUTURE HGB A1C [UJZLG3B] Order #: [id number] FUTURE Prescriptions as of 01/26/2018 Sig: APIXABAN 5 MG TABLET Take 1 tablet by mouth twice * ATORVASTATIN 40 MG TABLET Take 1 tablet by mouth once d* BENEFIBER (GUAR GUM) ORAL Take by mouth. BLOOD SUGAR DIAGNOSTIC STRIPS TEST BLOOD SUGARS 4 TIMES BOGDAN* CHOLECALCIFEROL (VITAMIN D3) * Take 1 capsule by mouth once * CLOPIDOGREL 75 MG TABLET COMPOUNDED PRESCRIPTION Home Health wound care orders* Patient not taking: Reported on 11/30/2017 DORZOLAMIDE 2 % EYE DROPS Use 1 Drop in the right eye t* Patient not taking: Reported on 11/30/2017 GABAPENTIN 100 MG CAPSULE 3 TIMES DAILY WITH MEALS INSULIN LISPRO (U-100) 100 UN* use as directed up to 100 uni* MECLIZINE 12.5 MG TABLET Take 1-2 tablets by mouth thr* MIDODRINE 5 MG TABLET Take one tablet twice daily. * NETARSUDIL 0.02 % EYE DROPS 1 Drop daily at bedtime. OMEPRAZOLE 20 MG CAPSULE,CAYETANO* Take 1 capsule by mouth daily* REFRESH CLASSIC (PF) OPHTHALM* Use in eyes. PROMETHAZINE 12.5 MG TABLET Take 1 tablet by mouth every * STARCH (THICKENING) ORAL POWD* Add to fluids to nectar thick* X CALCIUM + D ORAL Take by mouth. Problem List As Of Date 01/26/2018 Noted Resolved Diabetes mellitus type 1, uncontrolled, without*INVALID FOR* Dry eyes, bilateral [H04.123] INVALID FOR* Hyperlipidemia [E78.5] INVALID FOR* Gastroesophageal reflux disease [K21.9] INVALID FOR* Osteoporosis [M81.0] INVALID FOR* Stage 3 chronic kidney disease (HCC) [N18.3] INVALID FOR* Vitamin D deficiency [E55.9] INVALID FOR* 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 Abnormal weight loss [R63.4] INVALID FOR* Change in bowel habits [R19.4] INVALID FOR* Encounter Status:Closed by LBE Security Master, PRODUSER on 02/10/18 CREATININE, URINE Collected: 01/22/2018 Status: F Source: MARGIE (RANDOM) 10:09 AM [facility] REPOSIT[facility] TYPE CODE TESTS RESULT OUT OF RANGE REFERENCE UNITS LAB L501.1200 NO RANGE EST. mg/dL Normal UR CREAT 66.80 Performed By: #### L501.1200, L502.0500 #### [facility] [address] [facility], [address] MICROALBUMIN,RANDOM URINE Collected: Status: F Source: MARGIE 01/22/2018 10:09 AM [facility] REPOSITORY TYPE CODE TESTS RESULT OUT OF RANGE REFERENCE UNITS LAB L502.0500 NO RANGE EST. mg/L Normal 14.8 MICROALBUMIN ,UR Performed By: #### L501.1200, L502.0500 #### [facility] [address] [facility], [address] COMPREHENSIVE METABOLIC Collected: 01/22/2018 Status: F Source: MARGIE PROFIL 10:09 AM [facility] REPOSITORY TYPE CODE TESTS RESULT OUT OF RANGE REFERENCE UNITS LAB L501.0100 74-106 mg/dL High GLU 180 Result Comment: Fasting Glucose result greater than or equal to 126 mg/dL suggests DIABETES MELLITUS per A.D.A. criteria. Please note revised GLUCOSE reference range effective 2017. LAB L501.1000 7-18 mg/dL High BUN 25 LAB L501.1100 0.55-1.02 mg/dL Normal CREAT,SERUM 1.02 Result Comment: The validity of the calculated GFR AND GFRAA in patients over 70 years has not been determined. Clinical correlation is essential. LAB L501.1110 >60 mL/min Low EST GFR 56 Result Comment: Non- GFR Calc LAB L501.1115 >60 mL/min Normal EST GFR - AA 67 Result Comment: GFR Calc LAB L501.1300 10-20 RATIO High BUN/CRE 24.5 LAB L501.1500 6.4-8.2 g/dL Low T PROT 6.2 LAB L501.1800 3.2-5.0 g/dL Normal ALB 3.2 LAB L501.1950 2.2-4.2 g/dL Normal GLOB 3.0 LAB L501.2000 0.9-2.4 RATIO Normal A/G 1.1 LAB L501.2200 8.5-10.1 mg/dL CA Normal 8.5 LAB L501.4100 15-37 U/L Normal AST 23 LAB L501.4305 45-117 U/L Normal ALK P 95 LAB L501.4405 13-56 U/L Normal ALT 26 LAB L501.4600 0.20-1.00 mg/dL T Normal BILI 0.50 LAB L501.5300 136-145 mmol/L NA Normal 141 LAB L501.5600 3.5-5.1 mmol/L K Normal 4.3 LAB L501.5900 98-107 mmol/L CL Normal 107 LAB L501.6100 21.0-32.0 mmol/L Normal CO2 26.0 LAB L501.6200 5-15 Normal GAP 8 Performed By: #### L500.4050 #### [facility] [address] [place], [address] HEMOGLOBIN A1C Collected: 01/22/2018 Status: F Source: [place] 10:09 AM [facility] REPOSITORY TYPE CODE TESTS RESULT OUT OF RANGE REFERENCE UNITS LAB L501.9985 4.2-6.3 % High HGB A1C 10.6 Performed By: #### L501.9985 #### [facility] [address] [place], [address] Observed: 01/22/2018 Status: F Source: [place]UEBBER[place] CULTURE, URINE 10:09 AM [facility] REPOSITORY Urine Culture ORGANISM 1: Escherichia coli [place] Count >100,000 Escherichia coli: REACTION Amoxacillin/Clavulanic Acid $ <=2 S Ampicillin $ <=2 S Ampicillin/Sulbactam $ <=2 S Cefazolin $ <=4 S Cefepime $ <=1 S Ceftriaxone $ <=1 S Ciprofloxacin $ <=0.25 S ESBL - Ertapenim $$$ <=0.5 S Gentamicin $ <=1 S Imipenem *NF <=0.25 S Levofloxacin $ <=0.12 S Nitrofurantoin $ <=16 S Piperacillin/Tazobactam $$ <=4 S Tobramycin $ <=1 S Trimethoprim/Sulfametho $ <=20 S (NF) indicates non-formulary drug at [facility]. Approval by Infectious Disease Specialist required before non-formulary drugs may be ordered and/or dispensed. Performed By: #### M100.0650 #### [facility] [address] [place], [place], [address] OT GENERAL EVALUATION Observed: 12/22/2017 Status: F Source: [place] 9:49 [facility]ational [facility] [address] [place], [place] [address] Fax REHABILITATION SERVICES INITIAL EVALUATION MR#: [id number] Acct: [id number] Name: SERENA GUO Rep #: [id number] : 1940 77 From: Perlita Davidson Referring Dr.: ROLDAN Canseco Status: REG RCR Insurance: MEDICARE PART A B Eval Date: Patient's Visit Information SERENA GUO is a 77 year old F, referred to Occupational Therapy by TAQUERIA Castano, with a diagnosis of Ischemic L MCA CVA. Date of Evaluation: 12/21/17 Occupational Therapist: Perlita Davidson - Subjective Subjective: Pt. Nida arrived with granddaughter (Janelle) and caregiver (Jason). Granddaughter typically main caregiver but recently hurt hip and needed to bring another caregiver to help aide in Pt. care. Noted original CVA December 12, 2016. Noted wanted to start OT/PT but explained that Nida had vascular issues with recent angioplasty 11/05/17. Further noted that R dorsal foot wound took an entire year to heal. - Pain Right Shoulder 5 Pain Intensity Range: 1, 7, 8 - ROM Shoulder: pain with all mvmts; WFL Elbow: WFL Forearm: WFL MP: WFL PIP: WFL DIP: WFL - Strength Shoulder: flexion R 4-/5, L 4-/5 Elbow: flexion R 4-/5, L 4-/5 ; extension R 4-/5, L 4-/5 Assistant Front Office Manager: R 46, L 39 Lateral Pinch: R 9, L 10 Tripod Pinch: R 5, L 10 Tip-to-Tip Pinch: R 5, L 6 - Sensation Kinesthesia: Abnormal - Right, Abnormal - Left Proprioception: Abnormal - Right, Abnormal - Left Sensation Comments: Denies numbness or tinging in hands. - Visual/Perceptual Skills Comments: Pt. has glaucoma. - Cognitive Skills Follows Directions: Yes Oriented to (Check all that apply): Person Short Term Memory Impaired: Yes Cognitive Comments: Needs multiple cues and step by step directions to complete tasks. - Attention Attention: Normal - Nine Hole Peg Right: 51.00 s Left: 50. 37 s - In-Hand Manipulation Finger to Palm Translation: Severe - Right, Normal - Left Palm to Finger Translation: Severe - Right, Normal - Left Shift: Severe - Right, Unable - Right, Severe - Left, Unable - Left Rotation: Severe - Right, Unable - Right, Severe - Left, Unable - Left Comments: for shift and rotation increased difficulty listening and following directions. Needs max A to complete new tasks. - Special Tests Drops Sign - IS Test: negative Empty Can - SS: positive Neer - Impingement: positive Biceps Load Test: positive - Stroke Specific Quality of Life Total SS-QOL Score: 60 - DASH-Disabilities of Arm, Shoulder AND Hand DASH Sum: 118 - Goals Goal:: Nida to increased B package dyer by 10 lbs as well as increased B UE strength to 4+/5 to promote increased strength and endurance needed to promote increased (I) with ADl/IADls by d/c. Goal:: Nida to increased ability to complete R UE ROM with no more than 1/10 pain or very minimal nonverbal pain behaviors 4/5 trials 80% of the time to promote increased (I) with ADl/IAdls by d/c. Goal:: Nida to increase FMC and finger dexterity through decrease time to complete 9 hole pegboard test to promote increased skills needed to complete manipulation of self care items by d/c. Goal:: Nida to be mod I to complete B UE and LE dressing skills 4/5 trials 80% of the time with 2-3x cues to complete tasks to promote increased (I) and ability to return to PLOF by d/c. Goal:: Nida to be mod I to complete simple 1-2 step tasks with verbal and visual cues to promote increased participation in therapy 4/5 trials 80% of the time by d/c. Goal:: Nida and caregiver to complete daily HEP to promote increased strength, ROM, and stability of R shoulder to decrease pain and impingment like symptoms 4/5 trials 80% of the time by d/c. Goal:: Nida to be able to complete low vision related compensations at home and in therapy to promote increased ability to complete ADl/IADls to improve QOL and decrease further decline in function by d/c. - Rehabilitation General Assessment: Arrived for OT evaluation on this date of 12/21/17. She is s/p post CVA occurring a year ago. Granddaughter noted that they are hoping to help make her more (I) with ADls. Additionally, Serena has been experiencing increased RUE shoulder pain. She exhibited increased positive signs related to anterior impingement of R shoulder. Decrease strength noted in B UE. OT to address RUE shoulder pain, promote general strength and conditioning and complete a/e training and compensations to promote increased (I) with ADl/IADls to promote increasing (I) and promoting increased QOL. Rehabilitation Potential: Good - Anticipated Interventions Anticipated Interventions: A/AAROM/PROM, Strengthening, Modalities, Joint Protection/Energy Conservation, Ergonomic Education, Dynamic Sitting Balance, Fine Motor Coord/Payam, Neuro Reeducation, Visual/Perceptual Skills, ADL Training, Education re assistive Equipment, Caregiver Training, Home Program Other Interventions: Low vision techniques and compensations needed. - Visit Plan Frequency: 2x /Week Duration: 4 Weeks General Plan: OT to address self-care related concerns as well as painful R UE to promote increased participation and completion of self care related tasks by d/c. OT to focus on pain management, strengthening with PRE, FMC, dexterity, and self care techniques to promote (I) and ability to return to PLOF. TEXT: Thank you for the opportunity to evaluate your patient. For Medicare and Medicare HMO plans, please review the plan of care and approve it. It will need to be FAXED BACK to us at [phone] for Medicare purposes. Please let me know if there are questions or concerns regarding this plan of care. Physician Signature: Date: <Electronically signed by Perlita Davidson > 12/22/17 0949 CC: ROLDAN Canseco; Ramu Robles MD [facility] Signed For Medicare only, by signing this I certify the plan of care. Physicians Signature Date INITAL EVALUATION (1) Observed: 12/21/2017 Status: F Source: [place] - PT 2:06 PM [facility] RE[facility] [address] [place] [address]. [address] [place] [address] Fax REHABILITATION SERVICES INITIAL EVALUATION MR#: [id number] Acct: [id number] Name: SERENA GUO Rep #: [id number] : 1940 77 From: Codi Mauro DPT Referring Dr.: ROLDAN Canseco Status: REG RCR Insurance: MEDICARE PART A B [employer] Patient's Visit Information SERENA GUO is a 77 year old F referred to Physical Therapy by TAQUERIA Castano with a diagnosis of CVA. Date of Evaluation: 12/21/17 Physical Therapist: Codi Mauro - Visit Plan Frequency: 2x /Week Duration: 4 Weeks Plan: Focus on balance and LE strength/stabilization with functional mobility. GAIT BELT!!!! - Subjective Subjective: CVA December 122016- had OT/PT/Speech after that- had a wound on the top of the right foot- had an angioplast Nov 05, 2017 and was just cleared for PT. Last time she was walking unassisted prior to the stroke. After the stroke she was ambulating with contact guard with a rollerator. Lives with mono and - both are with her multimedia authoring specialist and its set up handicapped accessible. Currently she is a little more than stand pivot. She has poor balance- right side is weak. Gait is short stride similar to a shuffle and lunges forward and reaches for things- impulsivity. Can use a walker more does hand held assist. Reports very little pain but has pain in the right shoulder- blames it on the reclyner handle. Still has a wound on the right foot- doesn't want to keep shoes on- no open area. WBAT. no recent x-rays or MRI. 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 Goals for PT- wants to be more I and ambulate more. PMHx: DM, nueropathy, CVA, glaucoma, stent in left eye, partial hard of hearing, hypotension. Meds: gabapentin, insulin, operozolol, medodrine, aloquist, torvastsin, ropressa eye drops, plavix. Sleep: not disturbed- gets up to go to the bathroom- - Objective Posture: FH, RS, Increased kyphosis- does not correct with verbal cues. Gait: antaxic- pushes to the right with walker without knowldege- poor heel/toe pattern- shuffling of the right LE. Balance: poor- unable to stand without CGA. Transfers- sit to stand- min A. ROM: WFL in all planes. Stairs: not attempted due to safety concerns. Strength: ankle: 4/5, Knee: 4/5, Hip: 4-/5 throughout- flexion/extn/abd/add - Goals Goal 1:: Patient and caregiver will be I with HEP and progression Goal Time Frame: 4-6 Weeks Goal 2:: Patient will demo 4+/5 strength in LE Goal Time Frame: 4-6 Weeks Goal 3:: Patient will ambulate >300 feet with LRD and mod I to ease ADL's. Goal Time Frame: 4-6 Weeks Goal 4:: Patient will sit to stand x5 with no A safely to LRD Goal Time Frame: 4-6 Weeks Goal 5:: Patient will stand I for 30 seconds safely Goal Time Frame: 4-6 Weeks - Rehabilitation Potential Physical Therapy Diagnosis: Patient presents with hypomobility- she has decreased strength and muscular endurance leading to poor balance and inability to perform ADL's safely (including gait) Rehabilitation Potential: Fair - Anticipated Interventions Patient/Client Instruction: Educate patient on: Benefits of Fitness Program Therapeutic Exercise to Include: Strength training, Endurance training, Balance training, Body mechanics, Postural training, Gait and locomotor training, Dynamic Lumbar Stabilization For the Purpose of:: To improve muscle performance and motor function Functional Training to Include: Gait training Thank you for the opportunity to evaluate your patient. For Medicare and Medicare HMO plans, please review the plan of care and approve it. It will need to be FAXED BACK to us at [phone] for Medicare purposes. Please let me know if there are questions or concerns regarding this plan of care. Physician Signature: Date: <Electronically signed by Codi Mauro DPT> 12/21/17 1406 CC: ROLDAN Canseco; Ramu Robles MD JUSTINR Signed For Medicare only, by signing this I certify the plan of care. Physicians Signature Date OBSOLETE Observed: 12/21/2017 Status: COMPLETED Source: SHILO 12:00 AM [facility] REPOSITORY Refill (INTMWS) SERENA GUO ([id number]) 1940 F Date Time Provider Department 12/21/17 RAMU ROBLES During your visit today, we recorded the following information about you: Cecy Scott 12/21/2017 9:53 AM Signed Patient has been identified by name and date of : Yes Pending Prescriptions Disp Refills OMEPRAZOLE 20 MG CAPSULE,DELAYED RELEASE 30 capsule 5 Sig: Take 1 capsule by mouth daily before breakfast. 1/2 hr before meal. BELINDA: No GABAPENTIN 100 MG CAPSULE BELINDA: No RX INSTRUCTIONS: Patient aware RX will be sent to pharmacy. No need to notify patient. Cecy Sanchezr Jammie Lovett RN 12/21/2017 12:55 PM Signed Patient has been identified by name and date of : Yes Granddaughter phones for refill(s): Pending Prescriptions Disp Refills OMEPRAZOLE 20 MG CAPSULE,DELAYED RELEASE 30 capsule 5 Sig: Take 1 capsule by mouth daily before breakfast. 1/2 hr before meal. BELINDA: No Date of last office visit with pcp: 08-04-17. Next appt: 02-08-18 Granddaughter reports neurology order's patient's gabapentin and she will call them. Last 2 Encounter Wt Readings: Date: Wt: 12/10/2017 64.3 kg (141 lb 12.8 oz) 11/30/2017 64.4 kg (142 lb) Previous labs/tests for medication: Blood Counts: WBC (k/uL) Date Value 10/23/2017 5.63 RBC (m/uL) Date Value 10/23/2017 4.21 Hematocrit (%) Date Value 10/23/2017 39.9 Hemoglobin (g/dL) Date Value 10/23/2017 12.4 Platelet Count (k/uL) Date Value 10/23/2017 268 Please advise. Thank you. Jammie Robles MD 12/29/2017 12:03 AM Signed ok Allergies As of Date: 12/21/2017 Noted Allergy Reaction VERSED (MIDAZOLAM HCL) 12/11/2006 Comments: urinary retention ZETIA (EZETIMIBE) 04/01/2006 Comments: dysuria Date Reviewed: 12/12/2017 Reviewed by: Janelle Vines - Fully Assessed Reason for Visit: Refill Request [94] Reason For Visit History Recorded Visit Diagnoses:Dyspepsia [R10.13] Gastroesophageal reflux disease, esophagitis presence not specified [K21.9] Order(s):omeprazole (PRILOSEC) 20 mg capsuleTake 1 capsule by mouth daily before breakfast. 1/2 hr before meal.Disp: 30 capsuleRfl: 5 Prescriptions as of 12/21/2017 Sig: OMEPRAZOLE 20 MG CAPSULE,CAYETANO* Take 1 capsule by mouth daily* CLOPIDOGREL 75 MG TABLET BENEFIBER (GUAR GUM) ORAL Take by mouth. REFRESH CLASSIC (PF) OPHTHALM* Use in eyes. NETARSUDIL 0.02 % EYE DROPS 1 Drop daily at bedtime. MIDODRINE 5 MG TABLET Take one tablet twice daily. * GABAPENTIN 100 MG CAPSULE 3 TIMES DAILY WITH MEALS DORZOLAMIDE 2 % EYE DROPS Use 1 Drop in the right eye t* Patient not taking: Reported on 11/30/2017 PROMETHAZINE 12.5 MG TABLET Take 1 tablet by mouth every * APIXABAN 5 MG TABLET Take 1 tablet by mouth twice * ATORVASTATIN 40 MG TABLET Take 1 tablet by mouth once d* ACIDOPHILUS 100 MILLION CELL-* Take 1 capsule by mouth once * MECLIZINE 12.5 MG TABLET Take 1-2 tablets by mouth thr* STARCH (THICKENING) ORAL POWD* Add to fluids to nectar thick* COMPOUNDED PRESCRIPTION Home Health wound care orders* Patient not taking: Reported on 11/30/2017 CHOLECALCIFEROL (VITAMIN D3) * Take 1 capsule by mouth once * BLOOD SUGAR DIAGNOSTIC STRIPS TEST BLOOD SUGARS 4 TIMES BOGDAN* INSULIN LISPRO (U-100) 100 UN* use as directed up to 100 uni* X CALCIUM + D ORAL Take by mouth. Problem List As Of Date 12/21/2017 Noted Resolved Diabetes mellitus type 1, uncontrolled, without*INVALID FOR* Dry eyes, bilateral [H04.123] INVALID FOR* Hyperlipidemia [E78.5] INVALID FOR* Gastroesophageal reflux disease [K21.9] INVALID FOR* Osteoporosis [M81.0] INVALID FOR* Stage 3 chronic kidney disease (HCC) [N18.3] INVALID FOR* Vitamin D deficiency [E55.9] INVALID FOR* 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 Abnormal weight loss [R63.4] INVALID FOR* Change in bowel habits [R19.4] INVALID FOR* Prescriptions ordered this encounter Disp Refills Start End OMEPRAZOLE 20 MG CAPSULE,DELAYED REL* 30 c* 5 12/29/2017 Route: ORAL Sig: Take 1 capsule by mouth daily before breakfast. 1/2 hr before meal. Medications Discontinued During This Encounter omeprazole (PRILOSEC) 20 mg capsule 30 c* 5 07/10/2017 12/29/2017 Route: ORAL Sig: Take 1 capsule by mouth daily before breakfast. 1/2 hr before meal. Disc: Reason for discontinue is not on file. Encounter Status:Closed by DIANDRA QUIROS LPN on 02/23/18 CARDIOLOGY VISIT Observed: 12/16/2017 Status: F Source: [place] REPORT 5:01 PM [facility] RE[facility] [address] [place] [address] OFFICE VISIT Date of Service: 12/16/17 MR#: [id number] Acct: [id number] Name: SERENA GUO Rep #: [id number] : 1940 Provider: Akira Navarro MD Age/Sex: 77/F Location: [facility] [place] Status: Signed HPI HPI Details: SERENA GUO, is a 77 F who presents to the office today for outpatient cardiovascular follow-up. Overall since her last visit she states, with the assistance of her granddaughter who is a healthcare professional, they have been monitoring her blood pressure and using Midodrine therapy as needed. She may need no therapy versus 2.5 mg versus 5 mg depending upon her blood pressure response. She has no new symptoms of chest discomfort or difficulty breathing. There has been no report of near syncope or syncope. Intake Vital Signs12/16/17 Height 5 ft 3 in 12/16/17 Weight: 142 lb 12/16/17 Body Mass Index (BMI) 25.1 12/16/17 Blood Pressure 126/60 H Intake Visit Reasons: 9 M FU Allergies ezetimibe [From Zetia] Allergy (Verified 12/16/17 14:56) Other Medications insulin lispro (U- 100) 100 unit/mL subcutaneous solution See Rx Instructions CONTINUOUS SUBCUTANEOUS INFUSION QDAY #3 ml 02/04/17 [Rx Confirmed 12/16/17] Apixaban [Eliquis] 5 mg PO BID 03/18/17 [History Confirmed 12/16/17] Atorvastatin Calcium [Lipitor] 40 mg PO QHS 03/18/17 [History Confirmed 12/16/17] Calcium Carb/Vitamin D [Os-Jam 500MG + D] 1 tab PO DAILY@0800 03/18/17 [History Confirmed 12/16/17] Refresh Tears 0.25 inch EACH EYE QHS 03/18/17 [History Confirmed 12/16/17] Gabapentin [Neurontin] 100 mg PO TIDCM 07/27/17 [History Confirmed 12/16/17] L.acidoph,Paracasei, B.lactis [Probiotic] 1 ea PO DAILY 07/27/17 [History Confirmed 12/16/17] Omeprazole 20 mg PO DAILY 07/27/17 [History Confirmed 12/16/17] carboxymethylcellulose sodium 0.5 % eye drops 1 drp OPHTHALMIC 4-8XD PRN 10/27/17 [History Confirmed 12/16/17] midodrine 5 mg tablet 5 mg PO TID PRN tab 10/27/17 [History Confirmed 12/16/17] netarsudil 0.02 % eye drops 1 drp OPHTHALMIC QPM 10/27/17 [History Confirmed 12/16/17] promethazine 12.5 mg tablet 12.5 mg PO Q6H PRN 10/27/17 [History Confirmed 12/16/17] cholecalciferol (vitamin D3) 5,000 unit tablet 5,000 unit PO DAILY 12/16/17 [History Confirmed 12/16/17] clopidogrel 75 mg tablet 75 mg PO DAILY 12/16/17 [History Confirmed 12/16/17] fexofenadine 180 mg tablet 180 mg PO Q24H PRN 12/16/17 [History Confirmed 12/16/17] [facility] Medical History Insulin pump in place (Chronic) Type 1 diabetes mellitus (Chronic) Nonrheumatic mitral (valve) insufficiency (Acute) Paroxysmal atrial fibrillation (Acute) Arterial ischemic stroke, MCA, left, acute (Acute) Right sided weakness (Acute) Diabetes mellitus (Chronic) Glaucoma (Chronic) Anemia (Acute) Anxiety (Acute) Arthritis (Acute) CVA (cerebral vascular accident) (Acute) Carpal tunnel syndrome (Acute) Cataract (Acute) Cataracts, bilateral (Acute) Diabetes type 1, controlled (Acute) GERD (gastroesophageal reflux disease) (Acute) Glaucoma (Acute) High cholesterol (Acute) Hypocalcemia (Acute) Muscle weakness (Acute) Neuropathy (Acute) Osteoporosis (Acute) Right sided cerebral hemisphere cerebrovascular accident (Acute) Stomach ulcer (Acute) Vision problems (Acute) Atrial fibrillation (Inactive) Headache (Inactive) Seasonal allergies (Inactive) Vitamin deficiency (Inactive) Surgical History History of angioplasty of peripheral vessel (Resolved 11/05/17) Hx of cataract surgery (Resolved) Family History Father Hypertension Arthritis Brother Diabetes Sister Cancer Social History Smoking Status: Never smoker second hand exposure: No alcohol intake: never substance use type: does not use caffeine: Yes Type: coffee Number of servings: 2 what type of physical activity do you participate in: other details: PT frequency: 1-2 times per week duration: 15-30 minutes/day seatbelt use: always do you feel safe at home: Yes ROS Const Const: Positive for fatigue (increased) and weakness (increased); negative for weight gain, weight loss, frequent falls or excessive sweating Eyes Eyes: Negative for change in vision, blurry vision or transient loss of vision ENT ENT: Positive for balance problems (unsteadiness with ambulation, pt to start PT); negative for dizziness Cardio Chest Pain: No Palpitations: No Edema: Bilateral (occasional/slight when standing for periods of time) Muscle aches with walking: None Additional Details: BP continues to vary from systolic 135-90. Resp Respiratory: Positive for Cough (productive clear sputum); negative for SOB with activity or SOB at rest GI GI: Negative vomiting or vomiting blood/hematemesis : Negative for hematuria Musc Musc: Positive for balance problems (unsteadiness with ambulation, pt to start PT); negative for muscle aches/ myalgia, muscle weakness or joint pain Skin Skin: Negative non-healing lesions or rash Neuro Neuro: Positive for weakness (increased); negative for blurry vision, dizziness, lightheadedness, frequent falls or orthostatic symptoms Brian Hematologic/Lymphatic: Negative for easy bleeding Endo Endo: Positive for fatigue (increased); negative for excessive sweating Psych Psych: Negative for anxiety or depression Allergy Allergy/Immunology: Negative for hives, Negative for rash Cardiology Exam Const Appearance: cooperative, healthy appearing, comfortable, no acute distress, well developed and well groomed Nutritional Appearance: average body habitus Orientation: alert, awake and oriented x3 Head Head: normal to inspection, normocephalic and atraumatic Ears: hearing grossly normal bilaterally Nose: external nose normal Face and Sinus: face symmetric Mouth: oral mucosae normal Teeth and gingiva: fair dentition Eyes Eyelids: eyelids normal Conjunctivae: conjunctivae normal Pupils: PERRL EOM: EOM intact bilaterally Neck Neck: no JVD, normal visual inspection and full ROM Carotids: normal carotid upstroke Chest Chest inspection: normal inspection of the chest, normal respiratory effort and symmetric chest movement Auscultation: Bilateral: Clear to Auscultation Cardio Rate: regular rate Rhythm: regular rhythm Heart sounds: S1 normal and S2 normal; negative rub or gallop GI GI: normal to inspection, bowel sounds present and soft Neuro General: alert, awake, oriented x3, unable to assess gait and other (examined in the wheelchair) Right facial droop at rest. Symmetrical smile. Symmetrical eyebrow raise. Equal bilateral package dyer strength. Skin Skin: no rashes or lesions noted Extremities Pulses: Normal: Right Posterior Tibial Pulse, Left Posterior Tibial Pulse, Right Radial Pulse, Left Radial Pulse Lower Extremity Edema: None: Bilateral Psych Psychological: normal affect Assessment AND Plan 1. Paroxysmal atrial fibrillation I48.0 Plan At the present time she appears to be doing reasonably well. She is continuing medical therapy which includes her anticoagulant therapy. She has had no obvious hemorrhagic issues. She will continue her current therapy and follow-up with reassessment as needed. 2. Nonrheumatic mitral valve insufficiency I34.0 Plan She does have a history of underlying mitral valve insufficiency. This is been mild based on her echocardiogram performed on 12/13/2016 she appears to be stable without acute changes on history or exam. She will continue her medical therapy and follow-up. 3. Orthostatic hypotension I95.1 Plan She does have a history of orthostatic hypotension. It appears that with her volume support and her Midodrine support she appears to be doing well. She will continue her current course of action. Plan Detail Additional Comments Thank you for allowing me to participate in the care of your patient. Please don't hesitate to call if any issues arise. This note was generated using a voice recognition system and there may be incorrect words, spelling or punctuation that were not noted when reviewing the office note prior to saving. Follow Up 6 Months (PFM) Coding Level of Care Code Off vis,est,level 3 Diagnoses Paroxysmal atrial fibrillation I48.0 Nonrheumatic mitral valve insufficiency I34.0 Orthostatic hypotension I95.1 Hypotension type: orthostatic hypotension Coding Level of Care Code Off vis,est,level 3 Diagnoses Paroxysmal atrial fibrillation I48.0 Nonrheumatic mitral valve insufficiency I34.0 Orthostatic hypotension I95.1 Hypotension type: orthostatic hypotension 12/16/17 1701 <Electronically signed by Akira Navarro MD> Date Akira Navarro MD Cosigner Signature: Date (if applicable) CC: Ramu Robles MD PROGRESS Observed: 12/12/2017 Status: COMPLETED Source: [place] 7:39 PM [facility] REPOSITORY O ID: [id number] Author: Janelle Vines Service: (none) Author Type: Physician Type: Progress Notes Filed: 12/12/2017 8:06 PM Note Text: Serena Guo 1940 REFERRING PHYSICIAN: [facility], [place] [facility] CHIEF COMPLAINT: Consult (diarrhea, weight loss) HPI: The patient is a 77 year old female presents with diarrhea and weight loss. She had been seen by Dr. Kiser, a driller helper who recommended that she undergo evaluation with colonoscopy, to be done at [facility] due to patient medical co-morbidities. She was seen in the ED at [facility] and it was suggested that she be evaluated at this office for consideration of colonoscopy. She has history of alternating severe constipation and diarrhea. Had recent angioplasty of right lower extremity for peripheral arterial disease and is on Eliquis for this. She now has fecal urgency with loose stools - 2-3 episodes per day, sometimes in the middle of the night. This has been going on since the end of September. She states that she is concerned about dying due to have diarrhea and states that is how a friend of hers, had . She denies noting blood in her stools. Does have hemorrhoids. She believes that her last colonoscopy was greater than 10 years ago. PAST MEDICAL HISTORY Diagnosis Date - Diabetes mellitus without mention of complication Diabetes mellitus - H/O ischemic left MCA stroke 12/[address] [facility] - History of osteoporosis 09/11/2015 - Hyperlipidemia - IBS (irritable bowel syndrome) - Mitral valve insufficiency - OCD (obsessive compulsive disorder) - Orthostatic hypotension - PMH - PAST MEDICAL HISTORY OF Seasonal allergies PAST SURGICAL HISTORY Procedure Laterality Date - EYE SURGERY HX 12/18/15 eye pressure surgery - HYSTERECTOMY - PAST SURGICAL HISTORY OF umbilical hernia repair - TONSILLECTOMY HX - TUBAL LIGATION Current Outpatient Prescriptions: clopidogrel (PLAVIX) 75 mg tablet BENEFIBER, GUAR GUM, ORAL Take by mouth. polyvinyl alcohol/povidone/PF (REFRESH CLASSIC, PF, OPHTHALMIC) Use in eyes. netarsudil (RHOPRESSA) 0.02 % drop 1 Drop daily at bedtime. midodrine (PROAMITINE) 5 mg tablet Take one tablet twice daily. Adding half to whole tablet midday if bp is low. gabapentin (NEURONTIN) 100 mg capsule 3 TIMES DAILY WITH MEALS omeprazole (PRILOSEC) 20 mg capsule Take 1 capsule by mouth daily before breakfast. 1/2 hr before meal. promethazine (PHENERGAN) 12.5 mg tablet Take 1 tablet by mouth every 6 hours as needed. apixaban (ELIQUIS) 5 mg tab tab(s) Take 1 tablet by mouth twice daily. atorvastatin (LIPITOR) 40 mg tablet Take 1 tablet by mouth once daily. meclizine (ANTIVERT) 12.5 mg tab Take 1-2 tablets by mouth three times daily as needed. Starch, Thickening, (THICK-IT) powd Add to fluids to nectar thickness. Dysphagia s/p CVA I69.391 cholecalciferol, Vitamin D3, (VITAMIN D3) 50,000 unit cap capsule Take 1 capsule by mouth once each week. blood sugar diagnostic (FREESTYLE LITE STRIPS) test strip TEST BLOOD SUGARS 4 TIMES DAILY Dx E10.9 Insulin Dependent insulin lispro (HUMALOG) 100 unit/mL injection use as directed up to 100 units daily via insulin pump. Dx 250.03 CALCIUM CARBONATE/VITAMIN D3 (CALCIUM + D ORAL) Take by mouth. dorzolamide (TRUSOPT) 2 % ophthalmic solution Use 1 Drop in the right eye twice daily. (Patient not taking: Reported on 11/30/2017 ) acidophilus-pectin, citrus 100 million cell-10 mg cap Take 1 capsule by mouth once daily. COMPOUNDED PRESCRIPTION Home Health wound care orders: Cleanse with sterile saline once daily. Dress with guaze and bacitracin daily. Continue till wound healed. may change dressing as needed. Notify MD if not continuing to heal over the next week. (Patient not taking: Reported on 11/30/2017 ) ALLERGIES: Versed [Midazolam Hcl]; Zetia [Ezetimibe] PERSONAL HISTORY: Social History Marital status: Spouse name: Years of education: Number of children: Social History Main Topics Smoking status: Never Smoker Smokeless tobacco: Never Used Alcohol use: No Drug use: No FAMILY HISTORY Problem Relation Age of Onset - Diabetes Mother - Diabetes Father REVIEW OF SYSTEMS: General: The patient NOTES fatigue, NOTES weight loss, denies weight gain, denies feeling hot, and denies feelings of cold. Eyes: The patient NOTES glaucoma, NOTES eye injury/surgery, wears glasses or contacts. Ear/Nose/Throat: The patient NOTES allergies, denies hayfever, denies ear infections, and NOTES bloody noses. Cardiovascular: The patient denies chest pain, denies heart disease, NOTES high blood pressure,denies cardiac stent, denies prior heart attack, NOTES irregular heart beat, NOTES high cholesterol, NOTES poor circulation, denies heart failure, other cardiac issues, denies claudication, NOTES cold feet, denies peripheral arterial stent. Respiratory: The patient denies tuberculosis, denies pneumonia, denies frequent cough, denies pulmonary embolism, denies shortness of breath, and denies coughing up blood. Gastrointestinal: The patient NOTES difficulty swallowing, NOTES acid reflux, denies ulcers, denies vomiting, denies jaundice/hepatitis, denies gallbladder problems, denies black or tarry stools, NOTES hemorrhoids, NOTES bleeding from rectum, denies diverticulitis, NOTES constipation, NOTES diarrhea, NOTES loss of stool control, and denies hernias. Kidney/Bladder: The patient denies kidney stones, NOTES urine infections, and denies bloody urine. Skin: The patient denies a history of skin cancer, denies bleeding/changing moles, and denies a history of skin rash. Neurologic: The patient denies a history of epilepsy/convulsions, denies headaches, denies head/spinal injuries, and denies stroke/TIA. Psychiatric: The patient denies psychiatric medications, denies depression, and denies voices, denies substance abuse. Endocrine: The patient denies thyroid disorders, denies diabetes, and denies hormonal problems. Hematologic: The patient denies a history of bruising, denies bleeding, and denies anemia, denies blood clots. Infections: The patient denies a history of measles and mumps, denies rheumatic fever, and denies sexually transmitted diseases. Musculoskeletal: The patient denies back pain/injury, denies back problems, denies sciatica, denies knee/foot trouble, denies arthritis, or denies gout. PHYSICAL EXAMINATION: General: The patient is 77 year old female, well nourished, well hydrated in no acute distress. The patient is oriented to time, place, and person. VITALS: Blood pressure 120/58, pulse 84, weight 64.3 kg (141 lb 12.8 oz). Body mass index is 24.34 kg/m?. Head ? Normocephalic. EOM intact with sclera clear and no icterus noted. Wearing glasses. Mouth with mucus membranes moist. Neck - supple with no jugular venous distention noted. Trachea is midline. . Lungs ? clear to auscultation. Normal breath sounds. No rales/rhonchi/wheezing noted. No labored breathing noted, such as retractions. Heart ? normal S1 and S2 auscultated. No rubs/clicks/murmurs noted. Regular rate. Abdomen ? soft and benign. Normal bowel sounds. Skin ? normal skin integrity. Psych ? calm and appropriate Assessment IMPRESSION: diarrhea PLAN: I have discussed the above with the patient and her grand-daughter who is her investigator claims and present with her. The patient will need to be off Eliquis for consideration of biopsies to be done to determine etiology of her symptoms. Given her recent angioplasty for peripheral arterial disease of her right leg, this may result in re-occlusion. I have explained the need for continuation of the Eliquis and concur with Dr. Kiser's assessment regarding this. Patient is still concerned about her symptoms. I will therefore refer patient to [facility] GI department for evaluation. The patient wishes to proceed. I have answered all questions to the patient?s satisfaction and the patient has no further questions. . Diagnoses: (K52.9) Chronic diarrhea (primary encounter diagnosis) Return to Clinic: The patient is instructed to follow-up with me as per needed. Janelle Vines MD CNOV Observed: 12/10/2017 Status: COMPLETED Source: [place] 1:30 PM [facility] REPOSITORY Office Visit (GENSWS) SERENA GUO ([id number]) 1940 F Date Time Provider Department 12/10/17 1:30 PM JANELLE VINES During your visit today, we recorded the following information about you: Pulse Blood pressure Weight 84/minute 120/58 64.3 kg Arely Don MANCIA 12/10/2017 1:45 PM Signed REVIEW OF SYSTEMS: General: The patient NOTES fatigue, NOTES weight loss, denies weight gain, denies feeling hot, and denies feelings of cold. Eyes: The patient NOTES glaucoma, NOTES eye injury/surgery, wears glasses or contacts. Ear/Nose/Throat: The patient NOTES allergies, denies hayfever, denies ear infections, and NOTES bloody noses. Cardiovascular: The patient denies chest pain, denies heart disease, NOTES high blood pressure,denies cardiac stent, denies prior heart attack, NOTES irregular heart beat, NOTES high cholesterol, NOTES poor circulation, denies heart failure, other cardiac issues, denies claudication, NOTES cold feet, denies peripheral arterial stent. Respiratory: The patient denies tuberculosis, denies pneumonia, denies frequent cough, denies pulmonary embolism, denies shortness of breath, and denies coughing up blood. Gastrointestinal: The patient NOTES difficulty swallowing, NOTES acid reflux, denies ulcers, denies vomiting, denies jaundice/hepatitis, denies gallbladder problems, denies black or tarry stools, NOTES hemorrhoids, NOTES bleeding from rectum, denies diverticulitis, NOTES constipation, NOTES diarrhea, NOTES loss of stool control, and denies hernias. Kidney/Bladder: The patient denies kidney stones, NOTES urine infections, and denies bloody urine. Skin: The patient denies a history of skin cancer, denies bleeding/changing moles, and denies a history of skin rash. Neurologic: The patient denies a history of epilepsy/convulsions, denies headaches, denies head/spinal injuries, and denies stroke/TIA. Psychiatric: The patient denies psychiatric medications, denies depression, and denies voices, denies substance abuse. Endocrine: The patient denies thyroid disorders, denies diabetes, and denies hormonal problems. Hematologic: The patient denies a history of bruising, denies bleeding, and denies anemia, denies blood clots. Infections: The patient denies a history of measles and mumps, denies rheumatic fever, and denies sexually transmitted diseases. Musculoskeletal: The patient denies back pain/injury, denies back problems, denies sciatica, denies knee/foot trouble, denies arthritis, or denies gout. When was patient's last Mammogram screening? Unknown Last Colonoscopy: More than 10 years ago Arely Vines MD 12/12/2017 8:06 PM Signed Serena Guo 1940 REFERRING PHYSICIAN: [facility] CHIEF COMPLAINT: Consult (diarrhea, weight loss) HPI: The patient is a 77 year old female presents with diarrhea and weight loss. She had been seen by Dr. Kiser, a driller helper who recommended that she undergo evaluation with colonoscopy, to be done at [facility] due to patient medical co-morbidities. She was seen in the ED at [facility] and it was suggested that she be evaluated at this office for consideration of colonoscopy. She has history of alternating severe constipation and diarrhea. Had recent angioplasty of right lower extremity for peripheral arterial disease and is on Eliquis for this. She now has fecal urgency with loose stools - 2-3 episodes per day, sometimes in the middle of the night. This has been going on since the end of September. She states that she is concerned about dying due to have diarrhea and states that is how a friend of hers, had . She denies noting blood in her stools. Does have hemorrhoids. She believes that her last colonoscopy was greater than 10 years ago. PAST MEDICAL HISTORY Diagnosis Date - Diabetes mellitus without mention of complication Diabetes mellitus - H/O ischemic left MCA stroke 12/[address] [facility] - History of osteoporosis 09/11/2015 - Hyperlipidemia - IBS (irritable bowel syndrome) - Mitral valve insufficiency - OCD (obsessive compulsive disorder) - Orthostatic hypotension - PMH - PAST MEDICAL HISTORY OF Seasonal allergies PAST SURGICAL HISTORY Procedure Laterality Date - EYE SURGERY HX 12/18/15 eye pressure surgery - HYSTERECTOMY - PAST SURGICAL HISTORY OF umbilical hernia repair - TONSILLECTOMY HX - TUBAL LIGATION Current Outpatient Prescriptions: clopidogrel (PLAVIX) 75 mg tablet BENEFIBER, GUAR GUM, ORAL Take by mouth. polyvinyl alcohol/povidone/PF (REFRESH CLASSIC, PF, OPHTHALMIC) Use in eyes. netarsudil (RHOPRESSA) 0.02 % drop 1 Drop daily at bedtime. midodrine (PROAMITINE) 5 mg tablet Take one tablet twice daily. Adding half to whole tablet midday if bp is low. gabapentin (NEURONTIN) 100 mg capsule 3 TIMES DAILY WITH MEALS omeprazole (PRILOSEC) 20 mg capsule Take 1 capsule by mouth daily before breakfast. 1/2 hr before meal. promethazine (PHENERGAN) 12.5 mg tablet Take 1 tablet by mouth every 6 hours as needed. apixaban (ELIQUIS) 5 mg tab tab(s) Take 1 tablet by mouth twice daily. atorvastatin (LIPITOR) 40 mg tablet Take 1 tablet by mouth once daily. meclizine (ANTIVERT) 12.5 mg tab Take 1-2 tablets by mouth three times daily as needed. Starch, Thickening, (THICK-IT) powd Add to fluids to nectar thickness. Dysphagia s/p CVA I69.391 cholecalciferol, Vitamin D3, (VITAMIN D3) 50,000 unit cap capsule Take 1 capsule by mouth once each week. blood sugar diagnostic (FREESTYLE LITE STRIPS) test strip TEST BLOOD SUGARS 4 TIMES DAILY Dx E10.9 Insulin Dependent insulin lispro (HUMALOG) 100 unit/mL injection use as directed up to 100 units daily via insulin pump. Dx 250.03 CALCIUM CARBONATE/VITAMIN D3 (CALCIUM + D ORAL) Take by mouth. dorzolamide (TRUSOPT) 2 % ophthalmic solution Use 1 Drop in the right eye twice daily. (Patient not taking: Reported on 11/30/2017 ) acidophilus-pectin, citrus 100 million cell-10 mg cap Take 1 capsule by mouth once daily. COMPOUNDED PRESCRIPTION Home Health wound care orders: Cleanse with sterile saline once daily. Dress with guaze and bacitracin daily. Continue till wound healed. may change dressing as needed. Notify MD if not continuing to heal over the next week. (Patient not taking: Reported on 11/30/2017 ) ALLERGIES: Versed [Midazolam Hcl]; Zetia [Ezetimibe] PERSONAL HISTORY: Social History Marital status: Spouse name: Years of education: Number of children: Social History Main Topics Smoking status: Never Smoker Smokeless tobacco: Never Used Alcohol use: No Drug use: No FAMILY HISTORY Problem Relation Age of Onset - Diabetes Mother - Diabetes Father REVIEW OF SYSTEMS: General: The patient NOTES fatigue, NOTES weight loss, denies weight gain, denies feeling hot, and denies feelings of cold. Eyes: The patient NOTES glaucoma, NOTES eye injury/surgery, wears glasses or contacts. Ear/Nose/Throat: The patient NOTES allergies, denies hayfever, denies ear infections, and NOTES bloody noses. Cardiovascular: The patient denies chest pain, denies heart disease, NOTES high blood pressure,denies cardiac stent, denies prior heart attack, NOTES irregular heart beat, NOTES high cholesterol, NOTES poor circulation, denies heart failure, other cardiac issues, denies claudication, NOTES cold feet, denies peripheral arterial stent. Respiratory: The patient denies tuberculosis, denies pneumonia, denies frequent cough, denies pulmonary embolism, denies shortness of breath, and denies coughing up blood. Gastrointestinal: The patient NOTES difficulty swallowing, NOTES acid reflux, denies ulcers, denies vomiting, denies jaundice/hepatitis, denies gallbladder problems, denies black or tarry stools, NOTES hemorrhoids, NOTES bleeding from rectum, denies diverticulitis, NOTES constipation, NOTES diarrhea, NOTES loss of stool control, and denies hernias. Kidney/Bladder: The patient denies kidney stones, NOTES urine infections, and denies bloody urine. Skin: The patient denies a history of skin cancer, denies bleeding/changing moles, and denies a history of skin rash. Neurologic: The patient denies a history of epilepsy/convulsions, denies headaches, denies head/spinal injuries, and denies stroke/TIA. Psychiatric: The patient denies psychiatric medications, denies depression, and denies voices, denies substance abuse. Endocrine: The patient denies thyroid disorders, denies diabetes, and denies hormonal problems. Hematologic: The patient denies a history of bruising, denies bleeding, and denies anemia, denies blood clots. Infections: The patient denies a history of measles and mumps, denies rheumatic fever, and denies sexually transmitted diseases. Musculoskeletal: The patient denies back pain/injury, denies back problems, denies sciatica, denies knee/foot trouble, denies arthritis, or denies gout. PHYSICAL EXAMINATION: General: The patient is 77 year old female, well nourished, well hydrated in no acute distress. The patient is oriented to time, place, and person. VITALS: Blood pressure 120/58, pulse 84, weight 64.3 kg (141 lb 12.8 oz). Body mass index is 24.34 kg/m?. Head ? Normocephalic. EOM intact with sclera clear and no icterus noted. Wearing glasses. Mouth with mucus membranes moist. Neck - supple with no jugular venous distention noted. Trachea is midline. . Lungs ? clear to auscultation. Normal breath sounds. No rales/rhonchi/wheezing noted. No labored breathing noted, such as retractions. Heart ? normal S1 and S2 auscultated. No rubs/clicks/murmurs noted. Regular rate. Abdomen ? soft and benign. Normal bowel sounds. Skin ? normal skin integrity. Psych ? calm and appropriate Assessment IMPRESSION: diarrhea PLAN: I have discussed the above with the patient and her grand-daughter who is her investigator claims and present with her. The patient will need to be off Eliquis for consideration of biopsies to be done to determine etiology of her symptoms. Given her recent angioplasty for peripheral arterial disease of her right leg, this may result in re-occlusion. I have explained the need for continuation of the Eliquis and concur with Dr. Kiser's assessment regarding this. Patient is still concerned about her symptoms. I will therefore refer patient to [facility] GI department for evaluation. The patient wishes to proceed. I have answered all questions to the patient?s satisfaction and the patient has no further questions. . Diagnoses: (K52.9) Chronic diarrhea (primary encounter diagnosis) Return to Clinic: The patient is instructed to follow-up with me as per needed. Janelle Vines MD Referring Provider: [facility] [[id number]] Allergies As of Date: 12/10/2017 Noted Allergy Reaction VERSED (MIDAZOLAM HCL) 12/11/2006 Comments: urinary retention ZETIA (EZETIMIBE) 04/01/2006 Comments: dysuria Date Reviewed: 12/10/2017 Reviewed by: Shelley Echeverria RN - Fully Assessed Reason for Visit: Consult [173] Cmt: diarrhea, weight loss Primary Visit Diagnosis:Chronic diarrhea [K52.9] Order(s):CONSULT TO GASTROENTEROLOGY [9010] Order #: [id number]: 1 Prescriptions as of 12/10/2017 Sig: CLOPIDOGREL 75 MG TABLET BENEFIBER (GUAR GUM) ORAL Take by mouth. REFRESH CLASSIC (PF) OPHTHALM* Use in eyes. NETARSUDIL 0.02 % EYE DROPS 1 Drop daily at bedtime. MIDODRINE 5 MG TABLET Take one tablet twice daily. * GABAPENTIN 100 MG CAPSULE 3 TIMES DAILY WITH MEALS OMEPRAZOLE 20 MG CAPSULE,CAYETANO* Take 1 capsule by mouth daily* PROMETHAZINE 12.5 MG TABLET Take 1 tablet by mouth every * APIXABAN 5 MG TABLET Take 1 tablet by mouth twice * ATORVASTATIN 40 MG TABLET Take 1 tablet by mouth once d* MECLIZINE 12.5 MG TABLET Take 1-2 tablets by mouth thr* STARCH (THICKENING) ORAL POWD* Add to fluids to nectar thick* CHOLECALCIFEROL (VITAMIN D3) * Take 1 capsule by mouth once * BLOOD SUGAR DIAGNOSTIC STRIPS TEST BLOOD SUGARS 4 TIMES BOGDAN* INSULIN LISPRO (U-100) 100 UN* use as directed up to 100 uni* CALCIUM + D ORAL Take by mouth. DORZOLAMIDE 2 % EYE DROPS Use 1 Drop in the right eye t* Patient not taking: Reported on 11/30/2017 ACIDOPHILUS 100 MILLION CELL-* Take 1 capsule by mouth once * COMPOUNDED PRESCRIPTION Home Health wound care orders* Patient not taking: Reported on 11/30/2017 Problem List As Of Date 12/10/2017 Noted Resolved Diabetes mellitus type 1, uncontrolled, without*INVALID FOR* Dry eyes, bilateral [H04.123] INVALID FOR* Hyperlipidemia [E78.5] INVALID FOR* Gastroesophageal reflux disease [K21.9] INVALID FOR* Osteoporosis [M81.0] INVALID FOR* Stage 3 chronic kidney disease (HCC) [N18.3] INVALID FOR* Vitamin D deficiency [E55.9] INVALID FOR* 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 Abnormal weight loss [R63.4] INVALID FOR* Change in bowel habits [R19.4] INVALID FOR* Visit Notes: >> Arely Ochoa VISCOSITY TESTER Kristin Dec 10, 2017 1:43 PM Status: Signed REVIEW OF SYSTEMS: General: The patient NOTES fatigue, NOTES weight loss, denies weight gain, denies feeling hot, and denies feelings of cold. Eyes: The patient NOTES glaucoma, NOTES eye injury/surgery, wears glasses or contacts. Ear/Nose/Throat: The patient NOTES allergies, denies hayfever, denies ear infections, and NOTES bloody noses. Cardiovascular: The patient denies chest pain, denies heart disease, NOTES high blood pressure,denies cardiac stent, denies prior heart attack, NOTES irregular heart beat, NOTES high cholesterol, NOTES poor circulation, denies heart failure, other cardiac issues, denies claudication, NOTES cold feet, denies peripheral arterial stent. Respiratory: The patient denies tuberculosis, denies pneumonia, denies frequent cough, denies pulmonary embolism, denies shortness of breath, and denies coughing up blood. Gastrointestinal: The patient NOTES difficulty swallowing, NOTES acid reflux, denies ulcers, denies vomiting, denies jaundice/hepatitis, denies gallbladder problems, denies black or tarry stools, NOTES hemorrhoids, NOTES bleeding from rectum, denies diverticulitis, NOTES constipation, NOTES diarrhea, NOTES loss of stool control, and denies hernias. Kidney/Bladder: The patient denies kidney stones, NOTES urine infections, and denies bloody urine. Skin: The patient denies a history of skin cancer, denies bleeding/changing moles, and denies a history of skin rash. Neurologic: The patient denies a history of epilepsy/convulsions, denies headaches, denies head/spinal injuries, and denies stroke/TIA. Psychiatric: The patient denies psychiatric medications, denies depression, and denies voices, denies substance abuse. Endocrine: The patient denies thyroid disorders, denies diabetes, and denies hormonal problems. Hematologic: The patient denies a history of bruising, denies bleeding, and denies anemia, denies blood clots. Infections: The patient denies a history of measles and mumps, denies rheumatic fever, and denies sexually transmitted diseases. Musculoskeletal: The patient denies back pain/injury, denies back problems, denies sciatica, denies knee/foot trouble, denies arthritis, or denies gout. When was patient's last Mammogram screening? Unknown Last Colonoscopy: More than 10 years ago Arely Ochoa LPN Letter Text Encounter Status:Closed by MD JANELLE VINES on 12/12/17 EMERGENCY DEPARTMENT Observed: 12/03/2017 Status: F Source: [place] SUMMARY 12:48 AM [facility] REPOSITORY [facility] Medical Records Department [address] [place] [address] Emergency Department Summary 12/02/17 1532 MR#: [id number] Acct: [id number] Name: SERENA GUO Rep #: [id number] : 1940 77 From: Tru Haines MD PCP: Ramu Robles MD Status: DEP ER - ER Visit Summary Date of Service: 12/02/17 Chief Complaint: Diarrhea History of Present Illness: The patient is a 77 F presenting for evaluation secondary to GI complaints. Patient has a history of approximately year ago having a stroke. Since then the patient's granddaughter states that she has been having issues with blood pressure control as well as going back and forth between severe constipation and severe diarrhea. Patient has been worked up by multiple specialists for these GI issues, she has been on and off of medications to help her with constipation and loose stools, and actually had stool studies that were performed on 8 there were found to be negative. Patient was recently seen by a GI specialist in [place] who told her that he thinks that she has Crohn's disease, but needs to get further tests to prove this. Patient apparently had a angioplasty of the right leg last month, and the GI specialist is unable to perform the upper endoscopy needed for another 5 months as she had a recent major procedure and he cannot do it in her surgery center. Patient's granddaughter states that she would like to get a referral to potentially get this procedure done sooner. Patient has not had any fevers but has had a significant amount of weight loss associated with this. No nausea or vomiting. She does have some occasional abdominal cramping. Physical Examination: Vital signs within normal limits. Well- nourished elderly female no acute distress. No conjunctival pallor or scleral icterus, moist mucous membrane's. Neck was supple. Heart was regular rate and rhythm with distant heart sounds no murmurs. Lungs sounds clear to auscultation bilaterally. Abdomen was soft nontender nondistended normal bowel sounds no palpable abdominal masses or pulsatile mass. +1 radial pulses that are bilaterally symmetric. Skin normal color no rash. No lateralizing neurological deficits. Test Results: CBC demonstrates mild anemia. Chemistry liver magnesium and phosphorus are within normal limits Emergency Department Course and Treatment: Patient presented for evaluation secondary to acute on chronic diarrhea. She has benign physical exam normal vital signs and a normal laboratory workup. I do not believe that further workup either inpatient or by GI or general surgery are needed emergently. Patient will be referred to Dr. Janelle Vines for potential endoscopy as an outpatient as she is already [facility] with [facility]. Disposition: Discharge Impression: 1. Diarrhea This note was generated with [employer] dictation software. It may contain incorrect words, spelling, and punctuation that were not noted in review of the chart prior to signing ED Disposition - Plan for ED Patient: Disposition: Home or Assisted Living Chief Complaint: Diarrhea Diagnosis: Diarrhea Instructions: ED Inflam Bowel Disease Crohn, ED Colitis Ulcerative Referrals: Janelle Vines MD [STAFF PHYSICIAN] - Additional Instructions: You do not have a confirmed diagnosis of crohns or UC. Here is the info on the both of them. What to do if you have Problems For any increased pain, shortness of breath, bleeding, nausea or vomiting, chest pain, or any unexpected problems, contact your Primary Care Provider. Call [facility] ([phone]) or report to the closest Emergency Room. Call 911 if necessary. 12/03/17 0048 <Electronically signed by Tru Haines MD> Date Tru Haines MD Cosigner Signature (If Indicated): Date CC: Ramu Robles MD CBC W/DIFF, AUTOMATED Collected: 12/02/2017 Status: F Source: [place] 3:35 PM [facility] REPOSITORY TYPE CODE TESTS RESULT OUT OF RANGE REFERENCE UNITS LAB L100.1000 4.4-11.0 K/mm3 Normal WBC 6.3 LAB L100.1200 4.2-5.4 M/mm3 Low RBC 3.75 LAB L100.1300 12.0-15.0 g/dl Low HGB 11.1 LAB L100.1400 37-47 % Low HCT 34.6 LAB L100.1500 81-99 fL Normal MCV 92.3 LAB L100.1600 27.0-32.0 pg Normal MCH 29.6 LAB L100.1700 32-36 g/gl Normal MCHC 32.1 LAB L100.1810 11.6-14.6 % Normal RDW CV 13.8 LAB L100.1820 35.1-43.9 fl High RDW SD 45.2 LAB L100.1900 150-450 K/mm3 Normal PLT 255 LAB L100.2000 6.2-12.0 fl Normal MPV 10.4 LAB L100.2100 47-70 % Normal NEUT% 60.7 LAB L100.2200 19-41 % Normal LY% 28.6 LAB L100.2300 0-10 % Normal MONO% 8.8 LAB L100.2400 0-5 % Normal EO% 1.1 LAB L100.2500 0-1 % Normal BASO% 0.5 LAB L100.2550 0.0-0.9 % Normal IM GRAN % 0.300 Result Comment: IG% - Immature Granulocytes (promyelocytes, myelocytes and metamyelocytes) > 1% indicates that a LEFT SHIFT is Present. LAB L100.2620 2.0-7.7 X10 3/uL Normal Absolute Neut 3.8 LAB L100.2720 0.83-4.51 X10 3/ul Normal Absolute Lymph 1.79 Performed By: #### L100.0100 #### [facility] [address] [place], [place], [address] COMPREHENSIVE METABOLIC Collected: 12/02/2017 Status: F Source: [facility] 3:35 PM [facility] REPOSITORY TYPE CODE TESTS RESULT OUT OF RANGE REFERENCE UNITS LAB L501.0100 74-106 mg/dL High GLU 258 Result Comment: Glucose result greater than or equal to 200 mg/dL suggests DIABETES MELLITUS per A.D.A. criteria. Please note revised GLUCOSE reference range effective 2017. LAB L501.1000 7-18 mg/dL Normal BUN 16 LAB L501.1100 0.55-1.02 mg/dL Normal CREAT,SERUM 0.80 Result Comment: The validity of the calculated GFR AND GFRAA in patients over 70 years has not been determined. Clinical correlation is essential. LAB L501.1110 >60 mL/min Normal EST GFR 74 Result Comment: Non- GFR Calc LAB L501.1115 >60 mL/min Normal EST GFR - AA 90 Result Comment: GFR Calc LAB L501.1255 ml/min Normal Estimated CRCL 48.72 LAB L501.1300 10-20 RATIO High BUN/CRE 20.1 LAB L501.1500 6.4-8. g/dL Low 2 T PROT 5.1 LAB L501.1800 3.2-5. g/dL Low 0 ALB 2.5 LAB L501.1950 2.2-4. g/dL Normal 2 GLOB 2.6 LAB L501.2000 0.9-2. RATIO Normal 4 A/G 1.0 LAB L501.2200 8.5-10 mg/dL Low .1 CA 7.9 LAB L501.4100 15-37 U/L Normal AST 28 LAB L501.4305 45-117 U/L High ALK P 132 LAB L501.4405 13-56 U/L Normal ALT 40 LAB L501.4600 0.20-1 mg/dL Normal .00 T BILI 0.30 LAB L501.5300 136-14 mmol/L Normal 5 NA 142 LAB L501.5600 3.5-5. mmol/L Normal 1 K 3.9 LAB L501.5900 98-107 mmol/L Normal CL 106 LAB L501.6100 21.0-3 mmol/L Normal 2.0 CO2 29.0 LAB L501.6200 5-15 Normal GAP 7 Performed By: #### L500.4050, L501.5200 #### [facility] [address] [facility], [address] MAGNESIUM Collected: 12/02/2017 Status: F Source: [place] 3:35 PM [facility] REPOSITORY TYPE CODE TESTS RESULT OUT OF RANGE REFERENCE UNITS LAB L501.5200 1.6-2.6 mg/dL Normal MG 1.9 Performed By: #### L500.4050, L501.5200 #### [facility] [address] [place], [address] PHOSPHORUS Collected: 12/02/2017 Status: F Source: [place] 3:35 PM [facility] REPOSITORY TYPE CODE TESTS RESULT OUT OF RANGE REFERENCE UNITS LAB L501.2300 2.5-4.9 mg/dL Normal PHOS 3.3 Performed By: #### L501.2300 #### [facility] [address] [place], [address] PROGRESS Observed: 11/30/2017 Status: COMPLETED Source: [place] 4:46 PM [facility] REPOSITORY HNO ID: [id number] Author: Jose Kiser Service: (none) Author Type: Physician Type: Progress Notes Filed: 11/30/2017 5:07 PM Note Text: CHIEF COMPLAINT: Patient presents with: Diarrhea Weight loss HPI Serena Guo is a 77 year old female started having diarrhea and excessive gas about 2 months ago. She has had constipation for a long time but now going 2-3 times a day; stool can be liquid, soft or firm. No blood in the stool. She has lost about 10 lbs over last few weeks. She has crampy abdominal pain off and on. Last colonoscopy was more than 10 years ago. She has type 2 DM for many years. Stool tested negative for C. Diff toxin. Current Outpatient Prescriptions: clopidogrel (PLAVIX) 75 mg tablet BENEFIBER, GUAR GUM, ORAL Take by mouth. polyvinyl alcohol/povidone/PF (REFRESH CLASSIC, PF, OPHTHALMIC) Use in eyes. netarsudil (RHOPRESSA) 0.02 % drop 1 Drop daily at bedtime. midodrine (PROAMITINE) 5 mg tablet Take one tablet twice daily. Adding half to whole tablet midday if bp is low. gabapentin (NEURONTIN) 100 mg capsule 3 TIMES DAILY WITH MEALS omeprazole (PRILOSEC) 20 mg capsule Take 1 capsule by mouth daily before breakfast. 1/2 hr before meal. promethazine (PHENERGAN) 12.5 mg tablet Take 1 tablet by mouth every 6 hours as needed. apixaban (ELIQUIS) 5 mg tab tab(s) Take 1 tablet by mouth twice daily. atorvastatin (LIPITOR) 40 mg tablet Take 1 tablet by mouth once daily. acidophilus-pectin, citrus 100 million cell-10 mg cap Take 1 capsule by mouth once daily. meclizine (ANTIVERT) 12.5 mg tab Take 1-2 tablets by mouth three times daily as needed. Starch, Thickening, (THICK-IT) powd Add to fluids to nectar thickness. Dysphagia s/p CVA I69.391 cholecalciferol, Vitamin D3, (VITAMIN D3) 50,000 unit cap capsule Take 1 capsule by mouth once each week. blood sugar diagnostic (FREESTYLE LITE STRIPS) test strip TEST BLOOD SUGARS 4 TIMES DAILY Dx E10.9 Insulin Dependent insulin lispro (HUMALOG) 100 unit/mL injection use as directed up to 100 units daily via insulin pump. Dx 250.03 CALCIUM CARBONATE/VITAMIN D3 (CALCIUM + D ORAL) Take by mouth. dorzolamide (TRUSOPT) 2 % ophthalmic solution Use 1 Drop in the right eye twice daily. (Patient not taking: Reported on 11/30/2017 ) COMPOUNDED PRESCRIPTION Home Health wound care orders: Cleanse with sterile saline once daily. Dress with guaze and bacitracin daily. Continue till wound healed. may change dressing as needed. Notify MD if not continuing to heal over the next week. (Patient not taking: Reported on 11/30/2017 ) No current facility-administered medications for this visit. ALLERGIES Allergen Reactions - Versed [Midazolam H* urinary retention - Zetia [Ezetimibe] dysuria Social History Substance Use Topics - Smoking status: Never Smoker - Smokeless tobacco: Never Used - Alcohol use No PAST MEDICAL HISTORY Diagnosis Date - Diabetes mellitus without mention of complication Diabetes mellitus - H/O ischemic left MCA stroke 12/[address] [facility] - History of osteoporosis 09/11/2015 - Hyperlipidemia - IBS (irritable bowel syndrome) - Mitral valve insufficiency - OCD (obsessive compulsive disorder) - Orthostatic hypotension - PMH - PAST MEDICAL HISTORY OF Seasonal allergies PAST SURGICAL HISTORY Procedure Laterality Date - EYE SURGERY HX 12/18/15 eye pressure surgery - HYSTERECTOMY - PAST SURGICAL HISTORY OF umbilical hernia repair - TONSILLECTOMY HX - TUBAL LIGATION FAMILY HISTORY Problem Relation Age of Onset - Diabetes Mother - Diabetes Father REVIEW OF SYSTEMS Review of Systems Constitutional: Positive for fatigue. Cardiovascular: Positive for leg swelling. Gastrointestinal: Positive for abdominal pain, diarrhea and rectal pain. PHYSICAL EXAM BP 130/62 Pulse 90 Ht 5' 4 (1.63m) Wt 142 lb (64.4kg) SpO2 97% BMI 24.36 kg/(m2). Physical Exam Constitutional: She is oriented to person, place, and time. She appears well-developed and well-nourished. HENT: Head: Normocephalic. Eyes: Pupils are equal, round, and reactive to light. Conjunctivae and EOM are normal. Neck: Normal range of motion. Neck supple. Cardiovascular: Normal rate, regular rhythm, normal heart sounds and intact distal pulses. Pulmonary/Chest: Effort normal and breath sounds normal. Abdominal: Soft. Bowel sounds are normal. Neurological: She is alert and oriented to person, place, and time. She has normal reflexes. Skin: Skin is warm and dry. Psychiatric: She has a normal mood and affect. Her behavior is normal. Judgment and thought content normal. Vitals reviewed. Assessment: Abnormal weight loss Change in bowel habits Plan: Office Visit on 11/30/17 -EGD GEN ANES -CELIAC COMPREHENSIVE PANEL No Follow-up on file. Consultation requested by Dr. Robles for an opinion regarding diarrhea, weight loss. My final recommendations will be communicated back to the requesting physician by way of shared medical record or letter via US mail I have confirmed and edited as necessary, the PFSH and ROS obtained by others. Jose Kiser MD DATE: 11/30/17 TIME: 5:01 PM CNOV Observed: 11/30/2017 Status: COMPLETED Source: [place] 4:00 PM [facility] REPOSITORY Office Visit ([facility]) SERENA GUO ([id number]) 1940 F Date Time Provider Department 11/30/17 4:00 PM JOSE KISER During your visit today, we recorded the following information about you: Pulse Blood pressure Weight Height 90/minute 130/62 64.4 kg 1.626 m Jose Kiser MD 11/30/2017 5:07 PM Signed CHIEF COMPLAINT: Patient presents with: Diarrhea Weight loss HPI Serena Guo is a 77 year old female started having diarrhea and excessive gas about 2 months ago. She has had constipation for a long time but now going 2-3 times a day; stool can be liquid, soft or firm. No blood in the stool. She has lost about 10 lbs over last few weeks. She has crampy abdominal pain off and on. Last colonoscopy was more than 10 years ago. She has type 2 DM for many years. Stool tested negative for C. Diff toxin. Current Outpatient Prescriptions: clopidogrel (PLAVIX) 75 mg tablet BENEFIBER, GUAR GUM, ORAL Take by mouth. polyvinyl alcohol/povidone/PF (REFRESH CLASSIC, PF, OPHTHALMIC) Use in eyes. netarsudil (RHOPRESSA) 0.02 % drop 1 Drop daily at bedtime. midodrine (PROAMITINE) 5 mg tablet Take one tablet twice daily. Adding half to whole tablet midday if bp is low. gabapentin (NEURONTIN) 100 mg capsule 3 TIMES DAILY WITH MEALS omeprazole (PRILOSEC) 20 mg capsule Take 1 capsule by mouth daily before breakfast. 1/2 hr before meal. promethazine (PHENERGAN) 12.5 mg tablet Take 1 tablet by mouth every 6 hours as needed. apixaban (ELIQUIS) 5 mg tab tab(s) Take 1 tablet by mouth twice daily. atorvastatin (LIPITOR) 40 mg tablet Take 1 tablet by mouth once daily. acidophilus-pectin, citrus 100 million cell-10 mg cap Take 1 capsule by mouth once daily. meclizine (ANTIVERT) 12.5 mg tab Take 1-2 tablets by mouth three times daily as needed. Starch, Thickening, (THICK-IT) powd Add to fluids to nectar thickness. Dysphagia s/p CVA I69.391 cholecalciferol, Vitamin D3, (VITAMIN D3) 50,000 unit cap capsule Take 1 capsule by mouth once each week. blood sugar diagnostic (FREESTYLE LITE STRIPS) test strip TEST BLOOD SUGARS 4 TIMES DAILY Dx E10.9 Insulin Dependent insulin lispro (HUMALOG) 100 unit/mL injection use as directed up to 100 units daily via insulin pump. Dx 250.03 CALCIUM CARBONATE/VITAMIN D3 (CALCIUM + D ORAL) Take by mouth. dorzolamide (TRUSOPT) 2 % ophthalmic solution Use 1 Drop in the right eye twice daily. (Patient not taking: Reported on 11/30/2017 ) COMPOUNDED PRESCRIPTION Home Health wound care orders: Cleanse with sterile saline once daily. Dress with guaze and bacitracin daily. Continue till wound healed. may change dressing as needed. Notify MD if not continuing to heal over the next week. (Patient not taking: Reported on 11/30/2017 ) No current facility-administered medications for this visit. ALLERGIES Allergen Reactions - Versed [Midazolam H* urinary retention - Zetia [Ezetimibe] dysuria Social History Substance Use Topics - Smoking status: Never Smoker - Smokeless tobacco: Never Used - Alcohol use No PAST MEDICAL HISTORY Diagnosis Date - Diabetes mellitus without mention of complication Diabetes mellitus - H/O ischemic left MCA stroke 12/[address] [facility] - History of osteoporosis 09/11/2015 - Hyperlipidemia - IBS (irritable bowel syndrome) - Mitral valve insufficiency - OCD (obsessive compulsive disorder) - Orthostatic hypotension - PMH - PAST MEDICAL HISTORY OF Seasonal allergies PAST SURGICAL HISTORY Procedure Laterality Date - EYE SURGERY HX 12/18/15 eye pressure surgery - HYSTERECTOMY - PAST SURGICAL HISTORY OF umbilical hernia repair - TONSILLECTOMY HX - TUBAL LIGATION FAMILY HISTORY Problem Relation Age of Onset - Diabetes Mother - Diabetes Father REVIEW OF SYSTEMS Review of Systems Constitutional: Positive for fatigue. Cardiovascular: Positive for leg swelling. Gastrointestinal: Positive for abdominal pain, diarrhea and rectal pain. PHYSICAL EXAM BP 130/62 Pulse 90 Ht 5' 4 (1.63m) Wt 142 lb (64.4kg) SpO2 97% BMI 24.36 kg/(m2). Physical Exam Constitutional: She is oriented to person, place, and time. She appears well-developed and well-nourished. HENT: Head: Normocephalic. Eyes: Pupils are equal, round, and reactive to light. Conjunctivae and EOM are normal. Neck: Normal range of motion. Neck supple. Cardiovascular: Normal rate, regular rhythm, normal heart sounds and intact distal pulses. Pulmonary/Chest: Effort normal and breath sounds normal. Abdominal: Soft. Bowel sounds are normal. Neurological: She is alert and oriented to person, place, and time. She has normal reflexes. Skin: Skin is warm and dry. Psychiatric: She has a normal mood and affect. Her behavior is normal. Judgment and thought content normal. Vitals reviewed. Assessment: Abnormal weight loss Change in bowel habits Plan: Office Visit on 11/30/17 -EGD GEN ANES -CELIAC COMPREHENSIVE PANEL No Follow-up on file. Consultation requested by Dr. Robles for an opinion regarding diarrhea, weight loss. My final recommendations will be communicated back to the requesting physician by way of shared medical record or letter via US mail I have confirmed and edited as necessary, the PFSH and ROS obtained by others. Jose Kisre MD DATE: 11/30/17 TIME: 5:01 PM Referring Provider: RAMU ROBLES [[id number]] Allergies As of Date: 11/30/2017 Noted Allergy Reaction VERSED (MIDAZOLAM HCL) 12/11/2006 Comments: urinary retention ZETIA (EZETIMIBE) 04/01/2006 Comments: dysuria Date Reviewed: 11/30/2017 Reviewed by: Asuncion Acosta LPN - Fully Assessed Reason for Visit: Diarrhea [35] Visit Diagnoses:Abnormal weight loss [R63.4] Change in bowel habits [R19.4] Order(s):CELIAC COMPREHENSIVE PANEL [SQCELCMP] Order #: [id number] FUTURE EGD GEN ANES [[id number]] Order #: [id number] FUTURE Prescriptions as of 11/30/2017 Sig: CLOPIDOGREL 75 MG TABLET BENEFIBER (GUAR GUM) ORAL Take by mouth. REFRESH CLASSIC (PF) OPHTHALM* Use in eyes. NETARSUDIL 0.02 % EYE DROPS 1 Drop daily at bedtime. MIDODRINE 5 MG TABLET Take one tablet twice daily. * GABAPENTIN 100 MG CAPSULE 3 TIMES DAILY WITH MEALS OMEPRAZOLE 20 MG CAPSULE,CAYETANO* Take 1 capsule by mouth daily* PROMETHAZINE 12.5 MG TABLET Take 1 tablet by mouth every * APIXABAN 5 MG TABLET Take 1 tablet by mouth twice * ATORVASTATIN 40 MG TABLET Take 1 tablet by mouth once d* ACIDOPHILUS 100 MILLION CELL-* Take 1 capsule by mouth once * MECLIZINE 12.5 MG TABLET Take 1-2 tablets by mouth thr* STARCH (THICKENING) ORAL POWD* Add to fluids to nectar thick* CHOLECALCIFEROL (VITAMIN D3) * Take 1 capsule by mouth once * BLOOD SUGAR DIAGNOSTIC STRIPS TEST BLOOD SUGARS 4 TIMES BOGDAN* INSULIN LISPRO (U-100) 100 UN* use as directed up to 100 uni* CALCIUM + D ORAL Take by mouth. DORZOLAMIDE 2 % EYE DROPS Use 1 Drop in the right eye t* Patient not taking: Reported on 11/30/2017 COMPOUNDED PRESCRIPTION Home Health wound care orders* Patient not taking: Reported on 11/30/2017 Problem List As Of Date 11/30/2017 Noted Resolved Diabetes mellitus type 1, uncontrolled, without*INVALID FOR* Dry eyes, bilateral [H04.123] INVALID FOR* Hyperlipidemia [E78.5] INVALID FOR* Gastroesophageal reflux disease [K21.9] INVALID FOR* Osteoporosis [M81.0] INVALID FOR* Stage 3 chronic kidney disease (HCC) [N18.3] INVALID FOR* Vitamin D deficiency [E55.9] INVALID FOR* 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 Abnormal weight loss [R63.4] INVALID FOR* Change in bowel habits [R19.4] INVALID FOR* Medications Discontinued During This Encounter peppermint oil (IBGARD ORAL) 11/30/2017 Class: Historical Med Route: ORAL Sig: Take by mouth. Disc: Reason for discontinue is not on file. polyethylene glycol 3350 (MIRALAX) 1* 11/30/2017 Class: Historical Med Route: ORAL Sig: Take by mouth. every other day Disc: Discontinued by Patient Encounter Status:Closed by JOSE KISER on 11/30/17 URINALYSIS WITH Collected: 11/26/2017 Status: F Source: [place] MICROSCOPIC 3:00 PM [facility] REPOSITORY TYPE CODE TESTS RESULT OUT OF RANGE REFERENCE UNITS LAB UCOL Yellow Color Abnormal [place] Alert LAB [facility] Clear Clarity Abnormal Cloudy Alert LAB UGLUC Negative mg/dL Glucose, Abnormal Urine 50 Alert LAB UBIL Negative Bilirubin, Urine Negative LAB UKET Negative Ketones, Urine Negative LAB USPG 1.005-1.030 Specific [place], Ur 1.012 LAB UHGB Negative Hemoglobin/Blood, Negative Ur LAB UPH 4.5-8.0 pH 5.0 LAB UPROT Negative mg/dL Protein, Urine Negative LAB UUROB Normal Urobilinogen Normal LAB UNITR Negative Nitrites Negative LAB ULKEST Negative Leukest Abnormal 3+ Alert LAB UCOM Comments SEE COMMENT Result Comment: N/A LAB UMCOM Urine SEE Bridget Comment COMMENT Result Comment: N/A LAB UWBC 0-5 /HPF Abnormal Alert WBC >25 LAB URBC 0-3 /HPF Abnormal Alert RBC 3-5 Performed By: #### UAWMIC #### [facility] [address] [place], [place] [address] Observed: 11/26/2017 Status: F Source: [place] URINE CULTURE 3:00 AM [facility] REPOSITORY Culture Result - <10,000 CFU/ml Lactose positive gram negative bacilli --> ABNORMAL ALERT Insignificant colony count. No further workup. --> ABNORMAL ALERT Performed By: #### URCUL #### [facility] [address] [place], [place] [address] VENOUS DUPLEX LOWER Observed: 11/25/2017 Status: F Source: [place] EXTREMITY 11:43 AM [facility] REPOSITORY [facility] Cardiovascular Services [address] [place] [address] Venous Duplex US, Unilateral 11/23/17 1403 MR#: [id number] Acct: [id number] Name: SERENA GUO Rep #: [id number] : 1940 77 From: Starla Finn MD Attending Dr: Starla Finn MD Status: REG CLI Ordering Dr: Starla Finn MD Date: 11/23/17 Location: CVS Sex: F C Admitted: Reason For Study: pain and swelling RIGHT LEFT CFV is compressible, spontaneous, phasic, CFV is compressible, spontaneous, phasic, competent and demonstrates normal competent, and demonstrates normal augmentation. augmentation. FV is compressible, spontaneous, phasic, competent and demonstrates normal augmentation. POP V is compressible, spontaneous, phasic, competent and demonstrates normal augmentation. T/P Trunk is compressible. PTV is compressible. RT PerV is compressible. S-F junction is competent. GSV is competent throughout. SSV is competent. Procedure Exam performed in department. The exam was diagnostic. A preliminary report was called and/or faxed to Dr. Finn's office. Interpretation Summary 1. Right leg with no DVTor SVT. No deep or superficial reflux noted. Ordering Physician: Starla Finn Performed By: Cornelio Martinez RVT 11/25/17 1142 Date Starla Finn MD CC: Starla Finn MD; Ramu Robles MD Date Dictated: 11/23/17 1403 Date Transcribed: 11/25/17 1142 Transfer Machine Operator: Signed PROGRESS Observed: 11/24/2017 Status: COMPLETED Source: [place] 3:59 PM [facility] REPOSITORY HNO ID: [id number] Author: Paulette Berkowitz Service: (none) Author Type: Registered Nurse Type: Progress Notes Filed: 11/24/2017 5:13 PM Note Text: PRIMARY CARE COORDINATION QUICK NOTE Provider Action/FYI Pt going to SNF for Respite. Will contact in a couple weeks upon return home. Patient identified by name and date . Pt going to respite to [facility]. Will call in 2 wks. CNPTOUTREACH Observed: 11/24/2017 Status: COMPLETED Source: [place] 12:00 AM [facility] REPOSITORY Patient Outreach (INTMWS) SERENA GUO ([id number]) 1940 F Date Time Provider Department 11/24/17 PAULETTE LANDIS During your visit today, we recorded the following information about you: Paulette Langley RN 11/24/2017 5:13 PM Signed PRIMARY CARE COORDINATION QUICK NOTE Provider Action/FYI Pt going to SNF for Respite. Will contact in a couple weeks upon return home. Patient identified by name and date . Pt going to respite to [facility]. Will call in 2 wks. 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 * GABAPENTIN 100 MG CAPSULE 3 TIMES DAILY WITH MEALS DORZOLAMIDE 2 % EYE DROPS Use 1 Drop in the right eye t* OMEPRAZOLE 20 MG CAPSULE,CAYETANO* Take 1 capsule by mouth daily* PROMETHAZINE 12.5 MG TABLET Take 1 tablet by mouth every * APIXABAN 5 MG TABLET Take 1 tablet by mouth twice * ATORVASTATIN 40 MG TABLET Take 1 tablet by mouth once d* ACIDOPHILUS 100 MILLION CELL-* Take 1 capsule by mouth once * MECLIZINE 12.5 MG TABLET Take 1-2 tablets by mouth thr* STARCH (THICKENING) ORAL POWD* Add to fluids to nectar thick* COMPOUNDED PRESCRIPTION Home Health wound care orders* CHOLECALCIFEROL (VITAMIN D3) * Take 1 capsule by mouth once * POLYETHYLENE GLYCOL 3350 17 G* Take by mouth. every other d* BLOOD SUGAR DIAGNOSTIC STRIPS TEST BLOOD SUGARS 4 TIMES BOGDAN* INSULIN LISPRO (U-100) 100 UN* use as directed up to 100 uni* CALCIUM + D ORAL Take by mouth. Problem List As Of Date 11/24/2017 Noted Resolved Diabetes mellitus type 1, uncontrolled, without*INVALID FOR* Dry eyes, bilateral [H04.123] INVALID FOR* Hyperlipidemia [E78.5] INVALID FOR* Gastroesophageal reflux disease [K21.9] INVALID FOR* Osteoporosis [M81.0] INVALID FOR* Stage 3 chronic kidney disease (HCC) [N18.3] INVALID FOR* Vitamin D deficiency [E55.9] INVALID FOR* 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 Encounter Status:Closed by PAULETTE BERKOWITZ on 11/24/17 IR ARTERIOGRAM Observed: 11/05/2017 Status: F Source: [facility] LOWER RIGHT 12:30 PM [facility] REPOSITORY ORIGINAL Images acquired, not reported on this accession number. CBC Collected: 11/05/2017 Status: F Source: [facility] 10:43 AM [facility] REPOSITORY TYPE CODE TESTS RESULT OUT OF REFERENCE UNITS RANGE LAB WBC(LOINC) 4.50-10.80 10 3/mcL WBC 5.00 LAB RBCCT(LOINC 4.10-5.30 10 6/mcL ) Low RBC 3.93 LAB HGB(LOINC) 12.0-16.0 G/dL Low Hgb 11.8 LAB HCT(LOINC) 34.0-46.0 % Hct 35.9 LAB MCV(LOINC) 80.0-99.0 fL MCV 91.4 LAB MCH(LOINC) 27.0-33.0 pg MCH 30.0 LAB MCHC(LOINC) 32.0-36.0 G/dL MCHC 32.9 LAB RDW(LOINC) 11.5-15.5 % RDW 14.0 LAB PLT(LOINC) 150-450 10 3/mcL Platelet 183 LAB MPV(LOINC) 6.6-10.5 fL MPV 8.8 Performed By: #### CBC, ADIFF, ANEU, RFP, GFR, APTT, PRO #### [address] [address] .AUTO DIFF Collected: 11/05/2017 Status: F Source: [facility] 10:43 AM [facility] REPOSITORY TYPE CODE TESTS RESULT OUT OF REFERENCE UNITS RANGE LAB SAMM(LOINC) 50.0-75.0 % Neutrophil % 62.3 LAB LYM(LOINC) 20.0-40.0 % Lymphocyte % 26.6 LAB MON(LOINC) 2.0-13.0 % Monocyte % 7.6 LAB EO(LOINC) 0.0-6.0 % Eosinophil % 2.4 LAB BAS(LOINC) 0.0-2.5 % Basophil % 1.1 LAB ABLYM(LOIN 0.90-4.32 10 3/mcL C) Lymphocyte, 1.30 Absolute LAB ANDREA(LOINC 0.09-1.40 10 3/mcL ) Monocyte, 0.40 Absolute LAB AEOS(LOINC 0.00-0.65 10 3/mcL ) Eosinophil, 0.10 Absolute LAB ABAS(LOINC 0.00-0.27 10 3/mcL ) Basophil, 0.10 Absolute Performed By: #### CBC, ADIFF, ANEU, RFP, GFR, APTT, PRO #### [place] [address] .NEUABS Collected: 11/05/2017 Status: F Source: [facility] 10:43 AM [facility] REPOSITORY TYPE CODE TESTS RESULT OUT OF REFERENCE UNITS RANGE LAB ANEU(LOINC) 2.25-8.10 10 3/mcL Neutrophil, 3.10 Absolute Performed By: #### CBC, ADIFF, ANEU, RFP, GFR, APTT, PRO #### [place] [address] RFP Collected: 11/05/2017 Status: F Source: [facility] 10:43 AM [facility] REPOSITORY TYPE CODE TESTS RESULT OUT OF REFERENCE UNITS RANGE LAB GLU(LOINC) 82-115 mg/dL Glucose High Level 333 LAB NA(LOINC) 136-145 mEq/L Sodium Level 139 LAB K(LOINC) 3.5-5.0 mEq/L Potassium Level 3.9 LAB CL(LOINC) 98-110 mEq/L Chloride 105 LAB CO2(LOINC) 22-32 mEq/L CO2 28 LAB EBAL(LOINC 4.0-15.0 mEq/L ) Electrolyte Balance 6.0 LAB BUN(LOINC) 8.0-22.0 mg/dL BUN 19.0 LAB CRE(LOINC) 0.50-1.20 mg/dL Creatinine Lvl (s) 0.92 LAB BC(LOINC) 10.0-22.0 ratio BUN/Creatinine 20.7 Ratio LAB CA(LOINC) 8.4-10.1 mg/dL Low Calcium Lvl 8.0 LAB PHOS(LOINC 2.5-4.5 mg/dL ) Phosphorus 3.5 LAB ALB(LOINC) 3.2-4.8 G/dL Low Albumin Level 2.9 Performed By: #### CBC, ADIFF, ANEU, RFP, GFR, APTT, PRO #### [place] [address] .GFR Collected: 11/05/2017 Status: F Source: [facility] 10:43 AM [facility] REPOSITORY TYPE CODE TESTS RESULT OUT OF REFERENCE UNITS RANGE LAB GFRAA(LOINC ml/min/1.73 ) sqm GFR >60 [place] Result Comment: GFR Population mean for , Non- Americans Ages 20-29 = 116 mL/min/1.73 sq.m. Ages 30-39 = 107 mL/min/1.73 sq.m. Ages 40-49 = 99 mL/min/1.73 sq.m. Ages 50-59 = 93 mL/min/1.73 sq.m. Ages 60-69 = 85 mL/min/1.73 sq.m. Ages 70+ = 75 mL/min/1.73 sq.m. Chronic Kidney Disease: Less than 60 mL/min/1.73 square meters End Stage Renal Disease: Less than 15 mL/min/1.73 square meters LAB GFRNO(LOINC) ml/min/1.73sqm GFR Non- 59 Result Comment: GFR Population mean for , Non- Americans Ages 20-29 = 116 mL/min/1.73 sq.m. Ages 30-39 = 107 mL/min/1.73 sq.m. Ages 40-49 = 99 mL/min/1.73 sq.m. Ages 50-59 = 93 mL/min/1.73 sq.m. Ages 60-69 = 85 mL/min/1.73 sq.m. Ages 70+ = 75 mL/min/1.73 sq.m. Chronic Kidney Disease: Less than 60 mL/min/1.73 square meters End Stage Renal Disease: Less than 15 mL/min/1.73 square meters Performed By: #### CBC, ADIFF, ANEU, RFP, GFR, APTT, PRO #### [address] [address] APTT Collected: 11/05/2017 Status: F Source: [facility] 10:43 AM [facility] REPOSITORY TYPE CODE TESTS RESULT OUT OF REFERENCE UNITS RANGE LAB PDOSE(LOIN C) Heparin dose Unknown (APTT) LAB APTT0(LOIN 25.0-35.0 seconds C) APTT 32.2 Result Comment: For Heparin anticoagulation therapy, the recommended therapeutic range is: 54-77 seconds (APTT Correlation with Anti-Xa therapeutic range of 0.3-0.7 units/ml). PLEASE REFERENCE THE PHARMACY PROTOCOL FOR DOSING. Performed By: #### CBC, ADIFF, ANEU, RFP, GFR, APTT, PRO #### [address] [address] PRO Collected: 11/05/2017 Status: F Source: [facility] 10:43 AM [facility] REPOSITORY TYPE CODE TESTS RESULT OUT OF REFERENCE UNITS RANGE LAB PT(LOINC) 9.0-14.5 seconds Protime 12.1 Result Comment: Effective 08/24/07, Protime results may be affected by some antibiotics (i.e. Ciprofloxacin, Azithromycin, Bactrim) which may potentiate the action of oral anticoagulants, with further increases in Protime/INR. LAB INR(LOINC) ratio PT International Ratio 1.0 Result Comment: The [place] [employer] (CHEST, 1992, 102:312S-25S) recommended therapeutic range for oral anticoagulant therapy is: LOW RISK: Prophylaxis of venous thrombosis INR: 2.0-3.0 Treatment of pulmonary embolism 2.0-3.0 Prevention of systemic embolism 2.0-3.0 HIGH RISK: Mechanical prosthetic valves 2.5-3.5 Performed By: #### CBC, ADIFF, ANEU, RFP, GFR, APTT, PRO #### [place] [address] C DIFFICILE PCR Collected: 11/04/2017 Status: F Source: [place] 12:09 [facility] REPOSITORY TYPE CODE TESTS RESULT OUT OF REFERENCE UNITS RANGE LAB CDFRES C difficile PCR Negative for C. difficile toxin by PCR Performed By: #### CDPCR #### [place] [address] Observed: 11/04/2017 Status: F Source: [place] [facility] 12:09 [facility] REPOSITORY Sp. Request/Comment: - Specimen received in Ova and Parasite Kit. Culture Result - Negative for Giardia lamblia and Cryptosporidium species by EIA. Performed By: #### OVAPSC #### [facility] [employer] [address] [place], [place] [address] ENTERIC BACT PNL PCR Collected: 11/04/2017 Status: F Source: [place] 12:09 PM [facility] REPOSITORY TYPE CODE TESTS RESULT OUT OF REFERENCE UNITS RANGE LAB PCRSHG Shigella/EIEC Not Detected DNA LAB PCRCMP Campy jejun/coli DNA Not Detected LAB PCRSTX Shiga toxin gene(s) Not Detected LAB PCRSAL Salmonella spp. Not Detected DNA Performed By: #### STLPCR #### [facility] [address] [place], [place] [address] JARED Observed: 11/04/2017 Status: COMPLETED Source: [place] 12:00 AM [facility] REPOSITORY Telephone (GASTTW) SERENA GUO ([id number]) 1940 F Date Time Provider Department 11/04/17 VERONICA SAENZ (KHURRAM) GASTTW During your visit today, we recorded the following information about you: Leah Barnett Psr 11/04/2017 12:16 PM Signed Serena Guo is calling Veronica Saenz APRN.CNP today with concern regarding Stool Sample. Patient's granddaughter is calling stating that she was unable to get a stool sample that was not contaminated and would like to know what to do. Patient has been identified by name and birthdate. Duration of symptoms: N/A Person calling: grandJanelle escobar Call patient at: at home [phone] (home) Was an appointment scheduled: No Closing statement: Results or non-symptom based questions: Thank you for calling [facility], your call will be returned within the next business day. Leah Barnett Psr Janelle Rodriguez LPN 11/04/2017 12:49 PM Signed Please see message and advise. Thank you. Janelle Rodriguez LPN November 04, 2017 12:49 PM Veronica Saenz APRN.CNP 11/05/2017 7:57 AM Signed I see they were able to submit stool samples. C. Diff negative. CX and OANDP pending. TERENCE Verdin Psr 11/09/2017 11:49 AM Signed Please call halliesusanne Luis with test results at [phone]. (final results are all in) Una Barrera, RN, RN 11/09/2017 12:04 PM Signed Called pt granddaughter back; relayed message the CDiff was negative. Patient granddaughter verbalizes understanding and has no other questions or concerns at this time. Una Barrera RN November 09, 2017 12:04 PM Ninoska Anderson PSR 11/13/2017 3:56 PM Signed Patients granddaughter is calling in regards to message below. Patients granddaughter would like to know the other results. Please advise [phone] NEIL REDD MA 11/16/2017 8:19 AM Signed Please review results per message below and advise. Thanks NEIL REDD MA November 16, 2017 8:19 AM Veronica Saenz APRN.KHURRAM 11/16/2017 8:25 AM Signed Please let granddaughter know that all stool samples were negative for infection. TERENCE Verdin Psr 11/16/2017 8:27 AM Signed Patients grand daughter Janelle calling again for stool test results. They know it was negative for c-diff, but were told they were still waiting on other results. ( Just saw message from Veronica now- but it was not there when I was on phone with Janelle) NEIL REDD MA 11/16/2017 8:40 AM Signed Relayed message below. Ceci wants to know the next steps. I read her that KIRILL plan and she states she has a follow up at the end of the month with someone else. She states they want to try to avoid having a colonoscopy. Please advise. Thanks NEIL REDD MA November 16, 2017 8:40 AM Veronica Saenz APRN.CNP 11/16/2017 11:10 AM Signed Called and spoke with granddasusanne Luis. 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 She has had some harder stool every once in awhile. She has an appt with one of the GI docs later this month. Advised her to keep stool diary until then. Veronica Saenz APRN.CNP Allergies As of Date: 11/04/2017 Noted Allergy Reaction VERSED (MIDAZOLAM HCL) 12/11/2006 Comments: urinary retention ZETIA (EZETIMIBE) 04/01/2006 Comments: dysuria Date Reviewed: 11/02/2017 Reviewed by: Janelle Rodriguez LPN - Fully Assessed Reason for Visit: Stool Sample [Other] Prescriptions as of 11/04/2017 Sig: X MIDODRINE 5 MG TABLET Take one tablet twice daily. * GABAPENTIN 100 MG CAPSULE 3 TIMES DAILY WITH MEALS DORZOLAMIDE 2 % EYE DROPS Use 1 Drop in the right eye t* OMEPRAZOLE 20 MG CAPSULE,CAYETANO* Take 1 capsule by mouth daily* PROMETHAZINE 12.5 MG TABLET Take 1 tablet by mouth every * APIXABAN 5 MG TABLET Take 1 tablet by mouth twice * ATORVASTATIN 40 MG TABLET Take 1 tablet by mouth once d* MECLIZINE 12.5 MG TABLET Take 1-2 tablets by mouth thr* STARCH (THICKENING) ORAL POWD* Add to fluids to nectar thick* COMPOUNDED PRESCRIPTION Home Health wound care orders* CHOLECALCIFEROL (VITAMIN D3) * Take 1 capsule by mouth once * POLYETHYLENE GLYCOL 3350 17 G* Take by mouth. every other d* BLOOD SUGAR DIAGNOSTIC STRIPS TEST BLOOD SUGARS 4 TIMES BOGDAN* INSULIN LISPRO (U-100) 100 UN* use as directed up to 100 uni* CALCIUM + D ORAL Take by mouth. Problem List As Of Date 11/04/2017 Noted Resolved Diabetes mellitus type 1, uncontrolled, without*INVALID FOR* Dry eyes, bilateral [H04.123] INVALID FOR* Hyperlipidemia [E78.5] INVALID FOR* Gastroesophageal reflux disease [K21.9] INVALID FOR* Osteoporosis [M81.0] INVALID FOR* Stage 3 chronic kidney disease (HCC) [N18.3] INVALID FOR* Vitamin D deficiency [E55.9] INVALID FOR* 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 Encounter Status:Closed by VERONICA SAENZ on 11/05/17 PROGRESS Observed: 11/02/2017 Status: COMPLETED Source: [place] 4:00 PM [facility] REPOSITORY HNO ID: [id number] Author: Veronica Saenz Service: (none) Author Type: Nurse Practitioner Type: Progress Notes Filed: 11/03/2017 8:52 AM Note Text: DEPARTMENT OF GASTROENTEROLOGY - NEW PATIENT/CONSULT REASON FOR VISIT Serena Guo is a 77 year old female who is scheduled at the request of Joseph Canseco for Diarrhea. My final recommendations will be communicated back to the requesting physician by the way of the shared medical record, fax, or via US Mail. HISTORY OF PRESENT ILLNESS Serena Guo is a 77 year old female with a past medical hx of DM, stroke, hyperlipidemia, and osteoporosis who presents today for an evaluation of diarrhea. 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 Denies any black or bloody stools Some mild abdominal pain - feels like gas - intermittent Weight loss 8 lbs Always hungry - eats 3 meals a day - has a good appetite Occ nausea, denies vomiting Occ heartburn Was on a lot of antibiotics earlier this year PAST MEDICAL HISTORY Diagnosis Date - Diabetes mellitus without mention of complication Diabetes mellitus - H/O ischemic left MCA stroke 12/[address] [facility] - History of osteoporosis 09/11/2015 - Hyperlipidemia - H - PAST MEDICAL HISTORY OF Seasonal allergies PAST SURGICAL HISTORY Procedure Laterality Date - EYE SURGERY HX 12/18/15 eye pressure surgery Current Outpatient Prescriptions: midodrine (PROAMITINE) 5 mg tablet Take one tablet twice daily. Adding half to whole tablet midday if bp is low. Disp: 90 tablet Rfl: 1 gabapentin (NEURONTIN) 100 mg capsule 3 TIMES DAILY WITH MEALS Disp: Rfl: dorzolamide (TRUSOPT) 2 % ophthalmic solution Use 1 Drop in the right eye twice daily. Disp: Rfl: omeprazole (PRILOSEC) 20 mg capsule Take 1 capsule by mouth daily before breakfast. 1/2 hr before meal. Disp: 30 capsule Rfl: 5 promethazine (PHENERGAN) 12.5 mg tablet Take 1 tablet by mouth every 6 hours as needed. Disp: 30 tablet Rfl: 1 apixaban (ELIQUIS) 5 mg tab tab(s) Take 1 tablet by mouth twice daily. Disp: 60 tablet Rfl: 11 atorvastatin (LIPITOR) 40 mg tablet Take 1 tablet by mouth once daily. Disp: 30 tablet Rfl: 11 meclizine (ANTIVERT) 12.5 mg tab Take 1-2 tablets by mouth three times daily as needed. Disp: 30 tablet Rfl: 1 Starch, Thickening, (THICK-IT) powd Add to fluids to nectar thickness. Dysphagia s/p CVA I69.391 Disp: 1020 g Rfl: 11 COMPOUNDED PRESCRIPTION Home Health wound care orders: Cleanse with sterile saline once daily. Dress with guaze and bacitracin daily. Continue till wound healed. may change dressing as needed. Notify MD if not continuing to heal over the next week. Disp: 1 Each Rfl: 0 cholecalciferol, Vitamin D3, (VITAMIN D3) 50,000 unit cap capsule Take 1 capsule by mouth once each week. Disp: 4 capsule Rfl: 3 blood sugar diagnostic (FREESTYLE LITE STRIPS) test strip TEST BLOOD SUGARS 4 TIMES DAILY Dx E10.9 Insulin Dependent Disp: 150 Strip Rfl: 11 insulin lispro (HUMALOG) 100 unit/mL injection use as directed up to 100 units daily via insulin pump. Dx 250.03 Disp: 3 Vial Rfl: 11 CALCIUM CARBONATE/VITAMIN D3 (CALCIUM + D ORAL) Take by mouth. Disp: Rfl: acidophilus-pectin, citrus 100 million cell-10 mg cap Take 1 capsule by mouth once daily. Disp: 30 capsule Rfl: 0 polyethylene glycol 3350 (MIRALAX) 17 gram/dose powder Take by mouth. every other day Disp: Rfl: No current facility-administered medications for this visit. ALLERGIES Allergen Reactions - Versed [Midazolam H* urinary retention - Zetia [Ezetimibe] dysuria Social History Marital status: Spouse name: Years of education: Number of children: Social History Main Topics Smoking status: Never Smoker Smokeless tobacco: Never Used Alcohol use: No Drug use: No FAMILY HISTORY (grandparents, parents, brothers, sisters, aunts, or uncles) Liver Problems: No Ulcerative Colitis: No Crohn's Disease: No Colon Cancer: No Colon Polyps: No IBS: No Celiac disease: No Bleeding Disorders: No GI SPECIFIC REVIEW OF SYMPTOMS Difficulty swallowing / foods sticking in throat: yes Heartburn: yes Hoarseness: yes Chronic cough: yes Regurgitation: yes Chest pain: no Filling up quickly at meals:yes Loss of appetite: no Nausea: yes Vomiting: no Abdominal pain: yes Recent change in bowel movements: yes Bloody or black, bowel movements: no Constipation: yes Diarrhea: yes Loss of control of bowel movements: yes Night sweats: no Fever: no Chills: no Thought or memory problems: yes Fluid in abdomen (ascites): no Prominent leg swelling: no Vomiting blood: no Recent change in weight: No REVIEW OF SYSTEMS ? Constitutional: Negative for fever or chills. Weight loss 8 lbs Eyes: Negative for vision changes and double vision ENT: Negative for ear pain, nasal discharge, and sore throat Heart: Negative for chest pain. BP variable Lungs: SOB with exertion GI: See above Musculoskeletal: Arthritis Neuro: Negative for numbness and tingling Skin: Negative for rashes, lesions, and jaundice Hematologic/Lymphatic: Negative for unusual bruising, bleeding, and swelling Psych: +anxiety and depression PAST MEDICAL HISTORY Colon polyps: yes Colon cancer: no Other cancer: no Radiation / Chemotherapy: no Crohn's disease / Ulcerative colitis: no High cholesterol or triglycerides: yes Ulcers: no Gallstones: no Hepatitis / Jaundice: no Heart Disease: yes, A fib Lung Disease: no Liver problems: no Thyroid disease: no Kidney stones: no Pancreatitis: no Diabetes: yes Arthritis: yes Rheumatic fever: no Gastrointestinal bleeding: no Depression or other mental illness: yes, anxiety and depression Other personal illness: denies PHYSICAL EXAMINATION BP 113/65 Pulse 86 Ht 5' 4 (1.63m) Wt 141 lb 11.2 oz (64.3kg) BMI 24.31 kg/(m2). General appearance: Appears well, alert, in no acute distress, well nourished. Skin: Skin color and temperature normal. No obvious rashes or lesions noted on exposed skin. Head: Normocephalic, atraumatic. No masses or lesions noted. Eyes: Anicteric sclera. Pupils are equally round. Ears: External ears normal Nose/Sinuses: Nares normal, no drainage Oropharynx: Lips normal, oropharynx moist. Neck: Supple, no adenopathy; thyroid symmetric, normal size Lungs: CTAB. Normal effort Heart: RRR, no murmurs. Abdomen: Soft, non-distended. Bowel sounds present. No tenderness with palpation Extremities: No deformities or pitting pedal edema noted. Psych: Pleasant affect, cooperative, A+O x3. RECENT LABS CBC: WBC (k/uL) Date Value 10/23/2017 5.63 02/11/2017 5.77 Hematocrit (%) Date Value 10/23/2017 39.9 MCV (fL) Date Value 10/23/2017 94.8 Platelet Count (k/uL) Date Value 10/23/2017 268 Lymph% (%) Date Value 02/08/2016 27.7 Comprehensive Metabolic Panel: Glucose (mg/dL) Date Value 10/23/2017 263 (H) BUN (mg/dL) Date Value 10/23/2017 19 Creatinine (mg/dL) Date Value 10/23/2017 0.96 Sodium (mmol/L) Date Value 10/23/2017 136 Potassium (mmol/L) Date Value 10/23/2017 4.1 Chloride (mmol/L) Date Value 10/23/2017 102 CO2 (mmol/L) Date Value 10/23/2017 22 Protein, Total (g/dL) Date Value 10/23/2017 5.8 (L) Albumin (g/dL) Date Value 10/23/2017 3.3 (L) Calcium (mg/dL) Date Value 10/23/2017 8.7 Alkaline Phosphatase (U/L) Date Value 10/23/2017 130 (H) Bilirubin, Total (mg/dL) Date Value 10/23/2017 0.4 AST (U/L) Date Value 10/23/2017 22 ALT (U/L) Date Value 10/23/2017 13 Assessment IMPRESSION Serena Guo is a 77 year old female with a past medical hx of DM, stroke, hyperlipidemia, and osteoporosis who presents today for an evaluation of diarrhea. She has always had issues with constipation for most of her life and about 2 months ago her bowel habits changed to loose stools daily or every other day without the use of any laxatives. She does have some mild abdominal pain which she describes as gas and some occasional nausea as well. Denies any black or bloooy stools. Will obtain stool samples to look for infection. Will also schedule colonoscopy as her last one was about 14 years ago. In the meantime advised low- FODMAP diet, benefiber, and peppermint oil for symptom management. PLAN Stool samples to look for infection Re-start benefiber Low-FODMAP diet IBgard three times daily as needed Schedule colonoscopy Plan is to follow up as needed (prn). Veronica Saenz APRN.TUBE BLOWER November 02, 2017 CNOV Observed: 11/02/2017 Status: COMPLETED Source: [place] 3:20 PM [facility] REPOSITORY Office Visit (GASTTW) SERENA GUO ([id number]) 1940 F Date Time Provider Department 11/02/17 3:20 PM VERONICA SAENZ (KHURRAM) GAST[facility] During your visit today, we recorded the following information about you: Pulse Blood pressure Weight Height 86/minute 113/65 64.3 kg 1.626 m Veronica Saenz APRN.CNP 11/03/2017 8:52 AM Signed DEPARTMENT OF GASTROENTEROLOGY - NEW PATIENT/CONSULT REASON FOR VISIT Serena Guo is a 77 year old female who is scheduled at the request of Joseph Canseco for Diarrhea. My final recommendations will be communicated back to the requesting physician by the way of the shared medical record, fax, or via US Mail. HISTORY OF PRESENT ILLNESS Serena Guo is a 77 year old female with a past medical hx of DM, stroke, hyperlipidemia, and osteoporosis who presents today for an evaluation of diarrhea. 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 Denies any black or bloody stools Some mild abdominal pain - feels like gas - intermittent Weight loss 8 lbs Always hungry - eats 3 meals a day - has a good appetite Occ nausea, denies vomiting Occ heartburn Was on a lot of antibiotics earlier this year PAST MEDICAL HISTORY Diagnosis Date - Diabetes mellitus without mention of complication Diabetes mellitus - H/O ischemic left MCA stroke 12/[address] [facility] - History of osteoporosis 09/11/2015 - Hyperlipidemia - [facility] - PAST MEDICAL HISTORY OF Seasonal allergies PAST SURGICAL HISTORY Procedure Laterality Date - EYE SURGERY HX 12/18/15 eye pressure surgery Current Outpatient Prescriptions: midodrine (PROAMITINE) 5 mg tablet Take one tablet twice daily. Adding half to whole tablet midday if bp is low. Disp: 90 tablet Rfl: 1 gabapentin (NEURONTIN) 100 mg capsule 3 TIMES DAILY WITH MEALS Disp: Rfl: dorzolamide (TRUSOPT) 2 % ophthalmic solution Use 1 Drop in the right eye twice daily. Disp: Rfl: omeprazole (PRILOSEC) 20 mg capsule Take 1 capsule by mouth daily before breakfast. 1/2 hr before meal. Disp: 30 capsule Rfl: 5 promethazine (PHENERGAN) 12.5 mg tablet Take 1 tablet by mouth every 6 hours as needed. Disp: 30 tablet Rfl: 1 apixaban (ELIQUIS) 5 mg tab tab(s) Take 1 tablet by mouth twice daily. Disp: 60 tablet Rfl: 11 atorvastatin (LIPITOR) 40 mg tablet Take 1 tablet by mouth once daily. Disp: 30 tablet Rfl: 11 meclizine (ANTIVERT) 12.5 mg tab Take 1-2 tablets by mouth three times daily as needed. Disp: 30 tablet Rfl: 1 Starch, Thickening, (THICK-IT) powd Add to fluids to nectar thickness. Dysphagia s/p CVA I69.391 Disp: 1020 g Rfl: 11 COMPOUNDED PRESCRIPTION Home Health wound care orders: Cleanse with sterile saline once daily. Dress with guaze and bacitracin daily. Continue till wound healed. may change dressing as needed. Notify MD if not continuing to heal over the next week. Disp: 1 Each Rfl: 0 cholecalciferol, Vitamin D3, (VITAMIN D3) 50,000 unit cap capsule Take 1 capsule by mouth once each week. Disp: 4 capsule Rfl: 3 blood sugar diagnostic (FREESTYLE LITE STRIPS) test strip TEST BLOOD SUGARS 4 TIMES DAILY Dx E10.9 Insulin Dependent Disp: 150 Strip Rfl: 11 insulin lispro (HUMALOG) 100 unit/mL injection use as directed up to 100 units daily via insulin pump. Dx 250.03 Disp: 3 Vial Rfl: 11 CALCIUM CARBONATE/VITAMIN D3 (CALCIUM + D ORAL) Take by mouth. Disp: Rfl: acidophilus-pectin, citrus 100 million cell-10 mg cap Take 1 capsule by mouth once daily. Disp: 30 capsule Rfl: 0 polyethylene glycol 3350 (MIRALAX) 17 gram/dose powder Take by mouth. every other day Disp: Rfl: No current facility-administered medications for this visit. ALLERGIES Allergen Reactions - Versed [Midazolam H* urinary retention - Zetia [Ezetimibe] dysuria Social History Marital status: Spouse name: Years of education: Number of children: Social History Main Topics Smoking status: Never Smoker Smokeless tobacco: Never Used Alcohol use: No Drug use: No FAMILY HISTORY (grandparents, parents, brothers, sisters, aunts, or uncles) Liver Problems: No Ulcerative Colitis: No Crohn's Disease: No Colon Cancer: No Colon Polyps: No IBS: No Celiac disease: No Bleeding Disorders: No GI SPECIFIC REVIEW OF SYMPTOMS Difficulty swallowing / foods sticking in throat: yes Heartburn: yes Hoarseness: yes Chronic cough: yes Regurgitation: yes Chest pain: no Filling up quickly at meals:yes Loss of appetite: no Nausea: yes Vomiting: no Abdominal pain: yes Recent change in bowel movements: yes Bloody or black, bowel movements: no Constipation: yes Diarrhea: yes Loss of control of bowel movements: yes Night sweats: no Fever: no Chills: no Thought or memory problems: yes Fluid in abdomen (ascites): no Prominent leg swelling: no Vomiting blood: no Recent change in weight: No REVIEW OF SYSTEMS ? Constitutional: Negative for fever or chills. Weight loss 8 lbs Eyes: Negative for vision changes and double vision ENT: Negative for ear pain, nasal discharge, and sore throat Heart: Negative for chest pain. BP variable Lungs: SOB with exertion GI: See above Musculoskeletal: Arthritis Neuro: Negative for numbness and tingling Skin: Negative for rashes, lesions, and jaundice Hematologic/Lymphatic: Negative for unusual bruising, bleeding, and swelling Psych: +anxiety and depression PAST MEDICAL HISTORY Colon polyps: yes Colon cancer: no Other cancer: no Radiation / Chemotherapy: no Crohn's disease / Ulcerative colitis: no High cholesterol or triglycerides: yes Ulcers: no Gallstones: no Hepatitis / Jaundice: no Heart Disease: yes, A fib Lung Disease: no Liver problems: no Thyroid disease: no Kidney stones: no Pancreatitis: no Diabetes: yes Arthritis: yes Rheumatic fever: no Gastrointestinal bleeding: no Depression or other mental illness: yes, anxiety and depression Other personal illness: denies PHYSICAL EXAMINATION BP 113/65 Pulse 86 Ht 5' 4 (1.63m) Wt 141 lb 11.2 oz (64.3kg) BMI 24.31 kg/(m2). General appearance: Appears well, alert, in no acute distress, well nourished. Skin: Skin color and temperature normal. No obvious rashes or lesions noted on exposed skin. Head: Normocephalic, atraumatic. No masses or lesions noted. Eyes: Anicteric sclera. Pupils are equally round. Ears: External ears normal Nose/Sinuses: Nares normal, no drainage Oropharynx: Lips normal, oropharynx moist. Neck: Supple, no adenopathy; thyroid symmetric, normal size Lungs: CTAB. Normal effort Heart: RRR, no murmurs. Abdomen: Soft, non-distended. Bowel sounds present. No tenderness with palpation Extremities: No deformities or pitting pedal edema noted. Psych: Pleasant affect, cooperative, A+O x3. RECENT LABS CBC: WBC (k/uL) Date Value 10/23/2017 5.63 02/11/2017 5.77 Hematocrit (%) Date Value 10/23/2017 39.9 MCV (fL) Date Value 10/23/2017 94.8 Platelet Count (k/uL) Date Value 10/23/2017 268 Lymph% (%) Date Value 02/08/2016 27.7 Comprehensive Metabolic Panel: Glucose (mg/dL) Date Value 10/23/2017 263 (H) BUN (mg/dL) Date Value 10/23/2017 19 Creatinine (mg/dL) Date Value 10/23/2017 0.96 Sodium (mmol/L) Date Value 10/23/2017 136 Potassium (mmol/L) Date Value 10/23/2017 4.1 Chloride (mmol/L) Date Value 10/23/2017 102 CO2 (mmol/L) Date Value 10/23/2017 22 Protein, Total (g/dL) Date Value 10/23/2017 5.8 (L) Albumin (g/dL) Date Value 10/23/2017 3.3 (L) Calcium (mg/dL) Date Value 10/23/2017 8.7 Alkaline Phosphatase (U/L) Date Value 10/23/2017 130 (H) Bilirubin, Total (mg/dL) Date Value 10/23/2017 0.4 AST (U/L) Date Value 10/23/2017 22 ALT (U/L) Date Value 10/23/2017 13 Assessment IMPRESSION Serena Guo is a 77 year old female with a past medical hx of DM, stroke, hyperlipidemia, and osteoporosis who presents today for an evaluation of diarrhea. She has always had issues with constipation for most of her life and about 2 months ago her bowel habits changed to loose stools daily or every other day without the use of any laxatives. She does have some mild abdominal pain which she describes as gas and some occasional nausea as well. Denies any black or bloooy stools. Will obtain stool samples to look for infection. Will also schedule colonoscopy as her last one was about 14 years ago. In the meantime advised low-FODMAP diet, benefiber, and peppermint oil for symptom management. PLAN Stool samples to look for infection Re-start benefiber Low-FODMAP diet IBgard three times daily as needed Schedule colonoscopy Plan is to follow up as needed (prn). Veronica Saenz APRN.CNP November 02, 2017 Veronica Saenz APRN.CNP 11/02/2017 4:49 PM Signed Stool samples to look for infection Re-start benefiber Low-FODMAP diet IBgard three times daily as needed Schedule colonoscopy How to Prepare for Your Colonoscopy Using Golytely, Nulytely, Trilyte or Colyte Preparations with Conscious Sedation IMPORTANT - Read These Instructions at Least 2 Weeks Before your Colonoscopy [facility] Instructions: ? Your bowel must be empty so that your doctor can clearly view your colon. Follow all of the instructions in this handout EXACTLY as they are written. If you do NOT follow the directions for when to start drinking the bowel preparation, your colonoscopy WILL be cancelled. ? Do NOT eat any solid food the ENTIRE day before your colonoscopy. ? Buy your bowel preparation at least 5 days before your colonoscopy. ? Do NOT mix the solution until the day before your colonoscopy. Designated Sanitizer on the Day of Your Exam A responsible family member or friend MUST come with you to your colonoscopy and REMAIN in the endoscopy area until you are discharged. You are NOT ALLOWED to drive, take a taxi or bus, or leave the Endoscopy Center ALONE. If you do not have a responsible city driver (family member or friend) with you to take you home, you exam cannot be done with sedation and will be cancelled. Medications Some of the medications you take may need to be stopped or adjusted before your colonoscopy. You MUST call the doctor who ordered any of the following medicines at least 2 weeks before your colonoscopy. ? Blood thinners - such as Coumadin (warfarin), Plavix (clopidogrel), Ticlid (ticlopidine hydrochloride), Agrylin (anagrelide), Xarelto (Rivaroxaban), Pradaxa (Dabigatran), Eliquis (Apixaban), and Effient (Prasugrel). ? Insulin or diabetes pills. Please call the doctor that monitors your glucose levels. Your insulin dosage may need to be adjusted due to the diet restrictions required with this bowel preparation. (Please bring your diabetes medicines with you on the day of your procedure.) If you take aspirin, take it and ALL other medications prescribed by your doctor. On the day of your colonoscopy, take your medications with a sip of water. Five (5) Days Before Your Colonoscopy ? Do NOT take medicines that stop diarrhea - such as Imodium, Kaopectate, or Pepto Bismol. ? Do NOT take fiber supplements - such as Metamucil, Citrucel, or Perdiem. ? Do NOT take products that contain iron - such as multi-vitamins (the label lists what is in the products). ? Do NOT take Vitamin E. Buy the prescription bowel preparation solution at your local pharmacy or drugstore pharmacy. Three (3) Days Before Your Colonoscopy ? Do NOT eat high-fiber foods - such as popcorn, beans, seeds (flax, sunflower, quinoa), multigrain bread, nuts, salad/vegetables, or fresh and dried fruit. One (1) Day Before Your Colonoscopy Only drink clear liquids the ENTIRE DAY before your colonoscopy. Do NOT eat any solid foods. Drink at least 8 ounces of clear liquids every hour after waking up. The clear liquids you can drink include: ? Water, apple, or white grape juice; broth; coffee or tea (without milk or creamer); clear carbonated beverages such as barbara erinn or lemon-mekoryuk soda; Gatorade or other sports drinks (not red); Celestine-Aid or other flavored drinks (not red). You may eat plain jello or other gelatins (not red) or popsicles (not red). Do NOT drink alcohol on the day before or the day of the procedure. When to Mix and Drink Your Bowel Prep Follow the instructions on the label. After mixing, place the solution in the refrigerator for a couple of hours before drinking. You may add the flavor pack that came with the bowel preparation. Do NOT add ice, sugar or any flavorings to the solution. Morning Appointment (Before 12 noon) Step 1: ? Start drinking the bowel preparation at 6 PM the evening before your colonoscopy. Drink an 8-oz glass of bowel preparation every 10 minutes for a total of 8 glasses. ? You may continue to drink clear liquids until bedtime. Step 2: The day of the colonoscopy (4 hours before your exam). ? Drink an 8-oz glass of bowel preparation every 10 minutes for a total of 8 glasses. ? You may continue to drink clear liquids up to 2 hours before your exam. If you take aspirin, take it and ALL other prescribed medicines with a sip of water on the day of your colonoscopy. Afternoon Appointment (After 12 noon) ? Start drinking the bowel preparation at 6 AM the day of your colonoscopy. Drink an 8-oz glass of bowel preparation every 10 minutes. You must finish drinking the solution by 9 AM. ? You may continue to drink clear liquids up to 2 hours before your exam. If you take aspirin, take it and ALL other prescribed medicines with a sip of water on the day of your colonoscopy. Referring Provider: JOSEPH CANSECO [[id number]] Allergies As of Date: 11/02/2017 Noted Allergy Reaction VERSED (MIDAZOLAM HCL) 12/11/2006 Comments: urinary retention ZETIA (EZETIMIBE) 04/01/2006 Comments: dysuria Date Reviewed: 11/02/2017 Reviewed by: Janelle Rodriguez LPN - Fully Assessed Reason for Visit: Diarrhea [35] Primary Visit Diagnosis:Diarrhea, unspecified type [R19.7] Other Visit Diagnoses:Change in bowel habits [R19.4] Abdominal pain, unspecified abdominal location [R10.9] Order(s):C. DIFFICILE PCR [SQCDPCR] Order #: [id number] ENTERIC BACTERIAL PANEL BY PCR [SQSTLPCR] Order #: [id number] FUTURE CRYPTOSPORIDIUM AND GIARDIA ANTIGENS BY EIA [SQOVAPSC] Order #: [id number] SWAPNA PT ED DIGESTIVE DISEASES [[id number]] Order #: [id number]: 1 [] peg 3350-Electrolytes (GOLYTELY) 236-22.74-6.74 -5.86 gram suspensionTake 4,000 mL by mouth one time only for 1 dose. Refer to printed prep instructions from your doctor.Disp: 1 BottleRfl: 0 SWAPNA PT ED DIGESTIVE DISEASES [[id number]] Order #: [id number]. #:[id number]: [id number] COLONOSCOPY - DIAGNOSTIC [[id number]] Order #: [id number] FUTURE Prescriptions as of 11/02/2017 Sig: MIDODRINE 5 MG TABLET Take one tablet twice daily. * GABAPENTIN 100 MG CAPSULE 3 TIMES DAILY WITH MEALS DORZOLAMIDE 2 % EYE DROPS Use 1 Drop in the right eye t* OMEPRAZOLE 20 MG CAPSULE,CAYETANO* Take 1 capsule by mouth daily* PROMETHAZINE 12.5 MG TABLET Take 1 tablet by mouth every * APIXABAN 5 MG TABLET Take 1 tablet by mouth twice * ATORVASTATIN 40 MG TABLET Take 1 tablet by mouth once d* MECLIZINE 12.5 MG TABLET Take 1-2 tablets by mouth thr* STARCH (THICKENING) ORAL POWD* Add to fluids to nectar thick* COMPOUNDED PRESCRIPTION Home Health wound care orders* CHOLECALCIFEROL (VITAMIN D3) * Take 1 capsule by mouth once * BLOOD SUGAR DIAGNOSTIC STRIPS TEST BLOOD SUGARS 4 TIMES BOGDAN* INSULIN LISPRO (U-100) 100 UN* use as directed up to 100 uni* CALCIUM + D ORAL Take by mouth. PEG 3350-ELECTROLYTES 236 GRA* Take 4,000 mL by mouth one ti* ACIDOPHILUS 100 MILLION CELL-* Take 1 capsule by mouth once * POLYETHYLENE GLYCOL 3350 17 G* Take by mouth. every other d* Problem List As Of Date 11/02/2017 Noted Resolved Diabetes mellitus type 1, uncontrolled, without*INVALID FOR* Dry eyes, bilateral [H04.123] INVALID FOR* Hyperlipidemia [E78.5] INVALID FOR* Gastroesophageal reflux disease [K21.9] INVALID FOR* Osteoporosis [M81.0] INVALID FOR* Stage 3 chronic kidney disease (HCC) [N18.3] INVALID FOR* Vitamin D deficiency [E55.9] INVALID FOR* 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 Other instructions from your clinician: Stool samples to look for infection Re-start benefiber Low-FODMAP diet IBgard three times daily as needed Schedule colonoscopy How to Prepare for Your Colonoscopy Using Golytely, Nulytely, Trilyte or Colyte Preparations with Conscious Sedation IMPORTANT - Read These Instructions at Least 2 Weeks Before your Colonoscopy [facility] Instructions: ? Your bowel must be empty so that your doctor can clearly view your colon. Follow all of the instructions in this handout EXACTLY as they are written. If you do NOT follow the directions for when to start drinking the bowel preparation, your colonoscopy WILL be cancelled. ? Do NOT eat any solid food the ENTIRE day before your colonoscopy. ? Buy your bowel preparation at least 5 days before your colonoscopy. ? Do NOT mix the solution until the day before your colonoscopy. Designated Sanitizer on the Day of Your Exam A responsible family member or friend MUST come with you to your colonoscopy and REMAIN in the endoscopy area until you are discharged. You are NOT ALLOWED to drive, take a taxi or bus, or leave the Endoscopy Center ALONE. If you do not have a responsible city driver (family member or friend) with you to take you home, you exam cannot be done with sedation and will be cancelled. Medications Some of the medications you take may need to be stopped or adjusted before your colonoscopy. You MUST call the doctor who ordered any of the following medicines at least 2 weeks before your colonoscopy. ? Blood thinners - such as Coumadin (warfarin), Plavix (clopidogrel), Ticlid (ticlopidine hydrochloride), Agrylin (anagrelide), Xarelto (Rivaroxaban), Pradaxa (Dabigatran), Eliquis (Apixaban), and Effient (Prasugrel). ? Insulin or diabetes pills. Please call the doctor that monitors your glucose levels. Your insulin dosage may need to be adjusted due to the diet restrictions required with this bowel preparation. (Please bring your diabetes medicines with you on the day of your procedure.) If you take aspirin, take it and ALL other medications prescribed by your doctor. On the day of your colonoscopy, take your medications with a sip of water. Five (5) Days Before Your Colonoscopy ? Do NOT take medicines that stop diarrhea - such as Imodium, Kaopectate, or Pepto Bismol. ? Do NOT take fiber supplements - such as Metamucil, Citrucel, or Perdiem. ? Do NOT take products that contain iron - such as multi- vitamins (the label lists what is in the products). ? Do NOT take Vitamin E. Buy the prescription bowel preparation solution at your local pharmacy or [facility]. Three (3) Days Before Your Colonoscopy ? Do NOT eat high-fiber foods - such as popcorn, beans, seeds (flax, sunflower, quinoa), multigrain bread, nuts, salad/vegetables, or fresh and dried fruit. One (1) Day Before Your Colonoscopy Only drink clear liquids the ENTIRE DAY before your colonoscopy. Do NOT eat any solid foods. Drink at least 8 ounces of clear liquids every hour after waking up. The clear liquids you can drink include: ? Water, apple, or white grape juice; broth; coffee or tea (without milk or creamer); clear carbonated beverages such as barbara erinn or lemon-mekory[place] soda; Gatorade or other sports drinks (not red); Celestine- Aid or other flavored drinks (not red). You may eat plain jello or other gelatins (not red) or popsicles (not red). Do NOT drink alcohol on the day before or the day of the procedure. When to Mix and Drink Your Bowel Prep Follow the instructions on the label. After mixing, place the solution in the refrigerator for a couple of hours before drinking. You may add the flavor pack that came with the bowel preparation. Do NOT add ice, sugar or any flavorings to the solution. Morning Appointment (Before 12 noon) Step 1: ? Start drinking the bowel preparation at 6 PM the evening before your colonoscopy. Drink an 8-oz glass of bowel preparation every 10 minutes for a total of 8 glasses. ? You may continue to drink clear liquids until bedtime. Step 2: The day of the colonoscopy (4 hours before your exam). ? Drink an 8-oz glass of bowel preparation every 10 minutes for a total of 8 glasses. ? You may continue to drink clear liquids up to 2 hours before your exam. If you take aspirin, take it and ALL other prescribed medicines with a sip of water on the day of your colonoscopy. Afternoon Appointment (After 12 noon) ? Start drinking the bowel preparation at 6 AM the day of your colonoscopy. Drink an 8-oz glass of bowel preparation every 10 minutes. You must finish drinking the solution by 9 AM. ? You may continue to drink clear liquids up to 2 hours before your exam. If you take aspirin, take it and ALL other prescribed medicines with a sip of water on the day of your colonoscopy. Prescriptions ordered this encounter Disp Refills Start End PEG 3350-ELECTROLYTES 236 GRAM-22.74* 1 Rosalio* 0 11/02/2017 11/02/2017 Route: ORAL Sig: Take 4,000 mL by mouth one time only for 1 dose. Refer to printed prep instructions from your doctor. Encounter Status:Closed by VERONICA SAENZ on 11/03/17 PROGRESS Observed: 10/31/2017 Status: COMPLETED Source: [place] 12:34 PM [facility] REPOSITORY HNO ID: [id number] Author: Paulette Berkowitz Service: (none) Author Type: Registered Nurse Type: Progress Notes Filed: 10/31/2017 12:36 PM Note Text: PRIMARY CARE COORDINATION CHART REVIEW Patient identified for Care Coordination from: DORA Alvarenga Last PCP office visit: 08/04/2017 Next OV: Visit date not found CHRONIC DX: DM@ uncontrolled CARE GAPS: Diabetic foot exam, colonoscopy UTILIZATION WITHIN THE LAST 12 MONTHS: ? ED: No ? HOSPITAL: No ? SNF: NO PRIMARY CARE COORDINATION OUTREACH PLAN: Will reach out to patient for Care Coordination Paulette Berkowitz RN Ambulatory A And P Technician Internal Medicine [facility] CNPTOUTREACH Observed: 10/31/2017 Status: COMPLETED Source: [place] 12:00 AM [facility] REPOSITORY Patient Outreach (INTMWS) SERENA GUO ([id number]) 1940 F Date Time Provider Department 10/31/17 PAULETTE LANDIS During your visit today, we recorded the following information about you: Paulette Langley RN 10/31/2017 12:36 PM Signed PRIMARY CARE COORDINATION CHART REVIEW Patient identified for Care Coordination from: DORA Alvarenga Last PCP office visit: 08/04/2017 Next OV: Visit date not found CHRONIC DX: DM@ uncontrolled CARE GAPS: Diabetic foot exam, colonoscopy UTILIZATION WITHIN THE LAST 12 MONTHS: ? ED: No ? HOSPITAL: No ? SNF: NO PRIMARY CARE COORDINATION OUTREACH PLAN: Will reach out to patient for Care Coordination Paulette Berkowitz RN Ambulatory A And P Technician Internal Medicine [facility] Allergies As of Date: 10/31/2017 Noted Allergy Reaction VERSED (MIDAZOLAM HCL) 12/11/2006 Comments: urinary retention ZETIA (EZETIMIBE) 04/01/2006 Comments: dysuria Date Reviewed: 08/04/2017 Reviewed by: [place] Moving Worker - Fully Assessed Reason for Visit: A And P Technician Chronic Care [4077] Prescriptions as of 10/31/2017 Sig: MIDODRINE 5 MG TABLET Take one tablet twice daily. * GABAPENTIN 100 MG CAPSULE 3 TIMES DAILY WITH MEALS DORZOLAMIDE 2 % EYE DROPS Use 1 Drop in the right eye t* OMEPRAZOLE 20 MG CAPSULE,CAYETANO* Take 1 capsule by mouth daily* PROMETHAZINE 12.5 MG TABLET Take 1 tablet by mouth every * APIXABAN 5 MG TABLET Take 1 tablet by mouth twice * ATORVASTATIN 40 MG TABLET Take 1 tablet by mouth once d* ACIDOPHILUS 100 MILLION CELL-* Take 1 capsule by mouth once * MECLIZINE 12.5 MG TABLET Take 1-2 tablets by mouth thr* STARCH (THICKENING) ORAL POWD* Add to fluids to nectar thick* COMPOUNDED PRESCRIPTION Home Health wound care orders* CHOLECALCIFEROL (VITAMIN D3) * Take 1 capsule by mouth once * POLYETHYLENE GLYCOL 3350 17 G* Take by mouth. every other d* BLOOD SUGAR DIAGNOSTIC STRIPS TEST BLOOD SUGARS 4 TIMES BOGDAN* INSULIN LISPRO (U-100) 100 UN* use as directed up to 100 uni* CALCIUM + D ORAL Take by mouth. Problem List As Of Date 10/31/2017 Noted Resolved Diabetes mellitus type 1, uncontrolled, without*INVALID FOR* Dry eyes, bilateral [H04.123] INVALID FOR* Hyperlipidemia [E78.5] INVALID FOR* Gastroesophageal reflux disease [K21.9] INVALID FOR* Osteoporosis [M81.0] INVALID FOR* Stage 3 chronic kidney disease (HCC) [N18.3] INVALID FOR* Vitamin D deficiency [E55.9] INVALID FOR* 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 Encounter Status:Closed by PAULETTE BERKOWITZ on 10/31/17 ENDOCRINOLOGY VISIT Observed: 10/28/2017 Status: F Source: [place] RE[place] 10:25 AM [facility] REPOSITORY [facility] [address] [place] [address]. [address] [place] [address] OFFICE VISIT Date of Service: 10/27/17 MR#: [id number] Acct: [id number] Name: SERENA GUO Rep #: [id number] : 1940 Provider: Roya Crocker NP Age/Sex: 77/F Location[place] [facility] Status: Signed HPI History of present illness HPI History of present illness Serena Guo is a 77 year old female who presents for follow up of diabetes type 1. . Granddaughter is here with patient. Presents in wheelchair and on insulin pump therapy.Has ulcer right foot and is under care of factory focus technician. Is wrapped and not observed. Has undergone evaluation of blood flow by vascular and is potentially to undergo procedure to improve. Recent issues with low BG which created need to change basal rates. Granddaughter states now she is having more high BG. At the same time there have been issues with diarrhea. She has made appointment for patient to see a driller helper. Granddaughter feels the thickened liquids are part of the problem with stomach and BG readings. BP remains an issue. Time of Day Basal Rate 12m 0.35 3am 0.35 8am 0.95 12n 0.775 4pm 0.575 8pm 0.35 At time of visit: -Pt denies symptoms of hypertensive emergency (CP,SOB,FRANCISCO, or blurred vision) and hypotension(dizziness or lightheadedness) -Pt denies symptoms of hypoglycemia ( sweaty, confusion, anxiety, tremor, hunger, palpitations) and hyperglycemia ( polydipsia, polyuria) -Pt denies potential medication adverse effect. Hypoglycemia Aware of hypoglycemia: When awake Able to self treat low BG: Yes Frequent low Blood sugar: No Has supply of glucagon: Yes SMBG 4 or more times daily Improved control Diet 3 meals Meals are carb counted. Since our last visit she denies excessive thirst, increased frequency of urination, chest pain or dyspnea. Follows a diabetic diet, Is compliant with medication and is tolerating without side effects. Is having difficult swallowing and does choke on liquids. Is using thickening agents. Also having low BP again. Exam Const General: comfortable Nutritional Appearance: well nourished HENNV Head: normal to inspection, normocephalic Ears: other (sl hard of hearing) Mouth: oral mucosae normal, moist mucous membranes Teeth and gingiva: fair dentition Eyes General: appearance normal, both eyes and all related structures Eyelids: eyelids normal Conjunctivae: conjunctivae normal Sclera: sclerae normal Resp Effort AND Inspection: normal respiratory effort, able to speak in complete sentences, symmetric chest movement Auscultation: Bilateral: Clear to Auscultation Cardio Rate: regular rate Rhythm: regular rhythm Heart Sounds: S1 normal, S2 normal GI Inspection: normal to inspection Auscultation: normal bowel sounds Palpation: soft, no guarding Skin General: no rashes or lesions noted Wounds: no wounds Diabetic Foot Pulses: L dorsalis pedis pulse: weak , R dorsalis pedis pulse: unable to palpate. Monofilament test: Left foot: abnormal, Right foot: abnormal Neuro General: moves all extremities Speech: speech normal Extrem General: normal to inspection Psych Appearance: well kempt Mood: congruent mood Affect: sad ( recently ) Speech and Movement: speech and movement normal Attitude: cooperative Thought Process: flight of ideas Thought Content: normal Judgment: fair Type: type 1, insulin-requiring Glucose control symptoms: Reports high post-meal glucose Weight and fatigue symptoms: Denies snoring Cardiopulmonary symptoms: Denies chest pain at rest, dyspnea on exertion, lightheadedness or myalgias GI symptoms: Reports diarrhea; denies constipation, nausea/dyspepsia or vomiting Skin and extremity symptoms: Reports tingling/numbness/burning Other symptoms: Reports blurry vision; denies change in vision Self monitoring: Yes Glucometer type: dez sensor Diabetes education in past year: Yes Glucose testing: demonstrates correct use of meter Sick day education - understands ketone testing: Yes Physical activity: regular Intake Vital Signs10/27/17 Height 5 ft 4 in 10/27/17 Blood Pressure 129/83 10/27/17 Blood Pressure Location Lt popliteal 10/27/17 Blood Pressure Position Sitting Intake Visit Reasons: 3 M FU Finished Goods Planner Required: No Accompanied by: Granddaughter Is patient in pain?: No Allergies ezetimibe [From Zetia] Allergy (Verified 07/29/17 12:56) Other Medications insulin lispro (U-100) 100 unit/mL subcutaneous solution See Label Instructions CONTINUOUS SUBCUTANEOUS INFUSION QDAY #3 ml 02/04/17 [Rx Confirmed 10/27/17] Apixaban [Eliquis] 5 mg PO BID 03/18/17 [History Confirmed 10/27/17] Atorvastatin Calcium [Lipitor] 40 mg PO QHS 03/18/17 [History Confirmed 10/27/17] Calcium Carb/Vitamin D [Os-Jam 500MG + D] 1 tab PO DAILY@0800 03/18/17 [History Confirmed 10/27/17] Ergocalciferol [Vitamin D] 50,000 unit PO Fr@1000 03/18/17 [History Confirmed 10/27/17] Refresh Tears 0.25 inch EACH EYE QHS 03/18/17 [History Confirmed 10/27/17] Gabapentin [Neurontin] 100 mg PO TIDCM 07/27/17 [History Confirmed 10/27/17] L.acidoph,Paracasei, B.lactis [Probiotic] 1 ea PO DAILY 07/27/17 [History Confirmed 10/27/17] Magnesium Hydroxide [Milk Of Magnesia] 30 ml PO DAILY PRN PRN 07/27/17 [History Confirmed 10/27/17] Omeprazole 20 mg PO DAILY 07/27/17 [History Confirmed 10/27/17] carboxymethylcellulose sodium 0.5 % eye drops 1 drp OPHTHALMIC 4-8XD PRN 10/27/17 [History Confirmed 10/27/17] fexofenadine 180 mg tablet 180 mg PO Q24H 10/27/17 [History Confirmed 10/27/17] midodrine 5 mg tablet 5 mg PO TID PRN tab 10/27/17 [History] netarsudil 0.02 % eye drops 1 drp OPHTHALMIC QPM 10/27/17 [History Confirmed 10/27/17] promethazine 12.5 mg tablet 12.5 mg PO Q6H PRN 10/27/17 [History Confirmed 10/27/17] Is last menstrual period known: No Post menopausal: Yes Patient : No Nurse's Note: blood sugars : low : 80-100 high : 450 PFSH Medical History Atrial fibrillation (Acute) Arterial ischemic stroke, MCA, left, acute (Acute) Right sided weakness (Acute) Diabetes mellitus (Chronic) Glaucoma (Chronic) Anemia (Acute) Anxiety (Acute) Arthritis (Acute) CVA (cerebral vascular accident) (Acute) Carpal tunnel syndrome (Acute) Cataract (Acute) Cataracts, bilateral (Acute) Diabetes type 1, controlled (Acute) GERD (gastroesophageal reflux disease) (Acute) Glaucoma (Acute) High cholesterol (Acute) Hypocalcemia (Acute) Muscle weakness (Acute) Neuropathy (Acute) Osteoporosis (Acute) Right sided cerebral hemisphere cerebrovascular accident (Acute) Stomach ulcer (Acute) Vision problems (Acute) Headache (Inactive) Seasonal allergies (Inactive) Vitamin deficiency (Inactive) Surgical History Hx of cataract surgery (Resolved) Family History Father Hypertension Arthritis Brother Diabetes Sister Cancer Social History Smoking Status: Never smoker second hand exposure: No alcohol intake: never substance use type: does not use caffeine: Yes Type: coffee Number of servings: 2 what type of physical activity do you participate in: other details: PT frequency: 1-2 times per week duration: 15-30 minutes/day seatbelt use: always do you feel safe at home: Yes ROS Const Constitutional: Positive for fatigue and change in appetite; no anorexia, body ache, chills, fever(s), frequent falls, decreased energy, malaise, night sweats, weakness, weight change, sleep problems, abnormal sleep pattern, other, headache(s), snoring or excessive sweating Eyes Eyes: Positive for blurry vision; no change in vision, double vision, discharge, dry eyes, bulging eyes, floaters, visual disturbances, eye pain, light sensitivity, spots in vision, tunnel vision or other ENT ENT: Positive for nasal congestion; no abnormal hearing, ear pain, ear discharge, ear pressure, hearing loss, tinnitus, dizziness/vertigo, balance problems, nosebleed/epistaxis, nasal obstruction, nose pain, sinus pressure, sinus pain, nasal discharge, post nasal drip, headache(s), facial pain, dental pain, dry mouth, bad breath, hoarseness, lip swelling, mouth lesions, mouth pain, sore throat, tongue swelling, throat swelling, other, difficulty swallowing or neck pain Resp Respiratory: No cough, change in phlegm color, chest congestion, excessive phlegm production, hemoptysis, pain on inspiration, shortness of breath, pain with cough, snoring, stridor, wheezing or other Cardio Cardiology: No chest pain at rest, chest pain with exertion, leg pain with exertion, excessive sweating, shortness of breath, dyspnea on exertion, generalized swelling, irregular heart rhythm, lightheadedness, orthopnea, radiating jaw, neck or arm pain, fast heart rate, slow heart rate, palpitations or other Gastro GI: Positive for diarrhea; no abdominal pain, belching, bloating, change in bowel habits, change in stool character, coffee ground emesis, constipation, cramping, heartburn, difficulty swallowing, feeling full early, excessive flatus, incontinent of stools, Vomiting blood/hematemesis, blood in stool, loose stools, Black,tarry stools, nausea/dyspepsia, pain with swallowing, vomiting or other Genitourinary-Female: No difficulty urinating, burning urination, painful urination, urinary incontinence, urinary frequency, urinary urgency, urinary hesitancy, urinary retention, blood in urine, Frequent nighttime urination/ nocturia, post void dribbling, suprapubic fullness, side pain, sexual problems, genital lesions, genital itching, hot flashes, abnormal periods, abnormal vaginal bleeding, absent period, painful periods, light periods, heavy periods, difficulty getting , painful intercourse, pelvic pain, vaginal dryness, vaginal odor, Vaginal Itching or other Musc Musculoskeletal: Positive for muscle cramps (back of leg); no abnormal walking, joint pain, back pain, deformity, joint swelling, limited range of motion, loss of height, muscle weakness, decreased muscle mass, body aches, neck pain, numbness, radiating pain into limb, stiffness, tingling or other Skin Skin: Positive for wounds (r foot); no acne, hair loss, change in hair, nail changes, boil, change in skin color, dry skin, redness, excessive hair growth, yellowing of the skin, lesions, itching, rash, skin pain, skin ulcer, sores, skin swelling or other Breast Breast: No other Neuro Neurology: No frequent falls, weakness, visual disturbances, abnormal hearing, headache(s), abnormal walking, numbness or tingling Psych Psychiatric: No abnormal sleep pattern, Positive for change in appetite Endo Endocrine: Positive for fatigue; no other or excessive sweating Aller/Imm Allergy/Immunologic: No lip swelling, tongue swelling, throat swelling, wheezing or itchy eyes Assessment AND Plan Problems 1. Type 1 diabetes mellitus with other neurologic complication E10.49 Plan Average BG currently around 200. Granddaughter states BG drops significantly without causes. Has lower basal rates for now until evaluation with driller helper which is in a few weeks. All liquids continue to be thickened to avoid choking. Having more diarrhea so fluids have been increased.. Has follow up with vascular. Appetite good. Intake good. Following with podiatry. BP reasonably good today. Issues with low BP continue internittently. On statin. Following with opthamology. Labs done at [facility] and reviewed with patient. CGM downloaded as well , interpreted and reviewed. Labs completed at [facility] and reviewed with patient. Orders Orders: Plan Detail Additional Comments 1. Please schedule follow up in 3 months. 2. Lab work one week before appointment. 3. Discussed importance of regular exercise and recommend starting or continuing a regular exercise program for good health. 4. The patient was encouraged to maintain weight for good health 5. The importance of monitoring blood sugar regularly was reviewed. 6. The importance of monitoring the HBA1c level regularly was reviewed. 7. The importance of prper foot care and regularly checking feet to prevent sores and loss of limbs was reviewed. 8. The importance of keeping BP at or below 130/80 to prevent stroke, heart attacks, kidney failure, blindness was reviewed. Spent approximately 30 minutes with patient with over 50% of time spent in discussion and counseling regarding medication adjustment, symptoms and treatment of hypoglycemia, diet adherence, and checking BG before driving. 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 Diabetes mellitus complication detail: with other neurological complication Diabetes mellitus complication status: with neurologic complications Diabetes mellitus type: type 1 10/28/17 1025 <Electronically signed by Roya MENG> Date Roya Crocker NP-C Cosigner Signature: Date (if applicable) CC: NCS AND/OR EMG Observed: 10/28/2017 Status: F Source: [place] PATIENT 10:21 AM [facility] REPOSITORY [facility] Pulmonary Services/Neurology [address] [place] [address] MR#: [id number] Acct: [id number] Name: SERENA GUO [place] Rep #: [id number] : 1940 77 From: Aditya Burton MD Referring Dr: Joseph Canseco NP Status: REG CLI Ordering Dr: Date: Location: [facility] Sex: F C NCS and/or EMG Patient Report Ordering Doctor: Joseph Canseco DATE OF SERVICE: 10/28/17 This is a right lower extremity nerve conduction study performed on this 77-year-old female with weakness in the right leg. There is a history of diabetes currently with an insulin pump. Her most recent hemoglobin A1c is 8.9, her family members tell me her hemoglobin A1c has never been better than 9 previously. Right lower extremity sensory and motor nerve conduction studies performed. The tibial H reflex responses bilaterally are severely suppressed. The common peroneal and tibial motor distal latencies are prolonged with severe reduction of amplitude and mild slowing of conduction velocities. The sural sensory distal latency is prolonged. 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 10/28/17 1021 <Electronically signed by Aditya Burton MD> Date Aditya Burton MD CC: ROLDAN Canseco; Ramu Robles MD; Aditya Burton MD Date Dictated: 10/28/17 1011 Date Transcribed: 10/28/17 101 Transfer Machine Operator: LATASHA Signed URINALYSIS WITH Collected: 10/23/2017 Status: F Source: [place] MICROSCOPIC 10:27 AM [facility] REPOSITORY TYPE CODE TESTS RESULT OUT OF RANGE REFERENCE UNITS LAB UCOL Yellow Color Yellow LAB [facility] Clear Clarity Abnormal Cloudy Alert LAB UGLUC Negative mg/dL Glucose, Abnormal Urine 50 Alert LAB UBIL Negative Bilirubin, Urine Negative LAB UKET Negative Ketones, Urine Negative LAB [facility] 1.005-1.030 Specific [place], Ur 1.013 LAB UHGB Negative Hemoglobin/Blood, Negative Ur LAB UPH 4.5-8.0 pH 5.0 LAB UPROT Negative mg/dL Protein, Urine Negative LAB UUROB Normal Urobilinogen Normal LAB UNITR Negative Nitrites Negative LAB ULKEST Negative Leukest Abnormal 2+ Alert LAB UCOM Comments SEE COMMENT Result Comment: N/A LAB UMCOM Urine SEE Bridget Comment COMMENT Result Comment: N/A LAB UWBC 0-5 /HPF Abnormal WBC Alert 11-25 LAB URBC 0-3 /HPF RBC 0-3 LAB UEPI /HPF Epithelial Cells SEE COMMENT Result Comment: Few Squamous Epithelial Cells Performed By: #### UAWMIC #### [facility] [employer] [address] [address] ALBUMIN/CREAT RATIO Collected: 10/23/2017 Status: F Source: [place] 10:27 AM [facility] REPOSITORY TYPE CODE TESTS RESULT OUT OF REFERENCE UNITS RANGE LAB UCRR 20-300 mg/dL 68.9 Creatinine,Ur ine,Ran LAB UALBR 0.0-23.0 mg/L <12.0 Albumin Urine Random LAB UALBCR 0-30 mg/g Not Albumin/Creat calculated Ratio Performed By: #### UACR #### [facility] [employer] [address] [address] Observed: 10/23/2017 Status: F Source: [place] URINE CULTURE 10:27 AM [facility] REPOSITORY Sp. Request/Comment: - Best Practice Alert: To ensure optimal transport conditions and accurate culture results transfer urine specimens to johnson top C and S preservative tube. Culture Result - >=100,000 CFU/ml Escherichia coli --> ABNORMAL ALERT ORGANISM: Escherichia coli METHOD: Minimum inhibitory concentration(Vitek) Antibiotic Interp BRIDGET Status Ampicillin SUSCEPTIBLE <=2 F Gentamicin SUSCEPTIBLE <=1 F Trimeth sulfameth SUSCEPTIBLE <=20 F Cefazolin SUSCEPTIBLE <=4 F CLSI breakpoints for therapy of uncomplicated UTI's due to E.coli, K.pneumoniae, and P.mirabilis were applied and may be used to predict the activity of oral agents(cefaclor, cefdinir, cefpodoxime, cefp rozil, cefuroxime, cephalexin, loracarbef). Ciprofloxacin SUSCEPTIBLE <=0.25 F Nitrofurantoin SUSCEPTIBLE <=16 F Cefepime SUSCEPTIBLE <=1 F Piperacillin/Tazobac SUSCEPTIBLE <=4 F Ampicillin Sulbact SUSCEPTIBLE <=2 F Ceftriaxone SUSCEPTIBLE <=1 F Meropenem SUSCEPTIBLE <=0.25 F Ertapenem SUSCEPTIBLE <=0.5 F Performed By: #### URCUL #### [facility] [employer] [address] [place], [place] [address] CBC Collected: 10/23/2017 Status: F Source: [place] 10:26 AM [facility] REPOSITORY TYPE CODE TESTS RESULT OUT OF REFERENCE UNITS RANGE LAB WBC 3.70-11.00 k/uL WBC 5.63 LAB RBC 3.90-5.20 m/uL RBC 4.21 LAB HGB 11.5-15.5 g/dL Hemoglobin 12.4 LAB HCT 36.0-46.0 % Hematocrit 39.9 LAB MCV 80.0-100.0 fL MCV 94.8 LAB MCH 26.0-34.0 pG MCH 29.5 LAB MCHC 30.5-36.0 g/dL MCHC 31.1 LAB RDWCV 11.5-15.0 % RDW-CV 13.7 LAB PLTCT 150-400 k/uL Platelet Count 268 LAB MPV 9.0-12.7 fL MPV 11.5 LAB ABSNUC <0.01 k/uL Absolute nRBC <0.01 Performed By: #### CBC, HBA1C, CMP, MG1, TSH, FREET3, FT4 #### [facility] [employer] [address], [place] [address] HEMOGLOBIN A1C Collected: 10/23/2017 Status: F Source: [place] 10:26 AM [facility] REPOSITORY TYPE CODE TESTS RESULT OUT OF REFERENCE UNITS RANGE LAB HGBA1C 4.3-5.6 % High Hemoglobin A1c 8.9 LAB HBA0 mg/dL Est. Average Glucose 209 Result Comment: eAG: (Estimated average glucose) is a calculated value from HgbA1c and is publications sales representative of the average blood glucose level in the last 2-3 month period. Performed By: #### CBC, HBA1C, CMP, MG1, TSH, FREET3, FT4 #### [facility] [address], [place] [address] COMP METABOLIC PANEL Collected: 10/23/2017 Status: F Source: [place] 10:26 AM [facility] REPOSITORY TYPE CODE TESTS RESULT OUT OF REFERENCE UNITS RANGE LAB TP 6.3-8.0 g/dL Low Protein, Total 5.8 LAB ALB 3.9-4.9 g/dL Low Albumin 3.3 LAB CA 8.5-10.2 mg/dL Calcium, Total 8.7 LAB TBIL 0.2-1.3 mg/dL Bilirubin, Total 0.4 LAB ALKP 32-117 U/L Alkaline High Phosphatase 130 LAB AST 13-35 U/L AST 22 LAB GLU 74-99 mg/dL Glucose High 263 Result Comment: The [place] Diabetes Association (ADA) provides guidance for cutoff values for fasting glucose and random glucose. The ADA defines fasting as no caloric intake for at least 8 hours. Fas ting plasma glucose results between 100 to 125 mg/dL indicate increased risk for diabetes (prediabetes). Fasting plasma glucose results greater than or equal to 126 mg/dL meet the criteria for diagnosis of diabetes. In the absence of unequivocal hyperglycemia, results should be confirmed by repeat testing. In a patient with classic symptoms of hyperglycemia or hyperglycemic crisis, random plasma glucose results greater than or equal to 200 mg/dL meet the criteria for diagnosis of diabetes. Reference: Standards of Medical Care in Diabetes 2016, [place] Diabetes Association. Diabetes Care. 2016.39(Suppl 1). LAB BUN 7-21 mg/dL BUN 19 LAB CRET 0.58-0.96 mg/dL Creatinine 0.96 LAB NA 136-144 mmol/L Sodium 136 LAB K 3.7-5.1 mmol/L Potassium 4.1 LAB CL 97-105 mmol/L Chloride 102 LAB CO2 22-30 mmol/L CO2 22 LAB AGAP 9-18 mmol/L Anion Gap 12 LAB ALT 7-38 U/L ALT 13 LAB GFRAA eGFR- Amer. >60 LAB GFRNAA . eGFR-All Other Races 56 Result Comment: eGFR (Estimated GFR) Units of measure: mL/min/1.73 meters squared eGFR is derived from the reexpressed MDRD Study equation using the following parameters: serum creatinine, age, gender and race. The creatinine assay has been calibrated to be traceable to IDMS. An eGFR <60 mL/min/1.73m2 for >3 months is consistent with chronic kidney disease. Refer to KDOQI guidelines for clinical interpretation. In patients with unstable renal function, e.g. those with acute kidney injury, the eGFR may not accurately reflect actual GFR. Performed By: #### CBC, HBA1C, CMP, MG1, TSH, FREET3, FT4 #### [facility] [employer] [address] [place] [address] MAGNESIUM Collected: 10/23/2017 Status: F Source: [place] 10:26 AM [facility] REPOSITORY TYPE CODE TESTS RESULT OUT OF REFERENCE UNITS RANGE LAB MG 1.7-2.3 mg/dL Magnesium 2.1 Performed By: #### CBC, HBA1C, CMP, MG1, TSH, FREET3, FT4 #### [place] [id number] [place] [id number] TSH Collected: 10/23/2017 Status: F Source: [place] 10:26 AM [facility] REPOSITORY TYPE CODE TESTS RESULT OUT OF RANGE REFERENCE UNITS LAB TSH 0.400-5.500 uU/mL High TSH 5.570 Performed By: #### CBC, HBA1C, CMP, MG1, TSH, FREET3, FT4 #### [place] [address] FREE T3 Collected: 10/23/2017 Status: F Source: [place] 10:26 AM [facility] REPOSITORY TYPE CODE TESTS RESULT OUT OF RANGE REFERENCE UNITS LAB FREET3 2.3-4.1 pg/mL Free T3 2.3 Performed By: #### CBC, HBA1C, CMP, MG1, TSH, FREET3, FT4 #### [facility] [employer] [address] [place], [place] [address] FREE T4 Collected: 10/23/2017 Status: F Source: [place] 10:26 AM [facility] REPOSITORY TYPE CODE TESTS RESULT OUT OF RANGE REFERENCE UNITS LAB FT4 0.9-1.7 ng/dL Free T4 1.0 Performed By: #### CBC, HBA1C, CMP, MG1, TSH, FREET3, FT4 #### [facility] [employer] [address], [place] [address] LOWER EXT ARTERIAL Observed: 10/07/2017 Status: F Source: [facility] 8:22 AM [facility] REPOSITORY [facility] Cardiovascular Services [address] [place] [address] 10/07/17 0819 MR#: [id number] Acct: [id number] Name: SERENA GUO Rep #: [id number] : 1940 77 From: Starla Finn MD Attending Dr: Starla Finn MD Status: REG CLI Ordering Dr: Date: 10/07/17 Location: [facility] Sex: F C Admitted: Arterial Study - Arterial Study Arterial Study: next Date of scan 10/05/[address] Finn History: Right lower extremity ulceration with known hyperlipidemia and diabetes. Next Interpretation: Right lower extremity shows decreased waveform noted at the ankle but waveform maintained out through the digits. Duplex shows biphasic flow of both vessels at the ankle with an NITIN 0.82 with a PT 0.79 at the DP. Digit brachial index is 0.25. Left lower extremity again shows more of a flat waveform at the ankle decreased waveform out to the digits but is maintained. More of a monophasic waveform noted at the ankle but almost slightly biphasic in the posterior tibial. NITIN 0.75 the PT and 1.06 of the DP. Impression: 1. Right lower extremity with mild to moderate arterial occlusive disease. With an NITIN 0.82. With the decreased waveform suspect this may be falsely elevated. Further evaluation is warranted. #2. Left lower extremity with mild arterial occlusive disease with an NITIN 1.06, but suspect this is falsely elevated with monophasic waveform noted at this vessel. Further evaluation as clinically warranted. 3. Bilateral small vessel disease with the digit brachial index 0.25 in the right 0.26 on the left 10/07/17821 <Electronically signed by Starla Finn MD> Date Starla Finn MD CC: Starla Finn MD; Ramu Robles MD Date Dictated: 10/07/17818 Date Transcribed: 10/07/17818 Transfer Machine Operator: JULIO Signed ARTERIAL DUPLEX US, Observed: 10/07/2017 Status: F Source: [facility] 8:09 AM [facility] REPOSITORY [facility] Cardiovascular Services [address] [place] [address] Art Duplex US Unilat Lower Ext 10/05/17 1109 MR#: [id number] Acct: [id number] Name: SERENA GUO Rep #: [id number] : 1940 77 From: Starla Finn MD Attending Dr: Starla Finn MD Status: REG CLI Ordering Dr: Starla Finn MD Date: 10/05/17 Location: [facility] Sex: F C Admitted: Reason For Study: Atherosclerosis Right Velocities Ext. Iliac Artery, dist = 95 cm./sec. Common Femoral Artery, mid = 75 cm./sec. Supf Femoral Artery, prox = 46 cm./sec. Supf Femoral Artery, mid = 43 cm./sec. Supf Femoral Artery, dist. = 70 cm./sec. Profunda Femoral Artery = 74 cm./sec. Popliteal Artery, prox. = 48 cm./sec. Popliteal Artery, mid = 63 cm./sec. Popliteal Artery, dist = 32 cm./sec. Post. Tibial Artery, prox = 19 cm./sec. Post. Tibial Artery, mid = 35 cm./sec. Post. Tibial Artery, dist = 17 cm./sec. Peroneal Artery, prox = 39 cm./sec. Peroneal Artery, mid = 48 cm./sec. Peroneal Artery,dist = 53 cm./sec. Ant. Tibial Artery, prox = 33 cm./sec. Ant. Tibial Artery, mid = 31 cm./sec. Ant. Tibial Artery, dist = 26 cm./sec. Rt DPA: 18cm/s. Procedure Exam performed in department. Interpretation Summary 1. No stenosis seen right leg. 2. Changes from triphasic flow to biphasic flow in tibials. Ordering Physician: Starla Finn Referring Physician: Ramu Robles Performed By: Blanca Alves, ASHUTOSH, RVT 10/07/17 0808 Date Starla Finn MD CC: Starla Finn MD; Ramu Robles MD Date Dictated: 10/05/17 1109 Date Transcribed: 10/07/17 0808 Transfer Machine Operator: Signed MODIFIED BARIUM Observed: 08/28/2017 Status: F Source: [place] 7:05 PM [facility] REPOSITORY [facility] Speech Pathology [address] [place] [address] Modified Barium Swallow Study MR#: [id number] Acct: [id number] Name: SERENA GUO Rep #: [id number] : 1940 77 From: Juan Deutsch M.A., CFY-AUTOMOBILE MECHANIC ASSISTANT PRIMARY / SECONDARY DIAGNOSIS: dysphagia (R13.11) REFERRING PHYSICIAN: TAQUERIA Castano CURRENT DIET: regular-soft textures, thin liquids DENTITION: dentures MENTAL STATUS: impaired; dementia RESPIRATORY STATUS: O2 via room air PREVIOUS MODIFIED BARIUM SWALLOW STUDY: 02/25/2017 MBS revealed moderate oral dysphagia (R13.11) with overt aspiration of thin liquids, severe oral holding. 04/06/2017 MBS revealed moderate oral dysphagia (R13.11) with intermittent deep transient penetration with thin liquids, severe oral holding. 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 Patient well known to this clinician from prior admission and recent multiple MBS. Patient accompanied by her primary caregiver / granddaughter (Janelle), both reporting continued nocturnal and diurnal sialorrhea (excessive production / pooling of saliva) with increased right sided drooling and bolus loss and intermittent choking episodes (nocturnal episodes somewhat improve with elevated hospital bed); persistent runny nose post intake with spontaneous eye tearing particularly when lying down; coughing with cold / hot liquids in addition to coughing with large bolus thin liquid intake; and continued decline in vocal quality with dysphonia marked by hypophonia and slight vocal quiver; all concerning factors for silent aspiration further concerning due to the presence and extent of dystussia (impaired cough intensity). Furthermore, Patient continues to demonstrate significant oral holding with suboptimal intake habits to include throwing her head back to initiate swallow with thin liquid medication, though it is understandable, as this likely is forcing the Patient to initiate the swallow with thin liquid entry into the pharyngeal arena eliciting the involuntary pharyngeal swallow. Patients granddaughter reporting prior fluctuations in medical status and subsequent dysphagia severity attributed to persistent hypotension with glaucoma medications; current decline unexplained. Patients mobility complicated by lower extremity ulceration of the foot that has not healed since stroke, with the Patient unable to ambulate independently, noted to be unsteady, typically requiring use of a wheelchair. ADDITIONAL OBJECTIVE ASSESSMENT RESULTS: 03/18/2017 CXR revealed stable increased markings at the lung bases suggestive of scarring; hyperinflation. 03/18/2017 CT revealed chronic involutional changes of the brain; stable focal encephalomalacia in the left frontal temporal lobe as well as in the superior aspect of the left posterior parietal lobe. 12/13/2016 CT revealed developing acute infarct left frontal temporal region. 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 STUDY FINDINGS: Patient participated in a Modified Barium Swallow (MBS) study on 08/28/2017. Dr. Boyle was the radiologist present for this evaluation. This study was recorded in the lateral view and images were sent to PACs for storage. The following consistencies were presented to this patient for analysis of oropharyngeal swallow function: thin liquids, nectar thickened liquids, pudding, and a regular textured, [place] cookie. Results of the MBS are as follows: PENETRATION / ASPIRATION SCALE (SINCLAIR): 1 = does not enter airway 2 = enters airway/above vocal folds/ejected 3 = enters airway/above vocal folds/not ejected 4 = enters airway/contacts vocal folds/ejected 5 = enters airway/contacts vocal folds/not ejected 6 = enters airway/below vocal folds/ejected 7 = enters airway/below vocal folds/not ejected despite effort 8 = enters airway/below vocal folds/no effort VIDEOFLOROSCOPIC SCALE SCORE (SINCLAIR): Grade I = aspiration of material that has penetrated into the laryngeal vestibule, intact cough reflex Grade II = aspiration < 10 % of the bolus, intact cough reflex Grade III = aspiration of < 10 % of the bolus, reduced cough reflex or aspiration of > 10 % of the bolus, intact cough reflex Grade IV = aspiration of > 10 % of the bolus, reduced cough reflex PENETRATION / ASPIRATION SCALE (SCORE) WITH VIDEOFLOROSCOPIC SCALE SCORE: Thin liquids via cup (single sip): 1 Thin liquids via cup (single sip): 3 Thin liquids via cup (single sip): 5 Thin liquids via cup (sequential swallows): 5 Pudding via spoon: 1 Regular textured cookie: 1 Thin liquids via straw (single sip): 5 Thin liquids via straw (single sip): 5 [place] thickened liquids via cup (single sip): 1 [place] thickened liquids via cup (single sip): 1 [place] thickened liquids via cup (single sip): 1 IMPRESSION: DIAGNOSIS: moderate oropharyngeal dysphagia (R13.12) ORAL PHASE CHARACTERIZED BY: LABIAL SEAL: no labial escape TONGUE CONTROL DURING BOLUS MANIPULATION: posterior escape of less than half of bolus BOLUS PREPARATION / MASTICATION: slow prolonged chewing/mashing with complete recollection BOLUS TRANSPORT / LINGUAL MOTION: repetitive/disorganized tongue motion (undulations) with continued delayed initiation of tongue motion fluctuating in severity ORAL RESIDUE: residue collection on oral structures PHARYNGEAL PHASE CHARACTERIZED BY: INITIATION OF PHARYNGEAL SWALLOW: bolus head at posterior laryngeal surface of epiglottis at first hyoid excursion SOFT PALATE ELEVATION: no bolus between soft palate and pharyngeal wall LARYNGEAL ELEVATION: complete superior movement of thyroid cartilage with complete approximation of arytenoids cartilage to epiglottic petiole ANTERIOR HYOID EXCURSION: partial anterior movement EPIGLOTTIC MOVEMENT: complete epiglottic inversion LARYNGEAL VESTIBULE CLOSURE AT HEIGHT OF SWALLOW: incomplete laryngeal vestibule closure with narrow column of air/contrast in laryngeal vestibule PHARYNGEAL STRIPPING WAVE: pharyngeal stripping wave present / diminished PHARYNGOESOPHAGEAL SEGMENT OPENING: complete distension and complete duration with no obstruction of flow TONGUE BASE RETRACTION: narrow column of contrast between tongue base and posterior pharyngeal wall PHARYNGEAL RESIDUE: collection of residue within or on pharyngeal structures ESOPHAGEAL PHASE CHARACTERIZED BY: ESOPHAGEAL BOLUS CLEARANCE IN THE UPRIGHT POSITION: could not view DIET TEXTURE RECOMMENDATIONS: Will recommend a regular-soft textured, nectar thickened liquid diet. COMPENSATORY STRATEGIES RECOMMENDED: Supervision with assistance as needed, consider cutting tougher textures into bite sized pieces, avoid mixed consistencies, alternate textures / temperatures / flavor etc. to promote improved swallow onset timing, reduced bolus volume, avoid straws, seated upright at 90 degrees during PO intake, remain upright for 30-60 minutes post meal (GERD precaution), medications crushed in applesauce. 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 Oral phase primarily marked by suboptimal lingual control with noted prominent lingual undulations; fluctuations in oral phase swallow onset timing (2-15 seconds in length; swallow apraxia / feeding apraxia), with poor oral coordination resulting in premature bolus loss. Pharyngeal phase primarily marked by reduced closure of the airway during deglutition attributed to reduced anterior hyoid excursion resulting in poor laryngeal vestibule closure / pressure and insufficient / inconsistent laryngeal vestibule pressure generated to expel penetrated material; further complicated by delayed pharyngeal swallow onset timing resulting in suboptimal bolus location upon swallow onset and suboptimal pharyngeal motility / pharyngeal dysmotility. Maintenance of airway integrity ameliorated with bolus viscosity adjustments. Insufficient / inconsistent cough response to expel penetrated material during cued cough (dystussia). No aspiration appreciated throughout trials, unable to definitively rule out silent aspiration, with all clinical signs suggesting high risk factors for silent aspiration despite absence under fluoroscopy. RECOMMENDATIONS: Would recommend proceeding with caution due to the Patients high risk of silent aspiration. Would consider this Patient to be at higher risk for both malnutrition and dehydration due to the extent of oral holding and early satiety associated with thickened liquids; recommend continual monitoring. Would consider implementation of the [place] Free Water Protocol (FFWP) following Patient and family education. Patient requires continued intensive skilled speech-language intervention targeting continued diet texture management; training and implementation of recommended compensatory strategies; implementation of thermal tactile approach to promote improved oral phase swallow onset; training, implementation, and Patient education regarding implementation of the FFWP; and Patient and caregiver training targeting meal preparation / thickened liquid preparation. ADDITIONAL COMMENTS/RECOMMENDATIONS: Results and recommendations were discussed with the Patient immediately following MBS completion, with the Patient verbalizing understanding and agreement with all recommendations and education provided. IMAGE COUNT: [id number] G-CODES: SWALLOWING G8996 Current Status: CJ SWALLOWING G8997 Goal Status: CI SWALLOWING G8998 Discharge Status: DESHAWN Deutsch M.A., CCC-AUTOMOBILE MECHANIC ASSISTANT [facility] Speech-Language Pathology Department [email or web address] 08/28/17 1905 <Electronically signed by Juan Deutsch M.A. CFY-AUTOMOBILE MECHANIC ASSISTANT> Date Juan Deutsch M.A. CFY-AUTOMOBILE MECHANIC ASSISTANT Co-Signature Required for all Medicare patients Date/Time Co-Signature CC: SWALLOWING FUNCTION Observed: 08/28/2017 Status: F Source: [place] W/VIDEO 1:35 PM [facility] REPOSITORY [facility] Imaging Services [address] [place] [address] Swallowing Function w/Video MR#: [id number] Acct: [id number] Name: SERENA GUO Rep #: [id number] : 1940 F 77 From: Janes Boyle MD PCP: Ramu Robles MD Status: REG CLI Study: Swallowing Function w/Video Date of Exam: 08/28/17 Exam# [id number] Ordering Dr: Joseph Canseco STUDY: SWALLOWING STUDY REASON FOR EXAM: Female, 77 years old. Dysphagia. TECHNIQUE: The examination was performed with Speech Pathology in attendance. Under fluoroscopic observation, the patient ingested thin barium, thick barium, barium pudding, and barium coated cracker. FLUOROSCOPY TIME: 3:35 minutes/seconds. 2867 spot images were obtained. RADIOLOGIST INVOLVEMENT: Radiologist was present and providing direct supervision. COMPARISON: None. FINDINGS: The following was observed during swallowing of the various mixtures of barium: Thin Barium: Penetration with delayed silent aspiration with ingestion of thin liquids. Thick Barium: There was no evidence of aspiration or laryngeal penetration. Barium Pudding: There was no evidence of aspiration or laryngeal penetration. Barium Coated Cracker: There was no evidence of aspiration or laryngeal penetration. RAD/Swallowing Function w/Video IMPRESSION: Penetration with delayed silent aspiration with ingestion of thin liquids. The swallow study findings were discussed with the patient by the speech pathologist at the conclusion of the examination. Please see speech pathology report for more information and recommendations. Electronically Signed: Janes Boyle MD at 14:35 EDT Tel [phone], Service support , CC: ROLDAN Canseco; Ramu Robles MD Transfer Machine Operator: Signed ADULT EVALUATION - SP Observed: 08/21/2017 Status: F Source: [place] 5:27 PM [facility] REPOSITORY [facility] Speech Pathology [facility] [address] [place] [address] Fax REHABILITATION SERVICES INITIAL EVALUATION MR#: [id number] Acct: [id number] Name: SERENA GUO Rep #: [id number] : 1940 77 From: Juan Deutsch M.A., CFY-AUTOMOBILE MECHANIC ASSISTANT Referring Dr.: ROLDAN Canseco Status: REG RCR Insurance: MEDICARE PART A B [employer] History - History Date of Eval: 08/20/17 Medical Diagnosis (from RX): Oral Dysphagia (R13.11), CVA, Demetia Date of Onset of Diagnosis: 12/12/2016 Previous speech therapy: Yes Results: MBS completed 02/25/2017 findings - moderate oral dysphagia (R13.11) with overt aspiration of thin liquids and severe oral holding; marked by severe swallow apraxia and delay of initiation of swallow. Recommendation mechanical soft/nectar thickened liquid diet with utilization of strategies of 3 sec prep, liquid wash. Recommendation of implementation of the FFWP due to strong family support. MBS completed 04/06/2017 with findings of moderate oral dysphagia (R13.11) with recommendation of regular soft texture/thin liquid diet with compensatory strategies in place of supervision, cutting up food as needed, avoiding mixed consistencies, 3 sec prep, alternate texture/temp/ flavor, reduce volume size, avoid straws, seated upright 90 degrees during meal, remain upright for 30-60 mins after meal, medication crushed in applesause. Use of FFWP can be implemented if not in place. Pt received speech therapy via home health services with focus on thermal tactile stimulation via use of lemon swab to improve timely initiation of swallow onset, implementation of compensatory stratgies, and safety during swallowing. 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 Medications related to this diagnosis: Amiodarone HCL, Apixaban, Atorvastatin, Glucagon, Insulin Aspart, Metoprolol Tartrate, Polyvinyl Alcohol, Difluprednate, Dorzolamide Hydrochloride, Pantoprazole, Levomefolate Smoking Status: Never smoker Hx Smoking: No Hx Tobacco Use: No - Pain Is pain an issue with your current prescribed condition?: No - Personal Right Hearing Abillity: Use of Hearing Aid Left Hearing Abillity: Use of Hearing Aid Visual Assistive Devices: Glasses Patients Living Arrangements: Family member who is also her aide Patient Allergies - Allergies Allergies ezetimibe [From Zetia] Allergy (Verified 07/29/17 12:56) Other Subjective Oral Motor - Subjective Patient Reports: Drooling Numbness: Cheek - Comments Comments: Pt reported an increase in drooling and bed being raised to combat drooling at night. Pt reported decreased sensation on rt side of face. Objective Oral Motor - Oral Status Dentition: WNL - Labial Impairment: WNL Observation at Rest: WNL Closure: WNL Pucker: WFL Retraction: WFL Alternating Pucker/Retraction: WFL Involuntary Movement noted: No - Labial Comments Comments: WFL - Lingual Impairment: Mild Protrusion: WNL Retraction: WFL Lateralization: WNL Involuntary Movement: No - Lingual Comments Comments: Difficulty with movements with prolonged bolus hold. - Jaw Impairment: WNL - Respiratory Status Respiratory Status: Room Air Subjective Dysphagia - Symptoms Reported Symptoms/Problems with: Drooling, Coughing, Choking, Difficulty Swallowing Solids, Difficulty Swallowing Liquids, Difficulty Swallowing Pills, Food gets stuck, Hx of Aspiration, Hx of Pneumonia - Current Diet Solids Current Diet: Regular - Current Diet Liquids Current Liquids: Other Other: [place] only in am and pm as precaution, otherwise thin liquids Leach free water Protocol: Yes Objective Dysphagia - Administered by Administered by: AUTOMOBILE MECHANIC ASSISTANT Grad Student - Thin Liquids Administred via: Cup, Straw Symptoms: Throat Clearing, Couging, Delayed Laryngeal Elevation: Impaired Oral Holding: Yes Duration: Between 2-9 Sec hold, Increasing as trails increased. Gagging: No Comments: Dry swallow test passed. Modified Water swallow test via straw bolus trial 1 no overt s/s able to complete 2 additional dry swallows, trial 2 no overt s/s, trial 3 audible swallow with throat clear post swallow. 1 Oz. water test trial 1 large gulps with overt s/s aspiration with wet vocal quality, and throat clear, Trial 2 large gulps overt s/s aspiration. 3 OZ. water test Trial 1 overt s/s aspiration wet vocal quality, light cough, throat clear - [place] Thickened Liquids Administered via: Straw Symptoms: Throat Clearing Laryngeal Elevation: WFL Oral Holding: Yes Duration: 9 sec Gagging: No Comments: Trial 1 no overt s/s aspiration. Trial 2 Audible swallow, delayed throat clear. Trial 3 audible swallow and prolonged delay of initiation - Pureed Oral Holding: Yes Duration: 9 secs Comments: No overt s/s of aspirations but prolonged initiation - Regular Comments: no overt s/s aspiration, use of liquid wash, no pocketing noted - Results Swallowing Within Normal Limits: Yes Swallowing Diagnosis: Oral Phase Dysphagia Severity: Moderate Other Impressions - Comments MASA Score -: MASA score of 171 Plan - Plan Plan: Recommendation of nectar thickened liquid and regular soft diet at least until completion of MBS. Compensatory strategies of small sip size, small bolus size, limit meals to 20 mins due to fatigue during eating and swallowing. MBS scheduled. Additional Speech therapy warrently either outpatient or home health to review and implement compensatory strategies - Recommendations MBS: Yes Treatment Warranted: Yes - Frequency Frequency: 1x/Week Duration: 4-6 Weeks - Prognosis Prognosis: Good - Goals that are Established: Determination:: Goals will be added/modified as deemed necessary and appropriate. Therapy will be discontinued when results of re-evaluation indicate therapy is no longer needed or lack of progress has been documented. - Goal #1-5 Goal #1: Pt will complete an MBS to assess swallow function and compensatory strategies to ensure a the safest and most effect swallow. Prompts: Min Accuracy: 80 Goal #2: Pt will demonstrate an ability to utilize the compensatory strategies of small bolus size and small sip size with min verbal cueing from caregiver in 4/5 trials. Prompts: Min Accuracy: 80 Education - Patient has Indicated that the Following Identified Educational Needs: Cognitively Impaired - Patient Instruction Patient Education: Treatment Plan, Safety Precautions, Diet Level Person Taught: Patient, Primary Caregiver Teaching Method: Discussion Response to teaching: Return demonstration <Electronically signed by Juan Deutsch M.A., CFY-AUTOMOBILE MECHANIC ASSISTANT> 08/21/17 [id number] CC: ROLDAN Canseco; Ramu Robles MD [facility] Signed For Medicare only, by signing this I certify the plan of care. Physicians Signature Date PROGRESS Observed: 08/04/2017 Status: COMPLETED Source: [place] 2:44 PM [facility] REPOSITORY O ID: [id number] Author: Ramu Robles Service: (none) Author Type: Physician Type: Progress Notes Filed: 08/16/2017 10:41 PM Note Text: Patient presents with: 6 Month Exam SUBJECTIVE: Serena Guo is a 77 year old year old lady here today for lady month follow up appointment for review of medical conditions. Overall doing well. BJ managing sugars. Follows with urologist. Eye drops suspected caused low BP. Meds adjusted. PAST MEDICAL HISTORY Diagnosis Date - Diabetes mellitus without mention of complication Diabetes mellitus - H/O ischemic left MCA stroke 12/[address] [facility] - History of osteoporosis 09/11/2015 - Hyperlipidemia - [facility] - PAST MEDICAL HISTORY OF Seasonal allergies Current Outpatient Prescriptions: omeprazole (PRILOSEC) 20 mg capsule Take 1 capsule by mouth daily before breakfast. 1/2 hr before meal. tiZANidine (ZANAFLEX) 2 mg tablet Take 1 tablet by mouth twice daily as needed. methenamine (MANDELAMINE) 1 gram tablet Take 1 tablet by mouth daily at bedtime. Take with 1000mg Vitamin C (Dr. Chavez) ketoconazole (NIZORAL) 2 % cream Apply 1 application to affected area once daily. Continue for 1 week after rash resolves midodrine (PROAMITINE) 5 mg tablet Take 1 tablet by mouth twice daily. promethazine (PHENERGAN) 12.5 mg tablet Take 1 tablet by mouth every 6 hours as needed. apixaban (ELIQUIS) 5 mg tab tab(s) Take 1 tablet by mouth twice daily. atorvastatin (LIPITOR) 40 mg tablet Take 1 tablet by mouth once daily. acidophilus-pectin, citrus 100 million cell-10 mg cap Take 1 capsule by mouth once daily. meclizine (ANTIVERT) 12.5 mg tab Take 1-2 tablets by mouth three times daily as needed. Starch, Thickening, (THICK-IT) powd Add to fluids to nectar thickness. 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 Dress with guaze and bacitracin daily. Continue till wound healed. may change dressing as needed. Notify MD if not continuing to heal over the next week. cholecalciferol, Vitamin D3, (VITAMIN D3) 50,000 unit cap capsule Take 1 capsule by mouth once each week. polyethylene glycol 3350 (MIRALAX) 17 gram/dose powder Take by mouth. every other day dorzolamide-timolol (COSOPT) 22.3-6.8 mg/mL ophthalmic solution Use 1 Drop in both eyes twice daily. blood sugar diagnostic (FREESTYLE LITE STRIPS) test strip TEST BLOOD SUGARS 4 TIMES DAILY Dx E10.9 Insulin Dependent insulin lispro (HUMALOG) 100 unit/mL injection use as directed up to 100 units daily via insulin pump. Dx 250.03 CALCIUM CARBONATE/VITAMIN D3 (CALCIUM + D ORAL) Take by mouth. No current facility-administered medications for this visit. OBJECTIVE: BP 112/52 Pulse 80 Wt 64 kg (141 lb) BMI 24.60 kg/m? PHYSICAL EXAM: General Appearance: Well appearing, alert, in no acute distress, well-hydrated, well nourished.. Skin: Skin color, texture, turgor normal, no suspicious rashes or lesions, noted eczematous rash on forearm. Lungs: Lungs clear to auscultation. No wheezing, rhonchi, rales. Heart: RRR without murmur, gallop, or rubs. No ectopy. Extremities: No deformities, edema, skin discoloration, clubbing or cyanosis. Good capillary refill. . Labs ordered but not yet done. Test Date/Time Result Interp. Ref. Range Result Comment White Blood Count July 27, 2017 7:15pm 5.5 K/mm3 ? 4.4-11.0 ? Red Blood Count July 27, 2017 7:15pm 3.77 M/mm3 Low 4.2-5.4 ? Hemoglobin July 27, 2017 7:15pm 11.5 g/dl Low 12.0-15.0 ? Hematocrit July 27, 2017 7:15pm 35.5 % Low 37-47 ? Mean Corpuscular Volume July 27, 2017 7:15pm 94.2 fL ? 81- 99 ? Mean Corpuscular Hemoglobin July 27, 2017 7:15pm 30.5 pg ? 27.0-32.0 ? Mean Corpuscular Hemoglobin Concent July 27, 2017 7:15pm 32.4 g/gl ? 32-36 ? Red Cell Distribution Width July 27, 2017 7:15pm 13.0 % ? 11.6-14.6 ? Red Cell Distribution Width Diff July 27, 2017 7:15pm 44.3 fl High 35.1-43.9 ? Platelet Count July 27, 2017 7:15pm 279 K/mm3 ? 150-450 ? Mean Platelet Volume July 27, 2017 7:15pm 10.2 fl ? 6.2-12.0 ? Neutrophils (%) (Auto) July 27, 2017 7:15pm 59.6 % ? 47-70 ? Lymphocytes (%) (Auto) July 27, 2017 7:15pm 27.2 % ? 19-41 ? Monocytes (%) (Auto) July 27, 2017 7:15pm 9.5 % ? 0-10 ? Eosinophils (%) (Auto) July 27, 2017 7:15pm 2.9 % ? 0-5 ? Basophils (%) (Auto) July 27, 2017 7:15pm 0.6 % ? 0-1 ? Immature Granulocyte % (Auto) July 27, 2017 7:15pm 0.200 % ? 0.0-0.9 IG% - Immature Granulocytes (promyelocytes, myelocytes and metamyelocytes) > 1% indicates that a LEFT SHIFT is Present. Absolute Neutrophils (auto) July 27, 2017 7:15pm 3.3 X103/uL ? 2.0-7.7 ? Absolute Lymphocytes (auto) July 27, 2017 7:15pm 1.48 X103/ul ? 0.83-4.51 ? Differential Total Cells Counted July 27, 2017 7:15pm Not Reportable ? ? ? Prothrombin Time March 18, 2017 1:05pm 16.8 SECONDS High 11.7-14.9 ? Prothromb Time International Ratio March 18, 2017 1:05pm 1.4 ? ? ? Activated Partial Thromboplast Time March 18, 2017 1:05pm 28.7 Seconds ? 24.1-36.2 ? Urine Color July 27, 2017 9:00pm Yellow ? ? ? Urine Clarity July 27, 2017 9:00pm Clear ? ? ? Urine Glucose (UA) July 27, 2017 9:00pm 250 mg/dl High ? ? Urine Bilirubin July 27, 2017 9:00pm Negative mg/dL ? ? ? Urine Ketones July 27, 2017 9:00pm Negative mg/dl ? ? ? Urine Specific [place] July 27, 2017 9:00pm 1.015 ? ? ? Urine pH July 27, 2017 9:00pm 5.0 ? ? ? Urine Protein July 27, 2017 9:00pm 15 mg/dl High ? ? Urine Urobilinogen July 27, 2017 9:00pm Normal mg/dl ? ? ? Urine Nitrite July 27, 2017 9:00pm Positive High ? ? Urine Occult Blood July 27, 2017 9:00pm 10 /ul High ? ? Urine Leukocyte Esterase July 27, 2017 9:00pm 500 /ul High ? ? Urine WBC July 27, 2017 9:00pm 10-25 SEEN /hpf ? ? ? Urine RBC July 27, 2017 9:00pm 0 SEEN /hpf ? ? ? Urine Squamous Epithelial Cells July 27, 2017 9:00pm 0-5 SEEN /hpf ? ? ? Urine Bacteria July 27, 2017 9:00pm 3+ /hpf ? ? ? Urine Mucus July 27, 2017 9:00pm 0 SEEN /hpf ? ? ? Urine Yeast March 18, 2017 1:20pm 2+ /hpf ? ? ? Glucose Level July 27, 2017 7:15pm 277 mg/dL High 74-106 Glucose result greater than or equal to 200 mg/dL suggests DIABETES MELLITUS per A.D.A. criteria. Please note revised GLUCOSE reference range effective 2017. Bedside Glucose (Misc Panel) March 21, 2017 12:03pm 330 mg/dL High 70-110 MANAGEMENT OF PATIENT CARE PER NURSING PROTOCOL Blood Urea Nitrogen July 27, 2017 7:15pm 17 mg/dL ? 7-18 ? Creatinine July 27, 2017 7:15pm 1.10 mg/dL High 0.55-1.02 The validity of the calculated GFR AND GFRAA in patients over 70 years has not been determined. Clinical correlation is essential. Estimated GFR (MDRD) Non-Af Amer July 27, 2017 7:15pm 51 mL/min Low 60- Non- GFR Calc Estimated GFR (MDRD) Amer July 27, 2017 7:15pm 62 mL/min ? 60- GFR Calc Estimated Creatinine Clearance Calc July 27, 2017 7:15pm 36.98 ml/min ? ? ? BUN/Creatinine Ratio July 27, 2017 7:15pm 15.5 RATIO ? 10- 20 ? Total Protein July 27, 2017 7:15pm 6.6 g/dL ? 6.4-8.2 ? Albumin July 27, 2017 7:15pm 3.1 g/dL Low 3.2-5.0 ? Globulin July 27, 2017 7:15pm 3.5 g/dL ? 2.2-4.2 ? Albumin/Globulin Ratio July 27, 2017 7:15pm 0.9 RATIO ? 0.9- 2.4 ? Calcium Level July 27, 2017 7:15pm 8.4 mg/dL Low 8.5-10.1 ? Phosphorus Level December 17, 2016 5:40am 3.0 mg/dL ? 2.5-4.9 ? Troponin I July 27, 2017 7:15pm < 0.015 ng/mL ? ? TROPONIN- I EXPECTED VALUES <0.045 Negative 0.045 - 0.590 Consistent with Cardiac Damage > OR = 0.600 Critical Value Not every elevated troponin is indicative of TN. These values should be used with clinical judgement in examining the patient's clinical picture for diagnosis. To establish a diagnosis of TN versus myocardial injury, there must be a demonstrated rise and/or fall in the troponin values, in addition to ischemic symptoms, EKG changes, new regional wall motion abnormality, and/or angiographical evidence. PLEASE NOTE: REFERENCE RANGES EDITED 17 Aspartate Amino Transf (AST/SGOT) July 27, 2017 7:15pm 23 U/L ? 15-37 Moderate Hemolysis, Result may be falsely increased. Alkaline Phosphatase July 27, 2017 7:15pm 99 U/L ? 45-117 ? Alanine Aminotransferase (ALT/SGPT) July 27, 2017 7:15pm 18 U/L ? 13-56 ? Total Bilirubin July 27, 2017 7:15pm 0.40 mg/dL ? 0.20-1.00 ? Cholesterol Level December 13, 2016 5:35am 216 mg/dL High ? <200 mg/dL Desirable 200-240 mg/dL Borderline >240 mg/dL High Risk Triglycerides Level December 13, 2016 5:35am 101 mg/dL ? ? The drugs N-Acetylcysteine and Metamizole may falsely depress this assay. Serum Triglycerides Reference Interval Normal <150 mg/dL Borderline high 150 - 199 mg/dL High 200 - 499 mg/dL Very High > or = 500 mg/dL ASSESSMENT AND PLAN: Encounter Diagnosis ICD-10-CM 1. Glaucoma of right eye, unspecified glaucoma type H40.9 dorzolamide (TRUSOPT) 2 % ophthalmic solution 2. Orthostatic hypotension I95.1 midodrine (PROAMITINE) 5 mg tablet 3. Diabetes mellitus type 1, uncontrolled, without complications (HCC) E10.65 4. Stage 3 chronic kidney disease N18.3 5. Other eczema L30.8 right forearm Above issues addressed with patient. Patient involved in shared decision making for management of her medical issues. History and medications reviewed. Epic updated as needed Refills taken care of and meds adjusted as indicated after reviewed history, exam and labs. Health Maintenance reviewed. Updated record and/or ordered tests as recorded. Encouraged on efforts at healthy diet and regular exercise and adequate sleep. The majority of the visit was spent counseling and/or coordinating care for the patient. [id number]-gk-[id number] time was at least 20 minutes. Ramu Robles MD CNOV Observed: 08/04/2017 Status: COMPLETED Source: [place] 2:20 PM [facility] REPOSITORY Office Visit (INTMWS) SERENA GUO ([id number]) 1940 F Date Time Provider Department 08/04/17 2:20 PM RAMU ROBLES INTMWS During your visit today, we recorded the following information about you: Pulse Blood pressure Weight 80/minute 112/52 64 kg Ramu Robles MD 08/16/2017 10:41 PM Signed Patient presents with: 6 Month Exam SUBJECTIVE: Serena Guo is a 77 year old year old lady here today for lady month follow up appointment for review of medical conditions. Overall doing well. BJ managing sugars. Follows with urologist. Eye drops suspected caused low BP. Meds adjusted. PAST MEDICAL HISTORY Diagnosis Date - Diabetes mellitus without mention of complication Diabetes mellitus - H/O ischemic left MCA stroke 12/[address] [facility] - History of osteoporosis 09/11/2015 - Hyperlipidemia - [facility] - PAST MEDICAL HISTORY OF Seasonal allergies Current Outpatient Prescriptions: omeprazole (PRILOSEC) 20 mg capsule Take 1 capsule by mouth daily before breakfast. 1/2 hr before meal. tiZANidine (ZANAFLEX) 2 mg tablet Take 1 tablet by mouth twice daily as needed. methenamine (MANDELAMINE) 1 gram tablet Take 1 tablet by mouth daily at bedtime. Take with 1000mg Vitamin C (Dr. Chavez) ketoconazole (NIZORAL) 2 % cream Apply 1 application to affected area once daily. Continue for 1 week after rash resolves midodrine (PROAMITINE) 5 mg tablet Take 1 tablet by mouth twice daily. promethazine (PHENERGAN) 12.5 mg tablet Take 1 tablet by mouth every 6 hours as needed. apixaban (ELIQUIS) 5 mg tab tab(s) Take 1 tablet by mouth twice daily. atorvastatin (LIPITOR) 40 mg tablet Take 1 tablet by mouth once daily. acidophilus-pectin, citrus 100 million cell-10 mg cap Take 1 capsule by mouth once daily. meclizine (ANTIVERT) 12.5 mg tab Take 1-2 tablets by mouth three times daily as needed. Starch, Thickening, (THICK-IT) powd Add to fluids to nectar thickness. 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 Dress with guaze and bacitracin daily. Continue till wound healed. may change dressing as needed. Notify MD if not continuing to heal over the next week. cholecalciferol, Vitamin D3, (VITAMIN D3) 50,000 unit cap capsule Take 1 capsule by mouth once each week. polyethylene glycol 3350 (MIRALAX) 17 gram/dose powder Take by mouth. every other day dorzolamide-timolol (COSOPT) 22.3-6.8 mg/mL ophthalmic solution Use 1 Drop in both eyes twice daily. blood sugar diagnostic (FREESTYLE LITE STRIPS) test strip TEST BLOOD SUGARS 4 TIMES DAILY Dx E10.9 Insulin Dependent insulin lispro (HUMALOG) 100 unit/mL injection use as directed up to 100 units daily via insulin pump. Dx 250.03 CALCIUM CARBONATE/VITAMIN D3 (CALCIUM + D ORAL) Take by mouth. No current facility-administered medications for this visit. OBJECTIVE: BP 112/52 Pulse 80 Wt 64 kg (141 lb) BMI 24.60 kg/m? PHYSICAL EXAM: General Appearance: Well appearing, alert, in no acute distress, well-hydrated, well nourished.. Skin: Skin color, texture, turgor normal, no suspicious rashes or lesions, noted eczematous rash on forearm. Lungs: Lungs clear to auscultation. No wheezing, rhonchi, rales. Heart: RRR without murmur, gallop, or rubs. No ectopy. Extremities: No deformities, edema, skin discoloration, clubbing or cyanosis. Good capillary refill. . Labs ordered but not yet done. Test Date/Time Result Interp. Ref. Range Result Comment White Blood Count July 27, 2017 7:15pm 5.5 K/mm3 ? 4.4-11.0 ? Red Blood Count July 27, 2017 7:15pm 3.77 M/mm3 Low 4.2-5.4 ? Hemoglobin July 27, 2017 7:15pm 11.5 g/dl Low 12.0-15.0 ? Hematocrit July 27, 2017 7:15pm 35.5 % Low 37-47 ? Mean Corpuscular Volume July 27, 2017 7:15pm 94.2 fL ? 81- 99 ? Mean Corpuscular Hemoglobin July 27, 2017 7:15pm 30.5 pg ? 27.0-32.0 ? Mean Corpuscular Hemoglobin Concent July 27, 2017 7:15pm 32.4 g/gl ? 32-36 ? Red Cell Distribution Width July 27, 2017 7:15pm 13.0 % ? 11.6-14.6 ? Red Cell Distribution Width Diff July 27, 2017 7:15pm 44.3 fl High 35.1-43.9 ? Platelet Count July 27, 2017 7:15pm 279 K/mm3 ? 150-450 ? Mean Platelet Volume July 27, 2017 7:15pm 10.2 fl ? 6.2-12.0 ? Neutrophils (%) (Auto) July 27, 2017 7:15pm 59.6 % ? 47-70 ? Lymphocytes (%) (Auto) July 27, 2017 7:15pm 27.2 % ? 19-41 ? Monocytes (%) (Auto) July 27, 2017 7:15pm 9.5 % ? 0-10 ? Eosinophils (%) (Auto) July 27, 2017 7:15pm 2.9 % ? 0-5 ? Basophils (%) (Auto) July 27, 2017 7:15pm 0.6 % ? 0-1 ? Immature Granulocyte % (Auto) July 27, 2017 7:15pm 0.200 % ? 0.0-0.9 IG% - Immature Granulocytes (promyelocytes, myelocytes and metamyelocytes) > 1% indicates that a LEFT SHIFT is Present. Absolute Neutrophils (auto) July 27, 2017 7:15pm 3.3 X103/uL ? 2.0-7.7 ? Absolute Lymphocytes (auto) July 27, 2017 7:15pm 1.48 X103/ul ? 0.83-4.51 ? Differential Total Cells Counted July 27, 2017 7:15pm Not Reportable ? ? ? Prothrombin Time March 18, 2017 1:05pm 16.8 SECONDS High 11.7-14.9 ? Prothromb Time International Ratio March 18, 2017 1:05pm 1.4 ? ? ? Activated Partial Thromboplast Time March 18, 2017 1:05pm 28.7 Seconds ? 24.1-36.2 ? Urine Color July 27, 2017 9:00pm Yellow ? ? ? Urine Clarity July 27, 2017 9:00pm Clear ? ? ? Urine Glucose (UA) July 27, 2017 9:00pm 250 mg/dl High ? ? Urine Bilirubin July 27, 2017 9:00pm Negative mg/dL ? ? ? Urine Ketones July 27, 2017 9:00pm Negative mg/dl ? ? ? Urine Specific [place] July 27, 2017 9:00pm 1.015 ? ? ? Urine pH July 27, 2017 9:00pm 5.0 ? ? ? Urine Protein July 27, 2017 9:00pm 15 mg/dl High ? ? Urine Urobilinogen July 27, 2017 9:00pm Normal mg/dl ? ? ? Urine Nitrite July 27, 2017 9:00pm Positive High ? ? Urine Occult Blood July 27, 2017 9:00pm 10 /ul High ? ? Urine Leukocyte Esterase July 27, 2017 9:00pm 500 /ul High ? ? Urine WBC July 27, 2017 9:00pm 10-25 SEEN /hpf ? ? ? Urine RBC July 27, 2017 9:00pm 0 SEEN /hpf ? ? ? Urine Squamous Epithelial Cells July 27, 2017 9:00pm 0-5 SEEN /hpf ? ? ? Urine Bacteria July 27, 2017 9:00pm 3+ /hpf ? ? ? Urine Mucus July 27, 2017 9:00pm 0 SEEN /hpf ? ? ? Urine Yeast March 18, 2017 1:20pm 2+ /hpf ? ? ? Glucose Level July 27, 2017 7:15pm 277 mg/dL High 74-106 Glucose result greater than or equal to 200 mg/dL suggests DIABETES MELLITUS per A.D.A. criteria. Please note revised GLUCOSE reference range effective 2017. Bedside Glucose (Misc Panel) March 21, 2017 12:03pm 330 mg/dL High 70-110 MANAGEMENT OF PATIENT CARE PER NURSING PROTOCOL Blood Urea Nitrogen July 27, 2017 7:15pm 17 mg/dL ? 7-18 ? Creatinine July 27, 2017 7:15pm 1.10 mg/dL High 0.55-1.02 The validity of the calculated GFR AND GFRAA in patients over 70 years has not been determined. Clinical correlation is essential. Estimated GFR (MDRD) Non-Af Amer July 27, 2017 7:15pm 51 mL/min Low 60- Non- GFR Calc Estimated GFR (MDRD) Amer July 27, 2017 7:15pm 62 mL/min ? 60- GFR Calc Estimated Creatinine Clearance Calc July 27, 2017 7:15pm 36.98 ml/min ? ? ? BUN/Creatinine Ratio July 27, 2017 7:15pm 15.5 RATIO ? 10- 20 ? Total Protein July 27, 2017 7:15pm 6.6 g/dL ? 6.4-8.2 ? Albumin July 27, 2017 7:15pm 3.1 g/dL Low 3.2-5.0 ? Globulin July 27, 2017 7:15pm 3.5 g/dL ? 2.2-4.2 ? Albumin/Globulin Ratio July 27, 2017 7:15pm 0.9 RATIO ? 0.9- 2.4 ? Calcium Level July 27, 2017 7:15pm 8.4 mg/dL Low 8.5-10.1 ? Phosphorus Level December 17, 2016 5:40am 3.0 mg/dL ? 2.5-4.9 ? Troponin I July 27, 2017 7:15pm < 0.015 ng/mL ? ? TROPONIN- I EXPECTED VALUES <0.045 Negative 0.045 - 0.590 Consistent with Cardiac Damage > OR = 0.600 Critical Value Not every elevated troponin is indicative of TN. These values should be used with clinical judgement in examining the patient's clinical picture for diagnosis. To establish a diagnosis of TN versus myocardial injury, there must be a demonstrated rise and/or fall in the troponin values, in addition to ischemic symptoms, EKG changes, new regional wall motion abnormality, and/or angiographical evidence. PLEASE NOTE: REFERENCE RANGES EDITED 17 Aspartate Amino Transf (AST/SGOT) July 27, 2017 7:15pm 23 U/L ? 15-37 Moderate Hemolysis, Result may be falsely increased. Alkaline Phosphatase July 27, 2017 7:15pm 99 U/L ? 45-117 ? Alanine Aminotransferase (ALT/SGPT) July 27, 2017 7:15pm 18 U/L ? 13-56 ? Total Bilirubin July 27, 2017 7:15pm 0.40 mg/dL ? 0.20-1.00 ? Cholesterol Level December 13, 2016 5:35am 216 mg/dL High ? <200 mg/dL Desirable 200-240 mg/dL Borderline >240 mg/dL High Risk Triglycerides Level December 13, 2016 5:35am 101 mg/dL ? ? The drugs N-Acetylcysteine and Metamizole may falsely depress this assay. Serum Triglycerides Reference Interval Normal <150 mg/dL Borderline high 150 - 199 mg/dL High 200 - 499 mg/dL Very High > or = 500 mg/dL ASSESSMENT AND PLAN: Encounter Diagnosis ICD-10-CM 1. Glaucoma of right eye, unspecified glaucoma type H40.9 dorzolamide (TRUSOPT) 2 % ophthalmic solution 2. Orthostatic hypotension I95.1 midodrine (PROAMITINE) 5 mg tablet 3. Diabetes mellitus type 1, uncontrolled, without complications (HCC) E10.65 4. Stage 3 chronic kidney disease N18.3 5. Other eczema L30.8 right forearm Above issues addressed with patient. Patient involved in shared decision making for management of her medical issues. History and medications reviewed. Epic updated as needed Refills taken care of and meds adjusted as indicated after reviewed history, exam and labs. Health Maintenance reviewed. Updated record and/or ordered tests as recorded. Encouraged on efforts at healthy diet and regular exercise and adequate sleep. The majority of the visit was spent counseling and/or coordinating care for the patient. Qbnq-xr-hqet time was at least 20 minutes. Ramu Robles MD Referring Provider: SELF [200] Allergies As of Date: 08/04/2017 Noted Allergy Reaction VERSED (MIDAZOLAM HCL) 12/11/2006 Comments: urinary retention ZETIA (EZETIMIBE) 04/01/2006 Comments: dysuria Date Reviewed: 08/04/2017 Reviewed by: [place] [employer] - Fully Assessed Reason for Visit: 6 Month Exam [189] Primary Visit Diagnosis:Orthostatic hypotension [I95.1] Other Visit Diagnoses:Glaucoma of right eye, unspecified glaucoma type [H40.9] Diabetes mellitus type 1, uncontrolled, without complications (HCC) [E10.65] Stage 3 chronic kidney disease (HCC) [N18.3] Other eczema [L30.8] Comment:right forearm Order(s):dorzolamide (TRUSOPT) 2 % ophthalmic solutionUse 1 Drop in the right eye twice daily.Disp: Rfl: midodrine (PROAMITINE) 5 mg tabletTake 1 tablet by mouth twice daily. Adding half to whole pill midday (neurologist fills)Disp: Rfl: Prescriptions as of 08/04/2017 Sig: GABAPENTIN 100 MG CAPSULE 3 TIMES DAILY WITH MEALS MIDODRINE 5 MG TABLET Take 1 tablet by mouth twice * OMEPRAZOLE 20 MG CAPSULE,CAYETANO* Take 1 capsule by mouth daily* PROMETHAZINE 12.5 MG TABLET Take 1 tablet by mouth every * APIXABAN 5 MG TABLET Take 1 tablet by mouth twice * ATORVASTATIN 40 MG TABLET Take 1 tablet by mouth once d* ACIDOPHILUS 100 MILLION CELL-* Take 1 capsule by mouth once * MECLIZINE 12.5 MG TABLET Take 1-2 tablets by mouth thr* STARCH (THICKENING) ORAL POWD* Add to fluids to nectar thick* CHOLECALCIFEROL (VITAMIN D3) * Take 1 capsule by mouth once * POLYETHYLENE GLYCOL 3350 17 G* Take by mouth. every other d* BLOOD SUGAR DIAGNOSTIC STRIPS TEST BLOOD SUGARS 4 TIMES BOGDAN* INSULIN LISPRO (U-100) 100 UN* use as directed up to 100 uni* CALCIUM + D ORAL Take by mouth. DORZOLAMIDE 2 % EYE DROPS Use 1 Drop in the right eye t* COMPOUNDED PRESCRIPTION Home Health wound care orders* Medication notes this encounter KETOCONAZOLE 2 % TOPICAL CREAM >> Chacha Hill [facility] 08/04/2017 2:53 PM never purchased COMPOUNDED PRESCRIPTION >> Chacha Watters [employer] 08/04/2017 2:54 PM did not purchase Problem List As Of Date 08/04/2017 Noted Resolved Diabetes mellitus type 1, uncontrolled, without*INVALID FOR* Dry eyes, bilateral [H04.123] INVALID FOR* Hyperlipidemia [E78.5] INVALID FOR* Gastroesophageal reflux disease [K21.9] INVALID FOR* Osteoporosis [M81.0] INVALID FOR* CKD (chronic kidney disease) [N18.9] INVALID FOR* Vitamin D deficiency [E55.9] INVALID FOR* 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 Prescriptions ordered this encounter Disp Refills Start End DORZOLAMIDE 2 % EYE DROPS 08/04/2017 Class: Med Update Route: RIGHT EYE Sig: Use 1 Drop in the right eye twice daily. MIDODRINE 5 MG TABLET 08/04/2017 Class: Med Update Route: ORAL Sig: Take 1 tablet by mouth twice daily. Adding half to whole pill midday (neurologist fills) Medications Discontinued During This Encounter tiZANidine (ZANAFLEX) 2 mg tablet 30 t* 0 07/03/2017 08/04/2017 Route: ORAL Sig: Take 1 tablet by mouth twice daily as needed. Disc: Discontinued by another Health Care Provider methenamine (MANDELAMINE) 1 gram tab* 03/23/2017 08/04/2017 Class: Med Update Route: ORAL Sig: Take 1 tablet by mouth daily at bedtime. Take with 1000mg Vitamin C (Dr. Chavez) Disc: Discontinued by another Health Care Provider ketoconazole (NIZORAL) 2 % cream 30 g 1 03/23/2017 08/04/2017 Route: TOPICAL Sig: Apply 1 application to affected area once daily. Continue for 1 week after rash resolves Disc: Discontinued by Patient COMPOUNDED PRESCRIPTION 1 De* 0 02/11/2017 08/04/2017 Class: Print RX Sig: Incentive Spirometer Diagnosis: R06.02, I69.391 Disc: Discontinued by Patient dorzolamide-timolol (COSOPT) 22.3-6.* 02/27/2016 08/04/2017 Class: Med Update Route: BOTH EYES Sig: Use 1 Drop in both eyes twice daily. Disc: Changing Therapy/Dosage Form midodrine (PROAMITINE) 5 mg tablet 60 t* 1 03/23/2017 08/04/2017 Route: ORAL Sig: Take 1 tablet by mouth twice daily. Disc: Reason for discontinue is not on file. Disposition: Return for January follow up. Follow-up and Disposition History Recorded Encounter Status:Closed by RAMU ROBLES MD on 08/16/17 ENDOCRINOLOGY VISIT Observed: 08/01/2017 Status: F Source: [place]ER[place] REPORT 10:05 AM [facility] [address] [place] [address]. [address] [place] [address] OFFICE VISIT Date of Service: 07/29/17 MR#: [id number] Acct: [id number] Name: SERENA GUO Rep #: [id number] : 1940 Provider: Roya Crocker NP Age/Sex: 77/F Location[place] [facility] Status: Signed HPI History of present illness HPI History of present illness Serena Guo is a 77 year old female who presents for follow up of diabetes type 1. Was recently discharged from hospital after having a CVA and went to [facility] for rehabilitation. Granddaughter is here with patient. Presents in wheelchair and has resumed insulin pump therapy. Denies any issues with skin irritation or infection. Time of Day Basal Rate 12m 0.425 3am 0.400 8am 0.95 12n 0.775 4pm 0.625 8pm 0.40 At time of visit: -Pt denies symptoms of hypertensive emergency (CP,SOB,FRANCISCO, or blurred vision) and hypotension(dizziness or lightheadedness) -Pt denies symptoms of hypoglycemia ( sweaty, confusion, anxiety, tremor, hunger, palpitations) and hyperglycemia ( polydipsia, polyuria) -Pt denies potential medication adverse effect. Hypoglycemia Aware of hypoglycemia: When awake Able to self treat low BG: Yes Frequent low Blood sugar: No Has supply of glucagon: Yes SMBG 4 or more times daily Improved control Diet 3 meals Meals are carb counted. Since our last visit she denies excessive thirst, increased frequency of urination, chest pain or dyspnea. Follows a diabetic diet, Is compliant with medication and is tolerating without side effects. Is having difficult swallowing and does choke on liquids. Is using thickening agents. Also having low BP again. Othalmologist has had to change eye drops again. Type: type 1 Type: type 1 Weight and fatigue symptoms: Denies snoring Cardiopulmonary symptoms: Denies chest pain at rest, dyspnea on exertion, lightheadedness or myalgias GI symptoms: Reports constipation; denies diarrhea, nausea/dyspepsia or vomiting Other symptoms: Denies blurry vision or change in vision Self monitoring: Yes Dietary compliance: Diabetes: good Diabetes education in past year: Yes Glucose testing: demonstrates correct use of meter, understands testing schedule Sick day education - understands ketone testing: Yes Physical activity: sedentary lifestyle Exam Const General: comfortable Nutritional Appearance: well nourished [facility] Head: normal to inspection, normocephalic Ears: other (sl hard of hearing) Mouth: oral mucosae normal, moist mucous membranes Teeth and gingiva: fair dentition Eyes General: appearance normal, both eyes and all related structures Eyelids: eyelids normal Conjunctivae: conjunctivae normal Sclera: sclerae normal Resp Effort AND Inspection: normal respiratory effort, able to speak in complete sentences, symmetric chest movement Auscultation: Bilateral: Clear to Auscultation Cardio Rate: regular rate Rhythm: regular rhythm Heart Sounds: S1 normal, S2 normal GI Inspection: normal to inspection Auscultation: normal bowel sounds Palpation: soft, no guarding Skin General: no rashes or lesions noted Wounds: no wounds Diabetic Foot Pulses: L dorsalis pedis pulse: normal, R dorsalis pedis pulse: normal Monofilament test: Left foot: abnormal, Right foot: abnormal Neuro General: moves all extremities Speech: speech normal Extrem General: normal to inspection Psych Appearance: well kempt Mood: congruent mood Affect: sad ( recently ) Speech and Movement: speech and movement normal Attitude: cooperative Thought Process: flight of ideas Thought Content: normal Judgment: fair Weight and fatigue symptoms: Denies snoring Cardiopulmonary symptoms: Denies chest pain at rest, dyspnea on exertion, lightheadedness or myalgias GI symptoms: Denies constipation, diarrhea, nausea/dyspepsia or vomiting Other symptoms: Reports blurry vision; denies change in vision Intake Vital Signs07/29/17 Height 5 ft 4 in 07/29/17 Weight: 145 lb 07/29/17 Body Mass Index (BMI) 24.9 07/29/17 Blood Pressure 132/82 07/29/17 Blood Pressure Location Rt popliteal 07/29/17 Blood Pressure Position Sitting Intake Visit Reasons: 3 M FU [employer]ished [employer] Planner Required: No Accompanied by: Granddaughter Is patient in pain?: No Allergies ezetimibe [From Zetia] Allergy (Verified 07/29/17 12:56) Other Medications insulin lispro (U-100) 100 unit/mL subcutaneous solution See Label Instructions CONTINUOUS SUBCUTANEOUS INFUSION QDAY #3 ml 02/04/17 [Rx Confirmed 07/29/17] Apixaban [Eliquis] 5 mg PO BID 03/18/17 [History Confirmed 07/29/17] Atorvastatin Calcium [Lipitor] 40 mg PO QHS 03/18/17 [History Confirmed 07/29/17] Calcium Carb/Vitamin D [Os-Jam 500MG + D] 1 tab PO DAILY@0800 03/18/17 [History Confirmed 07/29/17] Ergocalciferol [Vitamin D] 50,000 unit PO Fr@1000 03/18/17 [History Confirmed 07/29/17] Refresh Tears 0.25 inch EACH EYE QHS 03/18/17 [History Confirmed 07/29/17] midodrine 5 mg tablet 5 mg PO BID #60 tab 06/22/17 [Rx Confirmed 07/29/17] Gabapentin [Neurontin] 100 mg PO TIDCM 07/27/17 [History Confirmed 07/29/17] L.acidoph,Paracasei, B.lactis [Probiotic] 1 ea PO DAILY 07/27/17 [History Confirmed 07/29/17] Magnesium Hydroxide [Milk Of Magnesia] 30 ml PO DAILY PRN PRN 07/27/17 [History Confirmed 07/29/17] Medium Chain Triglycerides [Mct Oil] 7.7 kcal PO DAILY 07/27/17 [History Confirmed 07/29/17] Omeprazole 20 mg PO DAILY 07/27/17 [History Confirmed 07/29/17] dorzolamide 2 % eye drops 1 drp OPHTHALMIC TID 07/29/17 [History Confirmed 07/29/17] Is last menstrual period known: No Post menopausal: Yes Patient : No Nurse's Note: blood sugars : low : 197 high : 294 [facility] Medical History Atrial fibrillation (Acute) Arterial ischemic stroke, MCA, left, acute (Acute) Right sided weakness (Acute) Diabetes mellitus (Chronic) Glaucoma (Chronic) Anemia (Acute) Anxiety (Acute) Arthritis (Acute) CVA (cerebral vascular accident) (Acute) Carpal tunnel syndrome (Acute) Cataract (Acute) Cataracts, bilateral (Acute) Diabetes type 1, controlled (Acute) GERD (gastroesophageal reflux disease) (Acute) Glaucoma (Acute) High cholesterol (Acute) Hypocalcemia (Acute) Muscle weakness (Acute) Neuropathy (Acute) Osteoporosis (Acute) Right sided cerebral hemisphere cerebrovascular accident (Acute) Stomach ulcer (Acute) Vision problems (Acute) Headache (Inactive) Seasonal allergies (Inactive) Vitamin deficiency (Inactive) Surgical History Hx of cataract surgery (Resolved) Family History Father Hypertension Arthritis Brother Diabetes Sister Cancer Social History Smoking Status: Never smoker second hand exposure: No alcohol intake: never substance use type: does not use caffeine: Yes Type: coffee Number of servings: 2 what type of physical activity do you participate in: other details: PT frequency: 1-2 times per week duration: 15-30 minutes/day seatbelt use: always do you feel safe at home: Yes ROS Const Constitutional: Positive for fatigue and malaise; no anorexia, body ache, chills, fever(s), frequent falls, decreased energy, night sweats, weakness, weight change, sleep problems, abnormal sleep pattern, change in appetite, other, headache(s), snoring or excessive sweating Eyes Eyes: Positive for blurry vision; no change in vision, double vision, discharge, dry eyes, bulging eyes, floaters, visual disturbances, eye pain, light sensitivity, spots in vision, tunnel vision or other ENT ENT: No abnormal hearing, ear pain, ear discharge, ear pressure, hearing loss, tinnitus, dizziness/vertigo, balance problems, nosebleed/epistaxis, nasal congestion, nasal obstruction, nose pain, sinus pressure, sinus pain, nasal discharge, post nasal drip, headache(s), facial pain, dental pain, dry mouth, bad breath, hoarseness, lip swelling, mouth lesions, mouth pain, sore throat, tongue swelling, throat swelling, other, difficulty swallowing or neck pain Resp Respiratory: Positive for cough; no change in phlegm color, chest congestion, excessive phlegm production, hemoptysis, pain on inspiration, shortness of breath, pain with cough, snoring, stridor, wheezing or other Cardio Cardiology: Positive for generalized swelling; no chest pain at rest, chest pain with exertion, leg pain with exertion, excessive sweating, shortness of breath, dyspnea on exertion, irregular heart rhythm, lightheadedness, orthopnea, radiating jaw, neck or arm pain, fast heart rate, slow heart rate, palpitations or other Gastro GI: Positive for heartburn; no abdominal pain, belching, bloating, change in bowel habits, change in stool character, coffee ground emesis, constipation, cramping, diarrhea, difficulty swallowing, feeling full early, excessive flatus, incontinent of stools, Vomiting blood/hematemesis, blood in stool, loose stools, Black,tarry stools, nausea/dyspepsia, pain with swallowing, vomiting or other Genitourinary-Female: No difficulty urinating, burning urination, painful urination, urinary incontinence, urinary frequency, urinary urgency, urinary hesitancy, urinary retention, blood in urine, Frequent nighttime urination/ nocturia, post void dribbling, suprapubic fullness, side pain, sexual problems, genital lesions, genital itching, hot flashes, abnormal periods, abnormal vaginal bleeding, absent period, painful periods, light periods, heavy periods, difficulty getting , painful intercourse, pelvic pain, vaginal dryness, vaginal odor, Vaginal Itching or other Musc Musculoskeletal: No abnormal walking, joint pain, back pain, deformity, joint swelling, limited range of motion, loss of height, muscle cramps, muscle weakness, decreased muscle mass, body aches, neck pain, numbness, radiating pain into limb, stiffness, tingling or other Skin Skin: Positive for wounds (R foot); no acne, hair loss, change in hair, nail changes, boil, change in skin color, dry skin, redness, excessive hair growth, yellowing of the skin, lesions, itching, rash, skin pain, skin ulcer, sores, skin swelling or other Breast Breast: No other Neuro Neurology: No frequent falls, weakness, visual disturbances, abnormal hearing, headache(s), abnormal walking, numbness or tingling Psych Psychiatric: No abnormal sleep pattern, No change in appetite Endo Endocrine: Positive for fatigue; no other or excessive sweating Aller/Imm Allergy/Immunologic: No lip swelling, tongue swelling, throat swelling, wheezing or itchy eyes Assessment AND Plan Problems 1. 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 When meal coverage is neutral, then increase 8am basal in small increments. Monitor hydration Continue with thickened liquids. Plan Detail Additional Comments 1. Please schedule follow up in 3 months. 2. Lab work one week before appointment. 3. Discussed importance of regular exercise and recommend starting or continuing a regular exercise program for good health. 4. The patient was encouraged to lose weight for good health 5. The importance of monitoring blood sugar regularly was reviewed. 6. The importance of monitoring the HBA1c level regularly was reviewed. 7. The importance of prper foot care and regularly checking feet to prevent sores and loss of limbs was reviewed. 8. The importance of keeping BP at or below 130/80 to prevent stroke, heart attacks, kidney failure, blindness was reviewed. Spent approximately 30 minutes with patient with over 50% of time spent in discussion and counseling regarding medication adjustment, symptoms and treatment of hypoglycemia, diet adherence, and checking BG before driving. 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 Time Spent (min) 30 08/01/17 1005 <Electronically signed by Roya MENG> Date Roya MENG Cosigner Signature: Date (if applicable) CC: 12 LEAD ELECTROCARDIOGRAM Observed: 07/29/2017 Status: F Source: MARGIE 3:37 PM [facility] Cardiovascular Services [address] [place] [address] 12 Lead EKG 07/27/17 1914 MR#: [id number] Acct: [id number] Name: SERENA GUO Rep #: [id number] : 1940 77 From: Nick Tello MD Attending Dr: Status: DEP ER Ordering Dr: Paris Barone Date: 07/27/17 Location: ED Sex: F C Admitted: Test Reason : Blood Pressure : / mmHG Vent. Rate : 085 BPM Atrial Rate : 085 BPM P-R Int : 146 ms QRS Dur : 082 ms QT Int : 392 ms P-R-T Axes : 030 004 034 degrees QTc Int : 466 ms Sinus rhythm with Premature supraventricular complexes Low voltage QRS Septal infarct , age undetermined Abnormal ECG Confirmed by NICK TELLO MD ([id number]), digital editor DOMINGO WING ([id number]) on 07/29/2017 3:36:29 PM Referred By: [facility] Confirmed By:NICK TELLO MD 07/29/17 1536 Date Nick Tello MD CC: Paris Barone; Ramu Robles MD Signed DISCHARGE INSTRUCTION Observed: 07/27/2017 Status: F Source: MARGIE 10:09 PM [facility] Medical Records Department [address] [place] [address] Discharge Instruction 07/27/17 2208 MR#: [id number] Acct: [id number] Name: TIMMYSERENA C Rep #: [id number] : 1940 77 From: Paris Barone PCP: Ramu Robles MD Status: REG ER ED Disposition - Plan for ED Patient: Chief Complaint: Hypotension Instructions: ED Hypotension All Causes, Hyperglycemia (High Blood Sugar) Referrals: Ramu Robles MD [Primary Care Provider] - 1 Day What to do if you have Problems For any increased pain, shortness of breath, bleeding, nausea or vomiting, chest pain, or any unexpected problems, contact your Primary Care Provider. Call [facility] ([phone]) or report to the closest Emergency Room. Call 911 if necessary. 07/27/177 <Electronically signed by Paris Barone > Date Paris Barone Cosigner Signature (If Indicated): Date CC: Ramu Robles MD EMERGENCY DEPARTMENT Observed: 07/27/2017 Status: F Source: [place] SUMMARY 10:08 PM [facility] Medical Records Department [address] [place] [address] Emergency Department Summary 07/27/17 1902 MR#: [id number] Acct: [id number] Name: SERENA GUO Rep #: [id number] : 1940 77 From: Paris Barone PCP: Ramu Robles MD Status: REG ER - ER Visit Summary Date of Service: 07/27/17 Chief Complaint: [Low blood pressure and fatigue] History of Present Illness: The patient is a 77 F [presents the emergency department with low blood pressure and fatigue. For the past couple of days her blood pressure has been running in the 120s 110s and 100s. The lowest blood pressure was 100 systolic. Her granddaughter is taking them 3 times a day. She has felt very fatigued and wants to sleep a lot. She has a wound on her foot that is healing. No chest pain or shortness of breath. She has been mildly constipated. No melena or hematochezia. No hematuria. No headaches. No other associated symptoms. She was admitted to the hospital in February for orthostatic hypotension and it was found to be due to Flomax and medication interactions. She does have a history of atrial fibrillation and is on Eliquis. She had no fevers.] Physical Examination: [] WN WD NAD PERRL EOMI MMM NECK supple and nontender, no masses RRR no murmur rub or gallop, no peripheral edema, symmetric radial pulses CTAB no respiratory distress ABDOMEN is soft and nontender, normal bowel sounds, no distension, no rebound or guarding SKIN dime size wound on the dorsum of the right foot with mild surrounding hyperemia no cellulitis no drainage Alert and Oriented x3, CN II-XII in tact, no motor or sensory deficits, gait normal No lymphadenopathy Test Results: [] Emergency Department Course and Treatment: [EKG is atrial fibrillation at a rate of 85 no acute ischemic changes. Screening labs are otherwise unremarkable she has baseline anemia with a hemoglobin of 11.5. Blood pressures were monitored over 4 hours and she had no evidence of hypotension. Urinalysis did appear to be infected. Her granddaughter states that she has colonized urine and it always appears infected and that she should not get antibiotics except based on culture. Patient has had no symptoms. At this time she will be discharged home to keep her follow-up appointment with her primary care doctor tomorrow. Her blood sugar was 277 hemoglobin 8 1 cc was 9.2. Her granddaughter states this is baseline for her Treatment Plan: [] Disposition: [Discharge] Impression: [1. Orthostatic hypotension 2. Hyperglycemia] This note was generated with [employer] dictation software. It may contain incorrect words, spelling, and punctuation that were not noted in review of the chart prior to signing ED Disposition - Plan for ED Patient: Chief Complaint: Hypotension Referrals: Ramu Robles MD [Primary Care Provider] - What to do if you have Problems For any increased pain, shortness of breath, bleeding, nausea or vomiting, chest pain, or any unexpected problems, contact your Primary Care Provider. Call [facility] ([phone]) or report to the closest Emergency Room. Call 911 if necessary. 07/27/171 <Electronically signed by Paris Barone > Date Paris Barone Cosigner Signature (If Indicated): Date CC: Ramu Robles MD URINALYSIS, COMPLETE Collected: 07/27/2017 Status: F Source: MARGIE 9:00 PM [facility] Order Comment: Order Date: 07/27/17 How was Urine Obtained? CLEAN CATCH TYPE CODE TESTS RESULT OUT OF RANGE REFERENCE UNITS LAB L400.3000 Yellow COLOR Normal Yellow LAB L400.3050 Clear Normal CLARITY Clear LAB L400.3200 Normal mg/dl High GLUCOSE, UR 250 LAB L400.3300 Negative mg/dL Normal BILIRUBIN URINE Negative LAB L400.3400 Negative mg/dl Normal KETONE UR Negative LAB L400.3465 1.002-1.030 Normal SP.GR. DIPSTX 1.015 LAB L400.3550 5.0 - 8.0 pH UR Normal 5.0 LAB L400.3600 Negative mg/dl High PROT 15 DIPSTX LAB L400.3700 Normal mg/dl Normal UROBILI Normal LAB L400.3750 Negative High NITRITE UR Positive LAB L400.3780 Negative /ul High 10 OCCULT BLOOD-UR LAB L400.3800 Negative /ul High LEUK ESTERASE 500 LAB L400.4050 0-5 /hpf WBC Normal 10-25 SEEN LAB L400.4100 0-5 /hpf 0 Normal RBC-UA SEEN LAB L400.4150 5-10 /hpf SQUAM Normal EPI 0-5 SEEN LAB L400.4300 None Seen /hpf 3+ Normal BACTERIA LAB L400.4350 <or=2+ /hpf 0 Normal MUCUS, URINE SEEN Performed By: #### L400.0001 #### [facility] [address] [place], [address] Observed: 07/27/2017 Status: F Source: MARGIE CULTURE, URINE 9:00 PM [facility] Order Date: 07/27/17 Urine Culture ORGANISM 1: Presumptive E. coli [place] Count >100,000 Presumptive E. coli: REACTION Amoxacillin/Clavulanic Acid $ <=2 S Ampicillin $ <=2 S Ampicillin/Sulbactam $ <=2 S Cefazolin $ <=4 S Cefepime $ <=1 S Ceftriaxone $ <=1 S Ciprofloxacin $ <=0.25 S ESBL - Ertapenim $$$ <=0.5 S Gentamicin $ <=1 S Imipenem *NF <=0.25 S Levofloxacin $ <=0.12 S Nitrofurantoin $ <=16 S Piperacillin/Tazobactam $$ <=4 S Tobramycin $ <=1 S Trimethoprim/Sulfametho $ <=20 S (NF) indicates non-formulary drug at [facility]. Approval by Infectious Disease Specialist required before non-formulary drugs may be ordered and/or dispensed. Performed By: #### M100.0650 #### [facility] [place], [address] CBC W/DIFF, AUTOMATED Collected: 07/27/2017 Status: F Source: [place] 7:15 PM [facility] TYPE CODE TESTS RESULT OUT OF RANGE REFERENCE UNITS LAB L100.1000 4.4-11.0 K/mm3 Normal WBC 5.5 LAB L100.1200 4.2-5.4 M/mm3 Low RBC 3.77 LAB L100.1300 12.0-15.0 g/dl Low HGB 11.5 LAB L100.1400 37-47 % Low HCT 35.5 LAB L100.1500 81-99 fL Normal MCV 94.2 LAB L100.1600 27.0-32.0 pg Normal MCH 30.5 LAB L100.1700 32-36 g/gl Normal MCHC 32.4 LAB L100.1810 11.6-14.6 % Normal RDW CV 13.0 LAB L100.1820 35.1-43.9 fl High RDW SD 44.3 LAB L100.1900 150-450 K/mm3 Normal PLT 279 LAB L100.2000 6.2-12.0 fl Normal MPV 10.2 LAB L100.2100 47-70 % Normal NEUT% 59.6 LAB L100.2200 19-41 % Normal LY% 27.2 LAB L100.2300 0-10 % Normal MONO% 9.5 LAB L100.2400 0-5 % Normal EO% 2.9 LAB L100.2500 0-1 % Normal BASO% 0.6 LAB L100.2550 0.0-0.9 % Normal IM GRAN % 0.200 Result Comment: IG% - Immature Granulocytes (promyelocytes, myelocytes and metamyelocytes) > 1% indicates that a LEFT SHIFT is Present. LAB L100.2620 2.0-7.7 X10 3/uL Normal Absolute Neut 3.3 LAB L100.2720 0.83-4.51 X10 3/ul Normal Absolute Lymph 1.48 Performed By: #### L100.0100 #### [facility] [address] [place], [address] HEMOGLOBIN A1C Collected: 07/27/2017 Status: F Source: [place] 7:15 PM [facility] REPOSITORY TYPE CODE TESTS RESULT OUT OF RANGE REFERENCE UNITS LAB L501.9985 4.2-6.3 % High HGB A1C 9.2 Performed By: #### L501.9985 #### [facility] [address] [place], [address] COMPREHENSIVE METABOLIC Collected: 07/27/2017 Status: F Source: [facility] 7:15 PM [facility] REPOSITORY TYPE CODE TESTS RESULT OUT OF RANGE REFERENCE UNITS LAB L501.0100 74-106 mg/dL High GLU 277 Result Comment: Glucose result greater than or equal to 200 mg/dL suggests DIABETES MELLITUS per A.D.A. criteria. Please note revised GLUCOSE reference range effective 2017. LAB L501.1000 7-18 mg/dL Normal BUN 17 LAB L501.1100 0.55-1.02 mg/dL High CREAT,SERUM 1.10 Result Comment: The validity of the calculated GFR AND GFRAA in patients over 70 years has not been determined. Clinical correlation is essential. LAB L501.1110 >60 mL/min Low EST GFR 51 Result Comment: Non- GFR Calc LAB L501.1115 >60 mL/min Normal EST GFR - AA 62 Result Comment: GFR Calc LAB L501.1255 ml/min Normal Estimated CRCL 36.98 LAB L501.1300 10-20 RATIO Normal BUN/CRE 15.5 LAB L501.1500 6.4-8. g/dL Normal 2 T PROT 6.6 LAB L501.1800 3.2-5. g/dL Low 0 ALB 3.1 LAB L501.1950 2.2-4. g/dL Normal 2 GLOB 3.5 LAB L501.2000 0.9-2. RATIO Normal 4 A/G 0.9 LAB L501.2200 8.5-10 mg/dL Low .1 CA 8.4 LAB L501.4100 15-37 U/L Normal AST 23 Result Comment: Moderate Hemolysis, Result may be falsely increased. LAB L501.4305 45-117 U/L Normal ALK P 99 LAB L501.4405 13-56 U/L Normal ALT 18 LAB L501.4600 0.20-1.00 mg/dL Normal T BILI 0.40 LAB L501.5300 136-145 mmol/L Normal NA 138 LAB L501.5600 3.5-5.1 mmol/L Normal K 4.2 Result Comment: Moderate Hemolysis, Result may be falsely increased. LAB L501.5900 98-107 mmol/L Normal CL 106 LAB L501.6100 21.0-32.0 mmol/L Normal CO2 26.0 LAB L501.6200 5-15 Normal 6 GAP Performed By: #### L500.4050, L501.4010 #### [facility] [address] [facility], [address] TROPONIN-I Collected: 07/27/2017 Status: F Source: [place] 7:15 PM [facility] REPOSITORY TYPE CODE TESTS RESULT OUT OF RANGE REFERENCE UNITS LAB L501.4010 <0.045 ng/mL Normal < 0.015 TROPONIN-I Result Comment: TROPONIN-I EXPECTED VALUES <0.045 Negative 0.045 - 0.590 Consistent with Cardiac Damage > OR = 0.600 Critical Value Not every elevated troponin is indicative of TN. These values should be used with clinical judgement in examining the patient's clinical picture for diagnosis. To establish a diagnosis of TN versus myocardial injury, there must be a demonstrated rise and/or fall in the troponin values, in addition to ischemic symptoms, EKG changes, new regional wall motion abnormality, and/or angiographical evidence. PLEASE NOTE: REFERENCE RANGES EDITED 17 Performed By: #### L500.4050, L501.4010 #### [facility] [address] [place], [address] KHURRAMTOUTRPALOMO Observed: 07/21/2017 Status: COMPLETED Source: [place] 12:00 AM [facility] REPOSITORY Patient Outreach (FAMPST) SERENA GUO ([id number]) 1940 F Date Time Provider Department 07/21/17 RAMU ROBLES [facility] During your visit today, we recorded the following information about you: Allergies As of Date: 07/21/2017 Noted Allergy Reaction VERSED (MIDAZOLAM HCL) 12/11/2006 Comments: urinary retention ZETIA (EZETIMIBE) 04/01/2006 Comments: dysuria Date Reviewed: 07/03/2017 Reviewed by: Leah Andrade Ma - Fully Assessed Visit Diagnosis:Medication management [Z79.899] Prescriptions as of 07/21/2017 Sig: OMEPRAZOLE 20 MG CAPSULE,CAYETANO* Take 1 capsule by mouth daily* X TIZANIDINE 2 MG TABLET Take 1 tablet by mouth twice * PROMETHAZINE 12.5 MG TABLET Take 1 tablet by mouth every * X METHENAMINE MANDELATE 1 GRAM * Take 1 tablet by mouth daily * X KETOCONAZOLE 2 % TOPICAL CREAM Apply 1 application to affect* X MIDODRINE 5 MG TABLET Take 1 tablet by mouth twice * APIXABAN 5 MG TABLET Take 1 tablet by mouth twice * ATORVASTATIN 40 MG TABLET Take 1 tablet by mouth once d* ACIDOPHILUS 100 MILLION CELL-* Take 1 capsule by mouth once * MECLIZINE 12.5 MG TABLET Take 1-2 tablets by mouth thr* STARCH (THICKENING) ORAL POWD* Add to fluids to nectar thick* COMPOUNDED PRESCRIPTION Home Health wound care orders* X COMPOUNDED PRESCRIPTION Incentive Spirometer Diagno* CHOLECALCIFEROL (VITAMIN D3) * Take 1 capsule by mouth once * POLYETHYLENE GLYCOL 3350 17 G* Take by mouth. every other d* X DORZOLAMIDE 22.3 MG-TIMOLOL 6* Use 1 Drop in both eyes twice* BLOOD SUGAR DIAGNOSTIC STRIPS TEST BLOOD SUGARS 4 TIMES BOGDAN* INSULIN LISPRO (U-100) 100 UN* use as directed up to 100 uni* CALCIUM + D ORAL Take by mouth. Problem List As Of Date 07/21/2017 Noted Resolved Diabetes mellitus type 1, uncontrolled, without*INVALID FOR* Dry eyes, bilateral [H04.123] INVALID FOR* Hyperlipidemia [E78.5] INVALID FOR* Gastroesophageal reflux disease [K21.9] INVALID FOR* Osteoporosis [M81.0] INVALID FOR* CKD (chronic kidney disease) [N18.9] INVALID FOR* Vitamin D deficiency [E55.9] INVALID FOR* 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 Encounter Status:Closed by EPIC, PRODUSER on 11/20/17 XR KNEE 2V AP/LAT Observed: 07/03/2017 Status: F Source: [place] RT 5:04 PM [facility] REPOSITORY * * *Final Report* * * DATE OF EXAM: Jul 03 2017 5:04PM WOX [id number] - XR KNEE 2V AP/LAT RT / PROCEDURE REASON: Unspecified injury of right lower leg, initial encounter * * * * Physician Interpretation * * * * HISTORY: pt states fell out of bed 2 days ago pain anterior right knee and posterior side also.. Unspecified injury of right lower leg, initial encounter . TECHNIQUE: XR KNEE 2V AP/LAT RT Laterality: RIGHT Number of different views (projections): 2 COMPARISON: None RESULT: No gross effusion. No fracture. Joint spaces are maintained on this supine examination. Extensive vascular calcifications in the lower extremity. IMPRESSION: No fracture. Transfer Machine Operator: PSCB Transcribe Date/Time: Jul 03 2017 5:18P Dictated by : NEFTALI GARRIDO MD This examination was interpreted and the report reviewed and electronically signed by: NEFTALI GARRIDO MD on Jul 03 2017 5:19PM EST [id number] Observed: 07/03/2017 Status: COMPLETED Source: [place] 4:53 PM [facility] REPOSITORY HNO ID: [id number] Author: Sarahy SanchezRtMaral Skelton Service: (none) Author Type: Brim Pouncing Machine Operator Type: Progress Notes Filed: 07/03/2017 5:04 PM Note Text: Radiology Service Progress Note PATIENT NAME: Serena Guo DATE OF SERVICE: July 03, 2017 TIME: 4:53 PM PATIENT IDENTITY VERIFICATION COMPLETED USING TWO (2) METHODS: Patient confirmed name verbally and Date of . PATIENT GENDER DATA: Female. status: : No status: NO. PATIENT RELEVANT IMPLANT DATA REVIEWED: Not Applicable RADIOLOGY DEPARTMENT: General X-ray: Exam(s) Completed: Lower Extremity X-Ray(s): Knee, AP / LAT Right: PERIPHERAL IV DATA: Not applicable SIGNED BY: RT Alyce July 03, 2017 4:53 PM PROGRESS Observed: 07/03/2017 Status: COMPLETED Source: [place] 4:46 PM [facility] RE[facility] HNO ID: [id number] Author: Gladys Ferris Service: (none) Author Type: Nurse Practitioner Type: Progress Notes Filed: 07/03/2017 5:02 PM Note Text: HPI/CC: Serena Guo is a 77 year old female who presents with complaint of Knee Pain (R knee pain from fall from Thursday, warm to touch ) Location: Right: anterior, posterior and patella Duration: x1 days Injury: Yes: fall x4 days ago, patient denies hitting her head or LOC Onset: Sudden Pop: No Quality: pulsating/sharp Symptoms: none Mechanical Instability: Yes Treatment: NSAIDS, ice, heat and brace Previous Injury: No MSK: no other joint pain or swelling, no stiffness and no leg weakness Histories Reviewed relevant PMHx, PSHx, Social Hx, current medications and allergies. PHYSICAL EXAMINATION: BP 116/64 Pulse 75 Temp 37.3 ?C (99.1 ?F) (Temporal Artery) Resp 16 Wt 64.4 kg (142 lb) SpO2 96% BMI 24.77 kg/m? General: Patient appears well, NAD Lungs: Clear to auscultation, no wheezing or rhonchi Heart: RRR without murmur, gallop, or rubs. No ectopy Extremities: Small abrasion to the right knee without signs of infeciton, + ecchymotic area to right thigh and sacrum Extremities normal. No deformities, edema, or Good capillary refill. Gait: unable to fully assess, Patient uses walker typically. She is able to stand and bear weight Peripheral pulses: Normal ROM: Right: Extension 0 degrees, Flexion 90 degrees- exam limited d/t patient's limited mobility, positive muscle spasm over vastus lateralis Tenderness: anterior: mild and posterior: mild Effusion: none Erythema: No Warmth: No Skin: abrasion over the right knee as above Pulses: WNL Stability: Lauro: Negative Patella: Compression - Negative Hips: Limited- Normal ROM Ankles: Normal ROM ASSESSMENT/PLAN: 1. Fall, initial encounter - ICD9: E888.9, ICD10: W19.XXXA (primary diagnosis) - No acute or concerning exam findings - Discussed fall prevention/precautions 2. Injury of right knee, initial encounter - ICD9: 959.7, ICD10: S89.91XA - No evidence of a fracture or ligament tear, probably contusion with muscle spasms - Zanaflex and Aleve as needed - Brace and ice for comfort - Will obtain images d/t nature of the injury - XR KNEE LIMITED 2V AP/LAT RT - Follow up in 1 week if no symptom improvement, sooner if new or worsening symptoms Prescription instructions reviewed with patient as applicable. Potential red flag symptoms discussed with the patient. Reviewed appropriate action plan to take if red flag symptoms occur. Patient agreeable to treatment plan. Gladys Ferris APRN.KHURRAM CNOV Observed: 07/03/2017 Status: COMPLETED Source: [place] 4:00 PM [facility] REPOSITORY Office Visit (INTMWS) SERENA GUO ([id number]) 1940 F Date Time Provider Department 07/03/17 4:00 PM GLADYS FERRIS (KHURRAM) [facility] During your visit today, we recorded the following information about you: Temperature Pulse Respiration Blood pressure 99.1 degrees 75/minute 16/minute 116/64 Weight 64.4 kg Gladys Ferris APRN.CNP 07/03/2017 5:02 PM Signed HPI/CC: Serena Guo is a 77 year old female who presents with complaint of Knee Pain (R knee pain from fall from Thursday, warm to touch ) Location: Right: anterior, posterior and patella Duration: x1 days Injury: Yes: fall x4 days ago, patient denies hitting her head or LOC Onset: Sudden Pop: No Quality: pulsating/sharp Symptoms: none Mechanical Instability: Yes Treatment: NSAIDS, ice, heat and brace Previous Injury: No MSK: no other joint pain or swelling, no stiffness and no leg weakness Histories Reviewed relevant PMHx, PSHx, Social Hx, current medications and allergies. PHYSICAL EXAMINATION: BP 116/64 Pulse 75 Temp 37.3 ?C (99.1 ?F) (Temporal Artery) Resp 16 Wt 64.4 kg (142 lb) SpO2 96% BMI 24.77 kg/m? General: Patient appears well, NAD Lungs: Clear to auscultation, no wheezing or rhonchi Heart: RRR without murmur, gallop, or rubs. No ectopy Extremities: Small abrasion to the right knee without signs of infeciton, + ecchymotic area to right thigh and sacrum Extremities normal. No deformities, edema, or Good capillary refill. Gait: unable to fully assess, Patient uses walker typically. She is able to stand and bear weight Peripheral pulses: Normal ROM: Right: Extension 0 degrees, Flexion 90 degrees- exam limited d/t patient's limited mobility, positive muscle spasm over vastus lateralis Tenderness: anterior: mild and posterior: mild Effusion: none Erythema: No Warmth: No Skin: abrasion over the right knee as above Pulses: WNL Stability: Lauro: Negative Patella: Compression - Negative Hips: Limited- Normal ROM Ankles: Normal ROM ASSESSMENT/PLAN: 1. Fall, initial encounter - ICD9: E888.9, ICD10: W19.XXXA (primary diagnosis) - No acute or concerning exam findings - Discussed fall prevention/precautions 2. Injury of right knee, initial encounter - ICD9: 959.7, ICD10: S89.91XA - No evidence of a fracture or ligament tear, probably contusion with muscle spasms - Zanaflex and Aleve as needed - Brace and ice for comfort - Will obtain images d/t nature of the injury - XR KNEE LIMITED 2V AP/LAT RT - Follow up in 1 week if no symptom improvement, sooner if new or worsening symptoms Prescription instructions reviewed with patient as applicable. Potential red flag symptoms discussed with the patient. Reviewed appropriate action plan to take if red flag symptoms occur. Patient agreeable to treatment plan. Gladys Ferris APRN.TUBE BLOWER Referring Provider: SELF [200] Allergies As of Date: 07/03/2017 Noted Allergy Reaction VERSED (MIDAZOLAM HCL) 12/11/2006 Comments: urinary retention ZETIA (EZETIMIBE) 04/01/2006 Comments: dysuria Date Reviewed: 07/03/2017 Reviewed by: Leah Andrade Ma - Fully Assessed Reason for Visit: Knee Pain [132] Cmt: R knee pain from fall from Thursday, warm to touch Primary Visit Diagnosis:Fall, initial encounter [W19.XXXA] Other Visit Diagnosis:Injury of right knee, initial encounter [S89.91XA] Order(s):XR KNEE LIMITED 2V AP/LAT RT [[id number]] Order #: [id number] FUTURE tiZANidine (ZANAFLEX) 2 mg tabletTake 1 tablet by mouth twice daily as needed.Disp: 30 tabletRfl: 0 Prescriptions as of 07/03/2017 Sig: KETOCONAZOLE 2 % TOPICAL CREAM Apply 1 application to affect* MIDODRINE 5 MG TABLET Take 1 tablet by mouth twice * PROMETHAZINE 12.5 MG TABLET Take 1 tablet by mouth every * APIXABAN 5 MG TABLET Take 1 tablet by mouth twice * ATORVASTATIN 40 MG TABLET Take 1 tablet by mouth once d* MECLIZINE 12.5 MG TABLET Take 1-2 tablets by mouth thr* TIZANIDINE 2 MG TABLET Take 1 tablet by mouth twice * METHENAMINE MANDELATE 1 GRAM * Take 1 tablet by mouth daily * ACIDOPHILUS 100 MILLION CELL-* Take 1 capsule by mouth once * STARCH (THICKENING) ORAL POWD* Add to fluids to nectar thick* COMPOUNDED PRESCRIPTION Incentive Spirometer Diagno* COMPOUNDED PRESCRIPTION Home Health wound care orders* CHOLECALCIFEROL (VITAMIN D3) * Take 1 capsule by mouth once * POLYETHYLENE GLYCOL 3350 17 G* Take by mouth. every other d* PANTOPRAZOLE 20 MG TABLET,DEL* Take 1 tablet by mouth once d* DORZOLAMIDE 22.3 MG-TIMOLOL 6* Use 1 Drop in both eyes twice* BLOOD SUGAR DIAGNOSTIC STRIPS TEST BLOOD SUGARS 4 TIMES BOGDAN* INSULIN LISPRO (U-100) 100 UN* use as directed up to 100 uni* CALCIUM + D ORAL Take by mouth. Problem List As Of Date 07/03/2017 Noted Resolved Diabetes mellitus type 1, uncontrolled, without*INVALID FOR* Dry eyes, bilateral [H04.123] INVALID FOR* Hyperlipidemia [E78.5] INVALID FOR* Gastroesophageal reflux disease [K21.9] INVALID FOR* Osteoporosis [M81.0] INVALID FOR* CKD (chronic kidney disease) [N18.9] INVALID FOR* Vitamin D deficiency [E55.9] INVALID FOR* 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 Prescriptions ordered this encounter Disp Refills Start End TIZANIDINE 2 MG TABLET 30 t* 0 07/03/2017 Route: ORAL Sig: Take 1 tablet by mouth twice daily as needed. Encounter Status:Closed by GLADYS FERRIS CNP on 07/03/17 ENDOCRINOLOGY VISIT Observed: 04/24/2017 Status: F Source: [place] RE[place] 9:21 PM [facility] REPOSITORY [facility] [address] [place] [address] [address] [place] [address] OFFICE VISIT Date of Service: 04/21/17 MR#: [id number] Acct: [id number] Name: SERENA GUO Rep #: [id number] : 1940 Provider: Roya Crocker NP Age/Sex: 77/F Location[place] [facility] Status: Signed HPI History of present illness Serena Guo is a 77 year old female who presents for follow up of diabetes type 1. Was recently discharged from hospital after having a CVA and went to [facility] for rehabilitation. Granddaughter is here with patient. Presents in wheelchair and has resumed insulin pump therapy. Denies any issues with skin irritation or infection. Time of Day Basal Rate 12m 0.425 3am 0.400 8am 0.95 12n 0.775 4pm 0.625 8pm 0.40 At time of visit: -Pt denies symptoms of hypertensive emergency (CP,SOB,FRANCISCO, or blurred vision) and hypotension(dizziness or lightheadedness) -Pt denies symptoms of hypoglycemia ( sweaty, confusion, anxiety, tremor, hunger, palpitations) and hyperglycemia ( polydipsia, polyuria) -Pt denies potential medication adverse effect. Hypoglycemia Aware of hypoglycemia: When awake Able to self treat low BG: Yes Frequent low Blood sugar: No Has supply of glucagon: Yes SMBG 4 or more times daily Improved control Diet 3 meals Meals are carb counted. Since our last visit she denies excessive thirst, increased frequency of urination, chest pain or dyspnea. Follows a diabetic diet, Is compliant with medication and is tolerating without side effects. Type: type 1 Type: type 1 Weight and fatigue symptoms: Denies snoring Cardiopulmonary symptoms: Denies chest pain at rest, dyspnea on exertion, lightheadedness or myalgias GI symptoms: Reports constipation; denies diarrhea, nausea/dyspepsia or vomiting Other symptoms: Denies blurry vision or change in vision Self monitoring: Yes Dietary compliance: Diabetes: good Diabetes education in past year: Yes Glucose testing: demonstrates correct use of meter, understands testing schedule Sick day education - understands ketone testing: Yes Physical activity: sedentary lifestyle Exam Const General: comfortable Nutritional Appearance: well nourished [facility] Head: normal to inspection, normocephalic Ears: other (sl hard of hearing) Mouth: oral mucosae normal, moist mucous membranes Teeth and gingiva: fair dentition Eyes General: appearance normal, both eyes and all related structures Eyelids: eyelids normal Conjunctivae: conjunctivae normal Sclera: sclerae normal Resp Effort AND Inspection: normal respiratory effort, able to speak in complete sentences, symmetric chest movement Auscultation: Bilateral: Clear to Auscultation Cardio Rate: regular rate Rhythm: regular rhythm Heart Sounds: S1 normal, S2 normal GI Inspection: normal to inspection Auscultation: normal bowel sounds Palpation: soft, no guarding Skin General: no rashes or lesions noted Wounds: no wounds Diabetic Foot Pulses: L dorsalis pedis pulse: normal, R dorsalis pedis pulse: normal Monofilament test: Left foot: abnormal, Right foot: abnormal Neuro General: moves all extremities Speech: speech normal Extrem General: normal to inspection Psych Appearance: well kempt Mood: congruent mood Affect: sad ( recently ) Speech and Movement: speech and movement normal Attitude: cooperative Thought Process: flight of ideas Thought Content: normal Judgment: fair Intake Vital Signs04/21/17 Height 5 ft 3 in 04/21/17 Blood Pressure 125/73 04/21/17 Blood Pressure Location Lt popliteal 04/21/17 Blood Pressure Position Sitting Intake Visit Reasons: 3mfu Finished Goods Planner Required: No Accompanied by: Granddaughter Is patient in pain?: No Allergies ezetimibe [From Zetia] Allergy (Verified 04/21/17 11:20) Other Medications Pantoprazole Sodium [Protonix] 20 mg PO DAILY 02/02/17 [History Confirmed 04/21/17] insulin lispro (U-100) 100 unit/mL subcutaneous solution See Label Instructions CONTINUOUS SUBCUTANEOUS INFUSION QDAY #3 ml 02/04/17 [Rx Confirmed 04/21/17] Apixaban [Eliquis] 5 mg PO BID 03/18/17 [History Confirmed 04/21/17] Atorvastatin Calcium [Lipitor] 40 mg PO QHS 03/18/17 [History Confirmed 04/21/17] Calcium Carb/Vitamin D [Os-Jam 500MG + D] 1 tab PO DAILY@0800 03/18/17 [History Confirmed 04/21/17] Dorzolamide HCl/Timolol Maleat [Cosopt Eye Drops] 1 drp RIGHT EYE BID 03/18/17 [History Confirmed 04/21/17] Ergocalciferol [Vitamin D] 50,000 unit PO Fr@1000 03/18/17 [History Confirmed 04/21/17] Refresh Tears 0.25 inch EACH EYE QHS 03/18/17 [History Confirmed 04/21/17] Midodrine HCl [Proamatine] 5 mg PO BID #60 tab 03/21/17 [Rx Confirmed 04/21/17] Is last menstrual period known: No Post menopausal: Yes Patient : No Nurse's Note: blood sugars : low : 40 high : high PFSH Medical History Atrial fibrillation (Acute) Arterial ischemic stroke, MCA, left, acute (Acute) Right sided weakness (Acute) Diabetes mellitus (Chronic) Glaucoma (Chronic) Anemia (Acute) Anxiety (Acute) Arthritis (Acute) CVA (cerebral vascular accident) (Acute) Carpal tunnel syndrome (Acute) Cataract (Acute) Cataracts, bilateral (Acute) Diabetes type 1, controlled (Acute) GERD (gastroesophageal reflux disease) (Acute) Glaucoma (Acute) High cholesterol (Acute) Hypocalcemia (Acute) Muscle weakness (Acute) Neuropathy (Acute) Osteoporosis (Acute) Right sided cerebral hemisphere cerebrovascular accident (Acute) Stomach ulcer (Acute) Vision problems (Acute) Headache (Inactive) Seasonal allergies (Inactive) Vitamin deficiency (Inactive) Surgical History Hx of cataract surgery (Resolved) Family History Father Hypertension Arthritis Brother Diabetes Sister Cancer Social History Smoking Status: Never smoker second hand exposure: No alcohol intake: never substance use type: does not use caffeine: Yes Type: coffee Number of servings: 2 what type of physical activity do you participate in: other details: PT frequency: 1-2 times per week duration: 15-30 minutes/day seatbelt use: always do you feel safe at home: Yes ROS Const Constitutional: Positive for fatigue; no anorexia, body ache, chills, fever(s), frequent falls, decreased energy, malaise, night sweats, weakness, weight change, sleep problems, abnormal sleep pattern, change in appetite, other, headache(s), snoring or excessive sweating Eyes Eyes: No blurry vision, change in vision, double vision, discharge, dry eyes, bulging eyes, floaters, visual disturbances, eye pain, light sensitivity, spots in vision, tunnel vision or other ENT ENT: No abnormal hearing, ear pain, ear discharge, ear pressure, hearing loss, tinnitus, dizziness/vertigo, balance problems, nosebleed/epistaxis, nasal congestion, nasal obstruction, nose pain, sinus pressure, sinus pain, nasal discharge, post nasal drip, headache(s), facial pain, dental pain, dry mouth, bad breath, hoarseness, lip swelling, mouth lesions, mouth pain, sore throat, tongue swelling, throat swelling, other, difficulty swallowing or neck pain Resp Respiratory: No cough, change in phlegm color, chest congestion, excessive phlegm production, hemoptysis, pain on inspiration, shortness of breath, pain with cough, snoring, stridor, wheezing or other Cardio Cardiology: No chest pain at rest, chest pain with exertion, leg pain with exertion, excessive sweating, shortness of breath, dyspnea on exertion, generalized swelling, irregular heart rhythm, lightheadedness, orthopnea, radiating jaw, neck or arm pain, fast heart rate, slow heart rate, palpitations or other Gastro GI: Positive for constipation; no abdominal pain, belching, bloating, change in bowel habits, change in stool character, coffee ground emesis, cramping, diarrhea, heartburn, difficulty swallowing, feeling full early, excessive flatus, incontinent of stools, Vomiting blood/hematemesis, blood in stool, loose stools, Black,tarry stools, nausea/dyspepsia, pain with swallowing, vomiting or other Genitourinary-Female: Positive for difficulty urinating and urinary hesitancy; no burning urination, painful urination, urinary incontinence, urinary frequency, urinary urgency, urinary retention, blood in urine, Frequent nighttime urination/ nocturia, post void dribbling, suprapubic fullness, side pain, sexual problems, genital lesions, genital itching, hot flashes, abnormal periods, abnormal vaginal bleeding, absent period, painful periods, light periods, heavy periods, difficulty getting , painful intercourse, pelvic pain, vaginal dryness, vaginal odor, Vaginal Itching or other Musc Musculoskeletal: No abnormal walking, joint pain, back pain, deformity, joint swelling, limited range of motion, loss of height, muscle cramps, muscle weakness, decreased muscle mass, body aches, neck pain, numbness, radiating pain into limb, stiffness, tingling or other Neuro Neurology: No frequent falls, weakness, visual disturbances, abnormal hearing, headache(s), abnormal walking, numbness or tingling Psych Psychiatric: No abnormal sleep pattern, No change in appetite Endo Endocrine: Positive for fatigue; no other or excessive sweating Aller/Imm Allergy/Immunologic: No lip swelling, tongue swelling, throat swelling or wheezing Assessment AND Plan Problems 1. Type 1 diabetes mellitus with other neurologic complication E10.49 Plan BG readings doing better since she has returned home. Did have visiting nurses for small sore on top of foot from her brace. Has healed. Lives with granddaughter who provides all care. No issues with insulin pump. no changes at this time. Recent hx of too low BP. This has been resolved. 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 Diabetes mellitus type: type 1 Diabetes mellitus complication status: with neurologic complications Diabetes mellitus complication detail: with other neurological complication Time Spent (min) 30 04/24/171 <Electronically signed by Roya MENG> Date Roya MENG Cosigner Signature: Date (if applicable) CC: ARTERIAL DUPLEX US, Observed: 04/18/2017 Status: F Source: [facility] 5:32 AM [facility] Cardiovascular Services [address] [place] [address] Art Duplex US Unilat Lower Ext 04/15/17 1303 MR#: [id number] Acct: [id number] Name: SERENA GUO Rep #: [id number] : 1940 77 From: Starla Finn MD Attending Dr: Starla Finn MD Status: REG CLI Ordering Dr: Starla Finn MD Date: 04/15/17 Location: [facility] Sex: F C Admitted: Reason For Study: ATHEROSCLEROSIS Right Velocities Common Femoral Artery, dist = 69 cm./sec. Supf Femoral Artery, prox = 72 cm./sec. Supf Femoral Artery, mid = 50 cm./sec. Supf Femoral Artery, dist. = 45 cm./sec. Profunda Femoral Artery = 45 cm./sec. Popliteal Artery, prox. = 31 cm./sec. Popliteal Artery, dist = 37 cm./sec. Post. Tibial Artery, prox = 31 cm./sec. Post. Tibial Artery, mid = 26 cm./sec. Post. Tibial Artery, dist = 14 cm./sec. Peroneal Artery, prox = 12 cm./sec. Peroneal Artery, mid = 12 cm./sec. Peroneal Artery,dist = 48 cm./sec. Ant. Tibial Artery, prox = 35 cm./sec. Ant. Tibial Artery, mid = 31 cm./sec. Ant. Tibial Artery, dist = 54 cm./sec. Procedure Exam performed in department. Interpretation Summary 1. Right leg with no stenosis and near triphasic flow in anterior tibial. Some decreased flow in other tibials. Ordering Physician: Starla Finn Referring Physician: RAMU ROBLES Performed By: Abby Diallo, ASHUTOSH, RVT 04/18/17 0531 Date Starla Finn MD CC: Starla Finn MD; Ramu Robles MD Date Dictated: 04/15/17 1303 Date Transcribed: 04/18/17 05 Transfer Machine Operator: Signed MODIFIED BARIUM Observed: 04/06/2017 Status: F Source: [facility] 5:05 PM [facility] Speech Pathology [address] [place] [address] Modified Barium Swallow Study MR#: [id number] Acct: [id number] Name: MALCOLM GUOSantos Zamarripa Rep #: [id number] : 1940 77 From: Juan Deutsch M.A., CFY-AUTOMOBILE MECHANIC ASSISTANT PRIMARY / SECONDARY DIAGNOSIS: dysphagia (R13.11) REFERRING PHYSICIAN: Dr. Ramu Robles MD CURRENT DIET: mechanical soft textures, thin liquids DENTITION: dentures MENTAL STATUS: mild dementia RESPIRATORY STATUS: O2 via room air PREVIOUS MODIFIED BARIUM SWALLOW STUDY: 02/25/2017 MBS revealed moderate oral dysphagia (R13.11) with overt aspiration of thin liquids, severe oral holding. REASON FOR REFERRAL: Patient is a 77 year old female referred for a modified barium swallow (MBS) study to objectively assess the Patients oropharyngeal swallow function under fluoroscopy secondary to recent middle cerebral artery cerebrovascular accident and family reported dementia and poor MBS performance. Patient well known to this clinician from prior admission and recent MBS, appears improved in regards to disposition in comparison to MBS despite admission due to acute changes, significantly improved during previous acute care admission, though Patients granddaughter present, reports continued fluctuations with somewhat of a down period, recently experienced the loss of her , further multiple adjustments in medications improving overall condition. 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 STUDY FINDINGS: Patient participated in a Modified Barium Swallow (MBS) study on 04/06/2017. Dr. Boyle was the radiologist present for this evaluation. This study was recorded in the lateral view and images were sent to PACs for storage. The following consistencies were presented to this patient for analysis of oropharyngeal swallow function: thin liquids, pudding, and a regular textured, Serene Doone cookie. Results of the MBS are as follows: PENETRATION / ASPIRATION SCALE (SINCLAIR): 1 = does not enter airway 2 = enters airway/above vocal folds/ejected 3 = enters airway/above vocal folds/not ejected 4 = enters airway/contacts vocal folds/ejected 5 = enters airway/contacts vocal folds/not ejected 6 = enters airway/below vocal folds/ejected 7 = enters airway/below vocal folds/not ejected despite effort 8 = enters airway/below vocal folds/no effort PENETRATION / ASPIRATION SCALE (SCORE): Thin liquids via cup (single sip): 2 Thin liquids via cup (single sip): 1 Thin liquids via cup (single sip): 1 Thin liquids via cup (3 second prep): 1 Thin liquids via cup (3 second prep): 1 Thin liquids via cup (3 second prep): 1 Thin liquids via cup (head lift): 1 Pudding via spoon: 1 * Regular textured cookie: 1 Thin liquids via cup (3 second prep): 4 Thin liquids via cup (3 second prep): 2 * denotes requirement for minimal thin liquid addition to facilitate swallow onset IMPRESSION: DIAGNOSIS: moderate oral dysphagia (R13.11) ORAL PHASE CHARACTERIZED BY: LABIAL SEAL: no labial escape (improved) TONGUE CONTROL DURING BOLUS MANIPULATION: posterior escape of less than half of bolus; escape to lateral buccal cavity/floor of mouth BOLUS PREPARATION / MASTICATION: slow prolonged chewing/mashing with complete recollection (improved) BOLUS TRANSPORT / LINGUAL MOTION: intermittent repetitive/disorganized tongue motion with continued delayed initiation of tongue motion fluctuating in severity (ranging from 2-3 seconds to well over 30 seconds) ORAL RESIDUE: trace residue lining oral structures (improved) PHARYNGEAL PHASE CHARACTERIZED BY: INITIATION OF PHARYNGEAL SWALLOW: bolus head in valleculae at first hyoid excursion SOFT PALATE ELEVATION: no bolus between soft palate and pharyngeal wall LARYNGEAL ELEVATION: complete superior movement of thyroid cartilage with complete approximation of arytenoids cartilage to epiglottic petiole ANTERIOR HYOID EXCURSION: complete anterior movement (improved) EPIGLOTTIC MOVEMENT: complete epiglottic inversion LARYNGEAL VESTIBULE CLOSURE AT HEIGHT OF SWALLOW: complete laryngeal vestibule closure with no air/contrast in laryngeal vestibule PHARYNGEAL STRIPPING WAVE: pharyngeal stripping wave present / complete PHARYNGOESOPHAGEAL SEGMENT OPENING: complete distension and complete duration with no obstruction of flow TONGUE BASE RETRACTION: narrow column of contrast between tongue base and posterior pharyngeal wall PHARYNGEAL RESIDUE: trace residue within or on pharyngeal structures ESOPHAGEAL PHASE CHARACTERIZED BY: ESOPHAGEAL BOLUS CLEARANCE IN THE UPRIGHT POSITION: complete clearance; esophageal coating EFFECTS OF TREATMENT STRATEGIES ATTEMPTED: 3 second prep = moderately effective Head lift = ineffective Liquid chaser = effective Reduced bolus size = effective DIET TEXTURE RECOMMENDATIONS: Will recommend a regular-soft textured, thin liquid diet. COMPENSATORY STRATEGIES RECOMMENDED: Supervision with assistance as needed, consider cutting tougher textures into bite sized pieces, avoid mixed consistencies, 3 second prep, alternate textures / temperatures / flavor etc. to promote improved swallow onset timing, reduced bolus volume, avoid straws, seated upright at 90 degrees during PO intake, remain upright for 30-60 minutes post meal (GERD precaution), medications crushed in applesauce INTERPRETATION OF RESULTS: Patient presents with continued moderate oral dysphagia (R13.11) likely secondary to a combination of a recent middle cerebral artery cerebrovascular accident and family reported dementia again fluctuating in comparison to rather recent assessment at bedside during acute care admission with fluctuations verified by family. Oral phase marked by continued swallow apraxia with associated swallow onset delay ranging from 2- 3 seconds to over 30 seconds in combination with lingual festinations / lingual rolling pattern typically identified in individuals with advanced progressive neurological deficits (i.e., dementia, Parkinsons) resulting in premature bolus loss contributing to pre-prandial aspiration of thin liquids. Mild improvement noted with 3 second prep, no improvement with implementation of the head lift maneuver. RECOMMENDATIONS: Recommend more cautious approach to intake if continued fluctuations are noted, with this clinician discussing prophylactic thickening of liquid textures if the Patient continues to demonstrate drastic changes in presentation / alertness / etc. encouraged continuous oral care similar in nature to that provide via the [place] Free Water Protocol. Patient requires continued intensive skilled speech-language intervention targeting continued diet texture management; training and implementation of recommended compensatory strategies; implementation of thermal tactile approach to promote improved oral phase swallow onset; training, implementation, and Patient education regarding implementation of the FFWP; and Patient and caregiver training targeting meal preparation / thickened liquid preparation. ADDITIONAL COMMENTS/RECOMMENDATIONS: Results and recommendations were discussed with the Patient immediately following MBS completion, with the Patient verbalizing understanding and agreement with all recommendations and education provided. Both the Patient and the Patient's caregiver requesting this clinician to relay results to the Patients quality improvement manager post session. IMAGE COUNT: [id number] G-CODES: SWALLOWING G8996 Current Status: CJ SWALLOWING G8997 Goal Status: SWALLOWING G8998 Discharge Status: 04/06/17 1705 <Electronically signed by Juan Deutsch M.A., CFY-AUTOMOBILE MECHANIC ASSISTANT> Date Juan Deutsch M.A. CFY-AUTOMOBILE MECHANIC ASSISTANT Co-Signature Required for all Medicare patients Date/Time Co-Signature CC: SWALLOWING FUNCTION Observed: 04/06/2017 Status: F Source: [facility] W/VIDEO 1:28 PM [facility] Imaging Services [address] [place], [place] [address] [address] Swallowing Function w/Video MR#: [id number] Acct: [id number] Name: SERENA GUO Rep #: [id number] : 1940 F 77 From: Janes Boyle MD PCP: Ramu Robles MD Status: REG CLI Study: Swallowing Function w/Video Date of Exam: 04/06/17 Exam# [id number] Ordering Dr: Ramu Robles MD STUDY: SWALLOWING STUDY REASON FOR EXAM: Female, 77 years old. Dysphasia. TECHNIQUE: The examination was performed with Speech Pathology in attendance. Under fluoroscopic observation, the patient ingested thin barium, thick barium, barium pudding, and barium coated cracker. FLUOROSCOPY TIME: 2:00 minutes/seconds. 3093 fluoroscopic images were obtained. RADIOLOGIST INVOLVEMENT: Radiologist was present and providing direct supervision. COMPARISON: Comparison is made with prior study dated February 25, 2017. FINDINGS: The following was observed during swallowing of the various mixtures of barium: Once again, there is poor oral function with difficulty in starting the swallowing mechanism. Thin Barium: There was no evidence of aspiration or laryngeal penetration. Thick Barium: There was no evidence of aspiration or laryngeal penetration. Barium Pudding: There was no evidence of aspiration or laryngeal penetration. Barium Coated Cracker: There was no evidence of aspiration or laryngeal penetration. RAD/Swallowing Function w/Video IMPRESSION: Delay in the initiation of the swallowing mechanism. The swallow study findings were discussed with the patient by the speech pathologist at the conclusion of the examination. Please see speech pathology report for more information and recommendations. Electronically Signed: Janes Boyle MD at 14:25 EST Tel [phone], Service support , CC: Ramu Robles MD Transfer Machine Operator: Signed PROGRESS Observed: 03/23/2017 Status: COMPLETED Source: [place] 5:30 PM [facility] RE[facility] ID: [id number] Author: Ramu Robles Service: (none) Author Type: Physician Type: Progress Notes Filed: 04/06/2017 1:04 AM Note Text: Patient presents with: [facility] F/U SUBJECTIVE: Serena Guo is a 77 year old year old lady here today for 1 month follow up appointment for review of medical conditions. Reviewed meds adjusted while in hospital when BP was low. Stopped Needed FMLA for patient (for patient's daughter)--mostly if/when in the hospital and daughter comes to help with care. Headaches with nausea--mostly when has car ride like to doctor's appointment. Lights bother her too. Spot on right green about 3 cm diameter--ring shaped with central clearing. Not really itchy. PAST MEDICAL HISTORY Diagnosis Date - Diabetes mellitus without mention of complication Diabetes mellitus - History of osteoporosis 09/11/2015 - Hyperlipidemia - PM - PAST MEDICAL HISTORY OF Seasonal allergies Current Outpatient Prescriptions: midodrine (PROAMITINE) 5 mg tablet Take 5 mg by mouth twice daily. methenamine (MANDELAMINE) 1 gram tablet Take 1 tablet by mouth daily at bedtime. Take with 1000mg Vitamin C (Dr. Chavez) apixaban (ELIQUIS) 5 mg tab tab(s) Take 1 tablet by mouth twice daily. atorvastatin (LIPITOR) 40 mg tablet Take 1 tablet by mouth once daily. promethazine (PHENERGAN) 12.5 mg tablet Take 1 tablet by mouth every 6 hours as needed. acidophilus-pectin, citrus 100 million cell-10 mg cap Take 1 capsule by mouth once daily. meclizine (ANTIVERT) 12.5 mg tab Take 1-2 tablets by mouth three times daily as needed. Starch, Thickening, (THICK-IT) powd Add to fluids to nectar thickness. 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 Dress with guaze and bacitracin daily. Continue till wound healed. may change dressing as needed. Notify MD if not continuing to heal over the next week. cholecalciferol, Vitamin D3, (VITAMIN D3) 50,000 unit cap capsule Take 1 capsule by mouth once each week. polyethylene glycol 3350 (MIRALAX) 17 gram/dose powder Take by mouth. every other day pantoprazole DR (PROTONIX) 20 mg tablet Take 1 tablet by mouth once daily. dorzolamide-timolol (COSOPT) 22.3-6.8 mg/mL ophthalmic solution Use 1 Drop in both eyes twice daily. blood sugar diagnostic (FREESTYLE LITE STRIPS) test strip TEST BLOOD SUGARS 4 TIMES DAILY Dx E10.9 Insulin Dependent insulin lispro (HUMALOG) 100 unit/mL injection use as directed up to 100 units daily via insulin pump. Dx 250.03 CALCIUM CARBONATE/VITAMIN D3 (CALCIUM + D ORAL) Take by mouth. No current facility-administered medications for this visit. OBJECTIVE: BP 98/50 Pulse 69 Resp 16 Wt 64.9 kg (143 lb) SpO2 97% BMI 24.95 kg/m2 Patient is alert, oriented times 3, no apparent distress, affect is bright, reactive. Last 5 Encounter BP Readings: Date: BP: 03/23/2017 98/50 02/18/2017 102/40 02/11/2017 138/72 09/25/2016 110/52 07/21/2016 112/52 Last 5 Encounter Wt Readings: Date: Wt: 03/23/2017 64.9 kg (143 lb) 02/18/2017 0 kg (0 lb) 02/11/2017 66.7 kg (147 lb) 09/25/2016 66.7 kg (147 lb) 07/21/2016 68.5 kg (151 lb) Heart: Regular rate, rhythm, no murmurs, gallops, rubs. Lungs: Clear to auscultation, bilaterally, breathing non labored. Ext: No cyanosis, clubbing, or edema. ASSESSMENT AND PLAN: Encounter Diagnosis ICD-10-CM 1. Dysphagia due to recent stroke I69.391 SWALLOW EVALUATION see if swallowing better after adjustments of medications 2. Orthostatic hypotension I95.1 midodrine (PROAMITINE) 5 mg tablet DISCONTINUED: midodrine (PROAMITINE) 5 mg tablet 3. Diabetes mellitus type 1, uncontrolled, without complications (HCC) E10.65 4. Physical deconditioning R53.81 5. Paroxysmal atrial fibrillation (HCC) I48.0 off Pacerone 6. Tinea corporis B35.4 ketoconazole (NIZORAL) 2 % cream right green; versus nummular eczema 7. Recurrent UTI N39.0 methenamine (MANDELAMINE) 1 gram tablet Above issues addressed with patient. Patient involved in shared decision making for management of her medical issues. History and medications reviewed. Epic updated as needed Refills taken care of and meds adjusted as indicated after reviewed history, exam and labs. Health Maintenance reviewed. Updated record and/or ordered tests as recorded. Encouraged on efforts at healthy diet and regular exercise and adequate sleep. DNR CC-Arrest form completed after discussed difference between DNR CC and DNR arrest. Still wants to treat medical issues short of going into cardiopulmonary arrest. FMLA forms completed for patient's daughter. The majority of the visit was spent counseling and/or coordinating care for the patient. Qhcn-ii-hpal time was at least 25 minutes. Ramu Robles MD CONSULTATION Observed: 03/22/2017 Status: F Source: [place] 11:58 AM [facility] Medical Records Department [address] [place] [address] Consultation 03/20/17 1032 MR#: [id number] Acct: [id number] Name: SERENA GUO Rep #: [id number] : 1940 77 From: Aditya Burton MD PCP: Ramu Robles MD Status: DIS IN Y Location: [place] [id number] Reason for Consult Date of Consultation: 03/20/17 Reason for Consultation: low blood pressure History of Present Illness: The patient is a 77 year old F with recent cva, was in rehab, eventually went home just prior to , then suddenly mid-ry experienced low bp for unclear reasons. reports falls, not sure if loc. sx never when supine. per h AND p:The patient is a 77 year old F seen in the emergency room at [facility] after being sent there for evaluation from her supervisor conditioning yard's office due to low blood pressure. Patient has had a history of orthostatic hypotension since mid February 2017, the exact cause is unknown, patient is currently off of all medications that would be used for blood pressure. On evaluation in the emergency room, patient was noted to have a blood pressure drop to 91/48 when standing. Blood pressure lying was 149/52. Labs were obtained on the patient, hemoglobin was noted to be 11.9, urinalysis showed +1 bacteria, 25-50 WBCs, 0-5 RBCs, and +2 yeast. Patient was given IV fluid administration but her blood pressure remained low when standing with a reading of 93/60 after 2 liters of IV fluid. Emergency room physician felt that the patient had a urinary tract infection and administered IV Rocephin. In talking with the patient's caregiver-her granddaughter- it was noted that the patient has been treated over the last several months for frequent urinary tract infections, patient has no complaints of any dysuria, urinary frequency, or hesitancy today in the emergency room. The patient's granddaughter also stated that the patient was placed on Flomax approximately 2 months ago. Patient will be placed in observation status, her Flomax will be stopped, patient will be placed on midodrine 5 mg twice daily, PT and OT will see the patient, and wound care will see the patient for small wound that she has on the dorsum of her right foot due to use of a foot brace. Patient had a stroke last fall, she ambulates with a walker but does not go very far. Past Medical History Past Medical History (Chronic Problems): Chronic Problems (Last Updated 02/19/17 @ 16:49 by Brenda Caldwell) Diabetes mellitus (Chronic) Patient arrives but has no insulin left in her insulin pump. Appointment kept brief. No data sent of blood sugar results. Will enc these sent. Appointment was for pt to be able to wear insulin pump in facility but medical billing coder had already approved. Glaucoma (Chronic) Allergies ezetimibe [From Zetia] Allergy (Verified 03/18/17 10:49) Other Home Medications: Ambulatory Orders Medication Instructions Recorded tamsulosin 0.4 mg capsule 0.4 mg PO BID cap 01/28/17 Pantoprazole Sodium [Protonix] 20 mg PO DAILY 02/02/17 Surgical History: cataract, tonsillectomy, - - Tubal ligation bilaterally Psychiatric History: No pertinent psych hx WEATHERIZATION DIRECTOR History: No pertinent WEATHERIZATION DIRECTOR history Lives: With Family Smoking Status: Never smoker Tobacco Use: Non-smoker Alcohol: None Drugs: None - *Family History Sibling History Items: Stroke Maternal History Items: No pertinent history Paternal History Items: No pertinent history Review of Systems Constitutional: Denies: Chills, Fever, Weight Change HEENT: Denies: Head Aches, Sinus Congestion, Sinus Drainage Cardiovascular: Denies: Chest Pain, Palpitations Respiratory: Denies: Cough, Shortness of breath at rest, Sputum production Gastrointestinal: Denies: Abdominal Pain, Nausea, Vomiting Genitourinary: Denies: Dysuria Musculoskeletal: Denies: Joint Pain, Joint Tenderness Skin: Denies: Rash, Wounds Neurological: Denies: Numbness, Tingling, Focal weakness Psychiatric: Denies: Anxiety, Depression, Homicidal Ideations, Suicidal Ideations Hematologic/ Lymphatic: Denies: Easy Bruising, Easy Bleeding Patient Problems: Active and Suspected Problems (Last Updated 02/19/17 @ 16:49 by Brenda Caldwell) Low blood pressure (Acute) - Physical Exam General: Alert, Oriented x3, Cooperative HEENT: Atraumatic, PERRLA, EOMI, Normocephalic Neck: Supple, No JVD, Negative Carotid Bruits Lungs: Clear to auscultation, Normal air movement Cardiovascular: Regular rate, No murmurs Abdomen: Bowel Sounds Present, Soft, Non Tender Extremities: No edema, Capillary Refill Less than 3 Seconds Skin: No rashes, No breakdown Musculoskeletal: No Tenderness to Palpation of Joints or Extremities Neurological: Cranial nerves II-XII grossly intact, - - mild right hemiparesis Psych/Mental Status: Normal Affect, Appropriate Vital Signs Temp Pulse Resp BP Pulse Ox 36.7 C 62 16 129/58 H 97 03/20/17 09:06 03/20/17 09:06 03/20/17 09:06 03/20/17 09:06 03/20/17 09:06 Oxygen Flow Rate 2 Oxygen Delivery Method Room Air Weight: 64.864 kg Body Mass Index (BMI) 25.3 Orthostatic Vital Signs Start: 03/19/17 10:00 Freq: q24h Status: Active Protocol: Activity Type Activity Date Activity User E-Sign Co-Sign Detail Recorded Client Recorded Date Recorded By Document 03/20/17 04:07 EY [id number] 03/20/17 04:10 EY Orthostatic Vitals Standing -Blood Pressure (90/60-120/80) 128/63 H -Extremity Use Right Arm -Pulse Rate (60-100) 76 Sitting -Blood Pressure (90/60-120/80) 92/62 Intake and Output for Last 24 Hours Intake Total 2180 / 2180 Output Total 1650 / 1650 350 / 350 Balance 530 / 530 -350 / -350 Laboratory Tests Past 24 Hrs TSH 4.87 H Free T4 1.36 Free T3 pg/dL 1.1 L POC Glucose POC Glucose 147 H 233 H 234 H POC Glucose 319 H Current Home Med List Medication Instructions Recorded Confirmed Type tamsulosin 0.4 mg capsule 0.4 mg PO BID cap 01/28/17 03/18/17 History Pantoprazole Sodium [Protonix] 20 mg PO DAILY 02/02/17 03/18/17 History Current Medications Generic Name Dose Route Start Last Admin Trade Name Freq PRN Reason Stop Dose Admin Assessment/Plan Active and Suspected Problems (Last Updated 02/19/17 @ 16:49 by Brenda Caldwell) Low blood pressure (Acute) impression: sudden orthohypotension, no neurologic explanation, unusual for neurologic causes to suddenly cause this. afib contributory, would d/c amiodarone if on eliquis midrodrine ok, however need to monitor for supine htn may need to add northera as op if needed pt/ot 03/22/17 1158 <Electronically signed by Aditya Burton MD> Date Aditya Burton MD Cosigner Signature (if applicable): Date CC: Ramu Robles MD; Aditya Burton MD; Akira Navarro MD Signed DISCHARGE SUMMARY Observed: 03/21/2017 Status: F Source: [place] 12:34 PM [facility] Medical Records Department [address] [place] [address] Discharge Summary 03/21/17 1142 MR#: [id number] Acct: [id number] Name: SERENA GUO Rep #: [id number] : 1940 77 From: Warner FALCON PCP: Ramu Robles MD Status: ADM IN Y Location: [place] [address] Discharge Date and Diagnosis - Problem List Patient Problems: Active and Suspected Problems (Last Updated 02/19/17 @ 16:49 by Brenda Caldwell) Low blood pressure (Acute) Date of Admission: 03/18/17 Date of Discharge: 03/21/17 - Primary Discharge Diagnosis Active and Suspected Problems (Last Updated 02/19/17 @ 16:49 by Brenda Caldwell) Orthostatic hypotension Paroxysmal AF Pressure wound right dorsum of foot T2DM Hx Neurogenic bladder Dysphagia - Secondary Discharge Diagnosis Chronic Problems (Last Updated 02/19/17 @ 16:49 by Brenda Caldwell) Mitral valve insufficiency (Chronic) Diabetes mellitus (Chronic) Patient arrives but has no insulin left in her insulin pump. Appointment kept brief. No data sent of blood sugar results. Will enc these sent. Appointment was for pt to be able to wear insulin pump in facility but medical billing coder had already approved. Glaucoma (Chronic) Hospital Course and Treatment Imaging Results: CT/Brain/Head without Contrast IMPRESSION: Chronic involutional changes of the brain. RAD/Chest 1 View (Portable) IMPRESSION: Hyperinflation. Burton - neuro [place] - cardio Operations: None Procedures: None Summary of Care Provided: Physical exam on day of discharge: General: Resting comfortably NAD Psych: A/Ox3 normal affect HEENT: [place] AT NC Neck: Supple NT CV: RRR no m/t/r/g/h Resp: CTA Abd: [id number] Soft NT no guarding or rigidity Ext: DP2+= no edema Skin: W/D normal turgor Lymph/Heme: No active bleeding or adenopathy Neuro: CN2-12 intact Hospital course: The patient is a 77 year old F who presented from the cardiology office for low blood pressure. She was becoming dizzy with sitting up and standing. She was admitted to the hospital and had + orthostatic vitals. Flomax was stopped. She was given IV fluids and started on midodrine. She had a UA with yeast but was felt to have asymptomatic colonization so diflucan was discontinued. She continued to have significant orthostasis and dizziness so neuro was consulted. Midodrine was not further increased 2/2 resting hypertension. Neuro familiar with the patient having treated her after a prior stroke. They did not feel that this was a neurologic issue and suggested possible outpatient treatment with northera. Cardiology was consulted as neuro felt amiodarone taken for AF may have been contributing. Cardiology discontinued the amiodarone. The following day her orthostatic blood pressure had improved and her heart rate remained stable so she was discharged home. She was also seen by speech therapy while here as her daughter was concerned that she had swallowing difficulties at home. She was placed on a nectar thickened liquid and soft mechanical diet for dysphagia. She was discharged home in stable condition. She will need to follow up with cardiology as her amiodarone was stopped. This patient was seen by Warner Martinez PA-C under the supervision of Doctor Springer. [] Discharge Diet: Low fat/ Low Cholesterol, 2000 mg Sodium Diet, - - [place] Neck thickened liquids and soft mechanical diet. Discharge Activity: Return to Normal Activity Home Medications: Medications to take at Discharge Pantoprazole Sodium [Protonix] 20 mg PO DAILY 02/02/17 insulin lispro (U-100) 100 unit/mL subcutaneous solution See Label Instructions CONTINUOUS SUBCUTANEOUS INFUSION QDAY #3 ml 02/04/17 Apixaban [Eliquis] 5 mg PO BID 03/18/17 Atorvastatin Calcium [Lipitor] 40 mg PO QHS 03/18/17 Calcium Carb/Vitamin D [Os-Jam 500MG + D] 1 tablet PO DAILY@0800 03/18/17 Carboxymethylcellulos/Glycerin [Refresh Optive Eye Drops] 1 drop EACH EYE 4X/DAY PRN 03/18/17 Difluprednate [Durezol] 1 drop LEFT EYE DAILY 03/18/17 Dorzolamide HCl/Timolol Maleat [Cosopt Eye Drops] 1 drop RIGHT EYE BID 03/18/17 Ergocalciferol [Vitamin D] 50,000 unit PO Fr@1000 03/18/17 Multivitamins,Therapeutic [Multivitamin] 1 tablet PO DAILY@0800 03/18/17 Refresh Tears 0.25 inch EACH EYE QHS 03/18/17 Midodrine HCl [Proamatine] 5 mg PO BID #60 tab 03/21/17 Following Prescrptions Were Given to Patient: Midodrine HCl [Proamatine] 5 mg PO BID #60 tab Primary Care Physician: Ramu Robles MD [Primary Care Provider] - Please follow up with your Primary Care Physician in: 2 weeks Please Follow Up With: Akira Navarro MD When: 2 weeks Disposition: Home Minutes spent on discharge:: 35 Patient Condition:: Stable Meaningful Use Info Meaningful Use Diagnoses (Choose all that apply): None applicable 03/21/17 1151 <Electronically signed by Warner FALCON> Date Warner FALCON 03/21/17 1233<Electronically signed by Keryr Springer MD> Cosigner Signature (if applicable): Date Kerry Springer MD CC: EZEKIEL Martinez; Krery Springer MD; Ramu Robles MD Signed BEDSIDE GLUCOSE Collected: 03/21/2017 Status: F Source: [place] 12:03 PM [facility] REPOSITORY TYPE CODE TESTS RESULT OUT OF REFERENCE UNITS RANGE LAB L501.080 70-110 mg/dL High BEDSIDE GLU 330 Result Comment: MANAGEMENT OF PATIENT CARE PER NURSING PROTOCOL Performed By: #### L501.080 #### [facility] Laboratory Point of Care [address] [facility] [address] DISCHARGE INSTRUCTION Observed: 03/21/2017 Status: F Source: [place] 11:45 AM [facility] Medical Records Department [address] [place] [address] Instructions for Home/Discharge Instructions 03/21/17 1141 MR#: [id number] Acct: [id number] Name: SERENA GUO Rep #: [id number] : 1940 77 From: Warner FALCON PCP: Ramu Robles MD Status: ADM IN ADDENDUM by EZEKIEL Martinez on 03/21/17 at 1145 Speech therapy recommends to continue nectar thickened liquids and mechanical soft diet Date Warner Martinez cc: Ramu Robles MD; Aditya Burton MD; Akira Navarro MD * Signed - Discharge Diagnoses Current Active Problems: Current Active and Chronic Problems (Last Updated 02/19/17 @ 16:49 by Brenda Caldwell) Low blood pressure (Acute) Mitral valve insufficiency (Chronic) You will use the following diet at home:: No restrictions Your food should be the consistency of: Regular Your liquids should be the consistency of: Regular/Thin Discharge Activity: Return to Normal Activity Allergies/Adverse Reactions: Allergies ezetimibe [From Zetia] Allergy (Verified 03/18/17 10:49) Other Medications to take at Discharge Pantoprazole Sodium [Protonix] 20 mg PO DAILY 02/02/17 insulin lispro (U-100) 100 unit/mL subcutaneous solution See Label Instructions CONTINUOUS SUBCUTANEOUS INFUSION QDAY #3 ml 02/04/17 Apixaban [Eliquis] 5 mg PO BID 03/18/17 Atorvastatin Calcium [Lipitor] 40 mg PO QHS 03/18/17 Calcium Carb/Vitamin D [Os-Jam 500MG + D] 1 tablet PO DAILY@0800 03/18/17 Carboxymethylcellulos/Glycerin [Refresh Optive Eye Drops] 1 drop EACH EYE 4X/DAY PRN 03/18/17 Difluprednate [Durezol] 1 drop LEFT EYE DAILY 03/18/17 Dorzolamide HCl/Timolol Maleat [Cosopt Eye Drops] 1 drop RIGHT EYE BID 03/18/17 Ergocalciferol [Vitamin D] 50,000 unit PO Fr@1000 03/18/17 Multivitamins,Therapeutic [Multivitamin] 1 tablet PO DAILY@0800 03/18/17 Refresh Tears 0.25 inch EACH EYE QHS 03/18/17 Midodrine HCl [Proamatine] 5 mg PO BID #60 tab 03/21/17 The following prescriptions were given: Midodrine HCl [Proamatine] 5 mg PO BID #60 tab Primary Care Physician: Ramu Robles MD [Primary Care Provider] - Please follow up with your Primary Care Physician in: 2 weeks Please Follow Up With: Akira Navarro MD When: 2 weeks Proposed Discharge Date: 03/21/17 03/21/17 1142 <Electronically signed by Warner FALCON> Date Warner FALCON CC: Ramu Robles MD; Aditya Burton MD; Akira Navarro MD BEDSIDE GLUCOSE Collected: 03/21/2017 Status: F Source: [place] 6:37 AM [facility] TYPE CODE TESTS RESULT OUT OF REFERENCE UNITS RANGE LAB L501.080 70-110 mg/dL High BEDSIDE GLU 188 Result Comment: MANAGEMENT OF PATIENT CARE PER NURSING PROTOCOL Performed By: #### L501.080 #### [facility] Point of Care [address] [facility] [address] BEDSIDE GLUCOSE Collected: 03/20/2017 Status: F Source: [place] 10:39 PM [facility] TYPE CODE TESTS RESULT OUT OF REFERENCE UNITS RANGE LAB L501.080 70-110 mg/dL High BEDSIDE GLU 357 Result Comment: Insulin Given MANAGEMENT OF PATIENT CARE PER NURSING PROTOCOL Performed By: #### L501.080 #### [facility] Point of Care [address] [facility] [address] CONSULTATION Observed: 03/20/2017 Status: F Source: [place] 4:21 PM [facility] Medical Records Department [address] [place] [address] Consultation 03/20/17 1609 MR#: [id number] Acct: [id number] Name: SERENA GUO Rep #: [id number] : 1940 77 From: Akira Navarro MD PCP: Ramu Robles MD Status: ADM IN Location: [place] [address] Problem List (1) Low blood pressure Status: Acute Qualifiers: Hypotension type: orthostatic hypotension Qualified Code(s): I95.1 - Orthostatic hypotension (2) Atrial fibrillation Status: Acute Qualifiers: Atrial fibrillation type: paroxysmal Qualified Code(s): I48.0 - Paroxysmal atrial fibrillation (3) Mitral valve insufficiency Status: Chronic Qualifiers: Cardiac valve disease etiology: nonrheumatic Qualified Code(s): I34.0 - Nonrheumatic mitral (valve) insufficiency Reason for Consult Date of Consultation: 03/20/17 History of Present Illness: The patient is a 77 year old white female who is referred for evaluation of orthostatic hypotension superimposed upon a history of paroxysmal atrial fibrillation and mitral valve regurgitation-mild. She has previously been evaluated in cardiovascular consultation on 12/13/2016 for concerns of atrial fibrillation, acute ischemic CVA, superimposed upon diabetes mellitus. At that time she underwent noninvasive cardiovascular evaluation which included a transthoracic echocardiogram. Her left ventricle was normal with an LVEF of 65%. She had mild left atrial enlargement and mild mitral valve regurgitation. She was treated medically for her cardiovascular related issues. She presented recently for outpatient peripheral vascular surgery evaluation of the lower extremity wound-healing issue. At that time she was noted to appear pale, was hypotensive, and there were concerns of an underlying infectious disease related process such as urinary tract infection. She was subsequently evaluated the [facility] emergency department and admitted to the hospital for further inpatient evaluation and care. There were concerns of her blood pressure being low possibly secondary to the use of Flomax therapy. Thus it was discontinued. She was also treated with IV fluids. Apparently she had initial improvement in her clinical course. However today she has been noted to have subsequent blood pressure fluctuations with evidence of hypertension at rest in the supine and/or sitting position but then hypotension in the sitting or standing position compatible with orthostatic changes. Has denied chest discomfort or difficulty breathing. She has denied any obvious palpitations. She states that she does feel woozy if she is up abruptly and/or standing. She has not lost consciousness. She had an ECG. She was in sinus rhythm. She had no acute ECG changes. She has been evaluated by Dr. Burton of neurology. Based on his preliminary evaluation there were no definitive neurologic issues to explain her findings. He did give recommendation for consideration of discontinuing her amiodarone therapy to minimize any medication related effects, etc. Interim she continues to receive IV fluids. [] Past Medical History Allergies/Adverse Reactions: Allergies ezetimibe [From Zetia] Allergy (Verified 03/18/17 10:49) Other Home Medications: Ambulatory Orders Medication Instructions Recorded tamsulosin 0.4 mg capsule 0.4 mg PO BID cap 01/28/17 Pantoprazole Sodium [Protonix] 20 mg PO DAILY 02/02/17 Past Medical History (Chronic Problems): Chronic Problems (Last Updated 02/19/17 @ 16:49 by Brenda Caldwell) Mitral valve insufficiency (Chronic) Diabetes mellitus (Chronic) Patient arrives but has no insulin left in her insulin pump. Appointment kept brief. No data sent of blood sugar results. Will enc these sent. Appointment was for pt to be able to wear insulin pump in facility but medical billing coder had already approved. Glaucoma (Chronic) Surgical History: cataract, tonsillectomy, - - Tubal ligation bilaterally Psychiatric History: No pertinent psych hx WEATHERIZATION DIRECTOR History: No pertinent WEATHERIZATION DIRECTOR history - *Family History Sibling Family History: Family History (Last Reviewed 03/11/17 @ 09:59 by Kelli Joshua) Father Hypertension Arthritis Brother Diabetes Sister Cancer History Items: Stroke Maternal Family History: Family History (Last Reviewed 03/11/17 @ 09:59 by Kelli Joshua) Father Hypertension Arthritis Brother Diabetes Sister Cancer History Items: No pertinent history Paternal Family History: Family History (Last Reviewed 03/11/17 @ 09:59 by Kelli Joshua) Father Hypertension Arthritis Brother Diabetes Sister Cancer History Items: No pertinent history Lives: With Family Smoking Status: Never smoker Tobacco Use: Non-smoker Alcohol: None Drugs: None Review of Systems - Review of Systems General: Denies: Fever, Night Sweats, Fatigue Cardiovascular: Reports: Lightheadedness. Denies: Chest Discomfort, Shortness of Breath, Orthopnea, PND, Peripheral Edema, Palpitations, Near Syncope, Syncope Respiratory: Denies: Cough, Sputum Production, Hemoptysis Gastrointestinal: Denies: Hematemesis, Hematochezia, Melena Genitourinary: Denies: Dysuria, Hematuria Skin: Denies: Rash Subjectve: A 77-year-old white female who appears to be resting reasonably comfortably in bed. Objective: Vital Signs Temp Pulse Resp BP Pulse Ox 98.1 F 63 14 119/51 L 99 03/20/17 15:05 03/20/17 15:05 03/20/17 15:05 03/20/17 15:05 03/20/17 15:05 Oxygen Delivery Method Room Air Intake and Output for Last 24 Hours Intake Total 179 / 179 Output Total 200 / 550 Balance -21 / -371 General: Awake, Alert, Oriented x 3, Cooperative, No Acute Distress Neck: No JVD Lungs: Clear to auscultation Cardiovascular: Regular Rhythm, Normal S1, Normal S2 Murmur Murmur: Grade 1/6, Soft, Holosystolic, LLSB, [place] Vascular: No Carotid Bruits Abdomen: Bowel Sounds Present, Soft, Non Tender Extremities: No edema Rhythm: Sinus rhythm EKG: As noted above ECHO: As noted above CXR: Radiology: No acute cardiopulmonary disease process appreciated Assessment/Plan 1. Orthostatic hypotension The patient does have blood pressure recordings compatible with orthostatic hypotension. The etiology is unclear. There would be consideration as to whether or not she can still be intravascularly depleted and requiring additional IV fluids. There does not appear to be a clear-cut cardiac dysrhythmia to correlate with it. She has had no other acute cardiovascular issues to explain her events. It is unclear as to whether or not the amiodarone would be contributing, especially in such a low-dose, to these findings. However it can be discontinued at this time and her response can be monitored. She is continuing anticoagulant therapy based upon her history. However if she is deemed unsafe to be on anticoagulant therapy secondary to the potential of falling episodes and injuries that it may have to be discontinued. If she does not improve despite IV fluids and there is no other obvious etiology to explain her events then consideration can be given, based upon her supine hypertension and her upright hypotension as to whether or not she could have some form of underlying autonomic nervous system disorder especially in light of her diabetes mellitus history. In the interim she is also receiving medical therapy with ProAmatine and attempt to stabilize her blood pressure. However this has to be monitored with respect to exacerbating any hypertension. 2. Paroxysmal atrial fibrillation At the moment she remains in sinus rhythm. Again she will continue to be monitored. Her amiodarone dose can be discontinued. Ideally she would continue anticoagulant therapy unless she is deemed unsafe to be on anticoagulants based on concerns of falling and injuries. 3. Mitral valve regurgitation She does have an element of mitral valve regurgitation as previously noted. In the past this is been mild based on her noninvasive studies. This will be followed by history, exam, and echocardiogram over time as deemed appropriate. The above was discussed with the patient and her family members present. This note was generated with Dragon Dictation software. Every effort was made to ensure accuracy, however, computerized sheet rock sander mistakes may persist. 03/20/17 1621 <Electronically signed by Akira Navarro MD> Date Akira Navarro MD Cosigner Signature (if applicable): Date CC: Ramu Robles MD; Aditya Burton MD; Akira Navarro MD Signed BEDSIDE GLUCOSE Collected: 03/20/2017 Status: F Source: [place] 4:18 PM [facility]POS[facility]ORY TYPE CODE TESTS RESULT OUT OF REFERENCE UNITS RANGE LAB L501.080 70-110 mg/dL High BEDSIDE GLU 263 Result Comment: MANAGEMENT OF PATIENT CARE PER NURSING PROTOCOL Performed By: #### L501.080 #### [facility] Point of Care [address] [facility] [address] 12 LEAD ELECTROCARDIOGRAM Observed: 03/20/2017 Status: F Source: [place] 2:18 PM [facility] REPOSITORY [facility] Cardiovascular Services [address] [place] [address] 12 Lead EKG 03/18/17 1118 MR#: [id number] Acct: [id number] Name: SERENA GUO Rep #: [id number] : 1940 77 From: Akira Navarro MD Attending Dr: Kerry Springer MD Status: ADM IN Ordering Dr: Stephen Moore MD Date: 03/18/17 Location: [facility] Sex: F C Admitted: 03/20/17 Test Reason : HYPOTENSION Blood Pressure : / mmHG Vent. Rate : 067 BPM Atrial Rate : 067 BPM P-R Int : 196 ms QRS Dur : 092 ms QT Int : 432 ms P-R-T Axes : 070 -18 045 degrees QTc Int : 456 ms Normal sinus rhythm Low voltage QRS Borderline ECG Confirmed by LADI NY, AKIRA ([id number]), digital editor DOMINGO WING ([id number]) on 03/20/2017 2:17:56 PM Referred By: TYREE Confirmed By:AKIRA NAVARRO MD 03/20/17 1418 Date Akira Navarro MD CC: Stephen Moore MD; Ramu Robles MD Signed BEDSIDE GLUCOSE Collected: 03/20/2017 Status: F Source: [place] 11:59 AM [facility] REPOSITORY TYPE CODE TESTS RESULT OUT OF REFERENCE UNITS RANGE LAB L501.080 70-110 mg/dL High BEDSIDE GLU 276 Result Comment: Dr Orders Followed Insulin Given MANAGEMENT OF PATIENT CARE PER NURSING PROTOCOL Performed By: #### L501.080 #### [facility] Point of Care [address] [place] [address] BEDSIDE GLUCOSE Collected: 03/20/2017 Status: F Source: [place] 6:55 AM [facility] REPOSITORY TYPE CODE TESTS RESULT OUT OF REFERENCE UNITS RANGE LAB L501.080 70-110 mg/dL High BEDSIDE GLU 147 Result Comment: MANAGEMENT OF PATIENT CARE PER NURSING PROTOCOL Performed By: #### L501.080 #### [facility] Point of Care [address] [place] [address] BEDSIDE GLUCOSE Collected: 03/19/2017 Status: F Source: [place] 10:21 PM [facility]POS[facility]ORY TYPE CODE TESTS RESULT OUT OF REFERENCE UNITS RANGE LAB L501.080 70-110 mg/dL High BEDSIDE GLU 233 Result Comment: MANAGEMENT OF PATIENT CARE PER NURSING PROTOCOL Performed By: #### L501.080 #### [facility] Point of Care [address] [place] [address] BEDSIDE GLUCOSE Collected: 03/19/2017 Status: F Source: [place] 4:24 PM [facility] REPOSITORY TYPE CODE TESTS RESULT OUT OF REFERENCE UNITS RANGE LAB L501.080 70-110 mg/dL High BEDSIDE GLU 234 Result Comment: Insulin Given Dr Orders Followed MANAGEMENT OF PATIENT CARE PER NURSING PROTOCOL Performed By: #### L501.080 #### [facility] Point of Care [address] [place] [address] BEDSIDE GLUCOSE Collected: 03/19/2017 Status: F Source: [place] 11:20 AM [facility]POS[facility] TYPE CODE TESTS RESULT OUT OF REFERENCE UNITS RANGE LAB L501.080 70-110 mg/dL High BEDSIDE GLU 319 Result Comment: Insulin Given Dr Orders Followed MANAGEMENT OF PATIENT CARE PER NURSING PROTOCOL Performed By: #### L501.080 #### [facility] Point of Care [address] [place] [address] OFFICE VISIT REPORT Observed: 03/19/2017 Status: F Source: [place] 11:18 AM [facility] REPOSITORY [facility] [address] [place] [address] OFFICE VISIT Date of Service: MR#: [id number] Acct: [id number] Patient: SERENA GUO Rep #: [id number] : 1940 Provider: Apurva Robb Age/Sex: 77/F Location: [facility] Status: Signed Intake Vital Signs03/18/17 Height 5 ft 2 in 03/18/17 Weight: 145 lb 03/18/17 Body Mass Index (BMI) 26.5 03/18/17 Blood Pressure 70/0 Intake Visit Reasons: Amb Documentation Accompanied by: Granddaughter Allergies ezetimibe [From Zetia] Allergy (Verified 03/18/17 10:49) Other Medications Amiodarone HCl [Cordarone] 200 mg PO DAILY #30 tab 01/08/17 [Rx Confirmed 03/18/17] Apixaban [Eliquis] 5 mg PO BID #30 tab 01/08/17 [Rx Confirmed 03/18/17] Atorvastatin Calcium [Lipitor] 40 mg PO QHS #30 tab 01/08/17 [Rx Confirmed 03/18/17] Calcium Carb/Vitamin D [Os-Jam 500MG + D] 1 tab PO DAILY@0800 tab 01/08/17 [Rx Confirmed 03/18/17] Ergocalciferol [Vitamin D] 50,000 unit PO Fr@1000 #30 cap 01/08/17 [Rx Confirmed 03/18/17] Multivitamins,Therapeutic [Multivitamin] 1 tab PO DAILY@0800 tab 01/08/17 [Rx Confirmed 03/18/17] blood sugar diagnostic strips See Dose Instructions .ROUTE .MEDSUPPLY #20 ea 01/28/17 [History Confirmed 03/18/17] tamsulosin 0.4 mg capsule 0.4 mg PO BID cap 01/28/17 [History Confirmed 03/18/17] Pantoprazole Sodium [Protonix] 20 mg PO DAILY 02/02/17 [History Confirmed 03/18/17] Jimbo pimentel #1 ea 02/04/17 [Rx Confirmed 03/18/17] insulin lispro 100 unit/mL subcutaneous solution See Label Instructions CONTINUOUS SUBCUTANEOUS INFUSION QDAY #3 ml 02/04/17 [Rx Confirmed 03/18/17] dorzolamide 2 % eye drops 1 drp OPHTHALMIC QDAY ml 02/19/17 [History Confirmed 03/18/17] timolol 0.5 % eye drops 1 drp OPHTHALMIC QDAY ml 02/19/17 [History Confirmed 03/18/17] aspirin 81 mg tablet,delayed release 81 mg PO QDAY 02/27/17 [History Confirmed 03/18/17] methenamine hippurate 1 gram tablet 1 g PO QDAY tab 03/11/17 [History Confirmed 03/18/17] sertraline 25 mg tablet 12.5 mg PO QDAY tab 03/11/17 [History Confirmed 03/18/17] Nursing Note Patient was here to see Dr. Finn, and mono told Carmela pt is very nauseated and has had low bp. I took her BP, 70/30 and HR 68. Pt is also very pale, hgb on 02/02/17 was 10. She also has been on 2 rounds of ATB for UTI, last one being Mar 05. I talked to Dr. Navarro, he feels patient needs evaluated in the ER for multifactorial issues (hypotension, UTI, possible anema and sepsis). Mono agrees and took her to the ER. 03/19/17 1118 <Electronically signed by Akira Navarro MD> Date Akira Watts Signature: Date (if applicable) CC: Apurva Robb THYROID STIM HORMONE Collected: 03/19/2017 Status: F Source: [place] (TSH) 6:15 AM [facility] REPOSITORY Order Comment: Comments: ok to add on TYPE CODE TESTS RESULT OUT OF RANGE REFERENCE UNITS LAB L501.9520 0.358-3.74 uIU/mL High TSH 4.87 Performed By: #### L501.9520 #### [facility] [address] [place], [address] FREE T3 Collected: 03/19/2017 Status: F Source: MARGIE 6:15 AM [facility] REPOSITORY Order Comment: Comments: ok to add on TYPE CODE TESTS RESULT OUT OF RANGE REFERENCE UNITS LAB L501.42066 2.18-3.98 pg/mL Low FREE T3 1.1 Performed By: #### L501.20746, L506.0400 #### [facility] [address] [place], [address] T4 FREE DIRECT Collected: 03/19/2017 Status: F Source: MARGIE 6:15 AM [facility] Order Comment: Comments: ok to add on TYPE CODE TESTS RESULT OUT OF RANGE REFERENCE UNITS LAB L506.0400 0.76-1.46 ng/dL Normal T4 FREE 1.36 DIRECT Performed By: #### L501.42883, L506.0400 #### [facility] [address] [place], [address] CORTISOL SERUM Collected: 03/19/2017 Status: F Source: MARGIE 6:15 AM [facility] Order Comment: BASELINE OR POST MEDICATION STIMULATION?: Baseline TYPE CODE TESTS RESULT OUT OF RANGE REFERENCE UNITS LAB L509.6000 3.09-22.40 ug/dL Normal CORTISOL 16.90 Result Comment: Adult (AM) 4.30 - 22.40 ug/dL Adult (PM) 3.09 - 16.66 ug/dL Performed By: #### L509.6000 #### [facility] [address] [facility] [place], [address] BEDSIDE GLUCOSE Collected: 03/19/2017 Status: F Source: [place] 5:42 AM [facility] TYPE CODE TESTS RESULT OUT OF REFERENCE UNITS RANGE LAB L501.080 70-110 mg/dL High BEDSIDE GLU 181 Result Comment: MANAGEMENT OF PATIENT CARE PER NURSING PROTOCOL Performed By: #### L501.080 #### [facility] Point of Care [address] [place] [address] BEDSIDE GLUCOSE Collected: 03/19/2017 Status: F Source: [place] 2:54 AM [facility] TYPE CODE TESTS RESULT OUT OF REFERENCE UNITS RANGE LAB L501.080 70-110 mg/dL High BEDSIDE GLU 211 Result Comment: MANAGEMENT OF PATIENT CARE PER NURSING PROTOCOL Performed By: #### L501.080 #### [facility] Point of Care [address] [facility] [place] [address] HISTORY AND PHYSICAL Observed: 03/18/2017 Status: F Source: LUEBBERING EXAM 10:32 PM [facility] Medical Records Department [address] [place] [address] History and Physical 03/18/17 2219 MR#: [id number] Acct: [id number] Name: SERENA GUO Rep #: [id number] : 1940 77 From: Percy Lucero DO PCP: Ramu Robles MD Status: ADM OTIS Y Location: [place] [address] Problem List (1) Low blood pressure Status: Acute Qualifiers: Hypotension type: orthostatic hypotension Qualified Code(s): I95.1 - Orthostatic hypotension History of Present Illness Date of Admission: 03/18/17 Chief Complaint: Blood pressure The patient is a 77 year old F seen in the emergency room at [facility] after being sent there for evaluation from her supervisor conditioning yard's office due to low blood pressure. Patient has had a history of orthostatic hypotension since mid February 2017, the exact cause is unknown, patient is currently off of all medications that would be used for blood pressure. On evaluation in the emergency room, patient was noted to have a blood pressure drop to 91/48 when standing. Blood pressure lying was 149/52. Labs were obtained on the patient, hemoglobin was noted to be 11.9, urinalysis showed +1 bacteria, 25-50 WBCs, 0-5 RBCs, and +2 yeast. Patient was given IV fluid administration but her blood pressure remained low when standing with a reading of 93/60 after 2 liters of IV fluid. Emergency room physician felt that the patient had a urinary tract infection and administered IV Rocephin. In talking with the patient's caregiver-her granddaughter- it was noted that the patient has been treated over the last several months for frequent urinary tract infections, patient has no complaints of any dysuria, urinary frequency, or hesitancy today in the emergency room. The patient's granddaughter also stated that the patient was placed on Flomax approximately 2 months ago. Patient will be placed in observation status, her Flomax will be stopped, patient will be placed on midodrine 5 mg twice daily, PT and OT will see the patient, and wound care will see the patient for small wound that she has on the dorsum of her right foot due to use of a foot brace. Patient had a stroke last fall, she ambulates with a walker but does not go very far. Past Medical History Past Medical History (Chronic Problems): Chronic Problems (Last Updated 02/19/17 @ 16:49 by Brenda Caldwell) Diabetes mellitus (Chronic) Patient arrives but has no insulin left in her insulin pump. Appointment kept brief. No data sent of blood sugar results. Will enc these sent. Appointment was for pt to be able to wear insulin pump in facility but medical billing coder had already approved. Glaucoma (Chronic) Allergies ezetimibe [From Zetia] Allergy (Verified 03/18/17 10:49) Other Home Medications: Ambulatory Orders Medication Instructions Recorded tamsulosin 0.4 mg capsule 0.4 mg PO BID cap 01/28/17 Pantoprazole Sodium [Protonix] 20 mg PO DAILY 02/02/17 Surgical History: cataract, tonsillectomy, - - Tubal ligation bilaterally Psychiatric History: No pertinent psych hx WEATHERIZATION DIRECTOR History: No pertinent WEATHERIZATION DIRECTOR history Lives: With Family Smoking Status: Never smoker Tobacco Use: Non-smoker Alcohol: None Drugs: None - *Family History Sibling History Items: Stroke Maternal History Items: No pertinent history Paternal History Items: No pertinent history Review of Systems Constitutional: Denies: Anorexia, Chills, Fever, Night Sweats, Malaise, Weakness, Weight Change, Fatigue Eyes: Denies: Blurred vision, Cataracts, Conjunctivae Inflammation, Double vision, Drainage, Pain, Redness, Vision Change HEENT: Denies: Difficulty Hearing, Difficulty Swallowing, Dysphasia, Ear Pain, Eye Pain, Hearing Changes, Nasal bleeding, Nasal Congestion, Post Nasal Drip Cardiovascular: Denies: Chest Pain, Claudication, Chest Pressure, Chest Tightness, Edema, Heaviness, Orthopnea, Palpitations, Paroxysmal Noc. Dyspnea, Syncope Respiratory: Denies: Cough, Hemoptysis, Pleuritic Pain, Shortness of Breath, Shortness of breath at rest, Shortness of breath upon exertion, Sputum production, Wheezing Gastrointestinal: Denies: Abdominal Pain, Constipation, Diarrhea, Hematemesis, Hematochezia, Nausea, Melena, Vomiting Genitourinary: Denies: Dysuria, Frequency, Hematuria, Hesitancy, Incontinence, Nocturia, Urgency Musculoskeletal: Denies: Foot Pain, Hand Pain, Joint Pain, Joint stiffness, Joint swelling, Joint Tenderness, Leg Pain Skin: Reports: Wounds - Wound on the dorsum of the patient's right foot. Denies: Dryness, Pruritis, Rash Neurological: Reports: Balance problems. Denies: Blurred vision, Double vision, Change in Speech, Slurred speech, Difficulty swallowing, Focal weakness, Numbness, Tingling, Tremor, Seizures Psychiatric: Denies: Anxiety, Depression, Homicidal Ideations, Suicidal Ideations Endocrine: Denies: Change in Body Habitus, Heat/ Cold Intolerance, Polydipsia, Polyuria Hematologic/ Lymphatic: Denies: Adenopathy, Anemia, Easy Bruising, Easy Bleeding, Petechiae, Purpura VTE Information - Inpt Only VTE Present on Admission: No VTE Mechan Device Prophylaxis: None VTE Pharm Prophylaxis ordered?: No Reason prophylaxis not ordered:: Medical Contraindication - Patient on Eliquis Patient Problems: Active and Suspected Problems (Last Updated 02/19/17 @ 16:49 by Brenda Caldwell) Low blood pressure (Acute) - Physical Exam General: Alert, Oriented x3, Cooperative, No apparent distress, Well developed, Well nourished HEENT: Atraumatic, PERRLA, EOMI, Normocephalic Oral: Moist Mucosa Neck: Supple, No JVD, Negative Carotid Bruits, No Nuchal Rigidity, Trachea Midline, Thyroid Normal Size and Texture Lungs: Clear to auscultation, Normal air movement, No rhonchi, No wheeze, No rales Cardiovascular: Regular rate, Regular Rhythm, Normal S1, Normal S2, No murmurs, No Ectopic Activity, PMI Normal, No rub noted, No Gallop Abdomen: Bowel Sounds Present, Soft, Non Tender, Non-Distended, No hernias noted Extremities: No edema, Capillary Refill Less than 3 Seconds Skin: No rashes, Ulcer/ Wound - There is a small 1/2 cm ulceration on the dorsum of the patient's right foot, margins are distinct and there is no discharge noted from the area and the area is non-reddened Musculoskeletal: No Tenderness to Palpation of Joints or Extremities Neurological: Cranial nerves II-XII grossly intact, Neuro grossly intact, Sensory exam intact to light touch and pain, Coordination normal Psych/Mental Status: Normal Affect, Appropriate, Alert and oriented to time, place, person, mood and affect Vital Signs Temp Pulse Resp BP Pulse Ox 98.6 F 62 18 149/52 H 98 03/18/17 19:12 03/18/17 19:12 03/18/17 19:12 03/18/17 19:12 03/18/17 19:12 Oxygen Delivery Method Room Air Weight: 64.864 kg Body Mass Index (BMI) 25.3 POC Glucose POC Glucose 166 H Assessment/Plan Active and Suspected Problems (Last Updated 02/19/17 @ 16:49 by Brenda Caldwell) Low blood pressure (Acute) #1 orthostatic hypotension-exact etiology unclear, it could be neurologically mediated due to her diabetes-patient will be placed in observation status, her Flomax will be stopped, she will be placed on a low-dose of midodrine, patient may need to follow-up with neurology if her symptoms do not resolve #2 paroxysmal atrial fibrillation-in sinus rhythm, patient is chronically on Eliquis #3 cerebrovascular disease-patient had a stroke last fall according to her granddaughter, PT and OT will see patient #4 pressure wound on dorsum of the right foot-from wearing right foot brace-stage II, I will have wound nurse see the patient #5 type 2 diabetes-patient uses an insulin pump, blood sugars will be monitored #6 neurogenic bladder-patient was on Flomax due to urine retention, patient was seen urology in the past #6 yeast infection of the bladder-patient will be placed on Diflucan, I do not feel she has a bacterial bladder infection #7 likely bacterial colonization of the bladder due to urinary retention-patient has been treated many times over the last few months for urinary tract infections I believe that it is likely the patient has colonization by bacteria. Code Visit OBSV E AND M: [id number] Initial observation care L3 03/18/172231 <Electronically signed by Percy Lucero DO> Date Percy Lucero DO Cosigner Signature: Date (if applicable) CC: Ramu Robles MD; Percy Lucero DO Signed BEDSIDE GLUCOSE Collected: 03/18/2017 Status: F Source: [place] 9:32 PM [facility] TYPE CODE TESTS RESULT OUT OF REFERENCE UNITS RANGE LAB L501.080 70-110 mg/dL High BEDSIDE GLU 166 Result Comment: MANAGEMENT OF PATIENT CARE PER NURSING PROTOCOL Performed By: #### L501.080 #### [facility] Point of Care [address] [facility] [address] EMERGENCY DEPARTMENT Observed: 03/18/2017 Status: F Source: [place]UE[place] SUMMARY 5:02 PM [facility] RE[facility]ITORY [facility] Medical Records Department [address] [facility] [place] [address] Emergency Department Summary 03/18/17 1110 MR#: [id number] Acct: [id number] Name: SERENA GUO Rep #: [id number] : 1940 77 From: Stephen Moore MD PCP: Ramu Robles MD Status: REG ER - ER Visit Summary Date of Service: 03/18/17 Chief Complaint: Low blood pressure History of Present Illness: The patient is a 77 F low blood pressure intermittently over the last several weeks. She was in her PCPs office today and had a systolic pressure of 70. She was referred to the ED. She has been feeling dizzy and nauseated. Denies vomiting. She did have some diarrhea recently, but attributes that to taking too much MiraLAX. Denies bleeding. She thought her blood pressure might be low because she was on metoprolol and amiodarone. She stopped her metoprolol about 2 weeks ago, but continues to have low blood pressures. She is also taking her amiodarone every other day per the recommendations of her supervisor conditioning yard. Patient denies any focal weakness or numbness. Denies injuries. Denies bleeding. Denies chest pain or shortness of breath. Denies abdominal pain or back pain. Physical Examination: Blood pressure 132/68. Heart rate 74. Vital signs otherwise normal. Afebrile. Alert and oriented. HEENT exam unremarkable. Heart regular. Lungs clear. Abdomen soft. Extremities unremarkable except for a superficial ulcer to her right dorsal foot with some surrounding erythema, approximately 4 cm in diameter. No focal or lateralizing neurologic abnormalities grossly. Test Results: EKG, chest x-ray, CT head pending. Blood work and urinalysis pending. Cultures pending. Emergency Department Course and Treatment: Patient was treated with fluids while awaiting results. We will check orthostatics. Statics were positive and the patient was treated with fluids. Her CBC was unremarkable. CMP unremarkable. INR 1.4 and PTT normal. Urinalysis showed signs of infection. Cultures are pending. Troponin and lactate were normal. Chest x-ray showed hyperinflation, no acute findings. CT head showed chronic changes. Treated with Rocephin for the UTI. She was reassessed after a liter bolus. She was still orthostatic positive. She received additional fluids. She has been dealing with this issue now for weeks and it continues despite medication changes. She is not in shock. I spoke at length with her granddaughter who takes care of her. She is not functioning at home and cannot go home if she continues to be lightheaded with standing. I spoke with the hospitalist to evaluate. Treatment Plan: As above, continue fluids Disposition: Admission Impression: 1. UTI 2. Orthostatic hypotension This note was generated with Vincent dictation software. It may contain incorrect words, spelling, and punctuation that were not noted in review of the chart prior to signing ED Disposition - Plan for ED Patient: Chief Complaint: Nausea/Vomiting/Diarrhea Referrals: Ramu Robles MD [Primary Care Provider] - What to do if you have Problems For any increased pain, shortness of breath, bleeding, nausea or vomiting, chest pain, or any unexpected problems, contact your Primary Care Provider. Call [facility] ([phone]) or report to the closest Emergency Room. Call 911 if necessary. 03/18/17 1702 <Electronically signed by Stephen Moore MD> Date Stephen Moore MD Cosigner Signature (If Indicated): Date CC: Ramu Robles MD BEDSIDE GLUCOSE Collected: 03/18/2017 Status: F Source: MARGIE 3:48 PM [facility] TYPE CODE TESTS RESULT OUT OF REFERENCE UNITS RANGE LAB L501.080 70-110 mg/dL High BEDSIDE GLU 140 Result Comment: MANAGEMENT OF PATIENT CARE PER NURSING PROTOCOL Performed By: #### L501.080 #### [facility] Point of Care [address] [place] [address]. [place], [place] [address] URINALYSIS, COMPLETE Collected: 03/18/2017 Status: F Source: MARGIE 1:20 PM [facility] Order Comment: Order Date: 03/18/17 How was Urine Obtained? CLEAN CATCH TYPE CODE TESTS RESULT OUT OF RANGE REFERENCE UNITS LAB L400.3000 Yellow COLOR Normal Yellow LAB L400.3050 Clear Normal CLARITY Sl. Cloudy LAB L400.3200 Normal mg/dl Normal GLUCOSE, UR Normal LAB L400.3300 Negative mg/dL Normal BILIRUBIN URINE Negative LAB L400.3400 Negative mg/dl Normal KETONE UR Negative LAB L400.3465 1.002-1.030 Normal SP.GR. DIPSTX 1.015 LAB L400.3550 5.0 - 8.0 pH UR Normal 6.0 LAB L400.3600 Negative mg/dl PROT Normal DIPSTX Negative LAB L400.3700 Normal mg/dl Normal UROBILI Normal LAB L400.3750 Negative Normal NITRITE UR Negative LAB L400.3780 Negative /ul High 10 OCCULT BLOOD-UR LAB L400.3800 Negative /ul High LEUK ESTERASE 500 LAB L400.4050 0-5 /hpf WBC Normal 25-50 SEEN LAB L400.4100 0-5 /hpf Normal RBC-UA 0-5 SEEN LAB L400.4150 5-10 /hpf SQUAM Normal EPI 0-5 SEEN LAB L400.4300 None Seen /hpf 1+ Normal BACTERIA LAB L400.4350 <or=2+ /hpf 0 Normal MUCUS, URINE SEEN LAB L400.5200 None Seen /hpf 2+ Normal YEAST-URINE Performed By: #### L400.0001 #### [facility] [address] [facility], [address] Observed: 03/18/2017 Status: F Source: LUEBBERING CULTURE, URINE 1:20 PM [facility] Order Date: 03/18/17 Urine Culture ORGANISM 1: Yeast, not Tawana albicans [place] Count >100,000 Performed By: #### M100.0650 #### [facility] [address] [facility], [address] COMPREHENSIVE METABOLIC Collected: 03/18/2017 Status: F Source: MARGIE PROFIL 1:05 PM [facility] Order Comment: REDRAW. PREVIOUS SPECIMEN REJECTED DUE TO SPECIMEN BEING HEMOLYZED. 03/18/17 1121 Chava Kelly. 'TROP' Serial specimen #1, #2, #3, or #4: 1 TYPE CODE TESTS RESULT OUT OF RANGE REFERENCE UNITS LAB L501.0100 74-106 mg/dL Normal GLU 82 LAB L501.1000 7-18 mg/dL Normal BUN 16 LAB L501.1100 0.55-1.02 mg/dL Normal 0.88 CREAT,SERUM Result Comment: The validity of the calculated GFR AND GFRAA in patients over 70 years has not been determined. Clinical correlation is essential. LAB L501.1110 >60 mL/min Normal EST GFR 66 Result Comment: Non- GFR Calc LAB L501.1115 >60 mL/min Normal EST GFR - AA 80 Result Comment: GFR Calc LAB L501.1255 ml/min Normal Estimated CRCL 46.23 LAB L501.1300 10-20 RATIO Normal BUN/CRE 18.1 LAB L501.1500 6.4-8. g/dL Low 2 T PROT 6.1 LAB L501.1800 3.2-5. g/dL Low 0 ALB 3.1 LAB L501.1950 2.2-4. g/dL Normal 2 GLOB 3.0 LAB L501.2000 0.9-2. RATIO Normal 4 A/G 1.0 LAB L501.2200 8.5-10 mg/dL Low .1 CA 8.0 LAB L501.4100 15-37 U/L Normal AST 17 LAB L501.4305 45-117 U/L Normal ALK P 92 LAB L501.4405 13-56 U/L Normal ALT 22 Result Comment: Please note revised ALT reference range effective 2017. LAB L501.4600 0.20-1.00 mg/dL Normal T BILI 0.40 LAB L501.5300 136-145 mmol/L Normal NA 143 LAB L501.5600 3.5-5.1 mmol/L Normal K 3.8 LAB L501.5900 98-107 mmol/L High CL 109 LAB L501.6100 21.0-32.0 mmol/L Normal CO2 25.0 LAB L501.6200 5-15 Normal GAP 9 Performed By: #### L500.4050, L501.4010 #### [facility] [address] [place], [address] TROPONIN-I Collected: 03/18/2017 Status: F Source: LUEBBERING 1:05 PM [facility] Order Comment: REDRAW. PREVIOUS SPECIMEN REJECTED DUE TO SPECIMEN BEING HEMOLYZED. 03/18/17 1121 Chava Kelly. 'TROP' Serial specimen #1, #2, #3, or #4: 1 TYPE CODE TESTS RESULT OUT OF RANGE REFERENCE UNITS LAB L501.4010 <0.06 ng/mL Normal < 0.02 TROPONIN-I Result Comment: TROPONIN-I EXPECTED VALUES <0.05 NEGATIVE 0.06 - 0.59 AT RISK OF TN > OR = 0.60 SUGGEST TN Performed By: #### L500.4050, L501.4010 #### [facility] [place], [address] CBC W/DIFF, AUTOMATED Collected: 03/18/2017 Status: F Source: MARGIE 1:05 PM [facility] TYPE CODE TESTS RESULT OUT OF RANGE REFERENCE UNITS LAB L100.1000 4.4-11.0 K/mm3 Normal WBC 5.5 LAB L100.1200 4.2-5.4 M/mm3 Low RBC 3.88 LAB L100.1300 12.0-15.0 g/dl Low HGB 11.9 LAB L100.1400 37-47 % Low HCT 35.8 LAB L100.1500 81-99 fL Normal MCV 92.3 LAB L100.1600 27.0-32.0 pg Normal MCH 30.7 LAB L100.1700 32-36 g/gl Normal MCHC 33.2 LAB L100.1810 11.6-14.6 % Normal RDW CV 14.0 LAB L100.1820 35.1-43.9 fl High RDW SD 46.2 LAB L100.1900 150-450 K/mm3 Normal PLT 237 LAB L100.2000 6.2-12.0 fl Normal MPV 10.3 LAB L100.2100 47-70 % Normal NEUT% 61.6 LAB L100.2200 19-41 % Normal LY% 24.1 LAB L100.2300 0-10 % Normal MONO% 8.8 LAB L100.2400 0-5 % Normal EO% 4.6 LAB L100.2500 0-1 % Normal BASO% 0.7 LAB L100.2550 0.0-0.9 % Normal IM GRAN % 0.200 Result Comment: IG% - Immature Granulocytes (promyelocytes, myelocytes and metamyelocytes) > 1% indicates that a LEFT SHIFT is Present. LAB L100.2620 2.0-7.7 X10 3/uL Normal Absolute Neut 3.4 LAB L100.2720 0.83-4.51 X10 3/ul Normal Absolute Lymph 1.32 Performed By: #### L100.0100 #### [facility] [address] [place], [address] PROTHROMBIN TIME W/INR Collected: 03/18/2017 Status: F Source: MARGIE 1:05 PM [facility] REPOSITORY TYPE CODE TESTS RESULT OUT OF RANGE REFERENCE UNITS LAB L300.4150 11.7-14.9 SECONDS High PROTIME 16.8 LAB L300.4200 Normal INR 1.4 Performed By: #### L300.3900, L300.4310 #### [facility] [address] [place], [address] PARTIAL THROMBOPLAST Collected: 03/18/2017 Status: F Source: MARGIE TIME 1:05 PM [facility] RE[facility]ORY TYPE CODE TESTS RESULT OUT OF RANGE REFERENCE UNITS LAB L300.4310 24.1-36.2 Seconds Normal PTT 28.7 Performed By: #### L300.3900, L300.4310 #### [facility] [address] [place], [address] Observed: 03/18/2017 Status: F Source: MARGIE CULTURE, BLOOD (WB) 1:05 PM [facility] RE[facility]ITORY BC No growth in 5 days. Performed By: #### M200.1000 #### [facility] [address] [place], [address] LACTIC ACID Collected: 03/18/2017 Status: F Source: MARGIE 11:25 AM [facility] REPOSITORY Order Comment: Yes/No query for Sepsis Lactate Rule Y TYPE CODE TESTS RESULT OUT OF RANGE REFERENCE UNITS LAB L503.6005 0.4-2.0 mmol/L Normal LACTIC ACID 1.1 Performed By: #### L503.6005 #### [facility] [address] [place], [address] Observed: 03/18/2017 Status: F Source: MARGIE CULTURE, BLOOD (WB) 11:25 AM [facility] RE[facility] BC No growth in 5 days. Performed By: #### M200.1000 #### [facility] [address] [place], [address] CHEST 1 VIEW Observed: 03/18/2017 Status: F Source: MARGIE (PORTABLE) 11:08 AM [facility] REPOSITORY [facility] Imaging Services [address] [place] [address] Chest 1 View (Portable) MR#: [id number] Acct: [id number] Name: SERENA GUO Rep #: [id number] : 1940 F 77 From: Janes Boyle MD PCP: Ramu Robles MD Status: REG ER Study: Chest 1 View (Portable) Date of Exam: 03/18/17 Exam# [id number] Ordering Dr: Stephen Moore MD STUDY: X-RAY CHEST REASON FOR EXAM: Female, 77 years old. Hypotension. TECHNIQUE: Single AP portable view of the chest. COMPARISON: Comparison is made with prior study dated February 02, 2017. FINDINGS: EKG electrodes are seen. Hyperinflation. Stable increased markings at the lung bases suggestive of scarring. There is no demonstrated pleural abnormality. Normal size heart. Normal mediastinum and kahlil. Normal visualized pulmonary arteries. Normal visualized aortic arch and descending thoracic aorta. Normal visualized thoracic spine. Normal visualized ribs, clavicles, and shoulders. There is no demonstrated abnormality of the visualized soft tissue structures of the upper abdomen. RAD/Chest 1 View (Portable) IMPRESSION: Hyperinflation. Electronically Signed: Janes Boyle MD at 11:26 EST Tel [phone], Service support , CC: Stephen Moore MD; Ramu Robles MD Transfer Machine Operator: Signed BRAIN/HEAD WITHOUT Observed: 03/18/2017 Status: F Source: MARGIE CONTRAST 11:08 AM [facility] RE[facility]ITORY [facility] Imaging Services [address] [place] [address] Brain/Head without Contrast MR#: [id number] Acct: [id number] Name: SERENA GUO Rep #: [id number] : 1940 F 77 From: Janes Boyle MD PCP: Ramu Robles MD Status: REG ER Study: Brain/Head without Contrast Date of Exam: 03/18/17 Exam# [id number] Ordering Dr: Stephen Moore MD STUDY: CT BRAIN WITHOUT CONTRAST REASON FOR EXAM: Female, 77 years old. Hypotension. RADIATION DOSAGE (If Supplied By Facility): CTDIvol = ( 44.99 ) mGy, DLP = ( 745.49 ) mGycm TECHNIQUE: Transaxial CT imaging of the brain was performed without administration of intravenous contrast material. Individualized dose optimization techniques were used for this CT. COMPARISON: Comparison is made with prior study dated December 13, 2016. FINDINGS: Normal soft tissue structures. Normal calvarium. There is mild cerebral atrophy with widening of the extra- axial spaces and ventricular dilatation. There are areas of decreased attenuation within the white matter tracts of the supratentorial brain, consistent with microvascular disease changes. Stable focal encephalomalacia in the left frontal temporal lobe as well as in the superior aspect of the left posterior parietal lobe. Normal basal ganglia and thalami. Normal brainstem. There is mild cerebellar atrophy. There is no intracranial hemorrhage. There are no findings of an acute ischemic infarction. Normal visualized paranasal sinuses. CT/Brain/Head without Contrast IMPRESSION: Chronic involutional changes of the brain. Electronically Signed: Janes Boyle MD at 13:21 EST Tel [phone], Service support , CC: Stephen Moore MD; Ramu Robles MD Transfer Machine Operator: Signed CARDIOLOGY VISIT Observed: 03/16/2017 Status: F Source: LUEBBERING REPORT 10:24 AM [facility] REPOSITORY [facility] [address] [place] [address] OFFICE VISIT Date of Service: 03/11/17 MR#: [id number] Acct: [id number] Name: SERENA GUO Rep #: [id number] : 1940 Provider: ROLDAN Alves Age/Sex: 77/F Location: [facility] [place] Status: Signed HPI : Details: Serena Guo, is a 77 F who presents to the office today for cardiovascular outpatient follow-up. Patient has a history of paroxysmal atrial fibrillation, CVA in December 2016, and type 1 diabetes. Patient presented to [facility] in December 2016 with right-sided weakness and she was admitted for further evaluation. She was found to have paroxysmal atrial fibrillation. Her heart rate was controlled and she was ultimately discharged. Echocardiogram done at that time showed an estimated ejection fraction of 65%, mildly enlarged left atrium, and mild mitral valve insufficiency. Patient did present to [facility] emergency department in January 2017 with intermittent wheezing, swelling, and a recent fall after returning home from nursing facility. She was evaluated and discharged home. Pt denies chest, arm, jaw, or neck discomfort. Her exercise tolerance is stable though limited/minimal. Pt denies symptoms of CHF, palpitations, near syncopal or syncopal episodes. Pt denies edema or claudication issues. Pt. denies orthopnea, PND, fever, chills, blood in urine, blood in stool, myalgia, or unexplainable fatigue. She states occasional lightheadedness and dizziness episodes. She wishes her fatigue was better. She has been treated for multiple UTIs since discharge. Intake Vital Signs03/11/17 Height 5 ft 2 in 03/11/17 Weight: 145 lb 03/11/17 Body Mass Index (BMI) 26.5 03/11/17 Blood Pressure 96/48 03/11/17 Blood Pressure Location Lt brachial Intake Visit Reasons: Finished Goods Planner Required: No Accompanied by: Family / Other Is patient in pain?: No Allergies ezetimibe [From Zetia] Allergy (Verified 03/11/17 09:56) Other Medications Amiodarone HCl [Cordarone] 200 mg PO DAILY #30 tab 01/08/17 [Rx Confirmed 02/27/17] Apixaban [Eliquis] 5 mg PO BID #30 tab 01/08/17 [Rx Confirmed 03/11/17] Atorvastatin Calcium [Lipitor] 40 mg PO QHS #30 tab 01/08/17 [Rx Confirmed 03/11/17] Calcium Carb/Vitamin D [Os-Jam 500MG + D] 1 tab PO DAILY@0800 tab 01/08/17 [Rx Confirmed 03/11/17] Ergocalciferol [Vitamin D] 50,000 unit PO Fr@1000 #30 cap 01/08/17 [Rx Confirmed 03/11/17] Multivitamins,Therapeutic [Multivitamin] 1 tab PO DAILY@0800 tab 01/08/17 [Rx Confirmed 03/11/17] blood sugar diagnostic strips See Dose Instructions .ROUTE .MEDSUPPLY #20 ea 01/28/17 [History Confirmed 03/11/17] tamsulosin 0.4 mg capsule 0.4 mg PO BID cap 01/28/17 [History Confirmed 03/11/17] Pantoprazole Sodium [Protonix] 20 mg PO DAILY 02/02/17 [History Confirmed 02/27/17] Jimbo pimentel #1 ea 02/04/17 [Rx Confirmed 03/11/17] insulin lispro 100 unit/mL subcutaneous solution See Label Instructions CONTINUOUS SUBCUTANEOUS INFUSION QDAY #3 ml 02/04/17 [Rx Confirmed 02/27/17] dorzolamide 2 % eye drops 1 drp OPHTHALMIC QDAY ml 02/19/17 [History Confirmed 03/11/17] timolol 0.5 % eye drops 1 drp OPHTHALMIC QDAY ml 02/19/17 [History Confirmed 03/11/17] aspirin 81 mg tablet,delayed release 81 mg PO QDAY 02/27/17 [History Confirmed 02/27/17] methenamine hippurate 1 gram tablet 1 g PO QDAY tab 03/11/17 [History Confirmed 03/11/17] sertraline 25 mg tablet 12.5 mg PO QDAY tab 03/11/17 [History Confirmed 03/11/17] Ejection fraction %: 65 to 70 PFSH Medical History Atrial fibrillation (Acute) Arterial ischemic stroke, MCA, left, acute (Acute) Right sided weakness (Acute) Diabetes mellitus (Chronic) Glaucoma (Chronic) Anemia (Acute) Anxiety (Acute) Arthritis (Acute) CVA (cerebral vascular accident) (Acute) Carpal tunnel syndrome (Acute) Cataract (Acute) Cataracts, bilateral (Acute) Diabetes type 1, controlled (Acute) GERD (gastroesophageal reflux disease) (Acute) Glaucoma (Acute) High cholesterol (Acute) Hypocalcemia (Acute) Muscle weakness (Acute) Neuropathy (Acute) Osteoporosis (Acute) Right sided cerebral hemisphere cerebrovascular accident (Acute) Stomach ulcer (Acute) Vision problems (Acute) Headache (Inactive) Seasonal allergies (Inactive) Vitamin deficiency (Inactive) Surgical History Hx of cataract surgery (Resolved) Family History Father Hypertension Arthritis Brother Diabetes Sister Cancer Social History Smoking Status: Never smoker second hand exposure: No alcohol intake: never substance use type: does not use caffeine: Yes Type: coffee Number of servings: 2 what type of physical activity do you participate in: other details: PT frequency: 1-2 times per week duration: 15-30 minutes/day seatbelt use: always do you feel safe at home: Yes ROS Const Const: Positive for fatigue; negative for weakness, body ache, fever(s) or chills ENT ENT: Positive for dizziness Cardio Chest Pain: No Palpitations: Positive for No Edema: None Muscle aches with walking: None Resp Respiratory: Negative for SOB with activity, SOB at rest, SOB orthopnea\SOB lying down or paroxysmal nocturnal dyspnea GI GI: Negative nausea, black,tarry stools, bright, red blood in stools or vomiting blood/hematemesis : Negative for hematuria or frequent nighttime urination/ nocturia Musc Musc: Negative for muscle aches/ myalgia Neuro Neuro: Negative for weakness, Positive for dizziness, Positive for lightheadedness, Negative for near syncope, Negative for syncope, Negative for orthostatic symptoms Endo Endo: Positive for fatigue Psych Psych: Positive for visual hallucinations Cardiology Exam Const Appearance: cooperative, healthy appearing, comfortable and no acute distress Orientation: alert, awake and oriented x3 Head Head: normal to inspection Mouth: oral mucosae normal Neck Neck: no JVD and normal visual inspection Carotids: normal carotid upstroke Chest Chest inspection: normal inspection of the chest and normal respiratory effort Auscultation: Bilateral: Clear to Auscultation Cardio Rate: regular rate Rhythm: regular rhythm Heart sounds: S1 normal and S2 normal; negative rub or gallop GI GI: normal to inspection Neuro General: alert, awake, oriented x3, CN's II-XI intact bilaterally and unable to assess gait Right facial droop at rest. Symmetrical smile. Symmetrical eyebrow raise. Equal bilateral package dyer strength. Skin Skin: no rashes or lesions noted Extremities Pulses: Normal: Right Posterior Tibial Pulse, Left Posterior Tibial Pulse, Right Radial Pulse, Left Radial Pulse Lower Extremity Edema: None: Bilateral Psych Psychological: normal affect Assessment AND Plan 1. Lightheadedness R42 Plan - TAQUERIA Levin Granddaughter, caregiver, has stopped metoprolol due to low blood pressures. Patient's blood pressure remains on the lower side today in office. She does acknowledge some episodes of lightheadedness and dizziness. Through discussion was best felt that she should continued to improve her overall nutritional and fluid intake. Granddaughter states that the patient's nutrition and fluid intake has not been the greatest. Hopefully this improves her blood pressure and episodes of lightheadedness. They were instructed that if nutrition is optimized and symptoms persist to give our office a call. If she remains lightheaded we can consider changing/adjusting amiodarone. 2. Paroxysmal atrial fibrillation I48.0 Plan - TAQUERIA Levin Patient appears to be maintaining regular rhythm. We will continue current medications which include antiarrhythmic and factor 10 A inhibitor. 3. Type 1 diabetes mellitus with other neurologic complication E10.49 Patient arrives but has no insulin left in her insulin pump. Appointment kept brief. No data sent of blood sugar results. Will enc these sent. Appointment was for pt to be able to wear insulin pump in facility but medical billing coder had already approved. Plan - TAQUERIA Levin Patient does have an insulin pump present today in office. Patient will continue to follow-up with her primary administration professional provider for this. 4. Hallucinations R44.3 Plan - TAQUERIA Levin Granddaughter states that the patient has been having episodes of hallucinations at night which has resulted in decreased sleep. This may be contributing to her overall fatigue. They have been reducing sertraline in attempts to hopefully improve this. They have an upcoming appointment with primary care physician, which this can be discussed further. Plan Detail Other Medications Discontinued: Additional Comments - TAQUERIA Levin Discussed the above patient with Dr. Navarro, he agrees with the plan of care. Thank you for allowing us to participate in the patients plan of care, if you have any questions please do not hesitate to call. This note was generated using a voice recognition system and there may be incorrect words, spelling or punctuation that were not noted when reviewing the office note prior to saving. 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 Diabetes mellitus complication detail: with other neurological complication Diabetes mellitus complication status: with neurologic complications Diabetes mellitus type: type 1 Hallucinations R44.3 03/11/17 1207 <Electronically signed by Wil Alves NP-C> Date Wil Alves STONEMASON HELPER-C 03/16/17 1024<Electronically signed by Akira Navarro MD> Cosigner Signature: Date (if applicable) Akira Navarro MD CC: Ramu Robles MD [facility] Observed: 03/04/2017 Status: COMPLETED Source: [place] 12:00 AM [facility] REPOSITORY Telephone (INTMWS) SERENA GUO ([id number]) 1940 F Date Time Provider Department 03/04/17 TALAMPAS, RAMU D INTMWS During your visit today, we recorded the following information about you: Ria Duggan RN 03/04/2017 11:51 AM Signed Personal Touch nurse Gisele (#[phone]) calling to report that patient still has some ongoing evening confusion. Family questioned if low dose Sertraline could be contributing. This was also reported at visit on 02/18/17. Patient was treated for UTI at this time and home health nurse unable to discern if UTI has resolved. Patient was aware last night, thinking that she had to go to work at [employer]. Patient has history of recent CVA and labile diabetes. Too many variables to determine cause of confusion with telephone encounter. Advised home health nurse to have patient schedule appointment this week with JAYLIN Mandel to evaluate for possible causes of intermittent confusion. JAYLIN Grijalva RN, MANAGER CODE 03/05/2017 7:29 AM Signed I see PCP visit upcoming. Ramu Robles MD 03/05/2017 8:12 AM Signed Also, patient can stop taking sertraline to see if confusion improves. Can check urine studies prior to appointment--orders filed so someone can bring a urine as needed Follow up sooner if worsening symptoms of confusion. Ramu Robles MD 03/05/2017 8:14 AM Signed Addended by: RAMU ROBLES MD on: 03/05/2017 08:14 AM Modules accepted: Orders Diandra Quiros BLANCHE 03/05/2017 11:03 AM Signed Called and reviewed with pt's [facility]. She reports family will call pts urologist with any urinary issue and they have already planned to hold the sertraline. Allergies As of Date: 03/04/2017 Noted Allergy Reaction VERSED (MIDAZOLAM HCL) 12/11/2006 Comments: urinary retention ZETIA (EZETIMIBE) 04/01/2006 Comments: dysuria Date Reviewed: 02/18/2017 Reviewed by: Samuel Soliz - Fully Assessed Reason for Visit: home health update [Other] intermittent confusion [Other] Primary Visit Diagnosis:Frequent UTI [N39.0] Other Visit Diagnosis:Confusion [R41.0] Order(s):URINE CULTURE [SQURCUL] Order #: [id number] URINALYSIS WITH MICROSCOPIC [SQUAWMIC] Order #: [id number] FUTURE Prescriptions as of 03/04/2017 Sig: PROMETHAZINE 12.5 MG TABLET Take 1 tablet by mouth every * ACIDOPHILUS 100 MILLION CELL-* Take 1 capsule by mouth once * METOPROLOL TARTRATE 25 MG TAB* Take 1 tablet by mouth twice * AMIODARONE 200 MG TABLET Take by mouth once daily. APIXABAN 5 MG TABLET Take by mouth twice daily. TAMSULOSIN 0.4 MG CAPSULE 1 tab by mouth twice daily MECLIZINE 12.5 MG TABLET Take 1-2 tablets by mouth thr* ATORVASTATIN 40 MG TABLET Take 1 tablet by mouth once d* STARCH (THICKENING) ORAL POWD* Add to fluids to nectar thick* SERTRALINE 25 MG TABLET Take 1 tablet by mouth once d* COMPOUNDED PRESCRIPTION Incentive Spirometer Diagno* COMPOUNDED PRESCRIPTION Home Health wound care orders* CHOLECALCIFEROL (VITAMIN D3) * Take 1 capsule by mouth once * DOCUSATE SODIUM 100 MG CAPSULE Take 100 mg by mouth three ti* POLYETHYLENE GLYCOL 3350 17 G* Take by mouth. every other d* PANTOPRAZOLE 20 MG TABLET,DEL* Take 1 tablet by mouth once d* DORZOLAMIDE 22.3 MG-TIMOLOL 6* Use 1 Drop in both eyes twice* CIMETIDINE 200 MG TABLET Take 1 tablet by mouth twice * LEVOMEFOLATE CA 3 MG-B6 35 MG* Take by mouth. BLOOD SUGAR DIAGNOSTIC STRIPS TEST BLOOD SUGARS 4 TIMES BOGDAN* INSULIN LISPRO 100 UNIT/ML QUIROZ* use as directed up to 100 uni* CYANOCOBALAMIN (VIT B-12) 1,0* Take 1 tablet by mouth once d* KRILL OIL ORAL Take 1 tablet by mouth. CRANBERRY FRUIT ORAL Take 1 tablet by mouth as nee* CALCIUM + D ORAL Take by mouth. METANX ORAL Take by mouth. ASPIRIN 81 MG TABLET,DELAYED * Take 1 tablet by mouth once d* FLAXSEED ORAL as necessary MULTIPLE VITAMINS TABLET Take one(1) tablet daily. FISH OIL 500 MG CAPSULE take 1 tablet daily. 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] INVALID FOR* Physical deconditioning [R53.81] INVALID FOR* Atrial fibrillation (HCC) [I48.91] INVALID FOR* Encounter Status:Closed by ANDERS MENJIVAR on 03/05/17 ALLERGIES ALLERGIES DATE TYPE / CODE NAME / CODE REACTION SEVERITY SOURCE 01/26/2018 Drug ezetimibe/[id number] Other Unknown [facility] Allergy/416 9817(RXNORM) Hospital 553822(SNOM Repository ED CT) 12/11/2006 DRUG MIDAZOLAM HCL [facility] [place] 256805(SNOM Repository ED CT) 04/01/2006 DRUG EZETIMIBE [facility] [place] 626199(SNOM Repository ED CT) NG/[id number] MIDAZOLAM HCL [facility] 6([facility] CT) Repository NG/[id number] EZETIMIBE [facility] 6([facility] System CT) Repository ENCOUNTERS ENCOUNTERS ADMIT/DISCHARGE ACCOUNT NUMBER ADMITTING ENCOUNTER LOCATION SOURCE CLASS 03/01/2018 [id number] Ambulatory [facility] ding:OT Repository 02/08/2018/02/10/19 [id number] Ambulatory [address] Repository 01/26/2018/01/27/20 [id number] Ambulatory BMSBuilding: Margie 18 [facility] Repository 01/22/2018 [id number] Ambulatory [facility] ding:LAB Repository 12/25/2017 [id number] Ambulatory [facility] MEDICAL Repository CENTERBuildi ng:AGGASTACC 12/16/2017/12/17/19 [id number] Ambulatory BMSBuilding: [place] [facility] Repository 12/10/2017/12/15/19 [id number] Ambulatory [address] Repository 12/02/2017/12/03/19 [id number] Emergency [address] ding:ED Repository 11/30/2017/12/02/19 [id number] Ambulatory [address] Repository 11/26/2017/11/27/19 [id number] Ambulatory [address] Repository 11/23/2017 [id number] Ambulatory [facility] ding:CVS Repository 11/05/2017/11/06/19 [id number] Ambulatory ABuilding:SD [place] 18 CCRoom: Health 0017Bed: B [facility] Repository 11/02/2017/11/03/19 [id number] Ambulatory [address] Repository 11/02/2017/11/14/19 [id number] Ambulatory [address] Repository 10/28/2017 [id number] Ambulatory [facility] ding:PSN Repository 10/27/2017/10/28/19 [id number] Ambulatory BMSBuilding: [place] 18 [facility] Repository 10/23/2017/10/24/19 [id number] Ambulatory [address] Repository 10/06/2017 [id number] Ambulatory [facility] ding:CVS Repository 10/05/2017 [id number] Ambulatory [facility] ding:CVS Repository 08/28/2017 [id number] Ambulatory [facility] ding:RAD Repository 08/04/2017/08/18/19 [id number] Ambulatory [address] Repository 07/29/2017/07/30/19 [id number] Ambulatory BMSBuilding: [place] 18 [facility] Repository 07/27/2017/07/28/19 [id number] Emergency [address] ding:ED Repository 07/16/2017 [id number] Ambulatory BMSBuilding: [place] [facility] Repository 07/03/2017/07/04/19 [id number] Ambulatory [address] Repository 07/03/2017/07/08/19 [id number] Ambulatory [address] Repository 06/25/2017 [id number] Ambulatory [facility] ding:LAB.FUT Repository URE 04/21/2017/04/22/19 [id number] Ambulatory BMSBuilding: [place] 18 [facility] Repository 04/15/2017 [id number] Ambulatory [facility] ding:CVS Repository 04/06/2017 [id number] Ambulatory [facility] ding:RAD Repository 03/23/2017/04/10/19 [id number] Ambulatory [address] Repository 03/20/2017/03/21/19 [id number] Tereletsky, Inpatient Margie [place] 18 [facility] ding:PCURoom Repository : VSI848Wrd: 1 03/20/2017 [id number] Tereletsky, Ambulatory BMSBuilding: [place] Percy [facility] Repository 03/20/2017 [id number] Tereletsky, Ambulatory BMSBuilding: [place] [facility] Rep[facility] 03/20/2017 [id number] Tereletsky, Ambulatory BMSBuilding: [place] Percy [facility] Repository 03/20/2017 [id number] Tereletsky, Ambulatory BMSBuilding: [facility] [facility] Repository 03/18/2017 [id number] Tereletsky, Ambulatory BMSBuilding: [place] [facility] Repository 03/18/2017 [id number] Tereletsky, Ambulatory BMSBuilding: [place] [facility] Repository 03/18/2017 [id number] Ambulatory BMSBuilding: [place] [facility] Repository 03/18/2017/03/18/19 [id number] Ambulatory BMSBuilding: [place] 18 [facility] Repository 03/11/2017/03/11/19 [id number] Ambulatory BMSBuilding: [place] 18 [facility] Repository 03/11/2017 [id number] Ambulatory BMSBuilding: [place] [facility] Repository 03/11/2017 [id number] Ambulatory BMSBuilding: [place] [facility] Repository 03/09/2017 [id number] Ambulatory [facility] ding:LAB.FUT Repository URE PAYERS PAYERS ENCOUNTER GUARANTOR PAYER SUBSCRIBER SOURCE 03/01/2018 SERENA Zamarripa Primary SERENA [id number] YENNIFER Insurance:MEDICARE YOCKEYDOB: [place], [place] PART A [facility] [id number] Hospital [address]Qnd: (330) Number: Repository [phone] () [id number] Date:2005-01-09 03/01/2018 Secondary SERENA C [place] Insurance:CIGNAPolicy YOCKEYDOB: Community Number: [id number] Hospital [id number] Repository Date:[id number], [place] [address]IG: 03/01/2018 Tertiary NOT GIVENUNK [place] Insurance:SELF PAY [facility] Number: Effective Repository Date:2017-07-21 01/26/2018 SERENA C Primary SERENA C [place] [id number] [place] Insurance:MEDICARE YOCKEYDOB: [place], [place] PART A [facility] [id number] Hospital [address]Jhf: (330) Number: Repository [phone] () [id number] Date:2017-10-27 01/26/2018 Secondary SERENA C [place] Insurance:CIGNAPolicy YOCKEYDOB: Community Number: [id number] Hospital [id number] Repository Date:8991-97-74[address] [place] [place] [address]GG: 01/26/2018 Tertiary NOT GIVENUNK [place] Insurance:SELF PAY [facility] Number: Effective Repository Date:2018-01-26 01/22/2018 SERENA C Primary SERENA C Marg[place] [id number] Insurance:MEDICARE YOCKEYDOB: [place] PART A [facility] [id number] Hospital [address]Jdv: (330) Number: Repository [phone] () [id number] Date:2018-01-22 01/22/2018 Secondary SERENA C [place] Insurance:CIGNAPolicy YOCKEYDOB: Community Number: [id number] Hospital [id number] Repository Date:9995-07-50YQ [address] [address]BG: 01/22/2018 Tertiary NOT GIVENUNK [place] Insurance:SELF PAY [facility] Number: Effective Repository Date:2018-01-22 12/25/2017 SERENA C Primary SERENA C [facility] YOCKEYDOB: Insurance:MEDICARE A YOCKEYDOB: Health System [facility] Number: [id number] [facility] [id number] [place], [place] Date: [address]Gvy: () 12/25/2017 Secondary SERENA C [facility] Insurance:CIGNA YOCKEYDOB: [facility] [id number] Repository Number: [id number] Date: 12/16/2017 SERENA C Primary SERENA C [place] [id number] [place] Insurance:MEDICARE YOCKEYDOB: [place] PART A [facility] [id number] Hospital [address]Aab: 330) Number: Repository [phone] () [id number] Date:2017-03-11 12/16/2017 Secondary SERENA C [place] Insurance:CIGNAPolicy YOCKEYDOB: [facility] Number: [id number] Hospital [id number] Repository Date:1746-51-82KG [facility] [address]SLWBME, [place] [address]HF: 12/16/2017 Tertiary NOT GIVENUNK [place] Insurance:SELF PAY [facility] Number: Effective Repository Date:2017-12-16 12/02/2017 SERENA C Primary SERENA C Marg[place] [id number] [place] Insurance:MEDICARE YOCKEYDOB: [facility] [place] PART A [facility] [id number] Hospital [address]Iaa: (227) Number: Repository [phone] () [id number] Date:2017-12-02 12/02/2017 Secondary SERENA C [place] Insurance:CIGNAPolicy YOCKEYDOB: Community Number: [id number] Hospital [id number] Repository Date:0941-15-46[address], [place] [address]QA: 12/02/2017 Tertiary NOT GIVENUNK [place] Insurance:SELF PAY [facility] [facility] Number[facility] Effective Repository Date:2017-12-02 11/23/2017 SERENA C Primary SERENA C Margie [id number] [place] Insurance:MEDICARE YOCKEYDOB: [place], [place] PART A BPolicy [id number] [facility] [address]508Ewg: 330) Number: Repository [phone] () [id number] Date:2017-11-17 11/23/2017 Secondary SERENA C Margie Insurance:CIGNAPolicy YOCKEYDOB: [facility] Number: [id number] Hospital [id number] Repository Date:5800-25-60[address]OJQVJ[address]Q, [place] [address]LV: 11/23/2017 Tertiary NOT GIVENUNK Margie Insurance:SELF PAY [facility] Number: Effective Repository Date:2017-11-17 11/05/2017 SERENA C [facility] Insurance:[facility]ICARE YOCKEYDOB: [facility] [id number] [facility] Number: [id number] [facility] [id number], [place] Date:2017-10-28 [place], [place] [address]Kif: [phone] [id number] 35879Zlh: () Name:[facility] [id number] Administrators LLCPO ()Tel: [phone] Ugk [address], [phone] () [place] [address]UX: 11/05/2017 Secondary SERENA C [facility] Insurance:CIGNA of YOCKEYDOB: [facility] Number: [id number] Repository [id number] [place] Date:2017-10-28 - [place], [place] 8696-28-21Kdao [address]Ztv: (330) Name:[phone] [place]188CWFTJUGPNAPONEE, [place] ()Tel: [phone]: [phone] 10/28/2017 SERENA C Primary SERENA C [place] [id number] [place] Insurance:MEDICARE YOCKEYDOB: [place] PART A [facility] [id number] Hospital [address]39[address]Ehj: (330) Number: Repository [phone] () [id number] Date:2017-07-21 10/28/2017 Secondary SERENA C Margie Insurance:CIGNAPolicy YOCKEYDOB: [facility] Number: [id number] Hospital [id number] Repository Date:2919-34-87[address]LFDIWXPSSWS, [place] [address]TR: 10/28/2017 Tertiary NOT GIVENUNK Margie Insurance:SELF PAY [facility] Number: Effective Repository Date:2017-07-21 10/27/2017 SERENA C Primary SERENA C [place] [id number] [place] Insurance:MEDICARE YOCKEYDOB: [place] PART A [facility] [id number] Hospital 895[address]Zyf: (330) Number: Repository [phone] () [id number] Date:2017-04-21 10/27/2017 Secondary SERENA C [place] Insurance:CIGNAPolicy YOCKEYDOB: Community Number: [id number] Hospital [id number] Repository Date:1256-65-39[address]HSWGYQCBTR[address] MCK[address] [address]WU: 10/27/2017 Tertiary NOT GIVENUNK Margie Insurance:SELF PAY [facility] Number: Effective Repository Date:2017-10-27 10/06/2017 SERENA C Primary SERENA C Margie [id number] [place] Insurance:MEDICARE YOCKEYDOB: [place] PART A [facility] [id number] Hospital 09150Nft: (330) Number: Repository [phone] () [id number] Date:2017-09-23 10/06/2017 Secondary SERENA C Margie Insurance:CIGNAPolicy YOCKEYDOB: Community Number: [id number] Hospital [id number] Repository Date:3338-84-49VH [address]MPPJBFYBXWI, [place] [address]WS: 10/06/2017 Tertiary NOT GIVENUNK Margie Insurance:SELF PAY [facility] Number: Effective Repository Date:2017-09-23 10/05/2017 SERENA C Primary SERENA C Margie [id number] [place] Insurance:MEDICARE YOCKEYDOB: [place] PART A [facility] [id number] Hospital 21[address]Ple: (330) Number: Repository [phone] () [id number] Date:2017-09-23 10/05/2017 Secondary SERENA C Margie Insurance:CIGNAPolicy YOCKEYDOB: Community Number: [id number] Hospital [id number] Repository Date:5917-75-08QG [address]UPWLSILZCWH, [place] [address]EC: 10/05/2017 Tertiary NOT GIVENUNK [place] Insurance:SELF PAY [facility] Number: Effective Repository Date:2017-09-23 08/28/2017 SERENA C Primary SERENA C Margie [id number] [place] Insurance:MEDICARE YOCKEYDOB: [place] PART A [facility] [id number] Hospital 32025Ysg: (330) Number: Repository [phone] () [id number] Date:2017-08-20 08/28/2017 Secondary SERENA C Margie Insurance:CIGNAPolicy YOCKEYDOB: Community Number: [id number] Hospital [id number] Repository Date:0809-70-54JE [address]TKRDYEFZDFG, [place] [address]KC: 08/28/2017 Tertiary NOT GIVENUNK Margie Insurance:SELF PAY [facility] Number: Effective Repository Date:2017-08-20 07/29/2017 SERENA C Primary SERENA C Margie [id number] [place] Insurance:MEDICARE YOCKEYDOB: [place] A [facility] [id number] Hospital 99066Cqz: (330) Number: Repository [phone] () [id number] Date:2017-07-21 07/29/2017 Secondary SERENA C [place] Insurance:CIGNAPolicy YOCKEYDOB: Community Number: [id number] Hospital [id number] Repository Date:1159-04-39[address]YSGODUNJOKT, [place] [address]JN: 07/29/2017 Tertiary NOT GIVENUNK [place] Insurance:SELF PAY [facility] Number: Effective Repository Date:2017-07-28 07/27/2017 SEREAN C Primary SERENA C [place] [id number] [place] Insurance:MEDICARE YOCKEYDOB: [place] A [facility] [id number] [place] [id number]: (330) Number: Repository [phone] () [id number] Date:2017-07-27 07/27/2017 Secondary SERENA C Margie Insurance:CIGNAPolicy YOCKEYDOB: Community Number: [id number] Hospital [id number] Repository Date:5285-70-19MW [address]KMPAVCQIGBY [place] [address]TE: 07/27/2017 Tertiary NOT GIVENUNK Margie Insurance:SELF PAY [facility] Number: Effective Repository Date:2017-07-27 07/16/2017 SERENA C Primary SERENA C [place] [id number] [place] Insurance:MEDICARE YOCKEYDOB: [facility] PART A [facility] [id number] Hospital 88697Tsl: (330) Number: Repository [phone] () [id number] Date:2017-04-21 07/16/2017 Secondary SERENA C [place] Insurance:CIGNAPolicy YOCKEYDOB: Community Number: [id number] Hospital [id number] Repository Date:2848-31-36[address]MRZYSGOHXEA, [place] [address]QR: 07/16/2017 Tertiary NOT GIVENUNK Margie Insurance:SELF PAY [facility]: Effective Repository Date:2017-04-21 06/25/2017 SERENA C Primary SERENA C Margie [id number] [address] Insurance:MEDICARE YOCKEYDOB: [place] A [facility] [id number] Hospital 736[address]Gfx: (330) Number: Repository [phone] () [id number] Date:2017-06-25 06/25/2017 Secondary SEERNA C Margie Insurance:CIGNAPolicy YOCKEYDOB: Community Number: [id number] Hospital [id number] Repository Date:3115-91-51WT [address]SUOOKQAMNVR, [place] [address]DN: 06/25/2017 Tertiary NOT GIVENUNK Margie Insurance:SELF PAY [facility] Number: Effective Repository Date:2017-06-25 04/21/2017 SERENA C Primary SERENA C Margie [id number] [place] Insurance:MEDICARE YOCKEYDOB: [place] [facility] [id number] Hospital 747[address]Nvg: (330) Number: Repository [phone] () [id number] Date:2017-03-09 04/21/2017 Secondary SERENA C Margie Insurance:CIGNAPolicy YOCKEYDOB: Community Number: [id number] Hospital [id number] Repository Date:0099-49-92[address]PBKJFEOKDRY, [place] [address]AY: 04/21/2017 Tertiary NOT GIVENUNK [place] Insurance:SELF PAY [facility] Number: Effective Repository Date:2017-03-09 04/15/2017 SERENA C Primary SERENA C Margie [id number] [place] Insurance:MEDICARE YOCKEYDOB: [place] [facility] [id number] Hospital 868[address]Vqh: (330) Number: Repository [phone] () [id number] Date:2017-03-23 04/15/2017 Secondary SERENA C Margie Insurance:CIGNAPolicy YOCKEYDOB: Community Number: [id number] Hospital [id number] Repository Date:5975-96-81NU [address]VFWBAUVJIZN, [place] [address]VM: 04/15/2017 Tertiary NOT GIVENUNK Margie Insurance:SELF PAY [facility] Number: Effective Repository Date:2017-03-23 04/06/2017 SERENA C Primary SERENA C Margie [id number] [place] Insurance:MEDICARE YOCKEYDOB: [place] [facility] [id number] V[place] [id number]: (330) Number: Repository [phone] () [id number] Date:2017-03-24 04/06/2017 Secondary SERENA C Margie Insurance:CIGNAPolicy YOCKEYDOB: Community Number: [id number] Hospital [id number] Repository Date:3404-97-60XN [address]ASVKCOHUZUZ, [place] [address]UA: 04/06/2017 Tertiary NOT GIVENUNK [place] Insurance:SELF PAY [facility] Number: Effective Repository Date:2017-03-24 03/20/2017 SERENA C Primary SERENA C [place] [id number] [place] Insurance:MEDICARE YOCKEYDOB: [place] [facility] [id number] Hospital [address]Dpc: (330) Number: Repository [phone] () [id number] Date:2017-03-18 03/20/2017 Secondary SERENA C Margie Insurance:CIGNAPolicy YOCKEYDOB: Community Number: [id number] Hospital [id number] Repository Date:6920-12-04CT [address]QFNMFJSOBSW, [place] [address]ZB: 03/20/2017 Tertiary NOT GIVENUNK Margie Insurance:SELF PAY [facility] Number: Effective Repository Date:2017-03-18 03/20/2017 SERENA C Primary SERENA C Margie [id number] [place] Insurance:MEDICARE YOCKEYDOB: [place] [facility] [id number] Hospital 01470Bff: (330) Number: Repository [phone] () [id number] Date:2017-03-18 03/20/2017 Secondary SERENA C [place] Insurance:CIGNAPolicy YOCKEYDOB: [facility] Number: [id number] Hospital [id number] Repository Date:4302-01-84WA [address]ECOKVVYCSWLCOXS [place], [place] [address]DT: 03/20/2017 Tertiary NOT GIVENUNK Margie Insurance:SELF PAY [facility] Number: Effective Repository Date:2017-03-20 03/20/2017 SERENA C Primary SERENA C [place] [id number] [place] Insurance:MEDICARE YOCKEYDOB: [place] [facility] [id number] Hospital 03328Rgo: (330) Number: Repository [phone] () [id number] Date:2017-03-18 03/20/2017 Secondary SERENA C Margie Insurance:CIGNAPolicy YOCKEYDOB: Community Number: [id number] Hospital [id number] Repository Date:4884-02-95RN [address]BLRCWAIZRQLCOXS CREEK, [place] [address]IV: 03/20/2017 Tertiary NOT GIVENUNK [place] Insurance:SELF PAY [facility] Number: Effective Repository Date:2017-03-20 03/20/2017 SERENA C Primary SERENA C Margie [id number] [place] Insurance:MEDICARE YOCKEYDOB: [place] [facility] [id number] Hospital 485[address]Cgh: (330) Number: Repository [phone] () [id number] Date:2017-03-18 03/20/2017 Secondary SERENA C [place] Insurance:CIGNAPolicy YOCKEYDOB: Community Number: [id number] Hospital [id number] Repository Date:9544-36-90BR [address]CCOAYUHIZID, [place] [address]CY: 03/20/2017 Tertiary NOT GIVENUNK [place] Insurance:SELF PAY [facility] Number: Effective Repository Date:2017-03-20 03/20/2017 SERENA C Primary SERENA C [place] [id number] [place] Insurance:MEDICARE YOCKEYDOB: [facility] [facility] [id number] Hospital 26[address]Ftm: (330) Number: Repository [phone] () [id number] Date:2017-03-18 03/20/2017 Secondary SERENA C [place] Insurance:CIGNAPolicy YOCKEYDOB: Community Number: [id number] Hospital [id number] Repository Date:2060-46-13GQ [address]RGAVVBNMEUW, [place] [address]XE: 03/20/2017 Tertiary NOT GIVENUNK Margie Insurance:SELF PAY [facility] Number: Effective Repository Date:2017-03-20 03/18/2017 SERENA C Primary SERENA C [place] [id number] [place] Insurance:MEDICARE YOCKEYDOB: [facility] [place] [facility] [id number] Hospital 98234Tie: (330) Number: Repository [phone] () [id number] Date:2017-03-18 03/18/2017 Secondary SERENA C [place] Insurance:CIGNAPolicy YOCKEYDOB: Community Number: [id number] Hospital [id number] Repository Date:2846-84-48IN [address]HHLEMXMUKFI, [place] [address]IZ: 03/18/2017 Tertiary NOT GIVENUNK Margie Insurance:SELF PAY [facility] Number: Effective Repository Date:2017-03-18 03/18/2017 SERENA C Primary SERENA C [place] [id number] [place] Insurance:MEDICARE YOCKEYDOB: [place] [facility] [id number] Hospital 02061Gll: (330) Number: Repository [phone] () [id number] Date:2017-03-18 03/18/2017 Secondary SERENA C Amrgie Insurance:CIGNAPolicy YOCKEYDOB: Community Number: [id number] Hospital [id number] Repository Date:9355-10-48MX [address]QTCVZGESRBR, [place] [address]YW: 03/18/2017 Tertiary NOT GIVENUNK [place] Insurance:SELF PAY [facility] Number: Effective Repository Date:2017-03-18 03/18/2017 SERENA C Primary SERENA C Margie [id number] [place] Insurance:MEDICARE YOCKEYDOB: [place] [facility] [id number] [place] [id number]: (330) Number: Repository [phone] () [id number] Date:2017-03-18 03/18/2017 Secondary SERENA C Margie Insurance:CIGNAPolicy YOCKEYDOB: Community Number: [id number] Hospital [id number] Repository Date:2686-84-93[address]OTHELBPMXQH, [place] [address]LX: 03/18/2017 Tertiary NOT GIVENUNK [place] Insurance:SELF PAY [facility] Number: Effective Repository Date:2017-03-18 03/18/2017 SERENA C Primary SERENA C [place] [id number] [place] Insurance:MEDICARE YOCKEYDOB: [facility] [facility] [id number] Ville [id number]: (330) Number: Repository [phone] () [id number] Date:2017-03-18 03/18/2017 Secondary SERENA C [place] Insurance:CIGNAPolicy YOCKEYDOB: Community Number: [id number] Hospital [id number] Repository Date:8337-94-29BJ [address] [address]OL: 03/18/2017 Tertiary NOT GIVENUNK [place] Insurance:SELF PAY [facility] Number: Effective Repository Date:2017-03-18 03/11/2017 SERENA C Primary SERENA C [place] [id number] [place] Insurance:MEDICARE YOCKEYDOB: [place] [facility] [id number] Hospital 08832War: (330) Number: Repository [phone] () [id number] Date:2017-02-23 03/11/2017 Secondary SERENA C [place] Insurance:CIGNAPolicy YOCKEYDOB: Community Number: [id number] Hospital [id number] Repository Date:1212-88-30ZL [address]AKMFBKBRWKN, [place] [address]EM: 03/11/2017 Tertiary NOT GIVENUNK [place] Insurance:SELF PAY [facility] Number: Effective Repository Date:2017-02-23 03/11/2017 Serena C Primary Serena C [place] [id number] [place] Insurance:MEDICARE YockeyDOB: [place] [facility] [id number] Hospital 219[address]Uha: (330) Number: Repository [phone] () [id number] Date:2017-03-11 03/11/2017 Secondary Serena C Margie Insurance:CIGNAPolicy YockeyDOB: Community Number: [id number] Hospital [id number] Repository Date:6329-42-73CR [address]BGZRXQJTBSI, [place] [address]QV: 03/11/2017 Tertiary NOT GIVENUNK Margie Insurance:SELF PAY [facility] Number: Effective Repository Date:2017-03-11 03/11/2017 Serena C Primary Serena C [place] [id number] [address] Insurance:MEDICARE YockeyDOB: [place] [facility] [id number] Hospital 75[address]Viq: (330) Number: Repository [phone] () [id number] Date:2017-03-11 03/11/2017 Secondary Serena C Margie Insurance:CIGNAPolicy YockeyDOB: Community Number: [id number] Hospital [id number] Repository Date:5343-83-18QW [address]PKFXUNLAOBW [place] [address]AX: 03/11/2017 Tertiary NOT GIVENUNK [place] Insurance:SELF PAY [facility] Number: Effective Repository Date:2017-03-11 03/09/2017 Serena C Primary Serena C Margie [id number] [place] [address] Insurance:MEDICARE YockeyDOB: [place] [facility] [id number] Hospital 89684Xik: (330) Number: Repository [phone] () [id number] Date:2017-03-09 03/09/2017 Secondary Serena C Margie Insurance:CIGNAPolicy YockeyDOB: Community Number: [id number] Hospital [id number] Repository Date:0116-50-60LR [address]KJXSXRVAUZV, [place] [address]JJ: 03/09/2017 Tertiary NOT GIVENUNK [place] Insurance:SELF PAY [facility] Number: Effective Repository Date:2017-03-09
== END ==
PROVIDERS: Family Provider Internal Medicine; PCP Internal Medicine; Referring Provider Nurse Practitioner; Visit Provider Nurse Practitioner
DX: E10.49 Type 1 diabetes mellitus with other diabetic neurological complication (principal); E10.9 Type 1 diabetes mellitus without complications
CPT/HCPCS: 36415; 80053; 82043; 82570; 83036; 87077; 87086; 87088; 87186

== ENCOUNTER 2018-03-08 14:00 | Outpatient (RCR) | payer MEDICARE, OTHER, SELFPAY ==
--- NOTE | 2017-08-21 17:25 | HP.SP.AD ---
History - History Date of Eval: 08/20/17 Medical Diagnosis (from RX): Oral Dysphagia (R13.11), CVA, Demetia Date of Onset of Diagnosis: 12/12/2016 Previous speech therapy: Yes Results: MBS completed 02/25/2017 findings - moderate oral dysphagia (R13.11) with overt aspiration of thin liquids and severe oral holding; marked by severe swallow apraxia and delay of initiation of swallow. Recommendation mechanical soft/nectar thickened liquid diet with utilization of strategies of 3 sec prep, liquid wash. Recommendation of implementation of the FFWP due to strong family support. MBS completed 04/06/2017 with findings of moderate oral dysphagia (R13.11) with recommendation of regular soft texture/thin liquid diet with compensatory strategies in place of supervision, cutting up food as needed, avoiding mixed consistencies, 3 sec prep, alternate texture/temp/ flavor, reduce volume size, avoid straws, seated upright 90 degrees during meal, remain upright for 30-60 mins after meal, medication crushed in applesause. Use of FFWP can be implemented if not in place. Pt received speech therapy via home health services with focus on thermal tactile stimulation via use of lemon swab to improve timely initiation of swallow onset, implementation of compensatory stratgies, and safety during swallowing. 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 Medications related to this diagnosis: Amiodarone HCL, Apixaban, Atorvastatin, Glucagon, Insulin Aspart, Metoprolol Tartrate, Polyvinyl Alcohol, Difluprednate, Dorzolamide Hydrochloride, Pantoprazole, Levomefolate Smoking Status: Never smoker Hx Smoking: No Hx Tobacco Use: No - Pain Is pain an issue with your current prescribed condition?: No - Personal Right Hearing Abillity: Use of Hearing Aid Left Hearing Abillity: Use of Hearing Aid Visual Assistive Devices: Glasses Patients Living Arrangements: Family member who is also her aide Patient Allergies - Allergies Allergies ezetimibe [From Zetia] Allergy (Verified 07/29/17 12:56) Other Subjective Oral Motor - Subjective Patient Reports: Drooling Numbness: Cheek - Comments Comments: Pt reported an increase in drooling and bed being raised to combat drooling at night. Pt reported decreased sensation on rt side of face. Objective Oral Motor - Oral Status Dentition: WNL - Labial Impairment: WNL Observation at Rest: WNL Closure: WNL Pucker: WFL Retraction: WFL Alternating Pucker/Retraction: WFL Involuntary Movement noted: No - Labial Comments Comments: WFL - Lingual Impairment: Mild Protrusion: WNL Retraction: WFL Lateralization: WNL Involuntary Movement: No - Lingual Comments Comments: Difficulty with movements with prolonged bolus hold. 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 Gagging: No Comments: Dry swallow test passed. Modified Water swallow test via straw bolus trial 1 no overt s/s able to complete 2 additional dry swallows, trial 2 no overt s/s, trial 3 audible swallow with throat clear post swallow. 1 Oz. water test trial 1 large gulps with overt s/s aspiration with wet vocal quality, and throat clear, Trial 2 large gulps overt s/s aspiration. 3 OZ. water test Trial 1 overt s/s aspiration wet vocal quality, light cough, throat clear - [place] Thickened Liquids Administered via: Straw Symptoms: Throat Clearing Laryngeal Elevation: WFL Oral Holding: Yes Duration: 9 sec Gagging: No Comments: Trial 1 no overt s/s aspiration. Trial 2 Audible swallow, delayed throat clear. Trial 3 audible swallow and prolonged delay of initiation - Pureed Oral Holding: Yes Duration: 9 secs Comments: No overt s/s of aspirations but prolonged initiation - Regular Comments: no overt s/s aspiration, use of liquid wash, no pocketing noted - Results Swallowing Within Normal Limits: Yes Swallowing Diagnosis: Oral Phase Dysphagia Severity: Moderate Other Impressions - Comments MASA Score -: MASA score of 171 Plan - Plan Plan: Recommendation of nectar thickened liquid and regular soft diet at least until completion of MBS. Compensatory strategies of small sip size, small bolus size, limit meals to 20 mins due to fatigue during eating and swallowing. MBS scheduled. Additional Speech therapy warrently either outpatient or home health to review and implement compensatory strategies - Recommendations MBS: Yes Treatment Warranted: Yes - Frequency Frequency: 1x/Week Duration: 4-6 Weeks - Prognosis Prognosis: Good - Goals that are Established: Determination:: Goals will be added/modified as deemed necessary and appropriate. Therapy will be discontinued when results of re-evaluation indicate therapy is no longer needed or lack of progress has been documented. - Goal #1-5 Goal #1: Pt will complete an MBS to assess swallow function and compensatory strategies to ensure a the safest and most effect swallow. Prompts: Min Accuracy: 80 Goal #2: Pt will demonstrate an ability to utilize the compensatory strategies of small bolus size and small sip size with min verbal cueing from caregiver in 4/5 trials. Prompts: Min Accuracy: 80 Education - Patient has Indicated that the Following Identified Educational Needs: Cognitively Impaired - Patient Instruction Patient Education: Treatment Plan, Safety Precautions, Diet Level Person Taught: Patient, Primary Caregiver Teaching Method: Discussion Response to teaching: Return demonstration
--- NOTE | 2017-12-21 14:05 | HP.PTEVAL ---
Patient's Visit Information SERENA WARNER is a 77 year old F referred to Physical Therapy by TAQUERIA Castano with a diagnosis of CVA. Date of Evaluation: 12/21/17 Physical Therapist: Codi Mauro - Visit Plan Frequency: 2x /Week Duration: 4 Weeks Plan: Focus on balance and LE strength/stabilization with functional mobility. GAIT BELT!!!! - Subjective Subjective: CVA December 122016- had OT/PT/Speech after that- had a wound on the top of the right foot- had an angioplast Nov 05, 2017 and was just cleared for PT. Last time she was walking unassisted prior to the stroke. After the stroke she was ambulating with contact guard with a rollerator. Lives with grandpaty and - both are with her professor of genetics and its set up handicapped accessible. Currently she is a little more than stand pivot. She has poor balance- right side is weak. Gait is short stride similar to a shuffle and lunges forward and reaches for things- impulsivity. Can use a walker more does hand held assist. Reports very little pain but has pain in the right shoulder- blames it on the reclyner handle. Still has a wound on the right foot- doesn't want to keep shoes on- no open area. WBAT. no recent x-rays or MRI. 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 Goals for PT- wants to be more I and ambulate more. PMHx: DM, nueropathy, CVA, glaucoma, stent in left eye, partial hard of hearing, hypotension. Meds: gabapentin, insulin, operozolol, medodrine, aloquist, torvastsin, ropressa eye drops, plavix. Sleep: not disturbed- gets up to go to the bathroom- - Objective Posture: FH, RS, Increased kyphosis- does not correct with verbal cues. Gait: antaxic- pushes to the right with walker without knowldege- poor heel/toe pattern- shuffling of the right LE. Balance: poor- unable to stand without CGA. Transfers- sit to stand- min A. ROM: WFL in all planes. Stairs: not attempted due to safety concerns. Strength: ankle: 4/5, Knee: 4/5, Hip: 4-/5 throughout- flexion/extn/abd/add - Goals Goal 1:: Patient and caregiver will be I with HEP and progression Goal Time Frame: 4-6 Weeks Goal 2:: Patient will demo 4+/5 strength in LE Goal Time Frame: 4-6 Weeks Goal 3:: Patient will ambulate >300 feet with LRD and mod I to ease ADL's. Goal Time Frame: 4-6 Weeks Goal 4:: Patient will sit to stand x5 with no A safely to LRD Goal Time Frame: 4-6 Weeks Goal 5:: Patient will stand I for 30 seconds safely Goal Time Frame: 4-6 Weeks - Rehabilitation Potential Physical Therapy Diagnosis: Patient presents with hypomobility- she has decreased strength and muscular endurance leading to poor balance and inability to perform ADL's safely (including gait) Rehabilitation Potential: Fair - Anticipated Interventions Patient/Client Instruction: Educate patient on: Benefits of Fitness Program Therapeutic Exercise to Include: Strength training, Endurance training, Balance training, Body mechanics, Postural training, Gait and locomotor training, Dynamic Lumbar Stabilization For the Purpose of:: To improve muscle performance and motor function Functional Training to Include: Gait training Thank you for the opportunity to evaluate your patient. For Medicare and Medicare HMO plans, please review the plan of care and approve it. It will need to be FAXED BACK to us at [phone] for Medicare purposes. Please let me know if there are questions or concerns regarding this plan of care. Physician Signature: Date:
--- NOTE | 2017-12-22 09:48 | HP.OTEVAL_ITS ---
Patient's Visit Information SERENA WARNER is a 77 year old F, referred to Occupational Therapy by TAQUERIA Castano, with a diagnosis of Ischemic L MCA CVA. Date of Evaluation: 12/21/17 Occupational Therapist: Perlita Davidson - Subjective Subjective: Pt. ?Nida? arrived with granddaughter (Janelle) and caregiver (Jason). Granddaughter typically main caregiver but recently hurt hip and needed to bring another caregiver to help aide in Pt. care. Noted original CVA December 12, 2016. Noted wanted to start OT/PT but explained that Nida had vascular issues with recent angioplasty 11/05/17. Further noted that R dorsal foot wound took an entire year to heal. - Pain Right Shoulder 5 Pain Intensity Range: 1, 7, 8 - ROM Shoulder: pain with all mvmts; WFL Elbow: WFL Forearm: WFL MP: WFL PIP: WFL DIP: WFL - Strength Shoulder: flexion R 4-/5, L 4-/5 Elbow: flexion R 4-/5, L 4-/5 ; extension R 4-/5, L 4-/5 Director Of Pupil Personnel Program: R 46, L 39 Lateral Pinch: R 9, L 10 Tripod Pinch: R 5, L 10 Tip-to-Tip Pinch: R 5, L 6 - Sensation Kinesthesia: Abnormal - Right, Abnormal - Left Proprioception: Abnormal - Right, Abnormal - Left Sensation Comments: Denies numbness or tinging in hands. - Visual/Perceptual Skills Comments: Pt. has glaucoma. - Cognitive Skills Follows Directions: Yes Oriented to (Check all that apply): Person Short Term Memory Impaired: Yes Cognitive Comments: Needs multiple cues and step by step directions to complete tasks. - Attention Attention: Normal - Nine Hole Peg Right: 51.00 s Left: 50. 37 s - In-Hand Manipulation Finger to Palm Translation: Severe - Right, Normal - Left Palm to Finger Translation: Severe - Right, Normal - Left Shift: Severe - Right, Unable - Right, Severe - Left, Unable - Left Rotation: Severe - Right, Unable - Right, Severe - Left, Unable - Left Comments: for shift and rotation increased difficulty listening and following directions. Needs max A to complete new tasks. 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 Goal:: Nida to increased ability to complete R UE ROM with no more than 1/10 pain or very minimal nonverbal pain behaviors 4/5 trials 80% of the time to promote increased (I) with ADl/IAdls by d/c. Goal:: Nida to increase FMC and finger dexterity through decrease time to complete 9 hole pegboard test to promote increased skills needed to complete manipulation of self care items by d/c. Goal:: Nida to be mod I to complete B UE and LE dressing skills 4/5 trials 80% of the time with 2-3x cues to complete tasks to promote increased (I) and ability to return to PLOF by d/c. Goal:: Nida to be mod I to complete simple 1-2 step tasks with verbal and visual cues to promote increased participation in therapy 4/5 trials 80% of the time by d/c. Goal:: Nida and caregiver to complete daily HEP to promote increased strength, ROM, and stability of R shoulder to decrease pain and impingment like symptoms 4/5 trials 80% of the time by d/c. Goal:: Nida to be able to complete low vision related compensations at home and in therapy to promote increased ability to complete ADl/IADls to improve QOL and decrease further decline in function by d/c. - Rehabilitation General Assessment: Arrived for OT evaluation on this date of 12/21/17. She is s/p post CVA occurring a year ago. Granddaughter noted that they are hoping to help make her more (I) with ADls. Additionally, Serena has been experiencing increased RUE shoulder pain. She exhibited increased positive signs related to anterior impingement of R shoulder. Decrease strength noted in B UE. OT to address RUE shoulder pain, promote general strength and conditioning and complete a/e training and compensations to promote increased (I) with ADl/IADls to promote increasing (I) and promoting increased QOL. Rehabilitation Potential: Good - Anticipated Interventions Anticipated Interventions: A/AAROM/PROM, Strengthening, Modalities, Joint Protection/Energy Conservation, Ergonomic Education, Dynamic Sitting Balance, Fine Motor Coord/Payam, Neuro Reeducation, Visual/Perceptual Skills, ADL Training, Education re assistive Equipment, Caregiver Training, Home Program Other Interventions: Low vision techniques and compensations needed. - Visit Plan Frequency: 2x /Week Duration: 4 Weeks General Plan: OT to address self-care related concerns as well as painful R UE to promote increased participation and completion of self care related tasks by d/c. OT to focus on pain management, strengthening with PRE, FMC, dexterity, and self care techniques to promote (I) and ability to return to PLOF. TEXT: Thank you for the opportunity to evaluate your patient. For Medicare and Medicare HMO plans, please review the plan of care and approve it. It will need to be FAXED BACK to us at [phone] for Medicare purposes. Please let me know if there are questions or concerns regarding this plan of care. Physician Signature: Date:
--- NOTE | 2018-02-23 13:56 | HP.OTREVAL ---
Luly Canseco, ROLDAN-C, It has been my pleasure to treat SERENA WARNER over the last 7 visits for Ischemic L MCA CVA. Please see the progress note below for an update on the occupational therapy plan of care! Subjective: Arrived 14 mins late with Granddaughter. Granddaughter and noted shoulder is still bad. Noted hurts from shoulder down to wrist. She has taken a month break from therapy. Objective/Function: Completed reassessment on this date 02/23/18. Measurements as follows: ROM is as follows: Shoulder: - Flexion: R 0-111, L WFL. - Extension R 0-32, L WFL. - IR: R 0-65, L WFL. - ER R 0-32, L WFL. Strength measurements are as follows: Shoulder. - Flexion: R 4/5, L 4-/5. - IR: 4-/5, L 4-/5. - ER: 4-/5, L 4-/5. Elbow: - Flexion: 4-/5, L 4-/5. - extension: 4-/5, L 4-/5. Neers Impingement: Positive R UE. Biceps load: Positive R UE. Budget Controller in flexed position: 42, L 59 lbs. Budget Controller in extended position: R 42, L 55 lbs. Lateral pinch R 11, L 10 lbs. Tripod R 8, L 10lbs. pinch R 8, L 7 lbs. Completed sensory testing: Results is as follows: R hand: 2nd 5.46 , 3rd 4.56 ,4th 4.93 ,5th 4.31 ,thumb 4.93. L hand: 2nd 3.61 , 3rd 3.84 ,4th 4.08 ,5th 3.61 ,thumb 3.61. Increased sensory deficits on R hand when compared to L hand. Plan Frequency: 1-2x /Week Duration: 4 Weeks Visits in this POC: 12-16 Plan: Continue POC for 1-2x weekly for next 4 weeks. She took month long break and symptoms that were decreasing and have returned. HEP was not carried over and they are to start completing HEP to help manage symptoms. Increased difficulty determining if symptoms are coming from cervical spine or just shoulder as Nida reports all movements are painful. Since previous symptoms were decreasing with treatment we will continue POC for 1-2x 4 weeks to work on decreasing symptoms. If no relief is made, then it will be recommended she returns to referring physician. 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 Goal:: Nida to increased ability to complete R UE ROM with no more than 1/10 pain or very minimal nonverbal pain behaviors 4/5 trials 80% of the time to promote increased (I) with ADl/IAdls by d/c. Goal:: Nida to increase FMC and finger dexterity through decrease time to complete 9 hole pegboard test to promote increased skills needed to complete manipulation of self care items by d/c. Goal:: Nida to be mod I to complete B UE and LE dressing skills 4/5 trials 80% of the time with 2-3x cues to complete tasks to promote increased (I) and ability to return to PLOF by d/c. Goal:: Nida to be mod I to complete simple 1-2 step tasks with verbal and visual cues to promote increased participation in therapy 4/5 trials 80% of the time by d/c. Goal:: Nida and caregiver to complete daily HEP to promote increased strength, ROM, and stability of R shoulder to decrease pain and impingment like symptoms 4/5 trials 80% of the time by d/c. Goal:: Nida to be able to complete low vision related compensations at home and in therapy to promote increased ability to complete ADl/IADls to improve QOL and decrease further decline in function by d/c. Anticipated Interventions Anticipated Interventions: A/AAROM/PROM, Strengthening, Modalities, Joint Protection/Energy Conservation, Ergonomic Education, Dynamic Sitting Balance, Fine Motor Coord/Payam, Neuro Reeducation, Visual/Perceptual Skills, ADL Training, Education re assistive Equipment, Caregiver Training, Home Program Other Interventions: Low vision techniques and compensations needed. Please do not hesitate to contact me at [phone] by phone or if you have questions or concerns regarding this new plan of care! Sincerely, Perlita Davidson
== END 2018-03-08 19:00 | disposition home or self-care (01) ==
LOC: OT 14:00
PROVIDERS: Family Provider Internal Medicine; PCP Internal Medicine; Referring Provider Nurse Practitioner Acute Care; Visit Provider Nurse Practitioner Acute Care
DX: R13.11 Dysphagia, oral phase (principal)
CPT/HCPCS: 92526; 92610; 97110; 97162; 97166; 97168; 97530

== ENCOUNTER 2018-03-14 13:21 | Emergency (ER) | payer MEDICARE, OTHER, SELFPAY ==
[2018-01-26 13:02] VITALS: BMI 25.3
[2018-03-14 13:22] VITALS: BP 128/65; PULSE 80; RESP 18; TEMP 36.4; O2SAT 98; BMI 24.9
--- NOTE | 2018-03-14 13:25 | EKG12_ITS ---
Test Reason : HYPOTENSION Blood Pressure : / mmHG Vent. Rate : 069 BPM Atrial Rate : 069 BPM P-R Int : 146 ms QRS Dur : 088 ms QT Int : 408 ms P-R-T Axes : 029 001 039 degrees QTc Int : 437 ms Normal sinus rhythm Nonspecific ST abnormality Abnormal ECG Confirmed by LEAH NY, SARAH ([id number]), editor publications DOMINGO WING ([id number]) on 03/17/2018 1:40:30 PM Referred By: Luly Canseco Confirmed By:SARAH LYNN MD
[2018-03-14 13:36] VITALS: BP 141/78; PULSE 72; RESP 25; O2SAT 98; O2SAT 99
--- NOTE | 2018-03-14 13:45 | RAD_ITS ---
STUDY: X-RAY CHEST REASON FOR EXAM: Female, 78 years old. Hypotension TECHNIQUE: Single AP portable view of the chest. COMPARISON: 03/18/17. FINDINGS: The lungs are clear and expanded. There is no demonstrated pleural abnormality. Normal size heart. Normal mediastinum and kahlil. Normal visualized pulmonary arteries. Normal visualized aortic arch and descending thoracic aorta. Normal visualized thoracic spine. Normal visualized ribs, clavicles, and shoulders. There is no demonstrated abnormality of the visualized soft tissue structures of the upper abdomen. RAD/Chest 1 View (Portable) IMPRESSION: Normal x-ray examination of the chest. Electronically Signed: Ryan Neville MD at 15:03 EST , Service support ,
--- NOTE | 2018-03-14 13:48 | ED.VISSUMM ---
- ER Visit Summary Date of Service: 03/14/18 Chief Complaint: [] Hypotension history of same history of stroke History of Present Illness: The patient is a 78 F [] family her granddaughter is an [employer] and takes care of her 01/09 provides a history with the patient She had a stroke a few years ago causing right-sided weakness she has rehab to where she can move talk execute normal walking etc. with assistance in general help with family they report after the stroke she developed persistent hypotension she was put on salt type medications to help support the blood pressure the family reports for the last 3 days her blood pressures been running in the 85 over palp range, there is been no fever no cough no chest pain no numbness weakness paresthesias no abnormal urination no diarrhea no fluid loss questionable decreased p.o. intake, also they note that her blood sugar insulin-dependent diabetic on insulin pump has been running in the 500 range and they have been adjusting it per the sliding scale the patient has no specific complaints today her blood pressure remained in the 85 palp range except just before they brought her to the hospital her blood pressure improved to 126/85 without any specific interventions and her blood pressure is currently that level for ED measurement Patient is awake looking about the room answering questions appropriately and denies any complaints Physical Examination: [] Pressure 125/68 afebrile General, no distress resting comfortably HEENT is generally unremarkable The neck is supple no adenopathy Cardiovascular, regular rate and rhythm Lungs, clear bilateral Abdomen, soft nontender Extremities, no clubbing cyanosis or edema Neurologic, awake alert answering questions appropriately moving all 4 extremities Test Results: [] Emergency Department Course and Treatment: [] All the above IV fluids screening labs lactate ketones The patient's labs are all generally unremarkable, EKG chest x-ray unremarkable see those reports, UA shows some leukocytes esterase no white cells culture was sent the reports she has been colonized with yeast in the past and I explained that rather than start her on antibiotics will have him check the urine culture in a day or 2 if she has no UTI symptoms no fever no white count Received a fluid bolus here she is resting comfortably bed her blood pressures remained as above unchanged in the normal range at this time we will discharge her home to follow-up with her family doctors return for change in symptoms Treatment Plan: [] Disposition: [] Home stable Impression: [] Reported hypotension resolved, diabetes, history of prior stroke, history of hypotension This note was generated with [employer] dictation software. It may contain incorrect words, spelling, and punctuation that were not noted in review of the chart prior to signing ED Disposition - Plan for ED Patient: Referrals: Elizabeth Coto MD [Primary Care Provider] -
[2018-03-14 14:14] VITALS: BP 144/57; PULSE 80; RESP 23; O2SAT 98
[2018-03-14] MEDS: 0.9% Normal Saline 1,000 ML 150 ML IV (14:14)
[2018-03-14 14:15] LABS: Absolute Lymphocyte Count 1.28 X10^3/ul (0.83-4.51); Absolute Neutrophil Count 3.6 X10^3/uL (2.0-7.7); Basophil# 0.05 X10^3/uL; Basophil% 0.9 % (0-1); Eosinophil# 0.16 X10^3/uL; Eosinophils% 2.9 % (0-5); Hematocrit 37.6 % (37-47); Hemoglobin 12.6 g/dl (12.0-15.0); Lymphocyte # 1.28 X10^3/ul (4.0); Lymphocyte % 23.3 % (19-41); Mean Corp Hgb Conc 33.5 g/gl (32-36); Mean Corpuscular Hgb 31.4 pg (27.0-32.0); Mean Corpuscular Volume 93.8 fL (81-99); Mean Platelet Vol. 11.2 fl (6.2-12.0); Monocyte# 0.43 X10^3/uL; Monocyte% 7.8 % (0-10); Neutrophil # 3.56 X10^3/uL (2.7-7.7); Neutrophil % 64.7 % (47-70); POSITIVE COUNT NO; POSITIVE DIFFERENTIAL NO; POSITIVE MORPHOLOGY NO; Platelet Count 228 K/mm3 (150-450); RBC Distribution Width CV 12.9 % (11.6-14.6); Red Blood Count 4.01 M/mm3 (4.2-5.4); White Blood Count 5.5 K/mm3 (4.4-11.0)
[2018-03-14 14:29] LABS: AST(SGOT) 17 U/L (15-37); Alanine Aminotransfer ALT/SGPT 22 U/L (13-56); Albumin, Serum 3.3 g/dL (3.2-5.0); Alkaline Phosphatase 129 U/L (45-117); Anion Gap 8 (5-15); BUN 23 mg/dL (7-18); BUN/Creat Ratio 20.7 RATIO (10-20); Bilirubin, Direct 0.15 mg/dL (0.00-0.30); Calcium,Total 8.7 mg/dL (8.5-10.1); Chloride 104 mmol/L (98-107); Creatinine, Serum 1.11 mg/dL (0.55-1.02); EST Glomerular Filtration Rate 51 mL/min (>60); Est Glom Filt Rate - Afr Amer 61 mL/min (>60); Estimated Creatinine Clearance 36.07 ml/min; Globulin 3.3 g/dL (2.2-4.2); Glucose 252 mg/dL (74-106); Lipase 29 U/L (73-393); Potassium 4.2 mmol/L (3.5-5.1); Protein, Total 6.6 g/dL (6.4-8.2); Sodium Level 139 mmol/L (136-145)
[2018-03-14 14:29] LABS: Mucous, Urine 0 SEEN /hpf (<or=2+); Red Blood Cells-Urine 0 SEEN /hpf (0-5)
[2018-03-14 14:35] LABS: Color, Urine Yellow (Yellow); Glucose, Dipstick 1000 mg/dl (Normal); Ketone-Dipstick Negative (Negative); Leukocyte Esterase-Dipstick 500 /ul (Negative); Nitrite-Dipstick Negative (Negative); Occult Blood-Urine 10 /ul (Negative); Protein-Dipstick 15 mg/dl (Negative); Urine Bilirubin Dipstick Negative (Negative); Urine Clarity Cloudy (Clear); Urine Urobilinogen Normal (Normal)
[2018-03-14 14:41] LABS: Bacteria 3+ /hpf (None Seen); Squamous Epithelial Cells - UA 0-5 SEEN /hpf (5-10); White Blood Cells 0-5 SEEN /hpf (0-5)
[2018-03-14 14:41] LABS: Lactic Acid 1.4 mmol/L (0.4-2.0)
--- NOTE | 2018-03-14 14:52 | ED.DEP ---
ED Disposition - Plan for ED Patient: Instructions: ED Hypotension All Causes Referrals: Elizabeth Coto MD [Primary Care Provider] - Additional Instructions: Continue the management as you have been doing at home, have your physicians check her urine culture result in a day or 2
[2018-03-14 14:55] LABS: BNP,B-Type NATRIURETIC PEPTIDE 85.1 pg/mL (0-100)
[2018-03-14 15:07] VITALS: BP 150/61; PULSE 68; RESP 14; O2SAT 98
== END 2018-03-14 15:08 | disposition home or self-care (01) ==
PROVIDERS: Emergency Provider Emergency Medicine; Family Provider Internal Medicine; PCP Internal Medicine
DX: I95.9 Hypotension, unspecified (principal); E10.9 Type 1 diabetes mellitus without complications; Z86.73 Personal history of transient ischemic attack (TIA), and cerebral infarction without residual deficits; Z79.4 Long term (current) use of insulin; Z96.41 Presence of insulin pump (external) (internal); Z79.01 Long term (current) use of anticoagulants; Z79.82 Long term (current) use of aspirin; Z79.899 Other long term (current) drug therapy
CPT/HCPCS: 71045; 80048; 80076; 81001; 82009; 83605; 83690; 83880; 84484; 85025; 87077; 87086; 87088; 87186; 93005; 96360; 99285; J7030; A4216

== ENCOUNTER → 2018-04-02 13:57 | Outpatient (CLI) | payer MEDICARE, OTHER, SELFPAY ==
[2018-03-14 13:22] VITALS: BMI 24.9
[2018-04-01 11:42] VITALS: BMI 24.5
--- NOTE | 2018-04-02 14:04 | ADUL_ITS ---
Reason For Study: atherosclerosis Right Velocities Common Femoral Artery, mid = 80.9 cm./sec. Supf Femoral Artery, prox = 67.6 cm./sec. Supf Femoral Artery, mid = 41.6 cm./sec. Supf Femoral Artery, dist. = 46.8 cm./sec. Profunda Femoral Artery = 55.8 cm./sec. Popliteal Artery, mid = 36.1 cm./sec. Post. Tibial Artery, prox = 36.5 cm./sec. Post. Tibial Artery, mid = 34.2 cm./sec. Post. Tibial Artery, dist = 27.9 cm./sec. Peroneal Artery, prox = 45.2 cm./sec. Peroneal Artery, mid = 58.5 cm./sec. Peroneal Artery,dist = 63.3 cm./sec. Ant. Tibial Artery, prox = 25.9 cm./sec. Ant. Tibial Artery, mid = 16.5 cm./sec. Ant. Tibial Artery, dist = 19.6 cm./sec. Interpretation Summary 1. right leg with no stenosis. Changes in tibials from triphasic flow proximaly to biphasic flow. Ordering Physician: Juan F Corey Performed By: Cornelio Martinez RVT
--- NOTE | 2018-04-02 14:05 | ART_ITS ---
Reason For Study: atherosclerosis Left Segmental Pressures Left brachial= 147mmHg. Left posterior tibial artery = 102mmHg. Left digit = 48 mmHg. The left posterior tibial artery waveforms are biphasic. The left dorsalis pedis waveforms are monophasic. Lt DPA is noncompressible. Right Segmental Pressures Right brachial= 156mmHg. Right posterior tibial artery = 141mmHg. Right dorsalis pedis artery = 135mmHg. Right digit = 38 mmHg. The right dorsalis pedis waveforms are biphasic. The right posterior tibial artery waveforms are biphasic. Indices The right ankle brachial index by the posterior tibial artery is .9. The right ankle brachial index by the dorsalis pedis is .87. The right digital-brachial index is .4. The left ankle brachial index by the posterior tibial artery is .65. The left digital-brachial index is .31. DP is noncompressible. Interpretation Summary 1.Right mild occlussive disease with britt 0.9 2. Left moderate occlussive disease with britt 0.65 3. Bilateral small vessel disease 0.24/0.31. Ordering Physician: Juan F Corey Performed By: STEVE ZAVALETA T
== END ==
PROVIDERS: Family Provider Internal Medicine; PCP Internal Medicine; Referring Provider Surgery Vascular Surgery; Visit Provider Surgery Vascular Surgery
DX: I70.238 Atherosclerosis of native arteries of right leg with ulceration of other part of lower leg (principal)
CPT/HCPCS: 93922; 93926

== ENCOUNTER 2018-04-08 16:05 | Inpatient (IN) | payer MEDICARE, OTHER, SELFPAY ==
[2018-04-01 11:42] VITALS: BMI 24.5
[2018-04-08] VITALS (8 sets, daily range): BP systolic 124–144; BP diastolic 45–91; PULSE 75–140; RESP 14–17; TEMP 36.3–37; O2SAT 97–99; BMI 25.5; BMI 24.5
--- NOTE | 2018-04-08 16:32 | EKG12_ITS ---
Test Reason : WEAKNESS Blood Pressure : / mmHG Vent. Rate : 138 BPM Atrial Rate : 166 BPM P-R Int : 000 ms QRS Dur : 086 ms QT Int : 310 ms P-R-T Axes : 000 013 048 degrees QTc Int : 469 ms Atrial fibrillation with rapid ventricular response Nonspecific ST abnormality Abnormal ECG Confirmed by LEAH NY, SARAH ([id number]), telegraph editor DOMINGO WING ([id number]) on 04/12/2018 2:06:15 PM Referred By: Confirmed By:SARAH LYNN MD
--- NOTE | 2018-04-08 16:40 | RAD_ITS ---
STUDY: X-RAY CHEST REASON FOR EXAM: Female, 78 years old. Weakness TECHNIQUE: Portable chest COMPARISON: 03/14/2018 FINDINGS: The lungs are clear and expanded. There is no demonstrated pleural abnormality. Normal size heart. Normal mediastinum and kahlil. Normal visualized pulmonary arteries. Normal visualized aortic arch and descending thoracic aorta. Normal visualized thoracic spine. Normal visualized ribs, clavicles, and shoulders. There is no demonstrated abnormality of the visualized soft tissue structures of the upper abdomen. RAD/Chest 1 View (Portable) IMPRESSION: Normal x-ray examination of the chest. No acute cardiopulmonary process Electronically Signed: Carlos Eduardo Tovar, at 17:49 EST Tel , Service support ,
[2018-04-08 16:52] LABS: Absolute Lymphocyte Count 1.46 X10^3/ul (0.83-4.51); Absolute Neutrophil Count 4.9 X10^3/uL (2.0-7.7); Basophil# 0.02 X10^3/uL; Basophil% 0.3 % (0-1); Eosinophil# 0.09 X10^3/uL; Eosinophils% 1.2 % (0-5); Hematocrit 38.2 % (37-47); Hemoglobin 12.4 g/dl (12.0-15.0); Lymphocyte # 1.46 X10^3/ul (4.0); Lymphocyte % 20.1 % (19-41); Mean Corp Hgb Conc 32.5 g/gl (32-36); Mean Corpuscular Hgb 30.6 pg (27.0-32.0); Mean Corpuscular Volume 94.3 fL (81-99); Mean Platelet Vol. 11.1 fl (6.2-12.0); Monocyte# 0.74 X10^3/uL; Monocyte% 10.2 % (0-10); Neutrophil # 4.93 X10^3/uL (2.7-7.7); Neutrophil % 68.1 % (47-70); Platelet Count 248 K/mm3 (150-450); RBC Distribution Width CV 12.8 % (11.6-14.6); Red Blood Count 4.05 M/mm3 (4.2-5.4); White Blood Count 7.3 K/mm3 (4.4-11.0)
[2018-04-08] MEDS: 0.9% Normal Saline 1,000 ML 999 ML IV (16:52)
[2018-04-08 16:54] LABS: POSITIVE COUNT NO; POSITIVE DIFFERENTIAL NO; POSITIVE MORPHOLOGY NO
[2018-04-08 17:00] LABS: Anion Gap 9 (5-15); BUN 23 mg/dL (7-18); Calcium,Total 8.4 mg/dL (8.5-10.1); Chloride 105 mmol/L (98-107); EST Glomerular Filtration Rate 57 mL/min (>60); Est Glom Filt Rate - Afr Amer 69 mL/min (>60); Estimated Creatinine Clearance 40.04 ml/min; Glucose 175 mg/dL (74-106); Potassium 4.1 mmol/L (3.5-5.1); Sodium Level 139 mmol/L (136-145)
[2018-04-08] MEDS: Ondansetron 4 MG/2 ML Vial IV (17:01)
--- NOTE | 2018-04-08 17:04 | ED.VISSUMM ---
- ER Visit Summary Date of Service: 04/08/18 Chief Complaint: Fatigue History of Present Illness: The patient is a 78 F presenting with generalized weakness and fatigue. Family states they have been checking her blood pressure at home and has been running low. Her heart rate has been high. She was recently treated for UTI with cefuroxime. She finished this course of antibiotics. She has a wound on her right great toe that is followed by Dr. 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 She was seen by Dr. Corey this week to evaluate her lower extremities. Family states that her arterial studies were normal. She denies chest pain or abdominal pain. She has had nausea and vomiting. Denies other complaints. Physical Examination: Blood pressure 128/69, heart rate 140, respiratory rate 16, pulse ox 99% room air. Patient is afebrile. Alert no acute distress. HEENT exam dry mucous membranes Neck is supple. Lungs are clear and equal bilaterally. Heart is irregularly irregular Abdomen is soft nontender nondistended. No guarding or rebound Extremities wound right great toe with no surrounding erythema Skin is warm and dry. No focal neurologic deficit. Remainder of exam is unremarkable. Emergency Department Course and Treatment: Patient was given IV fluids, Zofran. CBC, chemistries unremarkable other than glucose 175, BUN 23. Troponin 0.016. EKG is A. fib with RVR rate of 138. Patient converted to sinus rhythm without any medication. Repeat EKG is sinus rhythm rate of 88, unchanged from previous. Chest x-ray shows no acute process. Lactic acid 1.7. Urinalysis unremarkable. Orthostatics negative. Patient's family state they can no longer care for her at home and would like senior care placement. Discussed with the hospitalist. Disposition: Admission Impression: A. fib with RVR, fatigue, functional decline This note was generated with [employer] dictation software. It may contain incorrect words, spelling, and punctuation that were not noted in review of the chart prior to signing ED Disposition - Plan for ED Patient: Referrals: Elizabeth Coto MD [Primary Care Provider] -
[2018-04-08 17:06] LABS: Bacteria 0 SEEN /hpf (None Seen); Mucous, Urine 0 SEEN /hpf (<or=2+); Red Blood Cells-Urine 0 SEEN /hpf (0-5); Squamous Epithelial Cells - UA 0 SEEN /hpf (5-10); White Blood Cells 0 SEEN /hpf (0-5)
--- NOTE | 2018-04-08 17:08 | ED.DCSUM_ITS ---
- ER Visit Summary Date of Service: 04/08/18 Chief Complaint: Fatigue History of Present Illness: The patient is a 78 F presenting with generalized weakness and fatigue. Family states they have been checking her blood pressure at home and has been running low. Her heart rate has been high. She was recent ly treated for UTI with cefuroxime. She finished this course of antibiotics. She has a wound on her right great toe that is followed by Dr. Foote her motor and controls tester. She was seen by Dr. Corey this week to evaluate her lower extremities. Family states that her arterial studies were normal. She denies chest pain or abdominal pain. She has had nausea and vomiting. Denies other complaints. Physical Examination: Blood pressure 128/69, heart rate 140, respiratory rate 16, pulse ox 99% room air. Patient is afebrile. Alert no acute distress. HEENT exam dry mucous membranes Neck is supple. Lungs are clear and equal bilaterally. Heart is irregularly irregular Abdomen is soft nontender nondistended. No guarding or rebound Extremities wound right great toe with no surrounding erythema Skin is warm and dry. No focal neurologic deficit. Remainder of exam is unremarkable. Emergency Department Course and Treatment: Patient was given IV fluids, Zofran. CBC, chemistries unremarkable other than glucose 175, BUN 23. Troponin 0.016. EKG is A. fib with RVR rate of 138. Patient converted to sinus rhythm without any medication. Repeat EKG is sinus rhythm rate of 88, unchanged from previous. Chest x-ray shows no acute process. Lactic acid 1.7. Urinalysis unremarkable. Orthostatics negative. Patient's family state they can no longer care for her at home and would like jail placement. Discussed with the hospitalist. Disposition: Admission Impression: A. fib with RVR, fatigue, functional decline This note was generated with [employer] dictation software. It may contain incorrect words, spelling, and punctuation that were not noted in review of the chart prior to signing ED Disposition - Plan for ED Patient: Referrals: Elizabeth Coto MD [Primary Care Provider] -
[2018-04-08 17:12] LABS: Color, Urine Yellow (Yellow); Glucose, Dipstick 250 mg/dl (Normal); Ketone-Dipstick Negative (Negative); Leukocyte Esterase-Dipstick Negative /ul (Negative); Nitrite-Dipstick Negative (Negative); Occult Blood-Urine Negative /ul (Negative); Protein-Dipstick Negative (Negative); Urine Bilirubin Dipstick Negative (Negative); Urine Clarity Clear (Clear); Urine Urobilinogen Normal (Normal)
--- NOTE | 2018-04-08 17:26 | EKG12_ITS ---
Test Reason : REPEAT EKG Blood Pressure : / mmHG Vent. Rate : 088 BPM Atrial Rate : 088 BPM P-R Int : 172 ms QRS Dur : 084 ms QT Int : 382 ms P-R-T Axes : 075 036 031 degrees QTc Int : 462 ms Sinus rhythm with Premature atrial complexes Low voltage QRS Borderline ECG Confirmed by LEAH NY, SARAH ([id number]), assistant film editor DOMINGO WING ([id number]) on 04/12/2018 2:07:01 PM Referred By: Juan F Corey Confirmed By:SARAH LYNN MD
[2018-04-08 17:42] LABS: Lactic Acid 1.7 mmol/L (0.4-2.0)
--- NOTE | 2018-04-08 18:22 | CM.ED ---
Social Work Note Referral from ED physician for potential placement. Discussed that pt has Medicare and has not had a recent admission to a hospital making SNF placement private pay. Unsure that pt can be placed at this hour d/t admissions being out of the building. Face to face with the pt and her family. Family states that they have been looking into having her placed at the [facility] on Thursday for respite as family member who primarily cares for pt is due to have back surgery soon. Explain that insurance would not cover this placement presently and it would be a private expense. Family expresses understanding and indicates that they were intending on having to privately pay. Discuss that at this time there is not reason for us to medically admit and this short story writer will try to contact Karina at [facility] to see if we can have the pt admitted to [facility] this date. Placed call to [facility]. Karina is not in, but requested that staff contact her on her personal phone and contact this short story writer back at number provided. Will await a call from Karina to determine if we can have pt placed in a SNF this date. Call from Karina stating that they cannot accept the pt today because they got an admission late this afternoon, and it just won't work for them. States that they can work with us in the morning on placement. Explain to Karina that the pt is not staying here because we have no medical reason to admit her. Karina recommends that pt's granddaughter contact her in the morning and they can assist her at that time. Will update pt, family and physician. Justina Walker, GUILLERMO, KASSIE
--- NOTE | 2018-04-08 18:39 | HP.PCM_ITS ---
Problem List (1) Insulin pump in place Status: Chronic (2) Nonrheumatic mitral (valve) insufficiency Status: Chronic (3) Paroxysmal atrial fibrillation Status: Chronic (4) Low blood pressure Status: Chronic Qualifiers: (5) Arterial ischemic stroke, MCA, left, acute Status: Chronic (6) Right sided weakness Status: Chronic (7) Glaucoma Status: Chronic (8) Type 2 diabetes mellitus Status: Chronic History of Present Illness Date of Admission: 04/08/18 Chief Complaint: Weakness, low blood pressure. The patient is a 78 year old F who presents emergency room with multiple complaints including weakness, low blood pressure, fast heart rate and confusion. Patient is currently alert and oriented but digital retoucher states overnight patient was confused intermittently. She denies recent illness. 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 Water Reclamation Systems Operator states she is to have upcoming back surgery and will not be able to take care of patient during her recovery. She has been trying to get patient into [facility]pc facility for further care. Patient denies fever, chills. Denies dizziness, lightheadedness. She does report feeling weak and tired. Denies urinary complaints. No other associated complaints. Patient has a past medical history of type 2 diabetes mellitus, CVA, paroxysmal atrial fibrillation, neurogenic bladder, chronic right foot diabetic ulcer, hyperlipidemia. Past Medical History Past Medical History (Chronic Problems): Chronic Problems (Last Reviewed 01/26/18 @ 13:05 by Joya Ayala) Type 2 diabetes mellitus (Chronic) Insulin pump in place (Chronic) Nonrheumatic mitral (valve) insufficiency (Chronic) Paroxysmal atrial fibrillation (Chronic) Low blood pressure (Chronic) Arterial ischemic stroke, MCA, left, acute (Chronic) Right sided weakness (Chronic) Glaucoma (Chronic) Medical History: Medical History (Last Reviewed 01/26/18 @ 13:05 by Joya Ayala) Insulin pump in place (Chronic) Z96.41 Type 1 diabetes mellitus (Chronic) E10.9 Nonrheumatic mitral (valve) insufficiency (Acute) I34.0 Paroxysmal atrial fibrillation (Acute) I48.0 Arterial ischemic stroke, MCA, left, acute (Acute) I63.512 Right sided weakness (Acute) R53.1 Diabetes mellitus (Chronic) E11.9 Download of insulin pump notes high Bg post meal and pattern of elevated BG from am through lunch time. I have ask grandaughter to titrate meal ratios for breakfast and dinner to be titrated as well as basal rate in am starting at 8am to be increased. She understands and agrees with plan. She has worked with insulin pumps for about 5+ years and is very comfortable doing so. Reviewed labs Glaucoma (Chronic) H40.9 Anemia D64.9 Anxiety F41.9 Arthritis M19.90 CVA (cerebral vascular accident) I63.9 Carpal tunnel syndrome G56.00 Cataract H26.9 Cataracts, bilateral H26.9 Diabetes type 1, controlled E10.9 Dx : age 19 Last exacerbation : DKA : never Hypoglycemic episode : never ER visit : never GERD (gastroesophageal reflux disease) K21.9 Glaucoma H40.9 High cholesterol E78.00 Hypocalcemia E83.51 Muscle weakness M62.81 Neuropathy G62.9 Osteoporosis M81.0 Right sided cerebral hemisphere cerebrovascular accident I63.9 Stomach ulcer K25.9 Vision problems H54.7 Atrial fibrillation (Inactive) I48.91 Headache R51 Seasonal allergies J30.2 Vitamin deficiency E56.9 Allergies ezetimibe [From Zetia] Allergy (Verified 04/08/18 16:06) Other Home Medications: Ambulatory Orders Medication Instructions Recorded Apixaban [Eliquis] 5 mg PO BID 03/18/17 Atorvastatin Calcium [Lipitor] 40 mg PO QHS 03/18/17 Gabapentin [Neurontin] 100 mg PO TID 07/27/17 Omeprazole 20 mg PO DAILY 07/27/17 carboxymethylcellulose sodium 0.5 1 drp EACH EYE 4-8XD PRN 10/27/17 % eye drops midodrine 5 mg tablet 5 mg PO TID PRN tab 10/27/17 netarsudil 0.02 % eye drops 1 drp RIGHT EYE DAILY 10/27/17 promethazine 12.5 mg tablet 12.5 mg PO Q6H PRN 10/27/17 insulin lispro (U- 100) 100 See Rx Instructions CONTINUOUS 02/15/18 unit/mL subcutaneous solution SUBCUTANEOUS INFUSION QDAY #3 ml Aspirin [Aspirin, Baby] 81 mg PO DAILY 03/14/18 Docusate Sodium [Colace] 100 mg PO TID PRN 03/14/18 Meclizine HCl [Antivert] 12.5 mg PO TID PRN PRN 03/14/18 white petrolatum-mineral oil 57.3 1 applic OPHTHALMIC QHS 04/01/18 %-42.5 % eye ointment Acetaminophen [Tylenol Extra 500 - 1,000 mg PO TID PRN PRN 04/08/18 Strength] Calcium Carb/Vitamin D3/Vit K1 1 each PO DAILY 04/08/18 [Viactiv Soft Chew Tablet] Celecoxib [Celebrex] 200 mg PO DAILY 04/08/18 Cholecalciferol (Vitamin D3) 5,000 unit PO DAILY 04/08/18 [Vitamin D3] Cyanocobalamin (Vitamin B-12) 5,000 mcg PO DAILY 04/08/18 [Vitamin B-12] Surgical History: Surgical History (Last Updated 04/01/18 @ 11:56 by Zabrina Cox) History of angioplasty of peripheral vessel Onset Date: ~11/05/17 Z98.62 Rt LE Hx of cataract surgery Z98.49 Status post glaucoma surgery Z98.83 Surgical History: cataract, tonsillectomy, - - Tubal ligation bilaterally Psychiatric History: No pertinent psych hx 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 Paternal Family History: Family History (Last Reviewed 04/08/18 @ 18:40 by TAQUERIA Lawrence) Father Hypertension Arthritis Brother Diabetes Sister Cancer Review of Systems Constitutional: Denies: Chills, Fever, Weight Change HEENT: Denies: Head Aches, Sinus Congestion, Sinus Drainage Cardiovascular: Denies: Chest Pain, Edema, Light Headedness, Palpitations, Syncope Respiratory: Denies: Cough, Shortness of breath at rest, Sputum production Gastrointestinal: Denies: Abdominal Pain, Nausea, Vomiting Genitourinary: Denies: Dysuria Musculoskeletal: Denies: Joint Pain, Joint Tenderness Skin: Denies: Rash, Wounds Neurological: Reports: - - Generalized weakness.. Denies: Focal weakness, Numbness, Tingling Psychiatric: Denies: Anxiety, Depression, Homicidal Ideations, Suicidal Ideations Hematologic/ Lymphatic: Denies: Easy Bruising, Easy Bleeding VTE Information - Inpt Only VTE Present on Admission: No VTE Mechan Device Prophylaxis: None VTE Pharm Prophylaxis ordered?: Yes - Physical Exam General: Alert, Oriented x3, Cooperative HEENT: Atraumatic, PERRLA, EOMI, Normocephalic Neck: Supple, No JVD, Negative Carotid Bruits Lungs: Clear to auscultation, Normal air movement Cardiovascular: Regular rate, Regular Rhythm, Normal S1, Normal S2, No murmurs Abdomen: Bowel Sounds Present, Soft, Non Tender, Non-Distended Extremities: No clubbing, No cyanosis, No edema, Capillary Refill Less than 3 Seconds Skin: No rashes, - - Right great toe medial diabetic ulcer, chronic. Musculoskeletal: No Tenderness to Palpation of Joints or Extremities Neurological: Cranial nerves II-XII grossly intact Psych/Mental Status: Normal Affect, Appropriate Vital Signs Temp Pulse Resp BP Pulse Ox 98.6 F 77 16 134/60 H 97 04/08/18 18:05 04/08/18 18:05 04/08/18 18:05 04/08/18 18:05 04/08/18 18:05 Oxygen Delivery Method Room Air Weight: 149 lb 0.52 oz Body Mass Index (BMI) 25.5 Finger Stick Blood Glucose 140 Laboratory Tests Past 24 Hrs 04/08/18 04/08/18 04/08/18 16:28 16:28 16:50 WBC 7.3 RBC 4.05 L Hgb 12.4 Hct 38.2 MCV 94.3 MCH 30.6 MCHC 32.5 RDW 12.8 RDW Differential 43.0 Plt Count 248 MPV 11.1 Immature Gran % (Auto) 0.100 Neut % (Auto) 68.1 Lymph % (Auto) 20.1 [place] % (Auto) 10.2 H Eos % (Auto) 1.2 Baso % (Auto) 0.3 Absolute Neuts (auto) 4.9 Absolute Lymphs (auto) 1.46 Total Counted Not Reportable Sodium 139 Potassium 4.1 Chloride 105 Carbon Dioxide 25.0 Anion Gap 9 BUN 23 H Creatinine 1.00 Estim Creat Clear Calc 40.04 Est GFR (MDRD) Af Amer 69 Est GFR (MDRD) Non-Af 57 L BUN/Creatinine Ratio 23.0 H Glucose 175 H Lactic Acid 1.7 Calcium 8.4 L Troponin I 0.016 Urine Color Urine Clarity Urine pH Ur Specific [place] Urine Protein Urine Glucose (UA) Urine Ketones Urine Occult Blood Urine Nitrite Urine Bilirubin Urine Urobilinogen Ur Leukocyte Esterase Urine RBC Urine WBC Ur Squamous Epith Cells Urine Bacteria Urine Mucus 04/08/18 17:00 WBC RBC Hgb Hct MCV MCH MCHC RDW RDW Differential Plt Count MPV Immature Gran % (Auto) Neut % (Auto) Lymph % (Auto) [place] % (Auto) Eos % (Auto) Baso % (Auto) Absolute Neuts (auto) Absolute Lymphs (auto) Total Counted Sodium Potassium Chloride Carbon Dioxide Anion Gap BUN Creatinine Estim Creat Clear Calc Est GFR (MDRD) Af Amer Est GFR (MDRD) Non-Af BUN/Creatinine Ratio Glucose Lactic Acid Calcium Troponin I Urine Color Yellow Urine Clarity Clear Urine pH 5.0 Ur Specific [place] 1.020 Urine Protein Negative Urine Glucose (UA) 250 H Urine Ketones Negative Urine Occult Blood Negative Urine Nitrite Negative Urine Bilirubin Negative Urine Urobilinogen Normal Ur Leukocyte Esterase Negative Urine RBC 0 SEEN Urine WBC 0 SEEN Ur Squamous Epith Cells 0 SEEN Urine Bacteria 0 SEEN Urine Mucus 0 SEEN Assessment/Plan 1. Physical debility-requiring 24-hour care at home and caregiver to have upcoming surgery. PT/OT. SNF pending acceptance. 2. Paroxysmal atrial fibrillation-atrial fibrillation with RVR in ER, spontaneously converted. Continue Eliquis regimen. Previously on amiodarone which was discontinued due to hypotension. 3. Type 2 diabetes mellitus-on insulin pump. Accu-Cheks ACHS. 4. History of CVA-continue aspirin, statin, Eliquis. PT/OT. 5. Chronic dysphagia-speech therapy consult. Previously placed on nectar thickened liquids and soft mechanical diet. 6. Chronic hypotension-on midodrine. 7. Neurogenic bladder-thought to have yeast colonization in the past. Previously on Flomax which was discontinued due to orthostatic hypotension. Urinalysis negative. 8. Chronic right foot diabetic ulcer- wound care consult. Follows with Dr. Foote. 9. Hyperlipidemia-continue statin. DVT prophylaxis-Eliquis This patient was seen by TAQUERIA Lawrence under the supervision of Dr. Chaudhary.
--- NOTE | 2018-04-08 18:40 | CM.ED ---
Social Work Note Discussed with pt and pt's granddaughter that placement would not happen this evening. Report that Karina states it could happen tomorrow morning and she will reach out to the granddaughter. Granddaughter and pt both state that they think they can manage at home until tomorrow and will anticipate discharging home this evening. Will fax clinicals from the ED to SNF to help facilitate placement tomorrow. No further needs. PLAN: Home with support of family. Seeking placement from community tomorrow at [facility]. GUILLERMO Cary, KASSIE
--- NOTE | 2018-04-08 19:38 | ECHOD_ITS ---
Reason For Study: Afib, Aflutter Procedure This was a 2D Doppler, Color Flow transthoracic echocardiogram. Exam performed portable in patient room. Left Ventricle Normal LV size. Left ventricular systolic function is normal. The estimated ejection fraction is 65 %. Stage 1 diastolic dysfunction. No regional wall motion abnormalities noted. Right Ventricle Normal RV size. Normal systolic function. Atria Normal left atrium. Normal right atrium. Mitral Valve There is moderate mitral annular calcification. Mild-Moderate (1-2+) eccentric mitral valve insufficiency. Tricuspid Valve Normal tricuspid valve. Mild tricuspid valve insufficiency. Pulmonary artery systolic pressure is 26 mmHg. Aortic Valve Normal aortic valve. Trisinus/trileaflet aortic valve. Pulmonic Valve Normal pulmonic valve. Great Vessels Normal aortic root. The pulmonary artery is normal size. Normal inferior vena cava. Pericardium/Pleural No pericardial effusion. MMode/2D Measurements & Calculations LVIDd: 3.7 cm IVSd: 1.2 cm Ao root diam: 2.6 cm LVIDs: 2.3 cm LVPWd: 1.1 cm RVDd: 2.9 cm FS: 36.9 % LAV(MOD-bp): 38.1 ml LVAd ap4: 14.5 cm2 SV(MOD-sp4): 19.5 ml LAV(MOD-bp) Indexed: 22.6 ml/m2 EDV(MOD-sp4): 33.8 ml LAV(MOD-sp2): 45.1 ml EDV(sp4-el): 34.2 ml LAV(MOD-sp4): 32.5 ml LVAs ap4: 8.4 cm2 ESV(MOD-sp4): 14.3 ml ESV(sp4-el): 14.1 ml EF(MOD-sp4): 57.7 % EF(sp4-el): 58.9 % SV(sp4-el): 20.2 ml LA A4 area: 14.4 cm2 LA dimension(2D): 4.0 cm RA A4 area: 9.7 cm2 Doppler Measurements & Calculations MV E max keyur: 82.5 cm/sec Lat Peak E' Keyur: 7.0 cm/sec Med Peak E' Keyur: 5.6 cm/sec MV A max keyur: 93.3 cm/sec E/E' lat: 11.8 E/E' med: 14.7 MV E/A: 0.88 Ao V2 max: 114.7 cm/sec LV V1 max: 88.9 cm/sec PA V2 max: 87.1 cm/sec Ao max P.3 mmHg LV V1 max P.2 mmHg Ao V2 mean: 80.5 cm/sec Ao mean P.9 mmHg Ao V2 VTI: 24.9 cm TR max keyur: 233.3 cm/sec TR max P.8 mmHg Interpretation Summary Normal LV size. Left ventricular systolic function is normal. The estimated ejection fraction is 65 %. Stage 1 diastolic dysfunction. Mild-Moderate (1-2+) eccentric mitral valve insufficiency. Mild tricuspid valve insufficiency. Ordering Physician: Sandra Chaudhary Referring Physician: Elizabeth Coto Performed By: Blanca Alves, ASHUTOSH, RVT
[2018-04-08 20:29] LABS: Thyroid Stim Hormone (TSH) 2.94 uIU/mL (0.358-3.74)
[2018-04-08] MEDS: Gabapentin 100 MG Capsule PO (21:29)
[2018-04-08] MEDS: Atorvastatin Calcium 40 MG Tablet PO (21:29)
[2018-04-08] MEDS: APIXABAN 5 MG TABLET PO (21:29)
[2018-04-08] MEDS: Petrolatum,White 3.75GM OPTH.TUBE 1 APPLIC OPHTHALMIC (21:31)
[2018-04-08] MEDS: Insulin Lispro 100 UNIT/ML INSULN.PEN SC (22:38)
[2018-04-08 22:40] LABS: Bedside Glucose 314 mg/dL (70-110)
[2018-04-09] VITALS (7 sets, daily range): BP systolic 122–134; BP diastolic 49–64; PULSE 74–90; RESP 16–18; TEMP 36.7–36.8; O2SAT 94–97
[2018-04-09 06:25] LABS: ALB/GLOB Ratio 1.1 RATIO (0.9-2.4); AST(SGOT) 17 U/L (15-37); Alanine Aminotransfer ALT/SGPT 22 U/L (13-56); Albumin, Serum 2.6 g/dL (3.2-5.0); Alkaline Phosphatase 92 U/L (45-117); Anion Gap 7 (5-15); BUN 18 mg/dL (7-18); BUN/Creat Ratio 20.6 RATIO (10-20); Calcium,Total 7.8 mg/dL (8.5-10.1); Chloride 110 mmol/L (98-107); Cholesterol 90 mg/dL (200); Creatinine, Serum 0.88 mg/dL (0.55-1.02); EST Glomerular Filtration Rate 67 mL/min (>60); Est Glom Filt Rate - Afr Amer 80 mL/min (>60); Globulin 2.4 g/dL (2.2-4.2); Glucose 209 mg/dL (74-106); High Density Lipoprotein 27 mg/dL; Potassium 4.4 mmol/L (3.5-5.1); Sodium Level 142 mmol/L (136-145); Triglycerides 85 mg/dL; Very Low Density Lipoprotein 17 mg/dL (5-40)
[2018-04-09 07:00] LABS: Bedside Glucose 229 mg/dL (70-110)
--- NOTE | 2018-04-09 09:20 | CASEMGMT ---
SW faxed information to [facility]. Y[place] will follow up with [facility]. [place] FERNANDO MSW
[2018-04-09] MEDS: Insulin Lispro 100 UNIT/ML INSULN.PEN SC (09:47)
[2018-04-09] MEDS: Celecoxib 200 MG Capsule PO (09:49)
[2018-04-09] MEDS: Gabapentin 100 MG Capsule PO ×2 (09:50→11:57)
[2018-04-09] MEDS: Pantoprazole Sodium 20 MG Tablet PO (09:50)
[2018-04-09] MEDS: APIXABAN 5 MG TABLET PO (09:50)
[2018-04-09] MEDS: Calcium Carb/Vitamin D 1 TABLET Tablet PO (09:50)
[2018-04-09] MEDS: Aspirin 81 MG TAB.CHEW PO (09:51)
--- NOTE | 2018-04-09 11:30 | TREXTCA.CO_ITS ---
- Diet 04/08/18 19:38 Diet: Cardiac: Calorie-Controlled Food consistency:: Soft mechanical Liquid Consistency:: [place] Thick How many daily calories?: 1800 calorie - Routine Orders/Code Status Enema Type: Fleetz Enema Frequency: Daily PRN Suppository Type: Dulcolax 10mg Suppository Frequency: Daily PRN Routine Lab Work: CBC, BMP, - - Q Week Code Status: DNRCC - Wound(s) R great toe Wound Type: Pressure Injury LLQ abdomen Wound Type: implanted insulin pump - Suggestions for Active Care Change Position every (hours): 2 Times a day to sit in chair: 3 - Therapies Physical Therapy: Eval and Treat Occupational Therapy: Eval and Treat Speech Therapy: Eval and Treat - Problem/Diagnosis (1) Insulin pump in place Status: Chronic Current Visit: No (2) Nonrheumatic mitral (valve) insufficiency Status: Chronic Current Visit: No (3) Paroxysmal atrial fibrillation Status: Chronic Current Visit: No (4) Low blood pressure Status: Chronic Current Visit: No (5) Arterial ischemic stroke, MCA, left, acute Status: Chronic Current Visit: No (6) Right sided weakness Status: Chronic Current Visit: No (7) Glaucoma Status: Chronic Current Visit: No (8) Type 2 diabetes mellitus Status: Chronic Current Visit: Yes - Allergies/Procedures Done in Hospital Allergies/Adverse Reactions: Allergies ezetimibe [From Zetia] Allergy (Verified 04/08/18 16:06) Other Procedures: 2-D Echocardiogram - Type of Care/Length of Stay Estimated LOS: Convalescent Care Less Than 30 days Type of Care Needed: Skilled Rehab Potential: Fair Prognosis: Fair - Additional Orders/Day of Discharge H&P will serve as current which was dated: 04/08/18 Day of Discharge: 04/09/18 - Follow Up Care Primary Care Physician: Elizabeth Coto MD [Primary Care Provider] - Please follow up with your Primary Care Physician in: 1 Week Please Follow Up With: Wil Alves NP-C When: As scheduled Please Follow Up With: Tru Foote DPM When: As scheduled
--- NOTE | 2018-04-09 11:35 | PCM.DC.SUM ---
<Justina Kc - Last Filed: 04/09/18 11:43> Discharge Date and Diagnosis Date of Admission: 04/08/18 Date of Discharge: 04/09/18 - Primary Discharge Diagnosis 1. Physical debility 2. Paroxysmal atrial fibrillation with RVR 3. Type 2 diabetes mellitus 4. History of CVA 5. Chronic dysphagia 6. Chronic orthostatic hypotension 7. Neurogenic bladder 8. Chronic right foot diabetic ulcer 9. Hyperlipidemia - Secondary Discharge Diagnosis Chronic Problems (Last Reviewed 01/26/18 @ 13:05 by Joya Ayala) Type 2 diabetes mellitus (Chronic) Insulin pump in place (Chronic) Nonrheumatic mitral (valve) insufficiency (Chronic) Paroxysmal atrial fibrillation (Chronic) Low blood pressure (Chronic) Arterial ischemic stroke, MCA, left, acute (Chronic) Right sided weakness (Chronic) Glaucoma (Chronic) Hospital Course and Treatment Imaging Results: Diagnostic Data Chest X-Ray 04/08/18 16:40 IMPRESSION: Normal x-ray examination of the chest. No acute cardiopulmonary process Electronically Signed: Carlos Eduardo Tovar, at 17:49 EST Tel , Service support , Consultations 04/08/18 19:38 Consult: Onc/Wound/wildland fire fighter specialist Routine Comment: R great toe chronic wound Operations: None Procedures: 2-D Echocardiogram Summary of Care Provided: The patient is a 78 year old F admitted 04/08/18 due to weakness, low blood pressure. 1. Physical debility-requiring 24-hour care at home and caregiver to have upcoming surgery. [facility] [place]. 2. Paroxysmal atrial fibrillation-atrial fibrillation with RVR in ER, spontaneously converted. Continue Eliquis regimen. Previously on amiodarone which was discontinued due to hypotension. TSH, mag within normal limits. Troponin negative. Echocardiogram completed, report pending at discharge. Patient follows with Dr. Navarro. Follow-up with cardiology in 1-2 weeks. 3. Type 2 diabetes mellitus-on insulin pump. 4. History of CVA-continue aspirin, statin, Eliquis. 5. Chronic dysphagia-speech therapy consult. Continue nectar thickened liquids and soft mechanical diet. 6. Chronic hypotension-on midodrine. 7. Neurogenic bladder-thought to have yeast colonization in the past. Previously on Flomax which was discontinued due to orthostatic hypotension. Urinalysis negative. 8. Chronic right foot diabetic ulcer- wound care consult. Follows with Dr. Foote. 9. Hyperlipidemia-continue statin. General: Alert, Oriented x3, Cooperative HEENT: Atraumatic, PERRLA, EOMI, Normocephalic Neck: Supple, No JVD, Negative Carotid Bruits Lungs: Clear to auscultation, Normal air movement Cardiovascular: Regular rate, Regular Rhythm, Normal S1, Normal S2, No murmurs Abdomen: Bowel Sounds Present, Soft, Non Tender, Non-Distended Extremities: No clubbing, No cyanosis, No edema, Capillary Refill Less than 3 Seconds Skin: No rashes, - - Right great toe medial diabetic ulcer, chronic. Musculoskeletal: No Tenderness to Palpation of Joints or Extremities Neurological: Cranial nerves II-XII grossly intact Psych/Mental Status: Normal Affect, Appropriate Patient seen and examined prior to discharge. Physical assessment as noted above. Patient is stable for discharge with follow up recommendations as noted above. This patient was seen by TAQUERIA Lawrence under the supervision of Dr. Lama. - Physical Exam Vital Signs Temp Pulse Resp BP Pulse Ox 98.1 F 90 18 122/49 H 96 04/09/18 09:38 04/09/18 11:19 04/09/18 09:38 04/09/18 09:38 04/09/18 09:38 Oxygen Delivery Method Room Air Weight: 142 lb 13.753 oz Body Mass Index (BMI) 24.5 Finger Stick Blood Glucose 140 Intake and Output for Last 24 Hours 04/07/18 04/08/18 04/09/18 23:59 23:59 23:59 Intake Total 120 / 120 50 / 50 Balance 120 / 120 50 / 50 Laboratory Tests Past 24 Hrs 04/08/18 04/08/18 04/08/18 16:28 16:28 16:28 WBC 7.3 RBC 4.05 L Hgb 12.4 Hct 38.2 MCV 94.3 MCH 30.6 MCHC 32.5 RDW 12.8 RDW Differential 43.0 Plt Count 248 MPV 11.1 Immature Gran % (Auto) 0.100 Neut % (Auto) 68.1 Lymph % (Auto) 20.1 Garrett % (Auto) 10.2 H Eos % (Auto) 1.2 Baso % (Auto) 0.3 Absolute Neuts (auto) 4.9 Absolute Lymphs (auto) 1.46 Total Counted Not Reportable Sodium 139 Potassium 4.1 Chloride 105 Carbon Dioxide 25.0 Anion Gap 9 BUN 23 H Creatinine 1.00 Estim Creat Clear Calc 40.04 Est GFR (MDRD) Af Amer 69 Est GFR (MDRD) Non-Af 57 L BUN/Creatinine Ratio 23.0 H Glucose 175 H Lactic Acid Calcium 8.4 L Magnesium 2.0 Total Bilirubin AST ALT Alkaline Phosphatase Troponin I 0.016 Total Protein Albumin Globulin Albumin/Globulin Ratio Triglycerides Cholesterol LDL Cholesterol VLDL Cholesterol HDL Cholesterol TSH 2.94 Urine Color Urine Clarity Urine pH Ur Specific [place] Urine Protein Urine Glucose (UA) Urine Ketones Urine Occult Blood Urine Nitrite Urine Bilirubin Urine Urobilinogen Ur Leukocyte Esterase Urine RBC Urine WBC Ur Squamous Epith Cells Urine Bacteria Urine Mucus 04/08/18 04/08/18 04/08/18 16:50 17:00 20:40 WBC RBC Hgb Hct MCV MCH MCHC RDW RDW Differential Plt Count MPV Immature Gran % (Auto) Neut % (Auto) Lymph % (Auto) Garrett % (Auto) Eos % (Auto) Baso % (Auto) Absolute Neuts (auto) Absolute Lymphs (auto) Total Counted Sodium Potassium Chloride Carbon Dioxide Anion Gap BUN Creatinine Estim Creat Clear Calc Est GFR (MDRD) Af Amer Est GFR (MDRD) Non-Af BUN/Creatinine Ratio Glucose Lactic Acid 1.7 Calcium Magnesium Total Bilirubin AST ALT Alkaline Phosphatase Troponin I 0.015 Total Protein Albumin Globulin Albumin/Globulin Ratio Triglycerides Cholesterol LDL Cholesterol VLDL Cholesterol HDL Cholesterol TSH Urine Color Yellow Urine Clarity Clear Urine pH 5.0 Ur Specific [place] 1.020 Urine Protein Negative Urine Glucose (UA) 250 H Urine Ketones Negative Urine Occult Blood Negative Urine Nitrite Negative Urine Bilirubin Negative Urine Urobilinogen Normal Ur Leukocyte Esterase Negative Urine RBC 0 SEEN Urine WBC 0 SEEN Ur Squamous Epith Cells 0 SEEN Urine Bacteria 0 SEEN Urine Mucus 0 SEEN 04/09/18 04/09/18 00:20 05:40 WBC RBC Hgb Hct MCV MCH MCHC RDW RDW Differential Plt Count MPV Immature Gran % (Auto) Neut % (Auto) Lymph % (Auto) Garrett % (Auto) Eos % (Auto) Baso % (Auto) Absolute Neuts (auto) Absolute Lymphs (auto) Total Counted Sodium 142 Potassium 4.4 Chloride 110 H Carbon Dioxide 25.0 Anion Gap 7 BUN 18 Creatinine 0.88 Estim Creat Clear Calc 45.50 Est GFR (MDRD) Af Amer 80 Est GFR (MDRD) Non-Af 67 BUN/Creatinine Ratio 20.6 H Glucose 209 H Lactic Acid Calcium 7.8 L Magnesium Total Bilirubin 0.60 AST 17 ALT 22 Alkaline Phosphatase 92 Troponin I < 0.015 Total Protein 5.0 L Albumin 2.6 L Globulin 2.4 Albumin/Globulin Ratio 1.1 Triglycerides 85 Cholesterol 90 LDL Cholesterol 46 VLDL Cholesterol 17 HDL Cholesterol 27 L TSH Urine Color Urine Clarity Urine pH Ur Specific [place] Urine Protein Urine Glucose (UA) Urine Ketones Urine Occult Blood Urine Nitrite Urine Bilirubin Urine Urobilinogen Ur Leukocyte Esterase Urine RBC Urine WBC Ur Squamous Epith Cells Urine Bacteria Urine Mucus POC Glucose 04/09/18 04/08/18 06:52 22:00 POC Glucose 229 H 314 H Home Medications: Medications to take at Discharge Apixaban [Eliquis] 5 mg PO BID 03/18/17 Atorvastatin Calcium [Lipitor] 40 mg PO QHS 03/18/17 Gabapentin [Neurontin] 100 mg PO TID 07/27/17 Omeprazole 20 mg PO DAILY 07/27/17 carboxymethylcellulose sodium 0.5 % eye drops 1 drp EACH EYE 4-8XD PRN 10/27/17 midodrine 5 mg tablet 5 mg PO TID PRN tab 10/27/17 netarsudil 0.02 % eye drops 1 drp RIGHT EYE DAILY 10/27/17 promethazine 12.5 mg tablet 12.5 mg PO Q6H PRN 10/27/17 insulin lispro (U- 100) 100 unit/mL subcutaneous solution See Rx Instructions CONTINUOUS SUBCUTANEOUS INFUSION QDAY #3 ml 02/15/18 Aspirin [Aspirin, Baby] 81 mg PO DAILY 03/14/18 Docusate Sodium [Colace] 100 mg PO TID PRN 03/14/18 Meclizine HCl [Antivert] 12.5 mg PO TID PRN PRN 03/14/18 white petrolatum-mineral oil 57.3 %-42.5 % eye ointment 1 applic OPHTHALMIC QHS 04/01/18 Acetaminophen [Tylenol Extra Strength] 500 - 1,000 mg PO TID PRN PRN 04/08/18 Calcium Carb/Vitamin D3/Vit K1 [Viactiv Soft Chew] 1 each PO DAILY 04/08/18 Celecoxib [Celebrex] 200 mg PO DAILY 04/08/18 Cholecalciferol (Vitamin D3) [Vitamin D3] 5,000 unit PO DAILY 04/08/18 Cyanocobalamin (Vitamin B-12) [Vitamin B-12] 5,000 mcg PO DAILY 04/08/18 Primary Care Physician: Elizabeth Coto MD [Primary Care Provider] - Please follow up with your Primary Care Physician in: 1 Week Please Follow Up With: Wil Alves NP-C When: As scheduled Please Follow Up With: Tru Foote DPM When: As scheduled Disposition: [facility] facility Minutes spent on discharge:: 35 Patient Condition:: Stable Medical Necessity - Tobacco Use Smoking Status: Never smoker Tobacco Use: Non-smoker Meaningful Use Info Meaningful Use Diagnoses (Choose all that apply): None applicable <Jose Lama - Last Filed: 04/09/18 11:55> Discharge Date and Diagnosis - Secondary Discharge Diagnosis Chronic Problems (Last Reviewed 01/26/18 @ 13:05 by Joya Ayala) Type 2 diabetes mellitus (Chronic) Insulin pump in place (Chronic) Nonrheumatic mitral (valve) insufficiency (Chronic) Paroxysmal atrial fibrillation (Chronic) Low blood pressure (Chronic) Arterial ischemic stroke, MCA, left, acute (Chronic) Right sided weakness (Chronic) Glaucoma (Chronic) Hospital Course and Treatment Consultations 04/08/18 19:38 Consult: Onc/Wound/wildland fire fighter specialist Routine Comment: R great toe chronic wound Summary of Care Provided: This patient was seen in conjunction with TAQUERIA Lawrence . I have independently interviewed and examined the patient and reviewed pertinent historical, laboratory, and other data. Please refer to TAQUERIA Lawrence note for details of this patient's presentation, findings, and recommendations. I have reviewed TAQUERIA Lawrence note and concur with documented findings. In brief, patient is a 78-year-old lady with multiple comorbidities including paroxysmal A. fib, diabetes mellitus type 2 dyslipidemia admitted with physical debility. Patient was placed on a monitored bed transferred to half-way facility once insurance precertification was obtained and bed became available. Hospital course: As documented above - Physical Exam Vital Signs Temp Pulse Resp BP Pulse Ox 98.1 F 90 18 122/49 H 96 04/09/18 09:38 04/09/18 11:19 04/09/18 09:38 04/09/18 09:38 04/09/18 09:38 Oxygen Delivery Method Room Air Weight: 64.8 kg Body Mass Index (BMI) 24.5 Finger Stick Blood Glucose 140 Intake and Output for Last 24 Hours 04/07/18 04/08/18 04/09/18 23:59 23:59 23:59 Intake Total 120 / 120 50 / 50 Balance 120 / 120 50 / 50 Laboratory Tests Past 24 Hrs 04/08/18 04/08/18 04/08/18 16:28 16:28 16:28 WBC 7.3 RBC 4.05 L Hgb 12.4 Hct 38.2 MCV 94.3 MCH 30.6 MCHC 32.5 RDW 12.8 RDW Differential 43.0 Plt Count 248 MPV 11.1 Immature Gran % (Auto) 0.100 Neut % (Auto) 68.1 Lymph % (Auto) 20.1 Garrett % (Auto) 10.2 H Eos % (Auto) 1.2 Baso % (Auto) 0.3 Absolute Neuts (auto) 4.9 Absolute Lymphs (auto) 1.46 Total Counted Not Reportable Sodium 139 Potassium 4.1 Chloride 105 Carbon Dioxide 25.0 Anion Gap 9 BUN 23 H Creatinine 1.00 Estim Creat Clear Calc 40.04 Est GFR (MDRD) Af Amer 69 Est GFR (MDRD) Non-Af 57 L BUN/Creatinine Ratio 23.0 H Glucose 175 H Lactic Acid Calcium 8.4 L Magnesium 2.0 Total Bilirubin AST ALT Alkaline Phosphatase Troponin I 0.016 Total Protein Albumin Globulin Albumin/Globulin Ratio Triglycerides Cholesterol LDL Cholesterol VLDL Cholesterol HDL Cholesterol TSH 2.94 Urine Color Urine Clarity Urine pH Ur Specific [place] Urine Protein Urine Glucose (UA) Urine Ketones Urine Occult Blood Urine Nitrite Urine Bilirubin Urine Urobilinogen Ur Leukocyte Esterase Urine RBC Urine WBC Ur Squamous Epith Cells Urine Bacteria Urine Mucus 04/08/18 04/08/18 04/08/18 16:50 17:00 20:40 WBC RBC Hgb Hct MCV MCH MCHC RDW RDW Differential Plt Count MPV Immature Gran % (Auto) Neut % (Auto) Lymph % (Auto) Garrett % (Auto) Eos % (Auto) Baso % (Auto) Absolute Neuts (auto) Absolute Lymphs (auto) Total Counted Sodium Potassium Chloride Carbon Dioxide Anion Gap BUN Creatinine Estim Creat Clear Calc Est GFR (MDRD) Af Amer Est GFR (MDRD) Non-Af BUN/Creatinine Ratio Glucose Lactic Acid 1.7 Calcium Magnesium Total Bilirubin AST ALT Alkaline Phosphatase Troponin I 0.015 Total Protein Albumin Globulin Albumin/Globulin Ratio Triglycerides Cholesterol LDL Cholesterol VLDL Cholesterol HDL Cholesterol TSH Urine Color Yellow Urine Clarity Clear Urine pH 5.0 Ur Specific [place] 1.020 Urine Protein Negative Urine Glucose (UA) 250 H Urine Ketones Negative Urine Occult Blood Negative Urine Nitrite Negative Urine Bilirubin Negative Urine Urobilinogen Normal Ur Leukocyte Esterase Negative Urine RBC 0 SEEN Urine WBC 0 SEEN Ur Squamous Epith Cells 0 SEEN Urine Bacteria 0 SEEN Urine Mucus 0 SEEN 04/09/18 04/09/18 00:20 05:40 WBC RBC Hgb Hct MCV MCH MCHC RDW RDW Differential Plt Count MPV Immature Gran % (Auto) Neut % (Auto) Lymph % (Auto) Garrett % (Auto) Eos % (Auto) Baso % (Auto) Absolute Neuts (auto) Absolute Lymphs (auto) Total Counted Sodium 142 Potassium 4.4 Chloride 110 H Carbon Dioxide 25.0 Anion Gap 7 BUN 18 Creatinine 0.88 Estim Creat Clear Calc 45.50 Est GFR (MDRD) Af Amer 80 Est GFR (MDRD) Non-Af 67 BUN/Creatinine Ratio 20.6 H Glucose 209 H Lactic Acid Calcium 7.8 L Magnesium Total Bilirubin 0.60 AST 17 ALT 22 Alkaline Phosphatase 92 Troponin I < 0.015 Total Protein 5.0 L Albumin 2.6 L Globulin 2.4 Albumin/Globulin Ratio 1.1 Triglycerides 85 Cholesterol 90 LDL Cholesterol 46 VLDL Cholesterol 17 HDL Cholesterol 27 L TSH Urine Color Urine Clarity Urine pH Ur Specific [place] Urine Protein Urine Glucose (UA) Urine Ketones Urine Occult Blood Urine Nitrite Urine Bilirubin Urine Urobilinogen Ur Leukocyte Esterase Urine RBC Urine WBC Ur Squamous Epith Cells Urine Bacteria Urine Mucus POC Glucose 04/09/18 04/08/18 06:52 22:00 POC Glucose 229 H 314 H Code Visit OBSV E&M: 99180 Observation care discharge
[2018-04-09 12:05] LABS: Bedside Glucose 186 mg/dL (70-110)
--- NOTE | 2018-04-09 12:11 | CASEMGMT ---
SW spoke with Roslyn at [facility] and they can accept patient. Physician completed orders. SW spoke with patient's granddaughter, Janelle and she can take patient. She said she will be her in about an hour. YI notified patient, RN, lead electrical controls engineer, and Karina at [facility]. SW completed PASRR on [facility] as patient will likely be there longer than 30 days. Plan: d/c to [facility] under intermediate level of care on a PASRR. Family transported patient via private vehicle. Cary FERNANDO MSW
--- NOTE | 2018-04-09 12:35 | NURSING ---
wound photo: right medial great toe
--- NOTE | 2018-04-09 12:36 | NURSING ---
wound photo: right dorsal foot
== END 2018-04-09 12:55 | disposition intermediate care facility (04) | DRG 948 ==
LOC: ED 16:48 → PCU 18:59
PROVIDERS: Admitting Provider Family Medicine; Emergency Provider Emergency Medicine; Family Provider Internal Medicine; PCP Internal Medicine; Visit Provider Internal Medicine
DX: R53.81 Other malaise (principal); I69.351 Hemiplegia and hemiparesis following cerebral infarction affecting right dominant side; I48.0 Paroxysmal atrial fibrillation; I69.391 Dysphagia following cerebral infarction; R13.10 Dysphagia, unspecified; E11.40 Type 2 diabetes mellitus with diabetic neuropathy, unspecified; N31.9 Neuromuscular dysfunction of bladder, unspecified; E11.621 Type 2 diabetes mellitus with foot ulcer; L97.519 Non-pressure chronic ulcer of other part of right foot with unspecified severity; I95.1 Orthostatic hypotension; H40.9 Unspecified glaucoma; Z96.41 Presence of insulin pump (external) (internal); Z79.4 Long term (current) use of insulin; Z79.899 Other long term (current) drug therapy; E78.5 Hyperlipidemia, unspecified; I36.1 Nonrheumatic tricuspid (valve) insufficiency
CPT/HCPCS: 36415; 71045; 80048; 80053; 80061; 81001; 82962; 83605; 83735; 84443; 84484; 85025; 93005; 93306; 97802; 99284; J7030; A4216; J2405

== ENCOUNTER → 2018-04-19 04:00 | Outpatient (REF) | payer MEDICARE, OTHER, SELFPAY ==
[2018-04-08 19:23] VITALS: BMI 24.5
[2018-04-19 08:24] LABS: Hemoglobin 10.1 g/dl (12.0-15.0); Mean Corp Hgb Conc 31.6 g/gl (32-36); Mean Corpuscular Hgb 29.8 pg (27.0-32.0); Mean Corpuscular Volume 94.4 fL (81-99); Mean Platelet Vol. 10.6 fl (6.2-12.0); Platelet Count 252 K/mm3 (150-450); RBC Distribution Width CV 13.6 % (11.6-14.6); RBC Distribution Width SD 44.9 fl (35.1-43.9); Red Blood Count 3.39 M/mm3 (4.2-5.4); White Blood Count 5.4 K/mm3 (4.4-11.0)
[2018-04-19 08:26] LABS: Scan Indicated on CBC? Y/N NO
[2018-04-19 08:38] LABS: Anion Gap 10 (5-15); BUN 13 mg/dL (7-18); BUN/Creat Ratio 17.6 RATIO (10-20); Calcium,Total 7.9 mg/dL (8.5-10.1); Chloride 106 mmol/L (98-107); Creatinine, Serum 0.74 mg/dL (0.55-1.02); EST Glomerular Filtration Rate 81 mL/min (>60); Est Glom Filt Rate - Afr Amer 98 mL/min (>60); Glucose 99 mg/dL (74-106); Potassium 4.2 mmol/L (3.5-5.1); Sodium Level 139 mmol/L (136-145)
[2018-04-19 08:58] LABS: Hemoglobin A1c 9.6 % (4.2-6.3)
== END ==
LOC: OLS.WCC 04:00
PROVIDERS: Visit Provider Family Medicine
DX: E11.9 Type 2 diabetes mellitus without complications (principal)
CPT/HCPCS: 36415; 80048; 83036; 85027

== ENCOUNTER → 2018-04-27 05:00 | Outpatient (REF) | payer MEDICARE, OTHER, SELFPAY ==
[2018-04-08 19:23] VITALS: BMI 24.5
[2018-04-27 08:26] LABS: Hematocrit 29.7 % (37-47); Hemoglobin 9.2 g/dl (12.0-15.0); Mean Corpuscular Hgb 29.6 pg (27.0-32.0); Mean Corpuscular Volume 95.5 fL (81-99); Platelet Count 384 K/mm3 (150-450); RBC Distribution Width CV 13.1 % (11.6-14.6); RBC Distribution Width SD 43.7 fl (35.1-43.9); Red Blood Count 3.11 M/mm3 (4.2-5.4); White Blood Count 5.5 K/mm3 (4.4-11.0)
[2018-04-27 08:27] LABS: Scan Indicated on CBC? Y/N NO
[2018-04-27 08:43] LABS: Anion Gap 5 (5-15); BUN 15 mg/dL (7-18); BUN/Creat Ratio 16.1 RATIO (10-20); Calcium,Total 7.4 mg/dL (8.5-10.1); Chloride 107 mmol/L (98-107); Creatinine, Serum 0.93 mg/dL (0.55-1.02); EST Glomerular Filtration Rate 62 mL/min (>60); Est Glom Filt Rate - Afr Amer 75 mL/min (>60); Glucose 206 mg/dL (74-106); Potassium 4.3 mmol/L (3.5-5.1); Sodium Level 138 mmol/L (136-145)
== END ==
LOC: OLS.WCC 05:00
PROVIDERS: Visit Provider Family Medicine
DX: I48.91 Unspecified atrial fibrillation (principal); E11.9 Type 2 diabetes mellitus without complications; I95.9 Hypotension, unspecified
CPT/HCPCS: 36415; 80048; 85027

== ENCOUNTER → 2018-05-06 06:00 | Outpatient (REF) | payer MEDICARE, OTHER, SELFPAY ==
[2018-04-08 19:23] VITALS: BMI 24.5
== END ==
LOC: OLS.WCC 06:00
PROVIDERS: Visit Provider Family Medicine
DX: E11.9 Type 2 diabetes mellitus without complications (principal)
CPT/HCPCS: 87070; 87077; 87205

== ENCOUNTER → 2018-05-28 05:00 | Outpatient (REF) | payer MEDICARE, OTHER, SELFPAY ==
[2018-04-08 19:23] VITALS: BMI 24.5
[2018-05-28 07:56] LABS: Hemoglobin 9.5 g/dl (12.0-15.0); Mean Corp Hgb Conc 32.8 g/gl (32-36); Mean Corpuscular Hgb 30.2 pg (27.0-32.0); Mean Corpuscular Volume 92.1 fL (81-99); Mean Platelet Vol. 10.2 fl (6.2-12.0); Platelet Count 257 K/mm3 (150-450); RBC Distribution Width SD 50.9 fl (35.1-43.9); Red Blood Count 3.15 M/mm3 (4.2-5.4); White Blood Count 5.8 K/mm3 (4.4-11.0)
[2018-05-28 07:57] LABS: Scan Indicated on CBC? Y/N NO
[2018-05-28 08:13] LABS: Anion Gap 5 (5-15); BUN 21 mg/dL (7-18); BUN/Creat Ratio 23.6 RATIO (10-20); Calcium,Total 8.3 mg/dL (8.5-10.1); Chloride 106 mmol/L (98-107); Creatinine, Serum 0.89 mg/dL (0.55-1.02); EST Glomerular Filtration Rate 65 mL/min (>60); Est Glom Filt Rate - Afr Amer 79 mL/min (>60); Glucose 245 mg/dL (74-106); Potassium 4.3 mmol/L (3.5-5.1); Sodium Level 137 mmol/L (136-145)
== END ==
LOC: OLS.WCC 05:00
PROVIDERS: Visit Provider Family Medicine
DX: I48.91 Unspecified atrial fibrillation (principal); E11.9 Type 2 diabetes mellitus without complications; E78.5 Hyperlipidemia, unspecified
CPT/HCPCS: 36415; 80048; 85027

== ENCOUNTER → 2018-06-27 04:40 | Outpatient (REF) | payer MEDICARE, OTHER, SELFPAY ==
[2018-04-08 19:23] VITALS: BMI 24.5
[2018-06-27 05:10] LABS: Hematocrit 31.9 % (37-47); Hemoglobin 10.2 g/dl (12.0-15.0); Mean Corpuscular Hgb 29.6 pg (27.0-32.0); Mean Corpuscular Volume 92.5 fL (81-99); Mean Platelet Vol. 10.4 fl (6.2-12.0); Platelet Count 258 K/mm3 (150-450); RBC Distribution Width CV 14.7 % (11.6-14.6); RBC Distribution Width SD 47.8 fl (35.1-43.9); Red Blood Count 3.45 M/mm3 (4.2-5.4); White Blood Count 6.4 K/mm3 (4.4-11.0)
[2018-06-27 05:27] LABS: Anion Gap 6 (5-15); BUN 20 mg/dL (7-18); BUN/Creat Ratio 18.5 RATIO (10-20); Calcium,Total 8.8 mg/dL (8.5-10.1); Chloride 109 mmol/L (98-107); Creatinine, Serum 1.08 mg/dL (0.55-1.02); EST Glomerular Filtration Rate 52 mL/min (>60); Est Glom Filt Rate - Afr Amer 63 mL/min (>60); Glucose 175 mg/dL (74-106); Potassium 4.8 mmol/L (3.5-5.1); Sodium Level 141 mmol/L (136-145)
[2018-06-27 05:45] LABS: Scan Indicated on CBC? Y/N NO
== END ==
LOC: OLS.WCC 04:40
PROVIDERS: Visit Provider Family Medicine
DX: I48.91 Unspecified atrial fibrillation (principal); E11.9 Type 2 diabetes mellitus without complications; E78.5 Hyperlipidemia, unspecified
CPT/HCPCS: 36415; 80048; 85027

== ENCOUNTER → 2018-07-02 | Outpatient (REF) | payer MEDICARE, OTHER, SELFPAY ==
[2018-04-08 19:23] VITALS: BMI 24.5
[2018-07-02 08:08] LABS: Hematocrit 31.1 % (37-47); Mean Corp Hgb Conc 32.2 g/gl (32-36); Mean Corpuscular Hgb 29.4 pg (27.0-32.0); Mean Corpuscular Volume 91.5 fL (81-99); Mean Platelet Vol. 10.7 fl (6.2-12.0); Platelet Count 249 K/mm3 (150-450); RBC Distribution Width CV 14.8 % (11.6-14.6); RBC Distribution Width SD 49.2 fl (35.1-43.9); White Blood Count 5.5 K/mm3 (4.4-11.0)
[2018-07-02 08:12] LABS: Mucous, Urine 0 SEEN /hpf (<or=2+); Squamous Epithelial Cells - UA 0 SEEN /hpf (5-10)
[2018-07-02 08:14] LABS: Scan Indicated on CBC? Y/N NO
[2018-07-02 08:23] LABS: Color, Urine Yellow (Yellow); Glucose, Dipstick 250 mg/dl (Normal); Ketone-Dipstick Negative (Negative); Leukocyte Esterase-Dipstick 500 /ul (Negative); Nitrite-Dipstick Positive (Negative); Occult Blood-Urine 50 /ul (Negative); Protein-Dipstick 30 mg/dl (Negative); Specific Gravity, Urine 1.015 (1.002-1.030); Urine Bilirubin Dipstick Negative (Negative); Urine Clarity Sl. Cloudy (Clear); Urine Urobilinogen Normal (Normal)
[2018-07-02 08:32] LABS: Bacteria 1+ /hpf (None Seen); Red Blood Cells-Urine 0-5 SEEN /hpf (0-5); Transitional Epithelial - Ur 0-5 SEEN /hpf (0-5); White Blood Cells 50-100 SEEN /hpf (0-5)
[2018-07-02 08:43] LABS: Anion Gap 5 (5-15); BUN 20 mg/dL (7-18); BUN/Creat Ratio 21.9 RATIO (10-20); Calcium,Total 8.4 mg/dL (8.5-10.1); Chloride 112 mmol/L (98-107); Creatinine, Serum 0.91 mg/dL (0.55-1.02); EST Glomerular Filtration Rate 63 mL/min (>60); Est Glom Filt Rate - Afr Amer 77 mL/min (>60); Glucose 184 mg/dL (74-106); Potassium 4.1 mmol/L (3.5-5.1); Sodium Level 141 mmol/L (136-145); Thyroid Stim Hormone (TSH) 3.78 uIU/mL (0.358-3.74)
== END | disposition home or self-care (01) ==
LOC: OLS.WCC 05:00
PROVIDERS: Visit Provider Family Medicine
DX: E11.9 Type 2 diabetes mellitus without complications (principal); R41.0 Disorientation, unspecified
CPT/HCPCS: 36415; 80048; 81001; 84443; 85027

== ENCOUNTER → 2018-07-07 | Outpatient (REF) | payer MEDICARE, OTHER, SELFPAY ==
[2018-04-08 19:23] VITALS: BMI 24.5
[2018-07-07 06:43] LABS: Color, Urine Yellow (Yellow); Glucose, Dipstick 100 mg/dl (Normal); Ketone-Dipstick Negative (Negative); Leukocyte Esterase-Dipstick 500 /ul (Negative); Nitrite-Dipstick Negative (Negative); Occult Blood-Urine 50 /ul (Negative); Protein-Dipstick 30 mg/dl (Negative); Urine Bilirubin Dipstick Negative (Negative); Urine Clarity Turbid (Clear); Urine Urobilinogen Normal (Normal)
== END | disposition home or self-care (01) ==
LOC: OLS.WCC 12:10
PROVIDERS: Visit Provider Family Medicine
DX: R30.0 Dysuria (principal)
CPT/HCPCS: 81002; 87077; 87086; 87088; 87186

== ENCOUNTER → 2018-07-27 | Outpatient (REF) | payer MEDICARE, OTHER, SELFPAY ==
[2018-04-08 19:23] VITALS: BMI 24.5
[2018-07-27 08:03] LABS: Hematocrit 30.8 % (37-47); Hemoglobin 9.8 g/dl (12.0-15.0); Mean Corp Hgb Conc 31.8 g/gl (32-36); Mean Corpuscular Volume 91.1 fL (81-99); Mean Platelet Vol. 10.5 fl (6.2-12.0); Platelet Count 321 K/mm3 (150-450); RBC Distribution Width SD 48.9 fl (35.1-43.9); Red Blood Count 3.38 M/mm3 (4.2-5.4)
[2018-07-27 08:06] LABS: Scan Indicated on CBC? Y/N NO
[2018-07-27 08:19] LABS: Anion Gap 7 (5-15); BUN 19 mg/dL (7-18); BUN/Creat Ratio 18.4 RATIO (10-20); Calcium,Total 8.1 mg/dL (8.5-10.1); Chloride 105 mmol/L (98-107); Creatinine, Serum 1.03 mg/dL (0.55-1.02); EST Glomerular Filtration Rate 55 mL/min (>60); Est Glom Filt Rate - Afr Amer 67 mL/min (>60); Glucose 162 mg/dL (74-106); Potassium 4.5 mmol/L (3.5-5.1); Sodium Level 135 mmol/L (136-145)
[2018-07-27 08:23] LABS: Hemoglobin A1c 10.3 % (4.2-6.3)
== END | disposition home or self-care (01) ==
LOC: OLS.WCC 05:39
PROVIDERS: Visit Provider Family Medicine
DX: I48.91 Unspecified atrial fibrillation (principal); E11.9 Type 2 diabetes mellitus without complications; E78.5 Hyperlipidemia, unspecified
CPT/HCPCS: 36415; 80048; 83036; 85027

== ENCOUNTER → 2018-08-02 20:30 | Outpatient (REF) | payer MEDICARE, OTHER, SELFPAY ==
[2018-04-08 19:23] VITALS: BMI 24.5
[2018-08-03 07:57] LABS: Color, Urine Yellow (Yellow); Glucose, Dipstick 100 mg/dl (Normal); Ketone-Dipstick Negative (Negative); Leukocyte Esterase-Dipstick 500 /ul (Negative); Nitrite-Dipstick Positive (Negative); Occult Blood-Urine 250 /ul (Negative); Protein-Dipstick 30 mg/dl (Negative); Specific Gravity, Urine 1.015 (1.002-1.030); Urine Bilirubin Dipstick Negative (Negative); Urine Clarity Sl. Cloudy (Clear); Urine Urobilinogen Normal (Normal)
== END ==
LOC: OLS.WCC 20:30
PROVIDERS: Visit Provider Family Medicine
DX: R30.0 Dysuria (principal)
CPT/HCPCS: 81002; 87077; 87086; 87088; 87186

== ENCOUNTER → 2018-08-19 05:00 | Outpatient (REF) | payer MEDICARE, OTHER, SELFPAY ==
[2018-04-08 19:23] VITALS: BMI 24.5
[2018-08-19 08:23] LABS: Absolute Lymphocyte Count 1.29 X10^3/ul (0.83-4.51); Absolute Neutrophil Count 4.5 X10^3/uL (2.0-7.7); Basophil# 0.03 X10^3/uL; Basophil% 0.5 % (0-1); Eosinophil# 0.13 X10^3/uL; Hematocrit 30.2 % (37-47); Hemoglobin 9.5 g/dl (12.0-15.0); Lymphocyte # 1.29 X10^3/ul (4.0); Mean Corp Hgb Conc 31.5 g/gl (32-36); Mean Corpuscular Hgb 27.7 pg (27.0-32.0); Mean Platelet Vol. 9.6 fl (6.2-12.0); Monocyte# 0.52 X10^3/uL; Monocyte% 8.1 % (0-10); Neutrophil # 4.47 X10^3/uL (2.7-7.7); Neutrophil % 69.2 % (47-70); Platelet Count 412 K/mm3 (150-450); RBC Distribution Width CV 15.1 % (11.6-14.6); RBC Distribution Width SD 48.3 fl (35.1-43.9); Red Blood Count 3.43 M/mm3 (4.2-5.4); White Blood Count 6.5 K/mm3 (4.4-11.0)
[2018-08-19 08:27] LABS: POSITIVE COUNT NO; POSITIVE DIFFERENTIAL NO; POSITIVE MORPHOLOGY NO
[2018-08-19 08:35] LABS: Anion Gap 10 (5-15); BUN 16 mg/dL (7-18); BUN/Creat Ratio 15.2 RATIO (10-20); Calcium,Total 8.6 mg/dL (8.5-10.1); Chloride 98 mmol/L (98-107); Creatinine, Serum 1.05 mg/dL (0.55-1.02); EST Glomerular Filtration Rate 54 mL/min (>60); Est Glom Filt Rate - Afr Amer 65 mL/min (>60); Glucose 192 mg/dL (74-106); Potassium 4.1 mmol/L (3.5-5.1); Sodium Level 134 mmol/L (136-145)
[2018-08-19 16:01] VITALS: BMI 27.6
== END ==
LOC: OLS.WCC 05:00
PROVIDERS: Visit Provider Family Medicine
DX: E78.5 Hyperlipidemia, unspecified (principal); E11.9 Type 2 diabetes mellitus without complications
CPT/HCPCS: 36415; 80048; 85025

== ENCOUNTER 2018-08-19 12:20 | Inpatient (IN) | payer MEDICARE, OTHER, SELFPAY ==
[2018-08-19] VITALS (10 sets, daily range): BP systolic 102–163; BP diastolic 52–111; PULSE 82–167; RESP 16–27; TEMP 36.5–37; O2SAT 93–98; BMI 27.8; BMI 29.6; BMI 27.6; BMI 27.7
--- NOTE | 2018-08-19 12:36 | EKG12_ITS ---
Test Reason : ARRHYTHMIA Blood Pressure : / mmHG Vent. Rate : 139 BPM Atrial Rate : 153 BPM P-R Int : 000 ms QRS Dur : 086 ms QT Int : 318 ms P-R-T Axes : 000 037 031 degrees QTc Int : 483 ms Atrial fibrillation with rapid ventricular response Low voltage QRS Abnormal ECG Confirmed by LADI NY, LIBAN ([id number]), food editor CODEY KLEIN ([id number]) on 08/26/2018 10:27:39 AM Referred By: Joe Corrales Confirmed By:LIBAN BLEDSOE MD
--- NOTE | 2018-08-19 12:36 | RAD_ITS ---
STUDY: X-RAY CHEST REASON FOR EXAM: Female, 78 years old. Shortness of breath. Epigastric pain and bilateral lower extremity edema. TECHNIQUE: Single AP portable view of the chest. COMPARISON: EKG electrodes are seen. FINDINGS: Left pleural effusion with underlying infiltration and/or atelectasis. Blunting of the right costophrenic angle. Mild degree of vascular congestion. Normal size heart. Normal mediastinum and kahlil. Normal visualized pulmonary arteries. There is atherosclerotic tortuosity of the aortic arch and descending thoracic aorta. There are diffuse degenerative changes of the visualized thoracic spine. Normal visualized ribs, clavicles, and shoulders. There is no demonstrated abnormality of the visualized soft tissue structures of the upper abdomen. RAD/Chest 1 View (Portable) IMPRESSION: Mild degree of vascular congestion with superimposed bilateral pleural effusions and bibasilar atelectasis worse on the left side. Electronically Signed: Janes Boyle, at 13:31 EDT , Service support ,
[2018-08-19 12:50] LABS: Absolute Lymphocyte Count 1.78 X10^3/ul (0.83-4.51); Basophil# 0.04 X10^3/uL; Basophil% 0.5 % (0-1); Eosinophil# 0.14 X10^3/uL; Eosinophils% 1.8 % (0-5); Hematocrit 33.5 % (37-47); Hemoglobin 10.6 g/dl (12.0-15.0); Lymphocyte # 1.78 X10^3/ul (4.0); Lymphocyte % 23.4 % (19-41); Mean Corp Hgb Conc 31.6 g/gl (32-36); Mean Corpuscular Hgb 27.7 pg (27.0-32.0); Mean Corpuscular Volume 87.5 fL (81-99); Mean Platelet Vol. 9.5 fl (6.2-12.0); Monocyte% 7.9 % (0-10); Neutrophil # 5.04 X10^3/uL (2.7-7.7); Neutrophil % 66.1 % (47-70); Platelet Count 468 K/mm3 (150-450); RBC Distribution Width CV 14.9 % (11.6-14.6); RBC Distribution Width SD 46.6 fl (35.1-43.9); Red Blood Count 3.83 M/mm3 (4.2-5.4); White Blood Count 7.6 K/mm3 (4.4-11.0)
[2018-08-19 12:59] LABS: POSITIVE COUNT NO; POSITIVE DIFFERENTIAL NO; POSITIVE MORPHOLOGY NO
[2018-08-19 13:08] LABS: Anion Gap 8 (5-15); BUN 18 mg/dL (7-18); BUN/Creat Ratio 14.5 RATIO (10-20); Calcium,Total 8.7 mg/dL (8.5-10.1); Chloride 99 mmol/L (98-107); Creatinine, Serum 1.24 mg/dL (0.55-1.02); EST Glomerular Filtration Rate 44 mL/min (>60); Est Glom Filt Rate - Afr Amer 54 mL/min (>60); Estimated Creatinine Clearance 30.93 ml/min; Glucose 284 mg/dL (74-106); Potassium 4.7 mmol/L (3.5-5.1); Sodium Level 130 mmol/L (136-145)
[2018-08-19] MEDS: Furosemide 40 MG/4 ML Vial IV ×2 (13:16→21:55)
[2018-08-19] MEDS: dilTIAZem 25 MG/5 ML Vial 10 MG IV BOLUS (13:16)
[2018-08-19 13:17] LABS: BNP,B-Type NATRIURETIC PEPTIDE 221.6 pg/mL (0-100)
[2018-08-19] MEDS: Ondansetron 4 MG/2 ML Vial IV (13:36)
--- NOTE | 2018-08-19 14:40 | ED.RN ---
PER [place], PT FAMILY MEMBER PT HAS HAD DECREASED URINE OUTPUT. DR. CLEMENTS INFORMED OF NO URINE OUTPUT POST LASIX ADMINISTRATION BY THIS RN. NO NEW ORDERS AT THIS TIME. WILL CONTINUE TO MONITOR.
--- NOTE | 2018-08-19 15:27 | ED.VISSUMM ---
- ER Visit Summary Date of Service: 08/19/18 Chief Complaint: Atrial fibrillation History of Present Illness: The patient is a 78 F sent in from the [facility] for likely admission for atrial fibrillation, peripheral edema, and weight gain. Symptoms have been going on for days. Getting worse. She is also having shortness of breath and chest pressure. She has a known history of atrial fibrillation and takes aspirin and Eliquis. Denies fevers or other new symptoms. Physical Examination: Afebrile. Heart rate 139 and blood pressure 163/111. Patient appears uncomfortable but not toxic or in distress. Heart is irregularly irregular. Lungs are clear. Abdomen soft. Extremities show bilateral edema, symmetric with tenderness. Pulses strong and equal. Good mentation. Skin otherwise unremarkable. Test Results: EKG shows atrial fibrillation at a rate of 122 with nonspecific changes. Chest x-ray showed mild congestion, bilateral atelectasis and bilateral pleural effusions. Hemoglobin 10.6 and platelets 468. Sodium 130 and glucose 284. Creatinine 1.24. Troponin normal. BNP 221. Emergency Department Course and Treatment: Patient treated with Lasix and Cardizem. She was placed on the monitor. I suspect that given her increasing symptoms and failed outpatient treatment, she will need inpatient evaluation. Her work-up was as above. She will need diuresis and rate control. Hospitalist was contacted for further care. Treatment Plan: As above Disposition: Admission Impression: 1. Atrial fibrillation with RVR 2. CHF 3. Chest pain This note was generated with [employer] dictation software. It may contain incorrect words, spelling, and punctuation that were not noted in review of the chart prior to signing ED Disposition - Plan for ED Patient: Referrals: Wil Gorman MD [Primary Care Provider] -
--- NOTE | 2018-08-19 15:31 | PCM.HP.STD ---
<Warner Martinez - Last Filed: 08/19/18 15:48> Problem List (1) Atrial fibrillation with rapid ventricular response Status: Acute (2) Acute on chronic diastolic CHF (congestive heart failure) Status: Chronic (3) Urinary retention Status: Chronic (4) History of CVA (cerebrovascular accident) Status: Chronic (5) Paroxysmal atrial fibrillation Status: Chronic (6) Type 1 diabetes Status: Chronic (7) PAD (peripheral artery disease) Status: Chronic History of Present Illness Date of Admission: 08/19/18 Chief Complaint: LE edema The patient is a 78 year old F with past medical history of paroxysmal atrial fibrillation, diastolic congestive heart failure, type 1 diabetes, history of CVA in 2017, history of peripheral arterial disease with nonhealing right lower extremity ulcer, who presented to the emergency room from [facility] (she lives at [facility]), with a chief complaint of increased lower extremity edema over the past week. She is also had increased shortness of breath progressively worsening past several days. She was at Dr. Navarro's office seeing Brenda Lemons today and was found to be in A. fib with RVR and sent to the emergency room. The patient was treated with Lasix as an outpatient for congestive heart failure however she has had poor diuresis and has had a 20 pound weight gain over the past 2 weeks. This is been complicated by possibility of multiple recent urinary tract infections and issues with urinary retention. She is a former patient of Dr. Pastor however she has not been seen by urologist since he retired. She was trialed on Flomax and developed orthostatic hypotension and was taken off of it. The patient has not been able to empty her bladder despite feeling the sensation of needing to go. She has not emptied her bladder since receiving Lasix in the ER. In the ER she was found to have atrial fibrillation with rapid ventricular response with a rate into the low 140s and she was given IV Cardizem bolus. She also has complaints of midsternal and bilateral subdiaphragmatic chest pressure. She has no radiation of her pain into heart her arms back or neck. She has had lightheadedness and dizziness as well as nausea. She did have palpitations prior to coming in, at this point she does not have any. She has been treated as an outpatient with antibiotics 3 times over the past 3 months with no improvement. She denies fevers or chills. She denies overt dysuria. [] Past Medical History Past Medical History (Chronic Problems): Chronic Problems (Last Updated 08/19/18 @ 15:13 by Joe Corrales MD) Low blood pressure (Chronic) History of CVA (cerebrovascular accident) (Chronic) Urinary retention (Chronic) Acute on chronic diastolic CHF (congestive heart failure) (Chronic) Type 1 diabetes (Chronic) PAD (peripheral artery disease) (Chronic) Insulin pump in place (Chronic) Nonrheumatic mitral (valve) insufficiency (Chronic) Paroxysmal atrial fibrillation (Chronic) Arterial ischemic stroke, MCA, left, acute (Chronic) Right sided weakness (Chronic) Glaucoma (Chronic) Medical History: Medical History (Last Updated 08/19/18 @ 15:13 by Joe Corrales MD) Insulin pump in place (Chronic) Z96.41 Nonrheumatic mitral (valve) insufficiency (Chronic) I34.0 Paroxysmal atrial fibrillation (Chronic) I48.0 Arterial ischemic stroke, MCA, left, acute (Chronic) I63.512 Glaucoma (Chronic) H40.9 CVA (cerebral vascular accident) I63.9 Carpal tunnel syndrome G56.00 Diabetes type 1, controlled E10.9 Dx : age 19 Last exacerbation : DKA : never Hypoglycemic episode : never ER visit : never GERD (gastroesophageal reflux disease) K21.9 Neuropathy G62.9 Osteoporosis M81.0 Atrial fibrillation (Inactive) I48.91 Vitamin deficiency E56.9 Allergies ezetimibe [From Zetia] Allergy (Verified 08/19/18 12:21) Other Home Medications: Ambulatory Orders Medication Instructions Recorded Atorvastatin Calcium [Lipitor] 40 mg PO QHS 03/18/17 Gabapentin [Neurontin] 100 mg PO TID 07/27/17 netarsudil 0.02 % eye drops 1 drp RIGHT EYE DAILY 10/27/17 insulin lispro (U-100) 100 unit/mL See Rx Instructions CONTINUOUS 02/15/18 subcutaneous solution SUBCUTANEOUS INFUSION QDAY #3 ml Aspirin [Aspirin, Baby] 81 mg PO DAILY 03/14/18 Acetaminophen [Tylenol Extra 1,000 mg PO BID 04/08/18 Strength] Cholecalciferol (Vitamin D3) 5,000 unit PO DAILY 04/08/18 [Vitamin D3] Cyanocobalamin (Vitamin B-12) 5,000 mcg PO DAILY 04/08/18 [Vitamin B-12] ascorbate calcium (vitamin C) 500 500 mg PO DAILY 08/13/18 mg tablet docusate sodium 100 mg capsule 100 mg PO QODAY cap 08/13/18 fluorometholone 0.1 % eye 1 drp OPHTHALMIC Q12H ml 08/13/18 drops,suspension furosemide 20 mg tablet 20 mg PO DAILY 08/13/18 zinc 50 mg tablet 50 mg PO DAILY 08/13/18 Calcium Carb/Vitamin D3/Vit K1 1 ea PO DAILY 08/19/18 [Calcium + D Soft Chewable Tab] Cephalexin [Keflex] 500 mg PO DAILY 08/19/18 Dextran 70/Hypromellose/Pf 1 ea EACH EYE TID 08/19/18 [Artificial Tears Drops] Insulin Lispro [Humalog] See Protocol SQ TID 08/19/18 Mineral Oil/Petrolatum,White 1 applicatio EACH EYE QHS 08/19/18 [Refresh P.m. 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 Paternal Family History: Family History (Last Reviewed 05/05/18 @ 13:49 by Joya Ayala) Father Hypertension Arthritis Brother Diabetes Sister Cancer History Items: No pertinent history Review of Systems Constitutional: Reports: Weakness, Fatigue. Denies: Chills, Fever, Weight Change HEENT: Denies: Head Aches, Sinus Congestion, Sinus Drainage Cardiovascular: Reports: Chest Pressure, Edema, Light Headedness, Palpitations. Denies: Chest Pain, Heaviness Respiratory: Reports: Shortness of Breath, Shortness of breath at rest, Shortness of breath upon exertion. Denies: Cough, Sputum production Gastrointestinal: Denies: Abdominal Pain, Nausea, Vomiting Genitourinary: Denies: Dysuria Musculoskeletal: Denies: Joint Pain, Joint Tenderness Skin: Denies: Rash, Wounds Neurological: Denies: Numbness, Tingling, Focal weakness Psychiatric: Denies: Anxiety, Depression, Homicidal Ideations, Suicidal Ideations Hematologic/ Lymphatic: Denies: Easy Bruising, Easy Bleeding VTE Information - Inpt Only VTE Present on Admission: No VTE Mechan Device Prophylaxis: None VTE Pharm Prophylaxis ordered?: Yes Patient Problems: Active and Suspected Problems (Last Updated 08/19/18 @ 15:13 by Joe Corrales MD) Atrial fibrillation with rapid ventricular response (Acute) - Physical Exam General: Alert, Oriented x3, Cooperative HEENT: Atraumatic, PERRLA, EOMI, Normocephalic Neck: Supple, No JVD, Negative Carotid Bruits Lungs: Clear to auscultation, Diminished Cardiovascular: Irregular Rate, Tachycardic Abdomen: Bowel Sounds Present, Soft, Non Tender Extremities: Capillary Refill Less than 3 Seconds, Edema - 2-3+ pitting edema bilateral lower extremities up to the knees. Skin: No rashes, No breakdown Musculoskeletal: No Tenderness to Palpation of Joints or Extremities Neurological: Cranial nerves II-XII grossly intact Psych/Mental Status: Normal Affect, Appropriate, Alert and oriented to time, place, person, mood and affect Vital Signs Temp Pulse Resp BP Pulse Ox 97.9 F 98 18 110/52 L 93 08/19/18 12:22 08/19/18 14:15 08/19/18 14:15 08/19/18 14:15 08/19/18 14:15 Oxygen Flow Rate (L/min) 2 Oxygen Delivery Method Room Air Weight: 167 lb 1.766 oz Body Mass Index (BMI) 29.6 Finger Stick Blood Glucose 140 Laboratory Tests Past 24 Hrs 08/19/18 08/19/18 08/19/18 12:43 12:43 12:43 WBC 7.6 RBC 3.83 L Hgb 10.6 L Hct 33.5 L MCV 87.5 MCH 27.7 MCHC 31.6 L RDW 14.9 H RDW Differential 46.6 H Plt Count 468 H MPV 9.5 Immature Gran % (Auto) 0.300 Neut % (Auto) 66.1 Lymph % (Auto) 23.4 [place] % (Auto) 7.9 Eos % (Auto) 1.8 Baso % (Auto) 0.5 Absolute Neuts (auto) 5.0 Absolute Lymphs (auto) 1.78 Total Counted Not Reportable Sodium 130 L Potassium 4.7 Chloride 99 Carbon Dioxide 23.0 Anion Gap 8 BUN 18 Creatinine 1.24 H Estim Creat Clear Calc 30.93 Est GFR (MDRD) Af Amer 54 L Est GFR (MDRD) Non-Af 44 L BUN/Creatinine Ratio 14.5 Glucose 284 H Calcium 8.7 Troponin I < 0.015 B-Natriuretic Peptide 221.6 H Assessment/Plan All Active Problems (Last Updated 08/19/18 @ 15:13 by Joe Corrales MD) Atrial fibrillation with rapid ventricular response (Acute) 1. Atrial fibrillation with rapid ventricular response secondary to acute on chronic diastolic congestive heart failure-begin IV Lasix, trend intake and output, fluid and sodium restricted diet, Abdi wrap legs. She received IV Cardizem-10 mg in the emergency room, has not had significant improvement. BNP is mildly elevated and her chest x-ray shows mild degree of vascular congestion with superimposed bilateral pleural effusions consistent with congestive heart failure. There also may be a component of urinary retention contributing to this exacerbation-she will need a post void bladder scan. She cannot tolerate Flomax secondary to hypotension. She will likely need a Brand cath temporarily with outpatient follow-up with urology. -This patient had an echocardiogram April 09, 2018 demonstrating an EF of 65% with stage I diastolic dysfunction, 1-2+ MVI, PASP of 26 mmHg, and mild TBI. Defer repeat at this time. -Patient of Brenda Lemons/Dr. Navarro-presented from office today. -Continue Eliquis -He does not appear that she is on any rate limiting medications as an outpatient, consider Coreg, depending on how her blood pressure response to furosemide. 2. Hyponatremia-suspected hypervolemic secondary to CHF exacerbation 3. Mildly elevated creatinine-compared to prior baseline, not consistent with AUBREE, likely secondary to CHF. 4. Chest pressure-secondary to CHF-repeat EKG in the morning, troponin negative. Maintain on telemetry. 5. History of CVA 2017, left MCA 6. Type 1 diabetes-titrate insulin to response 7. Chronic normocytic anemia-not significantly below baseline. 8. History of PAD-prior angiogram, plan for repeat angiogram with Dr. Corey as an outpatient. DVT prophylaxis: Bob QUINN planning: This patient has been living at 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 Will obtain PT OT eval's. This patient was seen by Warner Martinez PA-C under the supervision of Doctor Savanna. <Joe Corrales - Last Filed: 08/19/18 16:29> History of Present Illness The patient is a 78 year old F [] Past Medical History Medical History: Medical History (Last Updated 08/19/18 @ 15:13 by Joe Corrales MD) Insulin pump in place (Chronic) Z96.41 Nonrheumatic mitral (valve) insufficiency (Chronic) I34.0 Paroxysmal atrial fibrillation (Chronic) I48.0 Arterial ischemic stroke, MCA, left, acute (Chronic) I63.512 Glaucoma (Chronic) H40.9 CVA (cerebral vascular accident) I63.9 Carpal tunnel syndrome G56.00 Diabetes type 1, controlled E10.9 Dx : age 19 Last exacerbation : DKA : never Hypoglycemic episode : never ER visit : never GERD (gastroesophageal reflux disease) K21.9 Neuropathy G62.9 Osteoporosis M81.0 Atrial fibrillation (Inactive) I48.91 Vitamin deficiency E56.9 Allergies ezetimibe [From Zetia] Allergy (Verified 08/19/18 12:21) Other Surgical History: Surgical History (Last Reviewed 05/05/18 @ 13:49 by Joya Ayala) History of angioplasty of peripheral vessel Onset Date: ~11/05/17 Z98.62 Rt LE Hx of cataract surgery Z98.49 Status post glaucoma surgery Z98.83 - *Family History Sibling Family History: Family History (Last Reviewed 05/05/18 @ 13:49 by Joya Ayala) Father Hypertension Arthritis Brother Diabetes Sister Cancer Maternal Family History: Family History (Last Reviewed 05/05/18 @ 13:49 by Joya Ayala) Father Hypertension Arthritis Brother Diabetes Sister Cancer Paternal Family History: Family History (Last Reviewed 05/05/18 @ 13:49 by Joya Ayala) Father Hypertension Arthritis Brother Diabetes Sister Cancer - Physical Exam Vital Signs Temp Pulse Resp BP Pulse Ox 97.9 F 102 H 18 118/78 97 08/19/18 12:22 08/19/18 15:38 08/19/18 15:38 08/19/18 15:38 08/19/18 15:38 Oxygen Flow Rate (L/min) 2 Oxygen Delivery Method Room Air Weight: 167 lb 1.766 oz Body Mass Index (BMI) 29.6 Finger Stick Blood Glucose 140 Laboratory Tests Past 24 Hrs 08/19/18 08/19/18 08/19/18 12:43 12:43 12:43 WBC 7.6 RBC 3.83 L Hgb 10.6 L Hct 33.5 L MCV 87.5 MCH 27.7 MCHC 31.6 L RDW 14.9 H RDW Differential 46.6 H Plt Count 468 H MPV 9.5 Immature Gran % (Auto) 0.300 Neut % (Auto) 66.1 Lymph % (Auto) 23.4 [place] % (Auto) 7.9 Eos % (Auto) 1.8 Baso % (Auto) 0.5 Absolute Neuts (auto) 5.0 Absolute Lymphs (auto) 1.78 Total Counted Not Reportable Sodium 130 L Potassium 4.7 Chloride 99 Carbon Dioxide 23.0 Anion Gap 8 BUN 18 Creatinine 1.24 H Estim Creat Clear Calc 30.93 Est GFR (MDRD) Af Amer 54 L Est GFR (MDRD) Non-Af 44 L BUN/Creatinine Ratio 14.5 Glucose 284 H Calcium 8.7 Troponin I < 0.015 B-Natriuretic Peptide 221.6 H Assessment/Plan Hospitalist note: I am seeing this patient in conjunction with Warner Martinez. I independently seen and examined the patient. History and physical, laboratory data and imaging studies reviewed and I concur with the above admission treatment plan. Patient was sent from [facility] office for increasing bilateral lower extremity edema over the past week as well as weight gain and shortness of breath. Patient reported that she has been having progressively increasing shortness of breath that has been going on for several days, initially was exertional, progressed to become even at rest, associated with increasing bilateral leg edema as well as weakness and without relieving factors. Today, she went to Dr. Navarro's office and she was seen by his assistant engineer and she was found to be in A. fib with RVR and she was sent to the emergency department for evaluation. Also, patient complained of chest pain, underneath her left breast, has been going on for couple of days, dull aching pain, not radiating and without aggravating or relieving factors. Upon arrival to ED, she was in A. fib with RVR, heart rate was up to 140s, blood pressure was slightly elevated and pulse ox was 98% on room air. She received 1 dose of IV Cardizem bolus and she slowed down to around 90s. Her heart rate kept fluctuating anywhere from 90s to up to 140s. Routine blood work was remarkable for chronic anemia with stable hemoglobin, sodium of 130 and creatinine of 1.24. EKG revealed A. fib with RVR, no acute ischemic changes. Troponin is negative. BNP was 221. Chest x-ray revealed minimal pulmonary vascular congestion bilaterally and small left pleural effusion. She is being admitted for acute on chronic gastric CHF, A. fib with RVR. - Physical Exam General: Alert, Oriented x3, Cooperative, No apparent distress. HEENT: Atraumatic, PERRLA, EOMI. Neck: Supple, No JVD, Negative Carotid Bruits, Trachea Midline, Thyroid Normal. Lungs: Decreased breath sounds bilateral, more at the bases, otherwise clear, no rhonchi, No wheeze, No rales. Cardiovascular: Irregular rhythm, Normal S1, Normal S2, PMI Normal, tachycardia. Abdomen: Bowel Sounds Present, Soft, Non Tender, Non-Distended, No Hepato-splenomegaly. Extremities: No clubbing, No cyanosis, ++ edema Skin: No rashes, No breakdown Neurological: Cranial nerves intact, normal power and tone, neuro grossly intact Assessment and plan: #1 acute on chronic diastolic CHF: Plan: Admit to PCU, cardiac monitoring, serial cardiac enzymes, CHF: Start IV Lasix as blood pressure allows, fluid restriction, repeat CBC and BMP tomorrow morning. Patient had a 2D echocardiogram on April, that revealed ejection fraction 65% in stage I diastolic dysfunction. #2 A. fib with RVR: Received 1 dose of IV Cardizem bolus, slowed down to 90s but it has been fluctuating anywhere from 90s to 140s. For now, close monitoring, continue Eliquis for anticoagulation. If the patient continued to have fast heart rate, we might need to start her on IV amiodarone drip because of low blood pressure. #3 hyponatremia: This is probably hypovolemic hyponatremia due to fluid retention. Expect sodium to improve will IV diuresis. #4 other chronic medical problems: Stable, continue current medications as above. This note was generated with Wildfire, a division of [employer] dictation software. It may contain incorrect words, spelling, and punctuation that were not noted in checking the note before signing. Code Visit Inpatient E&M: 37574 Init Hosp L3
--- NOTE | 2018-08-19 16:18 | CASEMGMT ---
RN CM Assessment Introduced role of RN CM to patient and patient Grndtr Janelle Santos who is HPOA at bedside.? Patient is alert, oriented and able?to participate in RN CM Assessment. Most information obtained from [facility]. ?Care providers, pharmacy, and demographics verified. Presentation: Patient has been at [facility] since hospital DC on 04/09/18, was supposed to DC on Thursday, per Grndtr was there a little longer than expected d/t herself ([facility]) having a back injury and healing. States for the past week patient has had swelling in the legs, c/o chest pressure and sob. Has been on lasix the past 1-2weeks d/t weight gain. Has had decreased UO/BM which she has been placed on stool softners, also has a h/o urinary retention, states has been tx with 3 courses of ABX recently for UTI. States was supposed to have a Angiogram RLE with Dr Corey but it was pushed back d/t UTI. Seen by ROLDAN Gutierrez at [facility] today and referred to ER. Admit Dx: Acute CHF, A-fib w/RVR, CP. Re-Admit: No, Inpt 04/08-04/09/18 for PAF W/RVR, Converted in ER. 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 [facility] Janelle states she would like patient to have HHC upon DC d/t she is still healing from her back injury and could use the help, [facility] also would like a nurse d/t patient having a wound to Rt Great Toe which she is supposed to see Respiratory Assistant for. PCP: Wil Gorman. States she will be switching PCP to Dr Coto Specialists: Cardio- Dr Navarro, Vasc- Dr Corey, Neuro- Dr Bruton but thinks left practice states sees Neuro through [facility], Uro- Dr Chavez, Endo- Dr MONY Crocker, Speech Therapy- Juan Deutsch (Wants to get an order for a Modified barium swallow, per [facility] [place]- would like this to be done in the hospital if it can be) Preferred Pharmacy: [facility] Insurance: MCR A&B, [employer] Rx Benefit:?Yes LNOK: Grnddtr Janelle Santos, Dtr Chacha Guo LW/HPOA: Yes both on file at [facility], HPOA- Grnddfrench Santos Living Arrangements:?Lives with Fide Luis in a SS Home, Ramp to enter. ADL?s: Ambulates with walker to do her ADL's but not far or much as she needs to keep her feet up and otherwise Chair bound. Requires assistance with all ADLs Transportation: Grnddtr Janelle and same upon DC DME: Hospital Bed, BSC, Rollator, Walker, WC, Transport Chair, Lift Chair, Shower rails, Raised Toilet Handles/bars. Glucometer, Insulin Pump. HHC: Past w/[facility]: Past [facility], Current at [facility]- however wants to return home w/gnddtr. Goal: Home with Gnddtr and HHC. Denies questions/concerns. Aware CM remains available for any emerging needs. DC PLAN: Home with HHC. No further needs identified at this time. Rosalio Carter RNCM
--- NOTE | 2018-08-19 16:38 | EKG12_ITS ---
Test Reason : CP Blood Pressure : / mmHG Vent. Rate : 122 BPM Atrial Rate : 326 BPM P-R Int : 000 ms QRS Dur : 086 ms QT Int : 316 ms P-R-T Axes : 000 028 047 degrees QTc Int : 450 ms Atrial fibrillation with rapid ventricular response Low voltage QRS Cannot rule out Anterior infarct , age undetermined Abnormal ECG Confirmed by LEAH NY, SARAH ([id number]), general expeditor CODEY KLEIN ([id number]) on 08/20/2018 12:13:06 PM Referred By: Joe Corrales Confirmed By:SARAH LYNN MD
[2018-08-19] MEDS: Glucerna Shake 120 ML LIQUID PO (17:19)
[2018-08-19 18:31] LABS: International Normalized Ratio 1.4; Prothrombin Time (Protime)PT. 17.4 SECONDS (11.7-14.9)
[2018-08-19 18:43] LABS: Magnesium 2.2 mg/dL (1.6-2.6)
[2018-08-19] MEDS: Pramipexole Di-HCl 0.5 MG Tablet PO (21:10)
[2018-08-19] MEDS: Atorvastatin Calcium 40 MG Tablet PO ×2 (21:55)
[2018-08-19] MEDS: Gabapentin 100 MG Capsule PO (21:55)
[2018-08-19] MEDS: Petrolatum,White 3.75GM OPTH.TUBE 1 APPLIC EACH EYE (21:56)
[2018-08-19] MEDS: APIXABAN 5 MG TABLET PO (22:15)
[2018-08-20] VITALS (17 sets, daily range): BP systolic 99–146; BP diastolic 54–83; PULSE 86–138; RESP 14–17; TEMP 36.6–37.1; O2SAT 94–99
--- NOTE | 2018-08-20 00:10 | EKG12_ITS ---
Test Reason : CHEST PAIN ADMISSION Blood Pressure : / mmHG Vent. Rate : 106 BPM Atrial Rate : 104 BPM P-R Int : 000 ms QRS Dur : 084 ms QT Int : 326 ms P-R-T Axes : 000 028 038 degrees QTc Int : 433 ms Atrial fibrillation with rapid ventricular response Low voltage QRS (Limb Leads) Abnormal ECG Confirmed by LADI NY, LIBAN ([id number]), state editor CODEY KLEIN ([id number]) on 08/26/2018 10:31:03 AM Referred By: Joe Corrales Confirmed By:LIBAN BLEDSOE MD
[2018-08-20] MEDS: Metoprolol Tartrate 5 MG/5 ML Vial IV (00:22)
[2018-08-20] MEDS: Insulin Lispro 100 UNIT/ML INSULN.PEN SC ×5 (03:22→23:49)
[2018-08-20 04:16] LABS: Bedside Glucose 375 mg/dL (70-110)
[2018-08-20] MEDS: Gabapentin 100 MG Capsule PO ×2 (06:49→22:13)
[2018-08-20 06:56] LABS: Bedside Glucose 415 mg/dL (70-110)
[2018-08-20 08:41] LABS: Basophil# 0.04 X10^3/uL; Basophil% 0.6 % (0-1); Eosinophil# 0.07 X10^3/uL; Eosinophils% 1.1 % (0-5); Hematocrit 31.2 % (37-47); Hemoglobin 9.6 g/dl (12.0-15.0); Mean Corp Hgb Conc 30.8 g/gl (32-36); Mean Corpuscular Hgb 27.3 pg (27.0-32.0); Mean Corpuscular Volume 88.6 fL (81-99); Mean Platelet Vol. 9.9 fl (6.2-12.0); Monocyte# 0.44 X10^3/uL; Monocyte% 6.9 % (0-10); Neutrophil # 4.95 X10^3/uL (2.7-7.7); Neutrophil % 77.2 % (47-70); Platelet Count 382 K/mm3 (150-450); RBC Distribution Width CV 15.2 % (11.6-14.6); RBC Distribution Width SD 48.5 fl (35.1-43.9); Red Blood Count 3.52 M/mm3 (4.2-5.4); White Blood Count 6.4 K/mm3 (4.4-11.0)
[2018-08-20 08:44] LABS: POSITIVE COUNT NO; POSITIVE DIFFERENTIAL NO; POSITIVE MORPHOLOGY NO
[2018-08-20 08:45] LABS: Anion Gap 8 (5-15); BUN 22 mg/dL (7-18); BUN/Creat Ratio 16.7 RATIO (10-20); Calcium,Total 8.3 mg/dL (8.5-10.1); Chloride 98 mmol/L (98-107); Creatinine, Serum 1.32 mg/dL (0.55-1.02); EST Glomerular Filtration Rate 41 mL/min (>60); Est Glom Filt Rate - Afr Amer 50 mL/min (>60); Estimated Creatinine Clearance 29.06 ml/min; Glucose 389 mg/dL (74-106); Potassium 4.6 mmol/L (3.5-5.1); Sodium Level 132 mmol/L (136-145)
[2018-08-20] MEDS: Glucerna Shake 120 ML LIQUID PO (08:57)
[2018-08-20] MEDS: Aspirin 81 MG TAB.CHEW PO (08:59)
[2018-08-20] MEDS: Pantoprazole Sodium 20 MG Tablet PO (09:04)
[2018-08-20] MEDS: Furosemide 40 MG/4 ML Vial IV ×2 (09:04→22:13)
[2018-08-20] MEDS: 0.9% NaCl Peripheral Flush Adult/Peds IV (09:04)
[2018-08-20] MEDS: APIXABAN 5 MG TABLET PO ×2 (09:04→22:13)
[2018-08-20] MEDS: Carvedilol 3.125 MG TABLET PO ×2 (09:17→22:13)
--- NOTE | 2018-08-20 09:39 | CASEMGMT ---
This RN CM to room to discuss discharge plan with pt at this time. Pt provided with list of [facility] providers per request. Per pt, she is not opposed to going back to [facility] at discharge and states that 'everyone was nice there and treated me well.' Pt is unsure if she should go home at discharge at this time. E.Pete SW aware, voices understanding. CM to follow for PT/OT evals and for any further discharge planning/needs. Pt has no family at bedside at this time. SStaten RN CM
--- NOTE | 2018-08-20 11:52 | CASEMGMT ---
Patient came from [facility] ([facility]). There was some confusion about where she was going to go at discharge. YI called her granddaughter/POA, Janelle. She said if patient is ready for discharge over the weekend she will go back to [facility] and if she is still at [facility] on Thursday she will go home with granddaughter. She said if patient is here on Thursday she would like [facility] HH set up. YI passed this along to RN GINA. YI faxed updates to [facility]. YI also called [facility] and spoke with Roslyn and she said that is fine if the patient returns over the weekend. Green sheet on the chart in the event patient is ready for discharge over the weekend. Plan: To [facility] if discharged over the weekend or home with granddaughter and home health if still in hospital on Thursday. Cary LI
[2018-08-20 12:00] LABS: Bedside Glucose 362 mg/dL (70-110)
[2018-08-20 12:00] LABS: Bedside Glucose 353 mg/dL (70-110)
[2018-08-20] MEDS: Insulin Basal Pump SC (12:01)
--- NOTE | 2018-08-20 12:22 | NURSING ---
wound photo: right great toe
--- NOTE | 2018-08-20 13:24 | PN_ITS ---
<Warner Martinez - Last Filed: 08/20/18 13:24> Patient Problems: Active and Suspected Problems (Last Updated 08/19/18 @ 15:13 by Joe Corrales MD) Atrial fibrillation with rapid ventricular response (Acute) Subjective: Pt unable to void. Post void checked - >999cc. Brand placed. Pt somewhat confused and agitated this AM. Denies SOB, LH, dizziness/palpitations. No fever/chills. LE edema improved. Started on coreg this AM. Pulse down from 130s to low 100s. - Physical Exam General: Alert, Oriented x3, Cooperative HEENT: Atraumatic, PERRLA, EOMI, Normocephalic Neck: Supple, No JVD, Negative Carotid Bruits Lungs: Clear to auscultation, Normal air movement Cardiovascular: No murmurs, Irregular Rate, Tachycardic Abdomen: Bowel Sounds Present, Soft, Non Tender Extremities: No edema, Capillary Refill Less than 3 Seconds, Edema - 1-2+ pitting edema BLE Skin: No rashes, No breakdown Musculoskeletal: No Tenderness to Palpation of Joints or Extremities Neurological: Cranial nerves II-XII grossly intact Psych/Mental Status: Normal Affect, Appropriate, Alert and oriented to time, place, person, mood and affect Vital Signs Temp Pulse Resp BP Pulse Ox 97.8 F 113 H 16 116/63 94 08/20/18 12:34 08/20/18 12:34 08/20/18 12:34 08/20/18 12:34 08/20/18 12:34 Oxygen Flow Rate (L/min) 2 Oxygen Delivery Method Room Air Weight: 156 lb 4.924 oz Body Mass Index (BMI) 27.6 Finger Stick Blood Glucose 140 Intake and Output for Last 24 Hours 08/18/18 08/19/18 08/20/18 23:59 23:59 23:59 Intake Total 520 / 520 470 / 470 Output Total 900 / 900 2475 / 2475 Balance -380 / -380 -2004 / Laboratory Tests Past 24 Hrs 08/19/18 08/19/18 08/19/18 17:53 17:53 17:53 WBC RBC Hgb Hct MCV MCH MCHC RDW RDW Differential Plt Count MPV Immature Gran % (Auto) Neut % (Auto) Lymph % (Auto) [place] % (Auto) Eos % (Auto) Baso % (Auto) Absolute Neuts (auto) Absolute Lymphs (auto) Total Counted PT 17.4 H INR 1.4 Sodium Potassium Chloride Carbon Dioxide Anion Gap BUN Creatinine Estim Creat Clear Calc Est GFR (MDRD) Af Amer Est GFR (MDRD) Non-Af BUN/Creatinine Ratio Glucose Calcium Magnesium 2.2 Troponin I < 0.015 08/20/18 08/20/18 08:08 08:08 WBC 6.4 RBC 3.52 L Hgb 9.6 L Hct 31.2 L MCV 88.6 MCH 27.3 MCHC 30.8 L RDW 15.2 H RDW Differential 48.5 H Plt Count 382 MPV 9.9 Immature Gran % (Auto) 0.200 Neut % (Auto) 77.2 H Lymph % (Auto) 14.0 L [place] % (Auto) 6.9 Eos % (Auto) 1.1 Baso % (Auto) 0.6 Absolute Neuts (auto) 5.0 Absolute Lymphs (auto) 0.90 Total Counted Not Reportable PT INR Sodium 132 L Potassium 4.6 Chloride 98 Carbon Dioxide 26.0 Anion Gap 8 BUN 22 H Creatinine 1.32 H Estim Creat Clear Calc 29.06 Est GFR (MDRD) Af Amer 50 L Est GFR (MDRD) Non-Af 41 L BUN/Creatinine Ratio 16.7 Glucose 389 H Calcium 8.3 L Magnesium Troponin I POC Glucose 08/20/18 08/20/18 08/20/18 11:45 11:07 06:44 POC Glucose 353 H 362 H 415 H 08/20/18 03:18 POC Glucose 375 H Medical Necessity - Tobacco Use Smoking Status: Never smoker Tobacco Use: Non-smoker Assessment/Plan All Active Problems (Last Updated 08/19/18 @ 15:13 by Joe Corrales MD) Atrial fibrillation with rapid ventricular response (Acute) 1. Atrial fibrillation with rapid ventricular response and acute on chronic diastolic congestive heart failure-continue IV lasix. Decent output however was retaining >999cc today despite output which was likely overflow incontinence (collected by pur-wick catheter). This is also partially due to her underlying chronic urinary retention. She will need to follow-up with Dr Chavez was an outpatient, until then to continue Brand catheter. She does not tolerate Flomax secondary to hypotension. No pulse is improving with the addition of scheduled Coreg. May still have some tachycardia due to agitation this morning, will see how she does after her second dose, and adjust her medication from there. Continue Bob. -Echo in mar 2018 with EF 65%, st 1 diastolic dysfunction, 1-2+ MVI, RVSP 26 mmHg, mild TVI 2. Hyponatremia-suspected hypervolemic secondary to CHF exacerbation, slightly improved, trend 3. Suspected CKD stage III-continue to trend 4. Chest pressure-secondary to CHF-repeat EKG in the morning, troponin negative. Maintain on telemetry. 5. History of CVA 2017, left MCA 6. Type 1 diabetes with hyperglycemia-titrate insulin to response. Sliding scale insulin. Multiple boluses given to improve her blood sugar today. Her p ump is working, basal rate is 0.9 units/h. 7. Chronic normocytic anemia-not significantly below baseline. 8. History of PAD-prior angiogram, plan for repeat angiogram with Dr. Corey as an outpatient. DVT prophylaxis: Bob QUINN planning: If she returns on Thursday will go home with her daughter, if before then will go to [facility] temporarily until her daughter is able to prep her house adequately. This patient was seen by Warner Martinez PA-C under the supervision of Doctor Duke <Edmundo Duke - Last Filed: 08/20/18 14:19> Subjective: Breathing better. - Physical Exam General: Alert, Cooperative HEENT: Atraumatic, Normocephalic Neck: No Nodes, Thyroid Normal Size and Texture Lungs: Clear to auscultation, Normal air movement, No rhonchi, No wheeze Cardiovascular: Irregular Rate, Tachycardic Abdomen: Bowel Sounds Present, Soft, Non Tender, Non-Distended, No Hepato- splenomegaly Extremities: No edema, Capillary Refill Less than 3 Seconds, Edema Skin: No rashes, No breakdown Musculoskeletal: No Tenderness to Palpation of Joints or Extremities Psych/Mental Status: Normal Affect, Appropriate Vital Signs Temp Pulse Resp BP Pulse Ox 36.6 C 113 H 16 116/63 94 08/20/18 12:34 08/20/18 12:34 08/20/18 12:34 08/20/18 12:34 08/20/18 12:34 Oxygen Flow Rate (L/min) 2 Oxygen Delivery Method Room Air Weight: 70.9 kg Body Mass Index (BMI) 27.6 Finger Stick Blood Glucose 140 Intake and Output for Last 24 Hours 08/18/18 08/19/18 08/20/18 23:59 23:59 23:59 Intake Total 520 / 520 470 / 470 Output Total 900 / 900 2475 / 2475 Balance -380 / -380 -2004 / Laboratory Tests Past 24 Hrs 08/19/18 08/19/18 08/19/18 17:53 17:53 17:53 WBC RBC Hgb Hct MCV MCH MCHC RDW RDW Differential Plt Count MPV Immature Gran % (Auto) Neut % (Auto) Lymph % (Auto) [place] % (Auto) Eos % (Auto) Baso % (Auto) Absolute Neuts (auto) Absolute Lymphs (auto) Total Counted PT 17.4 H INR 1.4 Sodium Potassium Chloride Carbon Dioxide Anion Gap BUN Creatinine Estim Creat Clear Calc Est GFR (MDRD) Af Amer Est GFR (MDRD) Non-Af BUN/Creatinine Ratio Glucose Calcium Magnesium 2.2 Troponin I < 0.015 08/20/18 08/20/18 08:08 08:08 WBC 6.4 RBC 3.52 L Hgb 9.6 L Hct 31.2 L MCV 88.6 MCH 27.3 MCHC 30.8 L RDW 15.2 H RDW Differential 48.5 H Plt Count 382 MPV 9.9 Immature Gran % (Auto) 0.200 Neut % (Auto) 77.2 H Lymph % (Auto) 14.0 L [place] % (Auto) 6.9 Eos % (Auto) 1.1 Baso % (Auto) 0.6 Absolute Neuts (auto) 5.0 Absolute Lymphs (auto) 0.90 Total Counted Not Reportable PT INR Sodium 132 L Potassium 4.6 Chloride 98 Carbon Dioxide 26.0 Anion Gap 8 BUN 22 H Creatinine 1.32 H Estim Creat Clear Calc 29.06 Est GFR (MDRD) Af Amer 50 L Est GFR (MDRD) Non-Af 41 L BUN/Creatinine Ratio 16.7 Glucose 389 H Calcium 8.3 L Magnesium Troponin I POC Glucose 08/20/18 08/20/18 08/20/18 13:32 11:45 11:07 POC Glucose 138 H 353 H 362 H 08/20/18 08/20/18 06:44 03:18 POC Glucose 415 H 375 H Assessment/Plan Patient seen and examined independently. Data reviewed. I agree with the above note by the physician nursing home assistant administrator. 1. Atrial fibrillation with RVR improved * Improved * on carvedilol and anticoagulated with apixaban 2. Heart failure with preserved ejection fraction * Improving, on room air * ejection fraction of 65% from echocardiogram on April 09, 2018 * On IV Lasix 3. CKD 3 * Stable * Monitor 4. Diabetes mellitus type 1 * Continue insulin pump and sliding scale insulin Code Visit Inpatient E&M: 87824 Subs Hosp L2
[2018-08-20 13:35] LABS: Bedside Glucose 138 mg/dL (70-110)
[2018-08-20] MEDS: Dextrose 50%-Water 25 GM/50 ML DISP.SYRIN IV ×2 (14:54→16:33)
[2018-08-20 14:56] LABS: Bedside Glucose 70 mg/dL (70-110)
[2018-08-20 15:36] LABS: Bedside Glucose 115 mg/dL (70-110)
[2018-08-20] MEDS: Dext 5%-0.45% NS 1,000 ML 75 ML IV (16:34)
--- NOTE | 2018-08-20 21:35 | PCM.PN.BLA ---
Progress Note Event note: Notified of elevated BS of 205 on D5NS. Patient reportedly not been eating at all through out the day. Hypoglycemic episodes noted Insulin pump switched off Plan: Discontinue D5 normal saline Discontinue custom insulin sliding scale for now Continue to hold insulin pump Blood sugar checks every 6h Low-dose insulin sliding scale Monitor blood sugar throughout the evening/night Blood sugar profile will be reassessed in a.m. by the day team Plan discussed with the nurse who will update the family at the bedside
[2018-08-20] MEDS: Petrolatum,White 3.75GM OPTH.TUBE 1 APPLIC EACH EYE (22:14)
[2018-08-20 23:56] LABS: Bedside Glucose 251 mg/dL (70-110)
[2018-08-21] VITALS (11 sets, daily range): BP systolic 94–109; BP diastolic 46–73; PULSE 73–130; RESP 16–20; TEMP 36.4–36.8; O2SAT 95–100
[2018-08-21 03:21] LABS: Bedside Glucose 159 mg/dL (70-110)
[2018-08-21] MEDS: Gabapentin 100 MG Capsule PO ×2 (05:20→17:03)
[2018-08-21] MEDS: Insulin Lispro 100 UNIT/ML INSULN.PEN SC ×4 (05:40→15:05)
[2018-08-21 06:34] LABS: Anion Gap 7 (5-15); BUN 22 mg/dL (7-18); BUN/Creat Ratio 19.3 RATIO (10-20); Calcium,Total 8.1 mg/dL (8.5-10.1); Chloride 99 mmol/L (98-107); Creatinine, Serum 1.14 mg/dL (0.55-1.02); EST Glomerular Filtration Rate 49 mL/min (>60); Est Glom Filt Rate - Afr Amer 59 mL/min (>60); Estimated Creatinine Clearance 33.64 ml/min; Glucose 204 mg/dL (74-106); Sodium Level 133 mmol/L (136-145)
[2018-08-21 06:46] LABS: Bedside Glucose 203 mg/dL (70-110)
[2018-08-21] MEDS: Furosemide 40 MG/4 ML Vial IV ×2 (08:16→21:44)
[2018-08-21] MEDS: Aspirin 81 MG TAB.CHEW PO (08:16)
[2018-08-21] MEDS: Docusate Sodium 100 MG Capsule PO (08:16)
[2018-08-21] MEDS: Carvedilol 3.125 MG TABLET PO ×2 (08:16→12:13)
[2018-08-21] MEDS: APIXABAN 5 MG TABLET PO ×2 (08:16→21:44)
[2018-08-21] MEDS: Pantoprazole Sodium 20 MG Tablet PO (08:17)
[2018-08-21 12:16] LABS: Bedside Glucose 338 mg/dL (70-110)
--- NOTE | 2018-08-21 12:35 | PN_ITS ---
<Warner Martinez - Last Filed: 08/21/18 12:35> Patient Problems: Active and Suspected Problems (Last Updated 08/19/18 @ 15:13 by Joe Corrales MD) Atrial fibrillation with rapid ventricular response (Acute) Subjective: Improved. Less confused today. LE edema almost entirely resolved. No SOB at rest. Off O2. No palp. Rate still fluctuant into 120s. No CP. - Physical Exam General: Alert, Oriented x3, Cooperative HEENT: Atraumatic, PERRLA, EOMI, Normocephalic Neck: Supple, No JVD, Negative Carotid Bruits Lungs: Clear to auscultation, Normal air movement Cardiovascular: No murmurs, Irregular Rate, Tachycardic Abdomen: Bowel Sounds Present, Soft, Non Tender Extremities: No edema, Capillary Refill Less than 3 Seconds Skin: No rashes, No breakdown Musculoskeletal: No Tenderness to Palpation of Joints or Extremities Neurological: Cranial nerves II-XII grossly intact Psych/Mental Status: Normal Affect, Appropriate, Alert and oriented to time, place, person, mood and affect Vital Signs Temp Pulse Resp BP Pulse Ox 98.3 F 95 16 109/73 95 08/21/18 09:05 08/21/18 09:05 08/21/18 09:05 08/21/18 09:08 08/21/18 09:05 Oxygen Flow Rate (L/min) 2 Oxygen Delivery Method Room Air Weight: 151 lb 0.266 oz Body Mass Index (BMI) 27.6 Finger Stick Blood Glucose 140 Intake and Output for Last 24 Hours 08/19/18 08/20/18 08/21/18 23:59 23:59 23:59 Intake Total 520 / 520 1066 / 1066 370 / 370 Output Total 900 / 900 3175 / 3175 1730 / 1730 Balance -380 / -380 -2109 / -2109 -1360 / -1360 Laboratory Tests Past 24 Hrs 08/21/18 06:00 Sodium 133 L Potassium 4.0 Chloride 99 Carbon Dioxide 27.0 Anion Gap 7 BUN 22 H Creatinine 1.14 H Estim Creat Clear Calc 33.64 Est GFR (MDRD) Af Amer 59 L Est GFR (MDRD) Non-Af 49 L BUN/Creatinine Ratio 19.3 Glucose 204 H Calcium 8.1 L POC Glucose 08/21/18 08/21/1819 12:06 05:39 03:15 POC Glucose 338 H 203 H 159 H 08/20/18 08/20/18 08/20/18 23:44 15:31 14:49 POC Glucose 251 H 115 H 70 08/20/18 13:32 POC Glucose 138 H Medical Necessity - Tobacco Use Smoking Status: Never smoker Tobacco Use: Non-smoker Assessment/Plan All Active Problems (Last Updated 08/19/18 @ 15:13 by Joe Corrales MD) Atrial fibrillation with rapid ventricular response (Acute) 1. Atrial fibrillation with rapid ventricular response and acute on chronic diastolic congestive heart failure-breathing and LE edema improved. Renal function good. Continue IV lasix tonight and likely transition to PO tomorrow. Coreg increased for ongoing tachy. -Echo in mar 2018 with EF 65%, st 1 diastolic dysfunction, 1-2+ MVI, RVSP 26 mmHg, mild TVI. -Continue eliquis 2. Urinary retention contributing to #1 - Maintain corrales. O/p follow up with Dr. Chavez after DC. 3. Hyponatremia-suspected hypervolemic secondary to CHF exacerbation, improving 4. Suspected CKD stage III-continue to trend. Stable 5. History of CVA 2017, left MCA 6. Type 1 diabetes with hyperglycemia-basal insulin started. pump off currently. SSI. Fluctuant with novolog. 7. Chronic normocytic anemia-not significantly below baseline. 8. History of PAD-prior angiogram, plan for repeat angiogram with Dr. Corey as an outpatient. DVT prophylaxis: Eliquis DC planning: If she returns on Thursday will go home with her daughter, if before then will go to [facility] temporarily until her daughter is able to prep her house adequately. This patient was seen by Warner Martinez PA-C under the supervision of Doctor Leilani <Edmundo Duke - Last Filed: 08/21/18 14:20> Subjective: Breathing better. Decreased LE edema. - Physical Exam General: Alert, Cooperative HEENT: Atraumatic, Normocephalic Neck: No Nodes, Thyroid Normal Size and Texture Lungs: Clear to auscultation, Normal air movement, No rhonchi, No wheeze Cardiovascular: No murmurs, Irregular Rate, Tachycardic Abdomen: Bowel Sounds Present, Soft, Non Tender, Non-Distended Extremities: No edema, No Calf Tenderness Psych/Mental Status: Normal Affect, Appropriate Vital Signs Temp Pulse Resp BP Pulse Ox 36.8 C 95 16 109/73 95 08/21/18 09:05 08/21/18 09:05 08/21/18 09:05 08/21/18 09:08 08/21/18 09:05 Oxygen Flow Rate (L/min) 2 Oxygen Delivery Method Room Air Weight: 68.5 kg Body Mass Index (BMI) 27.6 Finger Stick Blood Glucose 140 Intake and Output for Last 24 Hours 08/19/18 08/20/18 08/21/18 23:59 23:59 23:59 Intake Total 520 / 520 1066 / 1066 370 / 370 Output Total 900 / 900 3175 / 3175 1730 / 1730 Balance -380 / -380 -2109 / -2109 -1360 / -1360 Laboratory Tests Past 24 Hrs 08/21/18 06:00 Sodium 133 L Potassium 4.0 Chloride 99 Carbon Dioxide 27.0 Anion Gap 7 BUN 22 H Creatinine 1.14 H Estim Creat Clear Calc 33.64 Est GFR (MDRD) Af Amer 59 L Est GFR (MDRD) Non-Af 49 L BUN/Creatinine Ratio 19.3 Glucose 204 H Calcium 8.1 L POC Glucose 08/21/18 08/21/18 08/21/18 12:06 05:39 03:15 POC Glucose 338 H 203 H 159 H 08/20/18 08/20/18 08/20/18 23:44 15:31 14:49 POC Glucose 251 H 115 H 70 Assessment/Plan Patient seen and examined independently. Data reviewed. I agree with the above note by the physician housekeeper/laundry assistant. 1. Atrial fibrillation with RVR improved * Improved * on carvedilol and anticoagulated with apixaban * increase carvedilol to 6/25 BID 2. Heart failure with preserved ejection fraction * Improving, on room air * ejection fraction of 65% from echocardiogram on April 09, 2018 * On IV Lasix * weight down to 68.5kg, dry weight around 65kg 3. CKD 3 * Stable * Monitor 4. Diabetes mellitus type 1 * uncontrolled * A1c 10.3 on 07.27.18 * not well controlled with pump * start Basal and prandial insulin. * continue SSI Code Visit Inpatient E&M: 15280 Subs Hosp L2
[2018-08-21 15:01] LABS: Bedside Glucose 463 mg/dL (70-110)
--- NOTE | 2018-08-21 15:52 | NURSING ---
BG recheck of 417. POA requests no insulin be given at this time. will recheck BG when pt's dinner tray arrives.
[2018-08-21] MEDS: Glucerna Shake 120 ML LIQUID PO (17:03)
[2018-08-21] MEDS: Petrolatum,White 3.75GM OPTH.TUBE 1 APPLIC EACH EYE (21:42)
[2018-08-21] MEDS: Atorvastatin Calcium 40 MG Tablet PO (21:43)
[2018-08-21] MEDS: Carvedilol 6.25 MG Tablet PO (21:58)
[2018-08-21] MEDS: 0.9% NaCl Peripheral Flush Adult/Peds IV (22:00)
[2018-08-22 00:20] LABS: Bedside Glucose 211 mg/dL (70-110)
[2018-08-22 03:05] VITALS: BP 97/69; PULSE 90; RESP 18; TEMP 36.6; O2SAT 95
[2018-08-22 03:16] VITALS: PULSE 76
[2018-08-22 05:05] VITALS: BP 110/61; PULSE 80; RESP 16; TEMP 36.6; O2SAT 99
[2018-08-22 06:28] LABS: Anion Gap 7 (5-15); BUN 24 mg/dL (7-18); BUN/Creat Ratio 21.4 RATIO (10-20); Calcium,Total 8.3 mg/dL (8.5-10.1); Chloride 99 mmol/L (98-107); Creatinine, Serum 1.12 mg/dL (0.55-1.02); EST Glomerular Filtration Rate 50 mL/min (>60); Est Glom Filt Rate - Afr Amer 60 mL/min (>60); Estimated Creatinine Clearance 34.24 ml/min; Glucose 156 mg/dL (74-106); Potassium 3.6 mmol/L (3.5-5.1); Sodium Level 136 mmol/L (136-145)
[2018-08-22 06:51] LABS: Bedside Glucose 215 mg/dL (70-110)
[2018-08-22 07:00] VITALS: PULSE 116
[2018-08-22] MEDS: Insulin Lispro 100 UNIT/ML INSULN.PEN SC (08:41)
[2018-08-22] MEDS: Glucerna Shake 120 ML LIQUID PO ×2 (08:43→12:10)
[2018-08-22] MEDS: Gabapentin 100 MG Capsule PO (08:43)
[2018-08-22] MEDS: APIXABAN 5 MG TABLET PO (08:43)
[2018-08-22] MEDS: Aspirin 81 MG TAB.CHEW PO (08:43)
[2018-08-22] MEDS: Carvedilol 6.25 MG Tablet PO (08:43)
[2018-08-22] MEDS: Pantoprazole Sodium 20 MG Tablet PO (08:44)
[2018-08-22] MEDS: Furosemide 40 MG/4 ML Vial IV (08:44)
[2018-08-22 08:45] VITALS: BP 109/51; PULSE 93; RESP 16; TEMP 36.4; O2SAT 93
[2018-08-22] MEDS: Acetaminophen 325 MG Tablet 650 MG PO (10:18)
--- NOTE | 2018-08-22 11:57 | PN_ITS ---
<Warner Martinez - Last Filed: 08/22/18 11:57> Patient Problems: Active and Suspected Problems (Last Updated 08/19/18 @ 15:13 by Joe Corrales MD) Atrial fibrillation with rapid ventricular response (Acute) Subjective: She continues to be more alert and less confused. Upright in bed NAD. She has no SOB. She has no further LE edema. Daughter is present - she and her are not quite ready for her to come home. The patient is to go back to the SNF and then from there go home when house is ready. Granddaughter is primary caregiver. Pts daughter does not live in the home with granddaughter. - Physical Exam General: Alert, Oriented x3, Cooperative HEENT: Atraumatic, PERRLA, EOMI, Normocephalic Neck: Supple, No JVD, Negative Carotid Bruits Lungs: Clear to auscultation, Normal air movement Cardiovascular: No murmurs, Irregular Rate Abdomen: Bowel Sounds Present, Soft, Non Tender Extremities: No edema, Capillary Refill Less than 3 Seconds Skin: No rashes, No breakdown Musculoskeletal: No Tenderness to Palpation of Joints or Extremities Neurological: Cranial nerves II-XII grossly intact Psych/Mental Status: Normal Affect, Appropriate, Alert and oriented to time, place, person, mood and affect Vital Signs Temp Pulse Resp BP Pulse Ox 97.5 F L 93 16 109/51 L 93 08/22/18 08:45 08/22/18 08:45 08/22/18 08:45 08/22/18 08:45 08/22/18 08:45 Oxygen Flow Rate (L/min) 2 Oxygen Delivery Method Room Air Weight: 148 lb 12.992 oz Body Mass Index (BMI) 27.6 Finger Stick Blood Glucose 140 Intake and Output for Last 24 Hours 08/20/18 08/21/18 08/22/18 23:59 23:59 23:59 Intake Total 1066 / 1066 920 / 920 100 / 100 Output Total 3175 / 3175 2430 / 2430 650 / 650 Balance -2109 / -2109 -1510 / -1510 -550 / -550 Laboratory Tests Past 24 Hrs 08/22/18 05:01 Sodium 136 Potassium 3.6 Chloride 99 Carbon Dioxide 30.0 Anion Gap 7 BUN 24 H Creatinine 1.12 H Estim Creat Clear Calc 34.24 Est GFR (MDRD) Af Amer 60 Est GFR (MDRD) Non-Af 50 L BUN/Creatinine Ratio 21.4 H Glucose 156 H Calcium 8.3 L POC Glucose 08/22/18 08/22/18 08/21/18 06:44 00:09 14:57 POC Glucose 215 H 211 H 463 H* 08/21/18 12:06 POC Glucose 338 H Medical Necessity - Tobacco Use Smoking Status: Never smoker Tobacco Use: Non-smoker Assessment/Plan All Active Problems (Last Updated 08/19/18 @ 15:13 by Joe Corrales MD) Atrial fibrillation with rapid ventricular response (Acute) 1. Atrial fibrillation with rapid ventricular response and acute on chronic diastolic congestive heart failure-breathing and LE edema improved. Renal function good. -Lasix to PO. -Seems to be much improved with Coreg 6.25. Will continue to trend overnight to see if dose adjustments need made. -Echo in mar 2018 with EF 65%, st 1 diastolic dysfunction, 1-2+ MVI, RVSP 26 mmHg, mild TVI. -Continue eliquis 2. Urinary retention contributing to #1 - Maintain corrales. O/p follow up with Dr. Chavez after DC. 3. Dysphagia - continue modified diet. 4. Hyponatremia-suspected hypervolemic secondary to CHF exacerbation, now resolved. 5. Suspected CKD stage III-continue to trend. Tolerating diuresis well. 6. History of CVA 2017, left MCA 7. Type 1 diabetes with hyperglycemia-Continue prandial, mealtime, and SSI. Pump may no longer be appropriately maintaining her blood sugar - Currently off and more stable. 8. Chronic normocytic anemia-not significantly below baseline. 9. History of PAD-prior angiogram, plan for repeat angiogram with Dr. Corey as an outpatient. DVT prophylaxis: Eliquis DC planning: Return to SNF tomorrow if heart rate, CHF, and glucose are stable. This patient was seen by Warner Martinez PA-C under the supervision of Doctor Duke <Edmundo Duke - Last Filed: 08/22/18 12:23> Subjective: Feels good. Decreased edema. - Physical Exam General: Alert, Cooperative HEENT: Atraumatic, Normocephalic Neck: No Nodes, Thyroid Normal Size and Texture Lungs: Clear to auscultation, Normal air movement, No rhonchi, No wheeze Cardiovascular: Regular rate, Regular Rhythm, Normal S1, Normal S2, No murmurs Abdomen: Bowel Sounds Present, Soft, Non Tender, Non-Distended Extremities: No Calf Tenderness, - - trace edema in buttocks Skin: No rashes, No breakdown Psych/Mental Status: Normal Affect, Appropriate Vital Signs Temp Pulse Resp BP Pulse Ox 36.4 C L 93 16 109/51 L 93 08/22/18 08:45 08/22/18 08:45 08/22/18 08:45 08/22/18 08:45 08/22/18 08:45 Oxygen Flow Rate (L/min) 2 Oxygen Delivery Method Room Air Weight: 67.5 kg Body Mass Index (BMI) 27.6 Finger Stick Blood Glucose 140 Intake and Output for Last 24 Hours 08/20/18 08/21/18 08/22/18 23:59 23:59 23:59 Intake Total 1066 / 1066 920 / 920 460 / 460 Output Total 3175 / 3175 2430 / 2430 1200 / 1200 Balance -2109 / -2109 -1510 / -1510 -740 / -740 Laboratory Tests Past 24 Hrs 08/22/18 05:01 Sodium 136 Potassium 3.6 Chloride 99 Carbon Dioxide 30.0 Anion Gap 7 BUN 24 H Creatinine 1.12 H Estim Creat Clear Calc 34.24 Est GFR (MDRD) Af Amer 60 Est GFR (MDRD) Non-Af 50 L BUN/Creatinine Ratio 21.4 H Glucose 156 H Calcium 8.3 L POC Glucose 08/22/18 08/22/18 08/22/18 11:53 06:44 00:09 POC Glucose 234 H 215 H 211 H 08/21/18 08/21/18 14:57 12:06 POC Glucose 463 H* 338 H Assessment/Plan Patient seen and examined independently. Data reviewed. I agree with the above note by the physician research program assistant. 1. Atrial fibrillation with RVR improved * Improved * on carvedilol and anticoagulated with apixaban * increase carvedilol to 6.25 BID 2. Heart failure with preserved ejection fraction * Improving, on room air * ejection fraction of 65% from echocardiogram on April 09, 2018 * Changed back to oral Lasix on 08/22 * weight down to 67.5kg, dry weight around 65kg 3. CKD 3 * Stable * Monitor 4. Diabetes mellitus type 1 * uncontrolled * A1c 10.3 on 07.27.18 * not well controlled with pump * continue Basal and prandial insulin as patient has no established pm head cook at the moment, would continue with this regimen with further modifications as necessary until patient get reestablished with an pm head cook and possibly be reinitiated on an insulin pump. Discussed with the patient who is agreeable with this. * continue SSI 5. Disposition: Plan is for the patient to go back to intermediate facility and then once patient is improved and she can go back to living with her granddaughter and granddaughter's . Code Visit Inpatient E&M: 80292 Subs Hosp L2
[2018-08-22 12:00] LABS: Bedside Glucose 234 mg/dL (70-110)
--- NOTE | 2018-08-22 12:27 | PCM.EXTCARCO ---
- Diet 08/19/18 15:58 Diet: Cardiac/Low Cholesterol Food consistency:: Puree Liquid Consistency:: [place] Thick Is pt able to select menu?: No Diet Comments: Direct supervision; 1500cc FR; use straw; 90 degrees; meds crushed purees Diet: Fluid Restriction Food consistency:: Regular Liquid Consistency:: Regular/Thin Diet Comments: Less than 1500 cc daily Fluid restriction:: 1500 mL - Routine Orders/Code Status Suppository Type: Dulcolax 10mg Suppository Frequency: Daily PRN Routine Lab Work: CBC - 5 days, BMP - 3 days Code Status: Full Code - Wound(s) Right foot Wound Type: Abrasion Right great toe Wound Type: Neuropathic/Diabetic Foot Ulcer Dressing Change: Dry Sterile Dressing - Therapies Physical Therapy: Eval and Treat Occupational Therapy: Eval and Treat Speech Therapy: Eval and Treat - Problem/Diagnosis (1) Atrial fibrillation with rapid ventricular response Status: Acute Current Visit: Yes (2) Acute on chronic diastolic CHF (congestive heart failure) Status: Acute Current Visit: Yes (3) Urinary retention Status: Acute Current Visit: Yes (4) History of CVA (cerebrovascular accident) Status: Chronic Current Visit: Yes (5) Paroxysmal atrial fibrillation Status: Chronic Current Visit: No (6) Type 1 diabetes Status: Chronic Current Visit: Yes (7) PAD (peripheral artery disease) Status: Chronic Current Visit: Yes (8) CKD (chronic kidney disease) stage 3, GFR 30-59 ml/min Status: Chronic Current Visit: Yes (9) Dysphagia Status: Chronic Current Visit: Yes - Allergies/Procedures Done in Hospital Allergies/Adverse Reactions: Allergies ezetimibe [From Zetia] Allergy (Verified 08/19/18 12:21) Other tamsulosin [From Flomax] Adverse Reaction (Verified 08/20/18 11:23) Low blood pressure Procedures: None - Type of Care/Length of Stay Estimated LOS: Convalescent Care Less Than 30 days Type of Care Needed: Skilled Rehab Potential: Fair Prognosis: Fair - Additional Orders/Day of Discharge Additional Orders: Monitor daily weights. Day of Discharge: 08/22/18 - Dietary and Speech Recommendations Dietitian Recommendations/Changes: Rec SENIOR PHP WEB DEVELOPER eval. Rec diet change to Carb controlled/ cardiac diet/ low sodium diet w/ fluid restriction as indicated. Rec change ONS to Glucerna 60ml TID when adequate PO intake established. Rec Walt 1pkg BID for wound healing. - Follow Up Care Primary Care Physician: Wil Gorman MD [Primary Care Provider] - Please follow up with your Primary Care Physician in: 1-2 weeks Please Follow Up With: Ace Chavez MD When: 1 week
--- NOTE | 2018-08-22 12:33 | DS.PCM_ITS ---
<MichelleWarner - Last Filed: 08/22/18 12:41> Discharge Date and Diagnosis - Problem List Patient Problems: Active and Suspected Problems (Last Updated 08/19/18 @ 15:13 by Joe Corrales MD) Urinary retention (Acute) Acute on chronic diastolic CHF (congestive heart failure) (Acute) Atrial fibrillation with rapid ventricular response (Acute) Date of Admission: 08/19/18 Date of Discharge: 08/22/18 - Primary Discharge Diagnosis Active and Suspected Problems (Last Updated 08/19/18 @ 15:13 by Joe Corrales MD) Acute on chronic diastolic CHF (congestive heart failure) (Acute) Atrial fibrillation with rapid ventricular response (Acute) Urinary retention (Acute) Dysphagia Hypervolemic hyponatremia - resolved CKDIII hx CVA T1 DM - brittle Chronic normocytic anemia Hx PAD - Secondary Discharge Diagnosis Chronic Problems (Last Updated 08/19/18 @ 15:13 by Joe Corrales MD) Low blood pressure (Chronic) History of CVA (cerebrovascular accident) (Chronic) Type 1 diabetes (Chronic) PAD (peripheral artery disease) (Chronic) CKD (chronic kidney disease) stage 3, GFR 30-59 ml/min (Chronic) Dysphagia (Chronic) Insulin pump in place (Chronic) Nonrheumatic mitral (valve) insufficiency (Chronic) Paroxysmal atrial fibrillation (Chronic) Arterial ischemic stroke, MCA, left, acute (Chronic) Right sided weakness (Chronic) Glaucoma (Chronic) Hospital Course and Treatment Imaging Results: RAD/Chest 1 View (Portable) IMPRESSION: Mild degree of vascular congestion with superimposed bilateral pleural effusions and bibasilar atelectasis worse on the left side. Consultations 08/19/18 16:40 Consult: Onc/Wound/crown perforator operator Routine Comment: Operations: None Procedures: None Summary of Care Provided: Hospital course: The patient is a 78 year old F with past medical history of paroxysmal atrial fibrillation, diastolic congestive heart failure, type 1 diabetes on insulin pump, history of CVA in 2017, history of PAD with nonhealing right lower extremity ulcer, underlying dysphagia on a modified diet, history of chronic normocytic anemia, who presented to the emergency room from the taxation consultant's office after being found to have atrial fibrillation with RVR. In the emergency room she had a heart rate into the 130s, she also appeared to have acute congestive heart failure with increased lower extremity edema, elevated BNP, recent 20 pound weight gain over the past 2 weeks, shortness of breath that is been worsening over the past several days, chest x-ray consistent with CHF. She also had difficulty emptying her bladder however she had not seen her urologist in over a year. She was admitted to the PCU on telemetry and placed on IV Lasix. She had an echocardiogram earlier this year with an EF of 65%, stage I diastolic dysfunction, 1-2+ MVI, so repeat was not performed. Initially she had some diuresis but not significantly, and when she attempted to void and was unable to we assessed a post void residual and she was found to have greater than 999 cc in her bladder that she was unable to empty. A Brand catheter was placed. Patient is unable to tolerate flomax. Patient had much improved diuresis after placement of the Brand catheter. She continued to have tachycardia and was started on Coreg which was increased to 6.25 mg which did control her heart rate well. During her time here she also had very fluctuant blood sugars. Her insulin pump was stopped and she was started on a new insulin regimen which at this time is controlling her blood sugars well. She was started on 15 units of Lantus daily, 5 units NovoLog 3 times daily, and a sliding scale as well. She should continue this new regimen at discharge and be off of her pump. Patient has significant underlying debility and is from a halfway-[facility]. Her granddaughter plans to take her home to take care of her at home as she is an ENTERTAINMENT REPORTER, however her home is not ready for her at this time. The plan is for her to go back to [facility] short-term until her granddaughter is able to take her home and care for her there. She did not require supplemental O2 at the time of discharge. Patient was discharged to senior living in stable condition. She will need to follow-up with urology in 1 week and she will have the Brand catheter until she follows up with urology. She will also need to follow-up with her PCP in 1 to 2 weeks, she will need to follow-up with cardiology as directed. This patient was seen by Warner Martinez PA-C under the supervision of Doctor Duke. [] Patient Problems: Active and Suspected Problems (Last Updated 08/19/18 @ 15:13 by Joe Corrales MD) Urinary retention (Acute) Acute on chronic diastolic CHF (congestive heart failure) (Acute) Atrial fibrillation with rapid ventricular response (Acute) - Physical Exam General: Alert, Oriented x3, Cooperative HEENT: Atraumatic, PERRLA, EOMI, Normocephalic Neck: Supple, No JVD, Negative Carotid Bruits Lungs: Clear to auscultation, Normal air movement Cardiovascular: Regular rate, No murmurs Abdomen: Bowel Sounds Present, Soft, Non Tender Extremities: No edema, Capillary Refill Less than 3 Seconds Skin: No rashes, No breakdown Musculoskeletal: No Tenderness to Palpation of Joints or Extremities Neurological: Cranial nerves II-XII grossly intact Psych/Mental Status: Normal Affect, Appropriate, Alert and oriented to time, place, person, mood and affect Vital Signs Temp Pulse Resp BP Pulse Ox 97.5 F L 93 16 109/51 L 93 08/22/18 08:45 08/22/18 08:45 08/22/18 08:45 08/22/18 08:45 08/22/18 08:45 Oxygen Flow Rate (L/min) 2 Oxygen Delivery Method Room Air Weight: 148 lb 12.992 oz Body Mass Index (BMI) 27.6 Finger Stick Blood Glucose 140 Intake and Output for Last 24 Hours 08/20/18 08/21/18 08/22/18 23:59 23:59 23:59 Intake Total 1066 / 1066 920 / 920 460 / 460 Output Total 3175 / 3175 2430 / 2430 1200 / 1200 Balance -2109 / -2109 -1510 / -1510 -740 / -740 Laboratory Tests Past 24 Hrs 08/22/18 05:01 Sodium 136 Potassium 3.6 Chloride 99 Carbon Dioxide 30.0 Anion Gap 7 BUN 24 H Creatinine 1.12 H Estim Creat Clear Calc 34.24 Est GFR (MDRD) Af Amer 60 Est GFR (MDRD) Non-Af 50 L BUN/Creatinine Ratio 21.4 H Glucose 156 H Calcium 8.3 L POC Glucose 08/22/18 08/22/18 08/22/18 11:53 06:44 00:09 POC Glucose 234 H 215 H 211 H 08/21/18 14:57 POC Glucose 463 H* Discharge Diet: Low fat/ Low Cholesterol, 2000 mg Sodium Diet Discharge Activity: Return to Normal Activity Home Medications: Medications to take at Discharge Atorvastatin Calcium [Lipitor] 40 mg PO QHS 03/18/17 netarsudil 0.02 % eye drops 1 drp RIGHT EYE DAILY 10/27/17 Aspirin [Aspirin, Baby] 81 mg PO DAILY 03/14/18 Cholecalciferol (Vitamin D3) [Vitamin D3] 5,000 unit PO DAILY 04/08/18 Cyanocobalamin (Vitamin B-12) [Vitamin B-12] 5,000 mcg PO DAILY 04/08/18 ascorbate calcium (vitamin C) 500 mg tablet 500 mg PO DAILY 08/13/18 docusate sodium 100 mg capsule 100 mg PO QODAY cap 08/13/18 fluorometholone 0.1 % eye drops,suspension 1 drp OPHTHALMIC Q12H ml 08/13/18 zinc 50 mg tablet 50 mg PO DAILY 08/13/18 Calcium Carb/Vitamin D3/Vit K1 [Calcium + D Soft Chewable Tab] 1 ea PO DAILY 08/19/18 Dextran 70/Hypromellose/Pf [Artificial Tears Drops] 1 ea EACH EYE TID 08/19/18 Mineral Oil/Petrolatum,White [Refresh P.m. Ointment] 1 applicatio EACH EYE QHS 08/19/18 Polyvinyl Alcohol [Artificial Tears] 1 drop EACH EYE TID 08/19/18 apixaban 5 mg tablet 5 mg PO BID #60 tab 08/19/18 Acetaminophen [Tylenol Tablet] 650 mg PO Q6H PRN PRN tab 08/22/18 Albuterol Aerosols [Ventolin Aerosols] 2.5 mg INHALATION Q4H PRN PRN vial.neb. 08/22/18 Carvedilol [Coreg (Beta Ruddy)] 6.25 mg PO BID tab 08/22/18 Furosemide [Lasix] 40 mg PO BID@1000,1800 tab 08/22/18 Gabapentin [Neurontin] 100 mg PO BIDCM cap 08/22/18 Glucerna Shake 120 ml PO TIDCM liquid 08/22/18 Insulin Glargine [Lantus SoloStar Pen] 15 units SUBCUT DAILY pen 08/22/18 Insulin Lispro [Humalog KwikPen] 5 unit SUBCUT TIDAC insuln.pen 08/22/18 Insulin Lispro [Humalog KwikPen] See Protocol SUBCUT Q6 insuln.pen 08/22/18 Pantoprazole Sodium [Protonix] 40 mg PO DAILY tab 08/22/18 Senna/Docusate Sodium [Senokot-S] 2 tab PO BID PRN PRN tab 08/22/18 Primary Care Physician: Wil Gorman MD [Primary Care Provider] - Please follow up with your Primary Care Physician in: 1-2 weeks Please Follow Up With: Ace Chavez MD When: 1 week Additional Instructions: Check daily weights Disposition: Retirement facility Minutes spent on discharge:: 40 Patient Condition:: Stable Medical Necessity - Tobacco Use Smoking Status: Never smoker Tobacco Use: Non-smoker Meaningful Use Info Meaningful Use Diagnoses (Choose all that apply): CHF - CHF JOHN/ARB ordered at discharge?: No Reason JOHN/ARB not ordered?: Hypotension Documented LVEF (%): 65 <Edmundo Duke - Last Filed: 08/22/18 13:29> Discharge Date and Diagnosis - Primary Discharge Diagnosis Active and Suspected Problems (Last Updated 08/19/18 @ 15:13 by Joe Corrales MD) Urinary retention (Acute) Acute on chronic diastolic CHF (congestive heart failure) (Acute) Atrial fibrillation with rapid ventricular response (Acute) 1. Atrial fibrillation with RVR improved * Improved * on carvedilol and anticoagulated with apixaban * increase carvedilol to 6.25 BID 2. Heart failure with preserved ejection fraction * Improving, on room air * ejection fraction of 65% from echocardiogram on April 09, 2018 * Changed back to oral Lasix on 08/22 * weight down to 67.5kg, dry weight around 65kg 3. CKD 3 * Stable * Monitor 4. Diabetes mellitus type 1 * uncontrolled * A1c 10.3 on 07.27.18 * not well controlled with pump * continue Basal and prandial insulin as patient has no established sporting goods salesperson at the moment, would continue with this regimen with further modifications as necessary until patient get reestablished with an sporting goods salesperson and possibly be reinitiated on an insulin pump. Discussed with the patient who is agreeable with this. * continue SSI - Secondary Discharge Diagnosis Chronic Problems (Last Updated 08/19/18 @ 15:13 by Joe Corrales MD) Low blood pressure (Chronic) History of CVA (cerebrovascular accident) (Chronic) Type 1 diabetes (Chronic) PAD (peripheral artery disease) (Chronic) CKD (chronic kidney disease) stage 3, GFR 30-59 ml/min (Chronic) Dysphagia (Chronic) Insulin pump in place (Chronic) Nonrheumatic mitral (valve) insufficiency (Chronic) Paroxysmal atrial fibrillation (Chronic) Arterial ischemic stroke, MCA, left, acute (Chronic) Right sided weakness (Chronic) Glaucoma (Chronic) Hospital Course and Treatment Consultations 08/19/18 16:40 Consult: Onc/Wound/crown perforator operator Routine Comment: Operations: None Procedures: None Summary of Care Provided: Patient seen and examined independently. Data reviewed. I agree with the above note by the physician programs assistant. 70-year-old white female presents with CHF and A. fib with RVR. Patient was diuresed with IV Lasix transition over to oral. Heart rate is controlled with increasing carvedilol. Patient did have uncontrolled blood sugar and it was very labile ranging from very high to very low. Patient's insulin pump was discontinued patient was placed on basal as well as prandial insulin. We will continue with the Ativan insulin regimen but may need further modification until patient can further be established with an sporting goods salesperson where she may resume an insulin pump at that time. [] - Physical Exam Vital Signs Temp Pulse Resp BP Pulse Ox 36.4 C L 93 16 109/51 L 93 08/22/18 08:45 08/22/18 08:45 08/22/18 08:45 08/22/18 08:45 08/22/18 08:45 Oxygen Flow Rate (L/min) 2 Oxygen Delivery Method Room Air Weight: 67.5 kg Body Mass Index (BMI) 27.6 Finger Stick Blood Glucose 140 Intake and Output for Last 24 Hours 08/20/18 08/21/18 08/22/18 23:59 23:59 23:59 Intake Total 1066 / 1066 920 / 920 460 / 460 Output Total 3175 / 3175 2430 / 2430 1200 / 1200 Balance -2109 / -2109 -1510 / -1510 -740 / -740 Laboratory Tests Past 24 Hrs 08/22/18 05:01 Sodium 136 Potassium 3.6 Chloride 99 Carbon Dioxide 30.0 Anion Gap 7 BUN 24 H Creatinine 1.12 H Estim Creat Clear Calc 34.24 Est GFR (MDRD) Af Amer 60 Est GFR (MDRD) Non-Af 50 L BUN/Creatinine Ratio 21.4 H Glucose 156 H Calcium 8.3 L POC Glucose 08/22/18 08/22/18 08/22/18 11:53 06:44 00:09 POC Glucose 234 H 215 H 211 H 08/21/18 14:57 POC Glucose 463 H* Discharge Diet: Low fat/ Low Cholesterol, 2000 mg Sodium Diet Discharge Activity: Return to Normal Activity Disposition: Retirement facility Minutes spent on discharge:: 35 Patient Condition:: Stable Medical Necessity - Tobacco Use Smoking Status: Never smoker Tobacco Use: Non-smoker Meaningful Use Info Meaningful Use Diagnoses (Choose all that apply): CHF - CHF JOHN/ARB ordered at discharge?: No Reason JOHN/ARB not ordered?: Hypotension Documented LVEF (%): 65 Code Visit Inpatient E&M: 80424 Disch Hosp
[2018-08-22 13:46] VITALS: BP 99/55; PULSE 96; RESP 18; TEMP 36.4; O2SAT 96
--- NOTE | 2018-08-22 13:53 | NURSING ---
report called to Nestor CERRATO at [facility]. pt's insulin pump and home glucometer sent with granddaughter
== END 2018-08-22 14:10 | disposition skilled nursing facility (03) | DRG 308 ==
LOC: ED 13:11 → PCU 16:57
PROVIDERS: Physician Assistant; Admitting Provider Hospitalist; Emergency Provider Emergency Medicine; Family Provider Family Medicine; PCP Family Medicine; Referring Provider Hospitalist
DX: I48.91 Unspecified atrial fibrillation (principal); I50.33 Acute on chronic diastolic (congestive) heart failure; E87.1 Hypo-osmolality and hyponatremia; D64.9 Anemia, unspecified; R33.9 Retention of urine, unspecified; K21.9 Gastro-esophageal reflux disease without esophagitis; E10.65 Type 1 diabetes mellitus with hyperglycemia; E10.51 Type 1 diabetes mellitus with diabetic peripheral angiopathy without gangrene; N18.3 Chronic kidney disease, stage 3 (moderate); E10.22 Type 1 diabetes mellitus with diabetic chronic kidney disease; R13.10 Dysphagia, unspecified; Z79.4 Long term (current) use of insulin; Z79.82 Long term (current) use of aspirin; Z86.73 Personal history of transient ischemic attack (TIA), and cerebral infarction without residual deficits; E78.5 Hyperlipidemia, unspecified
CPT/HCPCS: 36415; 71045; 80048; 82962; 83735; 83880; 84484; 85025; 85610; 92526; 92610; 93005; 94667; 97162; 97166; 97530; 97802; 99285; A4216; J1940; J2405; J7799

== ENCOUNTER 2018-08-25 11:43 | Emergency (ER) | payer MEDICARE, OTHER, SELFPAY ==
[2018-08-19 16:01] VITALS: BMI 27.6
[2018-08-25 11:44] VITALS: BP 116/74; PULSE 79; RESP 17; TEMP 36.8; O2SAT 99; BMI 27.8
--- NOTE | 2018-08-25 12:12 | RAD_ITS ---
STUDY: X-RAY CHEST REASON FOR EXAM: Female, 78 years old. Chest pain and shortness of breath. TECHNIQUE: Single AP portable view of the chest. COMPARISON: Comparison is made with prior study dated August 19, 2018. FINDINGS: EKG electrodes are seen. Persistent pleural-parenchymal changes at the left lung base although this has improved as compared to prior study. The right lung base is now clear. There is no demonstrated pleural abnormality. Normal size heart. Normal mediastinum and kahlil. Normal visualized pulmonary arteries. There is atherosclerotic tortuosity of the aortic arch and descending thoracic aorta. There are diffuse degenerative changes of the visualized thoracic spine. Normal visualized ribs, clavicles, and shoulders. There is no demonstrated abnormality of the visualized soft tissue structures of the upper abdomen. RAD/Chest 1 View (Portable) IMPRESSION: The right lung base is now clear. Residual pleural parenchymal changes at the left lung base although this has improved as compared to prior study. Electronically Signed: Janes Boyle, at 12:41 EDT , Service support ,
--- NOTE | 2018-08-25 12:12 | EKG12_ITS ---
Test Reason : SOB Blood Pressure : / mmHG Vent. Rate : 083 BPM Atrial Rate : 105 BPM P-R Int : 000 ms QRS Dur : 092 ms QT Int : 362 ms P-R-T Axes : 000 034 062 degrees QTc Int : 425 ms Atrial fibrillation Low voltage QRS ST & T wave abnormality, consider lateral ischemia Abnormal ECG Confirmed by LEAH NY, SARAH ([id number]), brands editor CODEY KLEIN ([id number]) on 08/30/2018 12:24:55 PM Referred By: Confirmed By:SARAH LYNN MD
--- NOTE | 2018-08-25 12:14 | ED.DCSUM_ITS ---
- ER Visit Summary Date of Service: 08/25/18 Chief Complaint: Shortness of breath and failure to thrive History of Present Illness: The patient is a 78 F history of A. fib on Eliquis prior stroke, diabetes with insulin pump CHF anemia and urinary retention. Patient was just hospitalized last discharged on Thursday. She is currently at home with caregivers primarily her granddaughter. And is just failing to thrive. She is been short of breath. No chest pain or hemoptysis. No history of DVT or PE. She has had leg swelling currently she does not have leg swelling. She was recently in a long-term due to her granddaughter needing back surgery and could not care for but now she is back at home. They deny any chest pain, hemoptysis or fever. She typically can walk but right now she is nonweightbearing. Diabetic ulcer on her right foot. Patient states is extremely difficult to eat. But she is not having vomiting or diarrhea. Physical Examination: Alert female no acute distress. Accompanied by her granddaughter. Vital signs are stable afebrile. Pulse ox is 99% on room air Hypoxia. She is in no distress. H EENT exam is unremarkable. Moist wheeze members. Neck nontender no lymphadenopathy no JVD. Lungs clear to auscultation bilaterally. Heart regular rhythm no murmur. S1 nontender. Abdomen soft nontender, nondistended normal bowel sounds no peritoneal signs. Remedies moves all 4. Calves are currently nontender without edema or cords. There is no swelling or lower extremities. Neurologically she is awake and alert. She is moving all 4 extremities. Test Results: Chest x-ray shows a small left pleural effusion which is actually improved from the chest x-ray a week ago that had bilateral effusions and the one on the left was worse than it is today. EKG is A. fib rate of 83 unchanged from August 20. CBC White count 6. Hemoglobin 10 which is her baseline chronic anemia. Electrolytes BUN 22 creatinine 1.2 baseline renal insufficiency glucose 295. Gap of 3. Troponin normal. BNP 266 previously was 221. Emergency Department Course and Treatment: Elderly female failure to thrive. Repeat exam patient is doing well at 1528. Truly been no change. She is resting comfortably. I spoke to her granddaughter and I believe her at length. They do not want her hospitalized at this time if she does not medically needed. There is no medical necessity to admit her. They are already working through social insurance adviser at the long-term she was recently in to get home health assistance. I encouraged them if they want to speak to our social media marketing analyst at this time which they deferred at this time but may follow-up with him also. Treatment Plan: Continue current medications. They have an appointment to see her primary care physician in about 2 weeks. Disposition: Discharge Impression: Acute dyspnea of uncertain etiology Chronic left pleural effusion. Chronic A. fib Anticoagulated on Eliquis Chronic simple anemia. This note was generated with [employer] dictation software. It may contain incorrect words, spelling, and punctuation that were not noted in review of the chart prior to signing ED Disposition - Plan for ED Patient: Referrals: Elizabeth Coto MD [Primary Care Provider] -
[2018-08-25 12:50] VITALS: BP 120/81; PULSE 105; PULSE 110; RESP 17; TEMP 36.8; O2SAT 96; O2SAT 97
[2018-08-25 13:01] LABS: Absolute Lymphocyte Count 1.59 X10^3/uL (0.83-4.51); Absolute Neutrophil Count 4.2 X10^3/uL (2.0-7.7); Basophil# 0.05 X10^3/uL; Basophil% 0.8 % (0-1); Eosinophil# 0.23 X10^3/uL; Eosinophils% 3.5 % (0-5); Hematocrit 32.2 % (37-47); Hemoglobin 10.4 g/dL (12.0-15.0); Lymphocyte # 1.59 X10^3/ul (4.0); Lymphocyte % 24.1 % (19-41); Mean Corp Hgb Conc 32.3 g/dL (32-36); Mean Corpuscular Hgb 28.3 pg (27.0-32.0); Mean Corpuscular Volume 87.5 fL (81-99); Mean Platelet Vol. 10.2 fl (6.2-12.0); Monocyte# 0.53 X10^3/uL; NRBC Flagged by Analyzer 0 % (0-5); Neutrophil # 4.18 X10^3/uL (2.7-7.7); Neutrophil % 63.4 % (47-70); Platelet Count 349 K/mm3 (150-450); RBC Distribution Width SD 48.1 fl (35.1-43.9); Red Blood Count 3.68 M/mm3 (4.2-5.4); White Blood Count 6.6 K/mm3 (4.4-11.0)
[2018-08-25 13:02] VITALS: O2SAT 96
[2018-08-25 13:17] LABS: Anion Gap 3 (5-15); BUN 22 mg/dL (7-18); BUN/Creat Ratio 17.7 RATIO (10-20); Calcium,Total 8.6 mg/dL (8.5-10.1); Chloride 98 mmol/L (98-107); Creatinine, Serum 1.24 mg/dL (0.55-1.02); EST Glomerular Filtration Rate 44 mL/min (>60); Est Glom Filt Rate - Afr Amer 54 mL/min (>60); Estimated Creatinine Clearance 32.29 ml/min; Glucose 295 mg/dL (74-106); Potassium 3.7 mmol/L (3.5-5.1); Sodium Level 134 mmol/L (136-145)
[2018-08-25 13:29] LABS: BNP,B-Type NATRIURETIC PEPTIDE 266.3 pg/mL (0-100)
[2018-08-25 15:01] VITALS: BP 135/65; PULSE 98; RESP 20; O2SAT 94
--- NOTE | 2018-08-25 15:32 | ED.DEP ---
ED Disposition - Plan for ED Patient: Disposition: Home or Assisted Living Instructions: Dyspnea Referrals: Elizabeth Coto MD [Primary Care Provider] - Keep [facility] appointment Additional Instructions: Return if feeling worse. Continue current medications. Keep your scheduled appointment with her doctor.
[2018-08-25 16:12] VITALS: BP 137/61; PULSE 86; RESP 15; O2SAT 98
== END 2018-08-25 16:14 | disposition home or self-care (01) ==
PROVIDERS: Emergency Provider Emergency Medicine; Family Provider Internal Medicine; PCP Internal Medicine
DX: R06.00 Dyspnea, unspecified (principal); J90 Pleural effusion, not elsewhere classified; I48.2 Chronic atrial fibrillation; Z79.01 Long term (current) use of anticoagulants; D53.9 Nutritional anemia, unspecified; F41.9 Anxiety disorder, unspecified; R62.7 Adult failure to thrive; N28.9 Disorder of kidney and ureter, unspecified; I50.9 Heart failure, unspecified; E11.621 Type 2 diabetes mellitus with foot ulcer; L97.519 Non-pressure chronic ulcer of other part of right foot with unspecified severity; Z86.73 Personal history of transient ischemic attack (TIA), and cerebral infarction without residual deficits; Z79.4 Long term (current) use of insulin; Z96.41 Presence of insulin pump (external) (internal); Z79.82 Long term (current) use of aspirin; Z79.899 Other long term (current) drug therapy
CPT/HCPCS: 71045; 80048; 83880; 84484; 85025; 93005; 99284; A4216